=== PATIENT | male | born 1950 | race Caucasian/White ===

== ENCOUNTER 2019-08-20 06:32 | Outpatient (CLI) | payer MEDICARE, BC, SELFPAY ==
--- NOTE | ~2019-08-20 | MR_ITS ---
EXAMINATION: MR brain/brain stem wo/w con EXAM DATE: 08/20/2019 08:10 INDICATION: Abnormal involuntary movement. TECHNIQUE: Magnetic resonance imaging (MRI) of the brain/brain stem obtained without contrast. Sagit angela T1, axial diffusion, gradient echo (T2*), T1, T2, FLAIR sequences obtained. Patient was then inj ected with 20 cc intravenous Multihance contrast. Axial and coronal postcontrast T1 weighted sequence s obtained. Comparison is made to prior examination from 09/17/2018. FINDINGS: There are no areas of restricted diffusion to suggest acute infarction. There is no acute hemorrhage seen on the T2*, a hemosiderin sensitive sequence. No intraparenchymal brain mass lesion. There is mild periventricular and subcortical T2/FLAIR signal hyperintensity, nonspecific but probab ly related to small vessel ischemic disease (microangiopathy). There is mild prominence of the sulc i and ventricles related to cerebral atrophy. There are no extra-axial collections. Flow voids are seen in the cerebral arteries on the T2-weighted sequences consistent with their expected patency. The orbits are unremarkable. Soft tissue is unremarkable. There are no areas of abnormal enhancemen t on the postcontrast images. Small to moderate-sized left maxillary sinus mucous retention cyst. The re is no significant interval change. IMPRESSION: 1. No acute intracranial findings. 2. Chronic age related findings. Reviewed, dictated and finalized at location B. 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
[2019-08-20 07:46] LABS: Blood Urea Nitrogen 18 mg/dL (8-26); Estimated Glomerular Filt Rate > 60
== END 2019-08-20 06:33 | disposition home or self-care (01) ==
PROVIDERS: PCP Internal Medicine; Visit Provider Internal Medicine
DX: R25.9 Unspecified abnormal involuntary movements (principal); Z74.09 Other reduced mobility
CPT/HCPCS: 70553; A9577

== ENCOUNTER 2019-09-12 06:37 | Outpatient (CLI) | payer MEDICARE, BC, SELFPAY ==
--- NOTE | 2019-09-12 | ECHO_ITS ---
Patient Info Name: Josue Meza Age: 69 years : 1950 Gender: Male Ht: 72 in Wt: 240 lbs BSA: 2.38 m2 HR: 58 bpm BP: 133 / 82 mmHg Technical Quality: Fair Exam Date: 09/12/2019 6:50 AM Exam Location: [facility] Patient Status: Outpatient Admit Date: 09/12/2019 Staff Ordering Physician: PHYSICIAN NOT ON STAFF, NONSTAFF Activities Therapist: Jamia Lara RDCS Attending Provider: PHYSICIAN NOT ON STAFF, NONSTAFF Exam Type: CA echo dop color flow w con Study Info Indications I42.2 - Other hypertrophic cardiomyopathy Complete two-dimensional, color flow and Doppler transthoracic echocardiogram is performed with contrast to opacify the left ventrical and to improve the deliniation of the left ventrical endocarial boarders. Contrast/Agitated Saline Contrast/Ag. Saline: Definity Amount: 1.00 ml Administered By: Alo Oliveira RN IV Access Condition: patent with no signs of infiltration New IV Access: Left and Outer Forearm Site Condition: IV removed Summary 1. Left ventricular chamber dimension is mildly enlarged. 2. Definity contrast administered improved wall motion interpretation. 3. There is moderate asymmetric septal increased left ventricular wall thickness suggestive of hypertrophic cardiomyopathy. No LVOT obstruction. 4. Left ventricular systolic function is normal, estimated at 55-60%. 5. The left ventricular diastolic function is grade II diastolic dysfunction. 6. E/e' 15 is elevated. 7. Left atrial chamber dimension is mildly enlarged. 8. There is moderate aortic valve sclerosis. 9. There is trace aortic valve regurgitation. 10. There is trace mitral valve regurgitation. 11. There is mild tricuspid valve regurgitation. 12. No pulmonary hypertension, estimated pulmonary arterial systolic pressure is 16 mmHg. 13. There is trace pulmonic regurgitation. Left Ventricle E/e' 15 is elevated. There is moderate asymmetric septal increased left ventricular wall thickness suggestive of hypertrophic cardiomyopathy. No LVOT obstruction. Definity contrast administered improved wall motion interpretation. Left ventricular chamber dimension is mildly enlarged. Left ventricular systolic function is normal, estimated at 55-60%. The left ventricular diastolic function is grade II diastolic dysfunction. Right Ventricle Right ventricular chamber dimension is normal. Right ventricular systolic function is normal. Left Atria Left atrial chamber dimension is mildly enlarged. Right Atria Right atrial chamber dimension is normal. Aortic Valve The aortic valve is trileaflet. There is moderate aortic valve sclerosis. There is no aortic valve stenosis. There is trace aortic valve regurgitation. Pulmonic Valve There is trace pulmonic regurgitation. Mitral Valve There is no mitral valve stenosis. There is trace mitral valve regurgitation. Tricuspid Valve There is mild tricuspid valve regurgitation. No pulmonary hypertension, estimated pulmonary arterial systolic pressure is 16 mmHg. Pericardium/Pleural There is no pericardial effusion. Inferior Vena Cava Normal inferior vena cava with >50% collapse upon inspiration consistent with normal right atrial pressure, 5 mmHg. Aorta The aortic root size at the sinus of Valsalva is normal. Left Ventricular Outflow Tract Name Value
== END 2019-09-12 06:38 | disposition home or self-care (01) ==
PROVIDERS: PCP Internal Medicine
DX: I42.2 Other hypertrophic cardiomyopathy (principal)
CPT/HCPCS: C8929

== ENCOUNTER 2020-04-27 14:39 | Outpatient (CLI) | payer MEDICARE, BC, SELFPAY ==
--- NOTE | ~2020-04-27 | XR_ITS ---
XR_CERV2-3V_CR DATE: 04/27/2020 15:24 INDICATION: Neck pain TECHNIQUE: AP, open-mouth, lateral, swimmer views COMPARISON: None FINDINGS: There is reversal of cervical curvature. There is compensatory dextroscoliosis of the cervi salvador spine, levoscoliosis of the upper thoracic spine. There is moderate loss of interspace height at C3-4. There is severe degenerative disc disease and lo ss of height at C4-5 and particularly C5-6 and C6-7. There is uncovertebral joint spurring at C3-4 and particularly C4-5 and C5-6, C6-7. There is degenera tive change at the apophyseal joints as well. IMPRESSION: Reversal of curvature, scoliosis Extensive degenerative changes Reviewed, dictated and finalized at Location A. Reviewed, dictated and finalized at location A.
== END 2020-04-27 14:40 | disposition home or self-care (01) ==
PROVIDERS: PCP Internal Medicine; Visit Provider Internal Medicine
DX: M50.323 Other cervical disc degeneration at C6-C7 level (principal)
CPT/HCPCS: 72040

== ENCOUNTER → 2020-12-28 02:32 | Outpatient (CLI) | payer MEDICARE, BC, SELFPAY ==
[2020-12-28 23:32] LABS: SARS-CoV-2 RNA PCR Negative
== END ==
PROVIDERS: PCP Internal Medicine; Visit Provider Internal Medicine Gastroenterology
DX: Z01.812 Encounter for preprocedural laboratory examination (principal); Z20.822 Contact with and (suspected) exposure to COVID-19
CPT/HCPCS: C9803; U0003; U0005

== ENCOUNTER 2020-12-31 01:02 | Day surgery (SDC) | payer MEDICARE, BC, SELFPAY ==
[2020-12-22 13:05] VITALS: BMI 34.0
[2020-12-31 10:48] VITALS: BP 154/76; PULSE 53; RESP 20; TEMP 36; O2SAT 97; BMI 34.0
[2020-12-31 11:09] LABS: Glucose Point of Care 127 mg/dl (65-105)
[2020-12-31] MEDS: LACTATED RINGERS 1,000 ML 150 ML IV CONT (11:16)
--- NOTE | 2020-12-31 11:28 | WPDGICN ---
Assessment and Plan Assessment and plan (1) Hx of colonic polyps: Code(s): Z86.010 - Personal history of colonic polyps Status: Acute Assessment and Plan: Patient has a history of colon polyps. Last exam was approximately 4 years ago. Plan is for surveillance examination at this time. Follow-up at 3-5 year intervals is advised in the future. Further recommendations will be given after endoscopy. (2) Fecal incontinence: Qualifiers: Fecal incontinence type: unspecified Qualified Code(s): R15.9 - Full incontinence of feces Code(s): R15.9 - Full incontinence of feces Status: Acute Assessment and Plan: Patient has poor sphincter control. This will be analyzed at the time of colonoscopy. Agree with fiber supplementation and perhaps trial of Questran in the interim. Further recommendations may be given after endoscopy. (3) Rectal bleeding: Code(s): K62.5 - Hemorrhage of anus and rectum Status: Acute Assessment and Plan: Patient notes rectal bleeding. Appears to happen mostly with wiping. He has been significant amount on occasions. Plan is to continue fiber supplementation. Patient has already had hemorrhoid surgery once in the past. He is reluctant to proceed with this again. This will be evaluated at time colonoscopy. (4) GALVEZ (nonalcoholic steatohepatitis): Code(s): K75.81 - Nonalcoholic steatohepatitis (GALVEZ) Status: Acute Assessment and Plan: Patient known to have fatty liver. Liver biopsy at 2016 suggesting concomitant cirrhosis of liver. Patient should be maintained on low-fat diet. Weight loss is encouraged. Supportive care at this time. No specific medical therapy is been definitive for this condition. (5) Obesity (BMI 30-39.9): Code(s): E66.9 - Obesity, unspecified Status: Acute (6) History of gastric bypass: Code(s): Z98.84 - Bariatric surgery status Status: Acute GI Consult Note Consult date/time: 12/31/20 11:28 HPI: February Derrick is a 70 year old male Seen in evaluation at the request of Dr. Peralta. patient reports bright red blood per rectum typically small with wiping but on occasion is been significant. Occasionally soiling his clothes. Patient sometimes has poor control. He relates this since having had prior hemorrhoid surgery years ago. Sometimes he feels incontinent. He has rather significant urgency in poor control of stools. Recently has been on a trial of fiber supplementation as well as Questran with inconsistent results. Past medical history is significant for colon polyps most recently 4-5 years ago. Patient is instructed to follow up today for follow-up examination. Previous colonoscopies were performed in [place]. Patient has a distant history of gastric bypass surgery. He underwent cholecystectomy in 2016. At that time liver biopsy revealed Galvez and possible cirrhosis of liver. CT scanning and fiber scanning reveal no other evidence for cirrhosis. Patient's family history is noncontributory. Patient presents today for colonoscopy because of polyps, rectal bleeding and poor bowel movement control. Review of Systems Review of Systems: All systems reviewed & are unremarkable except as noted in HPI and below PMFSH Past Medical History Medical History Abnormal finding of blood chemistry, unspecified Benign essential hypertension BMI 33.0-33.9,adult BMI 34.0-34.9,adult CKD (chronic kidney disease) DM type 2 (diabetes mellitus, type 2) Dog bite Encounter for Medicare annual wellness exam Encounter for routine adult health examination without abnormal findings Encounter for special screening examination for neoplasm of prostate Erectile dysfunction Fecal incontinence Follow up Gout Grade II diastolic dysfunction Hearing loss Hx of colonic polyps Hyperlipidemia Hypoparathyroidism Impaired functional mo
--- NOTE | 2020-12-31 11:44 | WPDANESEPPF ---
Anes - Initial Pre Proc Eval Procedure: Operation Date: 12/31/20 12:00 Proposed Procedures p Colonoscopy - Fran Mendez MD Date/Time: 12/31/20 11:44 Surgeon: Fran Mendez MD Pre Op Diagnosis: rectal bleeding, fecal incont, hx polyp Patient Data Age: 70 Gender: M Height: 6 ft Weight: 113.8 kg Last Vital Signs Temp 96.8 F L 12/31/20 10:48 Pulse 53 L 12/31/20 10:48 Resp 20 12/31/20 10:48 BP 154/76 H 12/31/20 10:48 Pulse Ox 97 12/31/20 10:48 Allergies Allergy/AdvReac Type Severity Reaction Status Date / Time adhesive Allergy Unknown Unknown Verified 12/22/20 12:57 NSAIDS (Non-Steroidal Allergy Unknown Unknown Verified 12/22/20 12:57 Anti-Inflamma Penicillins Allergy Unknown Unknown Verified 12/22/20 12:57 NO BLIND NG TUBE INSERTION Allergy Unknown Unknown Uncoded 12/16/20 14:46 Home Medications Medication Instructions Recorded Confirmed Type aspirin 81 mg tablet,delayed 81 mg PO DAILY 06/04/19 12/22/20 History release calcium citrate 500 mg PO BID tablet 06/04/19 12/22/20 History cholecalciferol (vitamin D3) 25 1,000 unit PO DAILY 06/04/19 12/22/20 History mcg (1,000 unit) capsule ferrous sulfate 325 mg (65 mg 325 mg PO DAILY 06/04/19 12/31/20 History iron) tablet,delayed release zinc 50 mg tablet 50 mg PO DAILY 08/08/19 12/31/20 History omega-3 fatty acids 1,000 mg 1,000 mg PO DAILY 01/14/20 12/22/20 History capsule candesartan 16 mg tablet 16 mg PO DAILY #90 tablet 01/27/20 12/22/20 Rx blood sugar diagnostic #100 each 02/24/20 11/15/20 Rx sitagliptin 100 mg tablet 100 mg PO DAILY #90 tablet 03/16/20 12/31/20 Rx Blood Glucose Monitoring #1 ea NS 06/22/20 11/15/20 Rx blood sugar diagnostic #100 ea 06/22/20 11/15/20 Rx bumetanide 2 mg tablet 1 mg PO DAILY #90 tablet 06/22/20 12/31/20 Rx lancets 30 gauge #100 ea 06/22/20 11/15/20 Rx glimepiride 2 mg tablet 2 mg PO QAM #90 tablet 07/20/20 12/31/20 Rx dapagliflozin 10 mg tablet 10 mg PO DAILY #90 tablet 07/21/20 12/22/20 Rx allopurinol 300 mg tablet 300 mg PO DAILY #30 tablet 10/13/20 12/22/20 Rx atorvastatin 20 mg tablet See Rx Instructions .ROUTE 11/09/20 12/22/20 Rx .COMPLEX #90 tablet cholestyramine (with sugar) 4 gram 4 g PO DAILY #60 g 12/16/20 12/22/20 Rx powder for susp in a packet sodium,potassium,mag sulfates 17.5 See Rx Instructions PO .COMPLEX 12/17/20 Rx gram-3.13 gram-1.6 gram oral soln #354 ml montelukast [Singulair] 10 mg PO DAILY 12/22/20 12/31/20 History nebivolol [Bystolic] 20 mg PO DAILY 12/22/20 12/31/20 History testosterone cypionate 200 mg/mL 200 mg IM .Q3W ml 12/22/20 12/31/20 History intramuscular oil Laboratory Tests 12/31/20 11:07 POC Capillary Glucose 127 mg/dl H mg/dl (65-105) Patient hx anesthesia problems: none Family hx anesthesia problems: none PMFSH Past Medical History Medical History Abnormal finding of blood chemistry, unspecified Benign essential hypertension BMI 33.0-33.9,adult BMI 34.0-34.9,adult CKD (chronic kidney disease) DM type 2 (diabetes mellitus, type 2) Dog bite Encounter for Medicare annual wellness exam Encounter for routine adult health examination without abnormal findings Encounter for special screening examination for neoplasm of prostate Erectile dysfunction Fecal incontinence Follow up Gout Grade II diastolic dysfunction Hearing loss Hx of colonic polyps Hyperlipidemia Hypoparathyroidism Impaired functional mobility, balance, gait, and endurance Lesion of lip On [facility] drug therapy Resting tremor Skin lesion Testicular hypofunction Transient global amnesia Vitamin D deficiency Surgical History Surgical History (Updated 12/31/20 @ 11:33 by Fran Mendez MD) Hx of gastric bypass Family History Family History Mother Family history of glaucoma Hypertension Father Hypertension Cerebrovascular accide
[2020-12-31 12:40] VITALS: BP 111/74; PULSE 55; RESP 19; O2SAT 97
[2020-12-31 12:50] VITALS: BP 118/77; PULSE 61; RESP 23; O2SAT 96
[2020-12-31 13:00] VITALS: BP 141/83; PULSE 60; RESP 22; O2SAT 96
== END 2020-12-31 13:10 | disposition home or self-care (01) ==
PROVIDERS: PCP Internal Medicine; Visit Provider Internal Medicine Gastroenterology
PROC: 0DJD8ZZ Inspection of Lower Intestinal Tract, Via Natural or Artificial Opening Endoscopic (ICD-10-PCS; CPT 45378; principal; 2020-12-31 12:00)
DX: K62.5 Hemorrhage of anus and rectum (principal); R15.9 Full incontinence of feces; K64.8 Other hemorrhoids; K57.30 Diverticulosis of large intestine without perforation or abscess without bleeding; D12.5 Benign neoplasm of sigmoid colon; K63.5 Polyp of colon; K62.1 Rectal polyp; Z79.82 Long term (current) use of aspirin; E11.22 Type 2 diabetes mellitus with diabetic chronic kidney disease; N18.9 Chronic kidney disease, unspecified; E55.9 Vitamin D deficiency, unspecified; G45.4 Transient global amnesia; E03.9 Hypothyroidism, unspecified; E78.5 Hyperlipidemia, unspecified; E66.9 Obesity, unspecified; Z68.34 Body mass index [BMI] 34.0-34.9, adult; K75.81 Nonalcoholic steatohepatitis (NASH)
CPT/HCPCS: 45385; 82948; 88305; J2704; J7120

== ENCOUNTER 2021-02-04 08:32 | Outpatient (CLI) | payer MEDICARE, BC, SELFPAY ==
--- NOTE | ~2021-02-04 | MR_ITS ---
EXAMINATION: MR sacroiliac bettie wo con DATE: 02/04/2021 09:48 INDICATION: Lumbago with sciatica, right side. TECHNIQUE: Magnetic resonance imaging (MRI) of the sacroiliac joints was performed without intravenou s contrast. Sequences included sagittal PD-weighted FS FSE, coronal oblique T1-weighted FSE, T2-weigh deangelo FSE, and T2-weighted FS FSE, and axial oblique T1 FSE and T2-weighted FS FSE. COMPARISON: CT abdomen and pelvis 10/11/2015 FINDINGS: Bone alignment is normal. No fracture. There is mild osteoarthritis of the sacroiliac joints. There i s mild osteoarthritis of the hip joints. There is moderate lumbar spondylosis. The prostate is modera tely enlarged. IMPRESSION: 1. Mild osteoarthritis of the sacroiliac joints. No evidence of inflammatory arthropathy. Reviewed, dictated and finalized at location A. IMPRESSION: 1. Mild osteoarthritis of the sacroiliac joints. No evidence of inflammatory ar thropathy.
--- NOTE | ~2021-02-04 | MR_ITS ---
EXAMINATION: MR lumbar spine wo con DATE: 02/04/2021 09:48 INDICATION: Lumbago with sciatica, right-sided. TECHNIQUE: Magnetic resonance imaging (MRI) of the lumbar spine was performed without intravenous con trast. Sequences included sagittal T2-weighted FSE, sagittal T2-weighted FS FSE, sagittal T1-weighted FSE, and axial T2-weighted FSE. COMPARISON: None FINDINGS: There is 3 degrees dextrocurvature of lumbar spine. There is 3 mm retrolisthesis of L1 on L 2 and L3 on L4 and 3 mm anterolisthesis of L4 on L5. There is mild chronic anterior wedging of T11 an d T12 vertebral bodies. There is moderately decreased disc height at L1-L2 and mildly decreased disc height at L2-L3, L3-L4, and L4-L5 with endplate remodeling. Epidural lipomatosis is noted. The distal spinal cord signal intensity is normal. The conus medullaris is at L1. The following disc levels are specifically discussed: L1-L2: The disc is bulging and has an annular fissure. There is moderate right and mild left facet avi int osteoarthritis. There is moderate bilateral neural foraminal stenosis. There is mild central avila l stenosis. L2-L3: The disc is bulging with superimposed right subarticular zone extrusion with 2.0 cm superior e xtension to the pedicular level. There is moderate right and severe left facet joint osteoarthritis. There is moderate right and mild left neural foraminal stenosis. There is moderate central canal sten osis. L3-L4: The disc is bulging and has an annular fissure. There is severe bilateral facet joint osteoart hritis. There is moderate bilateral neural foraminal stenosis. There is mild central canal stenosis. L4-L5: The disc is bulging and has an annular fissure. There is severe bilateral facet joint osteoart hritis. There is moderate bilateral neural foraminal stenosis. There is no central canal stenosis. L5-S1: The disc is bulging and has an annular fissure. There is severe bilateral facet joint osteoart hritis. There is mild bilateral neural foraminal stenosis. There is mild central canal stenosis. IMPRESSION: 1. Moderate lumbar spondylosis. Reviewed, dictated and finalized at location A.
== END 2021-02-04 08:33 | disposition home or self-care (01) ==
PROVIDERS: PCP Internal Medicine; Visit Provider Internal Medicine
DX: M54.41 Lumbago with sciatica, right side (principal); G89.29 Other chronic pain; M25.559 Pain in unspecified hip; M53.3 Sacrococcygeal disorders, not elsewhere classified; M47.896 Other spondylosis, lumbar region
CPT/HCPCS: 72148; 72197

== ENCOUNTER 2021-04-18 10:37 | Outpatient (CLI) | payer MEDICARE, BC, SELFPAY ==
--- NOTE | ~2021-04-18 | XR_ITS ---
EXAMINATION: XR abdomen/kub 1V EXAM DATE: 04/18/2021 10:59 INDICATION: Kidney stone. TECHNIQUE: Frontal projection of the upper abdomen, frontal projection lower abdomen/pelvis for inter pretation. Comparison is made to prior examination from 07/29/2018. FINDINGS: Bowel gas overlying the left renal contour limiting its evaluation. No definite nephrolithi asis. Cholecystectomy clips. Pelvic calcifications probably phleboliths appear unchanged. Nonobstruct jazlyn bowel gas pattern. There is no organomegaly. There are bony degenerative changes. IMPRESSION: No definite stones identified. Reviewed, dictated and finalized at location A.
--- NOTE | ~2021-04-18 | US_ITS ---
EXAMINATION: US renal BI EXAM DATE: 04/18/2021 11:22 INDICATION: Stage III chronic kidney disease. TECHNIQUE: Multiple grayscale and Doppler images of the kidneys were obtained (by a technologist who performed the scan) and subsequently reviewed. There is no prior study for comparison. FINDINGS: Right kidney: There is normal contour and echogenicity. It measures 10.9 x 4.3 x 5.1 centimeters. T here are no focal renal lesions identified. There is no hydronephrosis. Left kidney: There is normal contour and echogenicity. It measures 12.0 x 5.0 x 6.8 centimeters. Th ere are no focal renal lesions identified. There is a lesion consistent with cyst in the superior po le measuring 4.4 cm. Bladder unremarkable. There is mild to moderate prostatomegaly. IMPRESSION: 1. Left renal cyst. 2. Mild to moderate prostatomegaly. Reviewed, dictated and finalized at location A.
== END 2021-04-18 10:38 | disposition home or self-care (01) ==
PROVIDERS: PCP Internal Medicine; Visit Provider Internal Medicine Nephrology
DX: N18.31 Chronic kidney disease, stage 3a (principal); N28.1 Cyst of kidney, acquired; N40.0 Benign prostatic hyperplasia without lower urinary tract symptoms
CPT/HCPCS: 74018; 76775

== ENCOUNTER 2021-06-28 09:37 | Outpatient (CLI) | payer MEDICARE, BC, SELFPAY ==
--- NOTE | 2021-06-28 11:00 | NEURO_ITS ---
Impression: # Complains of numbness of hands. 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 # Neuropathy, motor and sensory, of axonal type. # Superimposed right Carpal Tunnel Syndrome. # Left ulnar neuropathy around the elbow. # Mildly abnormal needle/EMG exam. Nerve Conduction Studies Anti Sensory Summary Table Stim Site NR Peak (ms) P-T Amp (?V) Site1 Site2 Delta-P (ms) Dist (cm) Alcides (m/s) Left Median Anti Sensory (2-3nd Digit) Wrist 3.8 21.0 Wrist 2-3nd Digit 3.8 14.0 37 Wrist 4.2 13.0 Wrist 2-3nd Digit 3.8 14.0 37 Right Median Anti Sensory (2-3nd Digit) Wrist 3.9 5.0 Wrist 2-3nd Digit 3.9 14.0 36 Wrist 4.1 23.1 Wrist 2-3nd Digit 3.9 14.0 36 Left Radial Anti Sensory (Base 1st Digit) Wrist 3.3 12.0 Wrist Base 1st Digit 3.3 0.0 Right Radial Anti Sensory (Base 1st Digit) Wrist 2.9 8.8 Wrist Base 1st Digit 2.9 0.0 Left Ulnar Anti Sensory (5th Digit) Wrist 3.1 13.6 Wrist 5th Digit 3.1 14.0 45 Right Ulnar Anti Sensory (5th Digit) Wrist 2.7 23.1 Wrist 5th Digit 2.7 14.0 52 Motor Summary Table Stim Site NR Onset (ms) O-P Amp (mV) Site1 Site2 Delta-0 (ms) Dist (cm) Alcides (m/s) Left Median Motor (Abd Poll Brev) Wrist 4.0 2.3 Elbow Wrist 5.8 32.0 55 Elbow 9.8 1.7 Right Median Motor (Abd Poll Brev) Wrist 4.5 2.0 Elbow Wrist 6.0 30.0 50 Elbow 10.5 2.1 Left Ulnar Motor (Abd Dig Minimi) Wrist 3.0 3.8 A Elbow Wrist 7.4 32.0 43 A Elbow 10.4 4.0 B Elbow Wrist 6.3 27.0 43 B Elbow 9.3 3.8 Right Ulnar Motor (Abd Dig Minimi) Wrist 2.9 4.4 A Elbow Wrist 6.0 30.0 50 A Elbow 8.9 3.1 F Wave Studies NR F-Lat (ms) L-R F-Lat (ms) Left Median (Mrkrs) (Abd Poll Brev) 32.16 0.58 Right Median (Mrkrs) (Abd Poll Brev) 31.58 0.58 Left Ulnar (Mrkrs) (Abd Dig Min) 28.44 0.31 Right Ulnar (Mrkrs) (Abd Dig Min) 28.13 0.31 EMG Side Muscle Nerve Root Ins Act Fibs Amp Dur Recrt Comment Right 1stDorInt Ulnar C8-T1 Nml Nml Nml Nml Nml Right Ext Indicis Radial (Post Int) C7-8 Nml Nml Nml Nml Nml Right Ext Digitorum Radial (Post Int) C7-8 Nml Nml Nml Nml Reduced Right BrachioRad Radial C5-6 Nml Nml Nml Nml Nml Right PronatorTeres Median C6-7 Nml Nml Nml Nml Nml Right Abd Poll Brev Median C8-T1 Nml Nml Nml Nml Reduced Left 1stDorInt Ulnar C8-T1 Nml Nml Incr Nml Reduced Left Ext Indicis Radial (Post Int) C7-8 Nml Nml Nml Nml Nml Left Ext Digitorum Radial (Post Int) C7-8 Nml Nml Nml Nml Reduced Left BrachioRad Radial C5-6 Nml Nml Nml Nml Nml Left PronatorTeres Median C6-7 Nml Nml Nml Nml Nml Left Abd Poll Brev Median C8-T1 Nml Nml Incr Nml Reduced Right ABD Dig Min Ulnar C8-T1 Nml Nml Nml Nml Nml Left ABD Dig Min Ulnar C8-T1 Nml Nml Nml Nml Nml Right Abd Poll Long Radial (Post Int) C7-8 Nml Nml Nml Nml Nml Left Abd Poll Long Radial (Post Int) C7-8 Nml Nml Nml Nml Nml MTDD
== END 2021-06-28 09:38 | disposition home or self-care (01) ==
LOC: ANHNEURO 09:41
PROVIDERS: PCP Internal Medicine; Visit Provider Internal Medicine
DX: R20.0 Anesthesia of skin (principal); G56.01 Carpal tunnel syndrome, right upper limb; G56.22 Lesion of ulnar nerve, left upper limb
CPT/HCPCS: 95886; 95911

== ENCOUNTER → 2021-07-01 03:50 | Outpatient (CLI) | payer MEDICARE, BC, SELFPAY ==
[2021-07-01 12:44] LABS: Influenza Control Positive
[2021-07-01 19:27] LABS: SARS-CoV-2 RNA PCR Negative
== END ==
PROVIDERS: PCP Internal Medicine; Visit Provider Internal Medicine
DX: R68.89 Other general symptoms and signs (principal); Z20.822 Contact with and (suspected) exposure to COVID-19
CPT/HCPCS: 87804; 93922; C9803; U0003; U0005

== ENCOUNTER 2021-07-01 13:45 | Outpatient (CLI) | payer MEDICARE, BC, SELFPAY ==
--- NOTE | ~2021-07-01 | US_ITS ---
EXAMINATION: US arterial ankle brachial ind DATE: 07/01/2021 14:32 INDICATION: Encounter for follow-up. Atherosclerotic disease in the arteries of the bilateral lower l imbs with laceration risk factors including hypertension, hypercholesterolemia and diabetes. TECHNIQUE: Segmental pressures and plethysmographic and Doppler waveforms of the brachial and lower e xtremity arteries were obtained. COMPARISON: None. FINDINGS: Right and left brachial artery pressures of 155 mm Hg and 144 mm Hg, respectively, are concordant (no rmal difference <= 30 mmHg). The right ankle-brachial index (EVELIO) is 1.03 (normal >= 0.9-1.0). The right great toe-brachial index (TBI) is 0.57 (normal >= 0.65). Arterial Doppler waveforms are biphasic with brisk systolic upstrokes at both the right posterior tibial and dorsalis pedis arteries. The left EVELIO is 1.18. The left TBI is 0.59. Arterial Doppler waveforms are biphasic with brisk systol ic upstrokes at both the left posterior tibial and dorsalis pedis arteries. IMPRESSION: 1. Mild arterial occlusive disease to the bilateral lower limbs with normal bilateral ABIs but mildly decreased bilateral TBIs Reviewed, dictated and finalized at location B. [employer] IMPRESSION: 1. Mild arterial occlusive disease to the bilateral lower limbs with normal cesar ateral ABIs but mildly decreased bilateral TBIs
== END 2021-07-01 13:46 | disposition home or self-care (01) ==
LOC: ANHIMG 13:51
PROVIDERS: PCP Internal Medicine; Visit Provider Internal Medicine
DX: Z09 Encounter for follow-up examination after completed treatment for conditions other than malignant neoplasm (principal); R68.89 Other general symptoms and signs
CPT/HCPCS: 93922

== ENCOUNTER 2021-10-26 09:25 | Outpatient (CLI) | payer MEDICARE, BC, SELFPAY ==
[2021-10-26 10:38] LABS: Prothrombin Time 13.2 Seconds (11.1-14.7)
[2021-10-26 10:39] LABS: Partial Thromboplastin Time 26.9 SECONDS (22.3-36.8)
== END 2021-10-26 09:26 | disposition home or self-care (01) ==
LOC: ANHSURGERY 09:31
PROVIDERS: Anesthesiology; PCP Internal Medicine; Visit Provider Plastic Surgery
DX: N18.9 Chronic kidney disease, unspecified (principal); Z01.818 Encounter for other preprocedural examination
CPT/HCPCS: 36415; 85610; 85730

== ENCOUNTER 2021-11-02 00:02 | Day surgery (SDC) | payer MEDICARE, BC, SELFPAY ==
[2021-10-18 14:59] VITALS: BMI 34.0
--- NOTE | 2021-10-18 15:16 | PC.NURSE ---
Report to the Outpatient Waiting Room, entrance under the green pavilion located off [facility], at time _0600_ on date _11/02/21_. OR Time: _0730_. - You and your visitor will be asked a series of questions to screen for COVID 19 for your protection. - A mask is required within the hospital. One visitor will be allowed to accompany the patient into the hospital. Patients visitor will be instructed to remain with patient at all times or leave the building. We will allow the visitor to come back to the postoperative area when patient is ready. Preoperative COVID Testing Requirements: NONE Patients may have clear liquids (water, carbonated beverages, clear teas, apple juice) until 3 hours prior to surgery (0430 AM) with a maximum of 20 ounces. - No food from midnight until time of surgery Take the following medications with a SIP of water the morning of surgery: _NEBIVOLOL (BYSTOLIC)_ Medications to discontinue per ANESTHESIA - _ALL VITAMINS, HERBAL SUPPLEMENTS AND PROBIOTICS 3 DAYS PRIOR TO SURGERY, Date to take last dose_10/29/21__ Please no deodorant, or body powder the day of surgery. No jewelry (including any body piercings) or valuables the day of surgery, leave them at home. Please take a shower or bath the night before, or the morning of, surgery with an antibacterial soap. Wear comfortable, loose fitting clothing. - Jewelry must be removed prior to entering the operating room. Rings and piercings that are not removed may be cut off. - The hospital will not accept responsibility for valuables. - Please leave all valuables, including medications, at home the day of surgery. If you are going home after surgery, a licensed construction driver must drive you home. - NO public transportation without another adult. - We recommend that an adult stay with you for 24 hours following discharge. - We also recommend that you do not drive, make important decision, drink alcoholic beverages, or take any drugs that were not prescribed by your health care provider for at least 24 hours after your discharge time. Follow any additional instructions given to you from your surgeon. Telephone instructions given to ____PT and asked if any additional questions and then verbalized understanding. Patient advised to call surgeon office or pre surgery nurse liaisonJOSE ANEGL [phone] if any additional questions.
--- NOTE | 2021-11-01 11:03 | WPDANESEPPF ---
Anes - Initial Pre Proc Eval Procedure: Operation Date: 11/02/21 07:30 Proposed Procedures p Left Open Carpal Tunnel Release - Sadi Gaines MD s Left Ulnar Neuroplasty - Sadi Gaines MD Date/Time: 11/01/21 11:03 Surgeon: Sadi Gaines MD Pre Op Diagnosis: Left Carpal and cubital syndrome Patient Data Age: 71 Gender: M Height: 1.83 m Weight: 113.8 kg Allergies Allergy/AdvReac Type Severity Reaction Status Date / Time adhesive Allergy Unknown SKIN Verified 11/02/21 07:39 IRRITATION NSAIDS (Non-Steroidal Allergy Unknown DUE TO Verified 11/02/21 07:39 Anti-Inflamma GASTRIC BYPASS Penicillins Allergy Unknown Rash Verified 11/02/21 07:39 NO BLIND NG TUBE INSERTION Allergy Unknown DUE TO Uncoded 11/02/21 07:39 GASTRIC BYPASS Home Medications Medication Instructions Recorded Confirmed Type aspirin 81 mg tablet,delayed 81 mg PO DAILY 06/04/19 10/24/21 History release calcium citrate 500 mg PO BID tablet 06/04/19 10/24/21 History ferrous sulfate 325 mg (65 mg 325 mg PO DAILY 06/04/19 10/24/21 History iron) tablet,delayed release zinc 50 mg tablet 50 mg PO DAILY 08/08/19 10/24/21 History omega-3 fatty acids 1,000 mg 1,000 mg PO DAILY 01/14/20 10/24/21 History capsule candesartan 16 mg tablet 16 mg PO DAILY #90 tablet 01/27/20 10/24/21 Rx blood sugar diagnostic #100 each 02/24/20 10/24/21 Rx Blood Glucose Monitoring #1 ea NS 06/22/20 10/24/21 Rx blood sugar diagnostic #100 ea 06/22/20 10/24/21 Rx lancets 30 gauge #100 ea 06/22/20 10/24/21 Rx nebivolol [Bystolic] 20 mg PO DAILY 12/22/20 10/24/21 History cholecalciferol (vitamin D3) 25 2,000 unit PO DAILY cap 03/08/21 10/24/21 History mcg (1,000 unit) capsule testosterone enanthate 75 mg/0.5 75 mg SUBCUT WEEKLY 08/17/21 10/24/21 History mL subcutaneous auto-injector tadalafil 20 mg tablet 20 mg PO DAILY PRN #6 tablet 08/31/21 10/24/21 Rx Januvia 100 mg DAILY 10/18/21 10/24/21 History allopurinol 300 mg DAILY 10/18/21 10/24/21 History atorvastatin 20 mg DAILY 10/18/21 10/24/21 History glimepiride 2 mg QAM 10/18/21 10/24/21 History montelukast 10 mg DAILY 10/18/21 10/24/21 History dapagliflozin 10 mg tablet See Rx Instructions .ROUTE 10/19/21 11/02/21 Rx .COMPLEX #90 tablet bumetanide 2 mg tablet 1 mg PO DAILY #90 tablet 10/24/21 11/02/21 Rx hydrocodone-acetaminophen 1 tablet PO Q6H PRN #7 tablet 11/02/21 Rx oxycodone 5 mg PO Q6H PRN #35 ml MDD 20ml 11/02/21 Rx oxycodone-acetaminophen 1 tablet PO Q4-6H PRN #10 tablet 11/02/21 Rx MDD 6 Patient hx anesthesia problems: none Family hx anesthesia problems: none Results Review: All pre-operative results and documents have been reviewed as part of the pre-operative evaluation. 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 DM type 2 (diabetes mellitus, type 2) Dog bite Elevated parathyroid hormone Encounter for Medicare annual wellness exam Encounter for routine adult health examination with abnormal findings Encounter for routine adult health examination without abnormal findings Encounter for special screening examination for neoplasm of prostate Erectile dysfunction Fecal incontinence Follow up Gout Grade II diastolic dysfunction Hearing loss Hematuria History of elevated PSA Hx of colonic polyps Hyperlipidemia Hypoparathyroidism Impacted cerumen, bilateral Impaired functional mobility, balance, gait, and endurance Lesion of lip Numbness and tingling in 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
[2021-11-02 06:45] VITALS: BP 144/84; PULSE 62; RESP 16; TEMP 36.6; O2SAT 97
[2021-11-02] MEDS: LACTATED RINGERS 1,000 ML 30 ML IV CONT (06:45)
--- NOTE | 2021-11-02 07:10 | WPDHPUPDATE1 ---
History and Physical Update Update Date/Time: 11/02/21 07:10 History and Physical has been reviewed, including an updated exam of the patient. There are NO changes in the patient's condition. Risks, benefits, and alternatives have been discussed and questions answered. Patient agrees to proceed with procedure.
[2021-11-02] MEDS: BACITRACIN OINTMENT 15 GM TUBE 1 APPLIC TOPICAL (07:27)
[2021-11-02] MEDS: LIDO 1%/EPINEPHRINE 1:100,000 50 ML VIAL 10 ML INFILTRATE (07:27)
[2021-11-02 07:51] LABS: Glucose Point of Care 117 mg/dl (65-105)
[2021-11-02 08:36] VITALS: BP 136/75; PULSE 58; RESP 18; O2SAT 99
[2021-11-02 08:45] LABS: Glucose Point of Care 117 mg/dl (65-105)
[2021-11-02 09:00] VITALS: BP 155/85; PULSE 52; RESP 16; O2SAT 96
[2021-11-02 09:30] VITALS: BP 155/70; PULSE 51; RESP 16
[2021-11-02 09:45] VITALS: BP 166/73; PULSE 52; RESP 16
--- NOTE | 2021-11-02 18:05 | P.OP_ITS ---
Procedure Note - Detailed Date of Procedure 11/02/21 Pre-op Diagnosis Left Carpal and cubital syndrome Post-op Diagnosis Same Procedure Performed Left open carpal tunnel release and left ulnar neuroplasty at the elbow Surgeon Sadi Gaines MD Personalized Living Assistant Bridger Patterson [facility] [place] Description of Procedure The 2 sites were marked on the patient's left upper extremity in the holding area. He was then taken to the operating room where he was placed supine on the operating table. Time-out was held confirmed. He was given IV sedation and the extremity was prepped and draped in usual fashion. The 2 sites were remarked for actual incisions and locally infiltrated with 1% lidocaine with epinephrine. The tourniquet was inflated to 250 mmHg. Surgery was begun in the hand where the incision was made in the palm the dissection was bluntly continue to expose the palmar retinaculum. This in the transverse retinaculum were incised with a 15 blade. A this opened the canal and we were able to release the retinaculum distally and proximally under 3 point retraction. There is no unusual anatomy noted there. That skin was closed with interrupted 4-0 nylon. The elbow was then elevated on some folded towels and flexed. The incision was made over the cubital tunnel. This was carefully dissected down to the ulnar nerve just proximal to the medial epicondyle. There was no constriction proximally and this was opened. Moving distally there was a fair amount of contracture I believe over the nerve in the area of Armstrong's ligament. The dissection continued distally into the flexor muscle fascia. There was no constriction in that region either. Of the tourniquet was released in tea minutes were spent cauterizing small vessels. The nerve did not sublux. The wound was closed with interrupted 3-0 Monocryl sutures in the dermis opposing the wound edges. The skin was then closed with glue. The usual bandages were applied to each site and is discharged from the operating room stable condition a prescription for oxycodone 5 mg per 5 milliliter was sent to his pharmacy. A volume of 30 milliliter was ordered. Estimated Blood Loss -2.0 Tourniquet Time 23 Drains No Packing No Pathology None sent Complications No immediate complications Condition Stable Disposition Same day
== END 2021-11-02 09:56 | disposition home or self-care (01) ==
PROVIDERS: PCP Internal Medicine; Visit Provider Plastic Surgery
PROC: (CPT 64721; principal; 2021-11-02 07:30)
PROC: (CPT 64721; 2021-11-02 07:30)
DX: G56.02 Carpal tunnel syndrome, left upper limb (principal); G56.22 Lesion of ulnar nerve, left upper limb; I11.9 Hypertensive heart disease without heart failure; I12.9 Hypertensive chronic kidney disease with stage 1 through stage 4 chronic kidney disease, or unspecified chronic kidney disease; N18.9 Chronic kidney disease, unspecified; E11.22 Type 2 diabetes mellitus with diabetic chronic kidney disease; M10.9 Gout, unspecified; E78.5 Hyperlipidemia, unspecified; E20.9 Hypoparathyroidism, unspecified; G25.2 Other specified forms of tremor; E55.9 Vitamin D deficiency, unspecified; Z98.84 Bariatric surgery status; Z72.0 Tobacco use; E66.9 Obesity, unspecified; Z68.33 Body mass index [BMI] 33.0-33.9, adult; Z79.84 Long term (current) use of oral hypoglycemic drugs; Z79.82 Long term (current) use of aspirin
CPT/HCPCS: 64721; 64718; 82948; A9270; J2250; J2704; J3010; J7120

== ENCOUNTER 2022-05-22 11:45 | Outpatient (CLI) | payer MEDICARE, BC, SELFPAY ==
--- NOTE | ~2022-05-22 | XR_ITS ---
XR abdomen/kub 1V DATE: 05/22/2022 12:39 INDICATION: Back pain. History of kidney stones. TECHNIQUE: 3 supine AP views COMPARISON: None FINDINGS: Surgical clips overlie right upper quadrant, consistent with cholecystectomy. Prominent bilateral vas deferens calcifications, which are likely associated with diabetes. Radiopaque sutures overlie the left upper and mid abdomen, likely due to Jessica-en-Y gastric bypass.. There is a faint small calcification overlying the lower pole of the left kidney, likely a small nono bstructing calcified calculus. The psoas shadows are intact. No visceromegaly is evident. There is no evidence of bowel obstruction. Scoliosis and degenerative change of the thoracic and lumbar spine. The lung bases are clear. IMPRESSION: Status post cholecystectomy Status post Jessica-en-Y gastric bypass Small nonobstructing lower pole left renal calcified calculus Prominent bilateral vas deferens calcifications, suggesting diabetes Reviewed, dictated and finalized at Location A. Reviewed, dictated and finalized at location A.
[2022-05-22 12:44] LABS: Appearance Urine Clear (Clear); Bilirubin Urine Negative (Negative); Blood Urine Trace-intact (Negative); Color Urine Yellow (Yellow); Glucose Urine UA 3+ mg/dL (Negative); Ketones Urine Negative (Negative); Leukocyte Esterase Ur Negative LEU/UL (Negative); Nitrate Urine Negative (Negative); Protein Urine 2+ mg/dL (Negative); Urobilinogen Urine 0.2 mg/dL (<2.0)
[2022-05-22 12:57] LABS: Mucus Urine Rare /lpf; RBC Urine 0-2 /hpf (0-2); Squamous Epithelial Cell Urine Rare /hpf (Few); WBC Urine 0-3 /hpf
[2022-05-22 12:58] LABS: Add Urine Microscopic? YES
== END 2022-05-22 11:46 | disposition home or self-care (01) ==
PROVIDERS: PCP Internal Medicine; Visit Provider Internal Medicine
DX: M54.9 Dorsalgia, unspecified (principal); R30.0 Dysuria; Z90.49 Acquired absence of other specified parts of digestive tract; N20.0 Calculus of kidney
CPT/HCPCS: 74018; 81001; 87086

== ENCOUNTER 2022-11-02 10:31 | Outpatient (CLI) | payer MEDICARE, SELFPAY ==
--- NOTE | ~2022-11-02 | US_ITS ---
EXAMINATION: US scrotum doppler DATE: 11/02/2022 11:13 INDICATION: Right testicular pain. TECHNIQUE: Grayscale and Doppler ultrasound images of the testes were obtained. COMPARISON: None. FINDINGS: The right testis measures 3.2 x 2.0 x 2.4 cm. The left testis measures 3.2 x 1.5 x 2.0 cm. There is normal vascular flow to both testes. The right epididymis is enlarged with increased vascula rity.. The left epididymis is normal with normal vascular flow. There are bilateral varicoceles. No h ydrocele. IMPRESSION: 1. Right-sided epididymitis. Reviewed, dictated and finalized at location A.
== END 2022-11-02 10:32 | disposition home or self-care (01) ==
PROVIDERS: PCP Internal Medicine; Visit Provider Internal Medicine
DX: N45.1 Epididymitis (principal); N50.811 Right testicular pain; N50.89 Other specified disorders of the male genital organs
CPT/HCPCS: 76870; 93976

== ENCOUNTER 2022-12-12 09:12 | Outpatient (CLI) | payer MEDICARE, SELFPAY ==
--- NOTE | ~2022-12-12 | XR_ITS ---
EXAMINATION: XR abdomen/kub 1V DATE: 12/12/2022 09:29 INDICATION: Kidney stone. Hematuria. TECHNIQUE: A supine view of the abdomen on 2 radiographs was obtained. COMPARISON: Abdomen radiographs 05/22/2022, CT abdomen and pelvis 10/11/2015 FINDINGS: There are no dilated loops of bowel. Surgical clips in the right upper quadrant are likely from cholecystectomy. There are phleboliths in the pelvis. IMPRESSION: 1. No visible urolithiasis. Reviewed, dictated and finalized at location A. IMPRESSION: 1. No visible urolithiasis.
== END 2022-12-12 09:13 | disposition home or self-care (01) ==
PROVIDERS: PCP Internal Medicine; Referring Provider Urology; Visit Provider Internal Medicine
DX: R31.9 Hematuria, unspecified (principal); Z87.442 Personal history of urinary calculi
CPT/HCPCS: 74018

== ENCOUNTER 2022-12-13 14:26 | Observation (INO) | payer MEDICARE, SELFPAY ==
[2022-12-13] VITALS (13 sets, daily range): BP systolic 133–165; BP diastolic 63–88; PULSE 54–61; RESP 16–23; TEMP 36.2–36.4; O2SAT 95–96; BMI 33.0
--- NOTE | ~2022-12-13 | CT_ITS ---
EXAMINATION: CT abdomen pelvis w con DATE: 12/13/2022 17:38 INDICATION: 2 days of hematuria and back pain. Left testicular pain. TECHNIQUE: Computed tomography (CT) of the abdomen and pelvis was performed without intravenous contr ast. Automated exposure control and iterative reconstruction technique were employed. The dose-length product was 1457.63 mGy-cm. COMPARISON: 10/11/2015 FINDINGS: Lung bases are clear. Heart size is normal. Atherosclerotic coronary artery calcifications. Aortic va lve calcification. No pericardial or pleural effusion. Postoperative change of prior gastric bypass p rocedure. There is a of the proximal 0.7 cm long ovoid rim calcified structure within the remaining s tomach potentially representing ingested bone fragment. Cholecystectomy clips the gallbladder fossa. Spleen, pancreas, bilateral adrenal glands and right kidney are normal. 5.5 cm exophytic cyst at the upper pole of the left kidney. 2 mm nonobstructing stone at the lower pole of the left kidney. No hyd ronephrosis or stones seen along the course of the ureters. There is however visible urothelial enhan cement along the length of the bilateral ureters and wall thickening of the bladder with subtle hazin ess to the surrounding fat consistent with cystitis and associated ascending urinary tract infection. There is mild scattered diverticulosis without adjacent inflammatory stranding to suggest diverticul itis. No bowel obstruction. Normal appendix. Prostatomegaly measuring 5.8 x 4.7 cm. Calcific lesion a long the bilateral vas deferens which can be seen in the setting of diabetes. No free intraperitoneal gas or fluid. No pathologically enlarged abdominal or pelvic lymphadenopathy. Mild thoracolumbar lev ocurvature with moderate spondylosis. IMPRESSION: 1. Bladder wall thickening and urothelial enhancement along the bilateral ureters and associated infi ltrate stranding consistent with cystitis and ascending urinary tract infection. Correlate with urina lysis. 2. Nonobstructing 2 mm stone at the lower pole of the left kidney. No ureteral stones or hydronephros is. Reviewed, dictated and finalized at location A. IMPRESSION: 1. Bladder wall thickening and urothelial enhancement along the bilateral urete rs and associated infiltrate stranding consistent with cystitis and ascending u rinary tract infection. Correlate with urinalysis. 2. Nonobstructing 2 mm stone at the lower pole of the left kidney. No ureteral stones or hydronephrosis.
--- NOTE | ~2022-12-13 | US_ITS ---
EXAMINATION: US scrotum doppler DATE: 12/13/2022 18:45 INDICATION: Right testicular pain . TECHNIQUE: Grayscale and Doppler ultrasound images of the testes were obtained. COMPARISON: CT abdomen and pelvis, same date. FINDINGS: The right testis measures 3.3 x 1.6 x 2.5 cm. The left testis measures 3.1 x 1.7 x 2.1 cm. Tubular hyperechoic and anechoic structures adjacent to the right epididymis and testicle, with some areas of increased flow during Valsalva. There is normal vascular flow to both testes. The right epid idymis enlarged and hypervascular with multiple calcifications. The left epididymis is normal with no rmal vascular flow. No hydroceles. Small left varicocele. IMPRESSION: Right epididymal enlargement and hyperemia as can be seen with epididymitis. Extra and intratesticula r right varicocele, with echogenicity of the tortuous veins could represent thrombophlebitis, given t he findings in the CT abdomen and pelvis. Small left varicocele. Reviewed, dictated and finalized at location K. IMPRESSION: Right epididymal enlargement and hyperemia as can be seen with epididymitis. Ex tra and intratesticular right varicocele, with echogenicity of the tortuous vei ns could represent thrombophlebitis, given the findings in the CT abdomen and p wilman. Small left varicocele.
[2022-12-13 14:44] LABS: Basophils Percent Auto 0.3 % (0.2-1.2); Eosinophils Absolute Auto 0.2 K/mm3 (0-0.3); Eosinophils Percent Auto 1.4 % (0-4.4); Hematocrit 43.8 % (42.0-52.0); Hemoglobin 14.7 g/dL (14.0-18.0); Immature Granulocyte Absolute 0.03 K/mm3 (0.00-0.031); Immature Granulocyte Percent A 0.3 % (0-0.5); Lymphocytes Absolute Auto 1.01 K/mm3 (0.9-3.2); Mean Corpuscular HGB Conc 33.6 g/dl (32-36); Mean Corpuscular Hemoglobin 31.5 pg (26-34); Mean Platelet Volume 10.6 fl (7.4-10.4); Monocytes Percent Auto 8.7 % (2.6-8.5); Neutrophils Absolute Auto 9.1 K/mm3 (1.3-6.7); Neutrophils Percent Auto 80.3 % (45.5-73.1); Platelet Count Result 172 k/mm3 (150-375); Red Blood Count 4.66 M/mm3 (4.6-6.20); Red Cell Distribution Width 12.7 % (11.5-14.5); White Blood Count 11.3 K/mm3 (4.5-10.0)
[2022-12-13 14:57] LABS: Alanine Aminotransferase 40 U/L (6-50); Albumin Level 4.1 g/dL (3.5-5.1); Alkaline Phosphatase 113 U/L (38-126); Anion Gap 2 mmol/L (8-16); Aspartate Amino Transferase 47 U/L (17-59); Bilirubin,Total 1.1 mg/dL (0.2-1.3); Blood Urea Nitrogen 26 mg/dL (9-20); Calcium 8.5 mg/dL (8.4-10.2); Carbon Dioxide 33 mmol/L (22-30); Chloride 98 mmol/L (98-107); Estimated CRCL calculation 54 ml/min; Estimated Glomerular Filt Rate 50; Glucose 158 mg/dL (65-110); Sodium 133 mmol/L (137-145)
[2022-12-13 15:10] LABS: Bacteria Urine Rare /hpf; Need Manual Microscopic Reviewed; Non Pathogenic Casts 0-2; RBC Urine >100 /hpf (0-2); Squamous Epithelial Cell Urine Occasional /hpf (Few); WBC Urine >100 /hpf
[2022-12-13 15:11] LABS: Appearance Urine Turbid (Clear); Color Urine Red (Yellow)
[2022-12-13 15:13] LABS: Add Urine Microscopic? YES
--- NOTE | 2022-12-13 16:07 | PC.NURSE ---
Addendum entered by Samuel Hollowya RN 12/13/22 16:14: Pain is in pt's right testicle. Original Note: Pt is wheeled into ER c/o blood in his urine. States the symptoms started yesterday with a lot of blood. States he had multiple episodes of dark blood that started to lighten until this morning. Pt then began urinating the dark red blood with clots. States that he has flank pain. States also when sitting he has pain in his left testicle. States he has been dealing with testicle pain for 3 months and being seen by a provider. States yesterday he had an X-ray and was told there is no stone in his kidney's. States he is having pain in his lower abd. States he has been having a problem with urgency. Pt has been drinking adequate water. States he has been dealing with chills and weakness. HX of gastric bypass, gallbladder removed, HTN, DM, neuropathy, and central tremors.
--- NOTE | 2022-12-13 17:07 | ED.MALEGU ---
HPI - Male Genitourinary General Chief complaint: Urogenital-Male Stated complaint: blood in urine sent by Dr. Galeana Seen by Provider: 12/13/22 16:53 Source: patient and family Mode of arrival: ambulatory Limitations: no limitations History of Present Illness HPI Narrative: 72 years old white male came to the emergency room from home because of bloody urine over the last 2 days, blood clots. Patient also complaining of right testicular pain for the last 3 months was seen by his family physician, had 2 courses of Cipro without any improvement. Patient on aspirin, denies anticoagulant medications. Patient also complaining of lower abdominal pain, history of kidney stone. Related Data Home Medications Medication Instructions Recorded Confirmed aspirin 81 mg tablet,delayed 81 mg PO DAILY 06/04/19 11/02/22 release (Adult Low Dose Aspirin) ferrous sulfate 325 mg (65 mg 325 mg PO DAILY 06/04/19 11/02/22 iron) tablet,delayed release zinc 50 mg tablet 50 mg PO DAILY 08/08/19 11/02/22 omega-3 fatty acids 1,000 mg 1,000 mg PO DAILY 01/14/20 11/02/22 capsule (Fish Oil Concentrate) cholecalciferol (vitamin D3) 25 2,000 unit PO DAILY 03/08/21 11/02/22 mcg (1,000 unit) capsule (Vitamin D3) montelukast 10 mg tablet 10 mg DAILY 10/18/21 11/02/22 candesartan 32 mg tablet 16 mg PO DAILY 03/22/22 11/02/22 calcium polycarbophil 625 mg 1,875 mg PO DAILY 11/01/22 11/02/22 tablet (FiberCon) Allergies Allergy/AdvReac Type Severity Reaction Status Date / Time adhesive Allergy Unknown SKIN Verified 12/13/22 14:34 IRRITATION NSAIDS (Non-Steroidal Allergy Unknown DUE TO Verified 12/13/22 14:34 Anti-Inflamma GASTRIC BYPASS Penicillins Allergy Unknown Rash Verified 12/13/22 14:34 NO BLIND NG TUBE INSERTION Allergy Unknown DUE TO Uncoded 12/13/22 14:34 GASTRIC BYPASS Review of Systems Review of Systems: All systems reviewed & are unremarkable except as noted in HPI and below PMFSH Past Medical History Medical History Abnormal finding of blood chemistry, unspecified Basal cell carcinoma of skin of face Benign essential hypertension BMI 31.0-31.9,adult BMI 33.0-33.9,adult BMI 34.0-34.9,adult Carpal tunnel syndrome Chronic back pain CKD (chronic kidney disease) Complex tear of lateral meniscus, current injury, right knee, subsequent encounter 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 DM type 2 (diabetes mellitus, type 2) Dog bite Elevated parathyroid hormone Encounter for Medicare annual wellness exam Encounter for routine adult health examination with abnormal findings Encounter for routine adult health examination without abnormal findings Erectile dysfunction Facial lesion Fecal incontinence Follow up Gout Grade II diastolic dysfunction Hearing loss Hematuria History of elevated PSA History of kidney stones Hx of colonic polyps Hyperlipidemia Hypoparathyroidism Impacted cerumen, bilateral Impaired functional mobility, balance, gait, and endurance Left-sided back pain Lesion of lip Numbness and tingling in right hand On half-way drug therapy Orthostatic hypotension DARSHANA treated with BiPAP Pedal edema Peripheral neuropathy Prostate cancer screening Rectal bleeding Resting tremor Retained suture Right testicular pain Skin lesion Sore throat Testicular hypofunction Tick bite Transient global amnesia Transient global amnesia Vitamin D deficiency Surgical History Surgical History History of uvulectomy Hx laparoscopic cholecystectomy Hx of gastric bypass Family History Family History Mother Family history of glaucoma Hypertension Diabetes mellitus Father Hypertension Cerebrovascular accident, Onset Age: 65 Heart disease Grandparent Family history of coronary artery disease Diabetes mellitus Son Tourette's disorder Other
[2022-12-13 17:44] LABS: Prothrombin Time 13.1 Seconds (11.1-14.7)
[2022-12-13 17:46] LABS: Partial Thromboplastin Time 30.2 SECONDS (22.3-36.8)
[2022-12-13] MEDS: SODIUM CHLORIDE 0.9% IV 1,000 ML 999 ML IV CONT (17:58)
--- NOTE | 2022-12-13 20:28 | PM.IMHP ---
H&P: HPI History of Present Illness Date/Time: 12/13/22 20:28 Chief Complaint: 72 years old male with past medical history of hypertension diabetes CHF presented to the hospital with hematuria started 2 days ago associated with blood clots no aggravating or relieving factor associated with testicular pain patient complained of testicular pain for the past 3 months tried multiple courses of Cipro without improvement at the ER testicular ultrasound showed right epididymitis positive varicocele CT scan of the abdomen pelvis showed nonobstructing stone and probable cystitis patient was started on IV Rocephin blood culture pending urine culture pending Review of Systems Review of Systems: 12 system review was done negative except above PMFSH Past Medical History Medical History Abnormal finding of blood chemistry, unspecified Basal cell carcinoma of skin of face Benign essential hypertension BMI 31.0-31.9,adult BMI 33.0-33.9,adult BMI 34.0-34.9,adult Carpal tunnel syndrome Chronic back pain CKD (chronic kidney disease) Complex tear of lateral meniscus, current injury, right knee, subsequent encounter 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 DM type 2 (diabetes mellitus, type 2) Dog bite Elevated parathyroid hormone Encounter for Medicare annual wellness exam Encounter for routine adult health examination with abnormal findings Encounter for routine adult health examination without abnormal findings Erectile dysfunction Facial lesion Fecal incontinence Follow up Gout Grade II diastolic dysfunction Hearing loss Hematuria History of elevated PSA History of kidney stones Hx of colonic polyps Hyperlipidemia Hypoparathyroidism Impacted cerumen, bilateral Impaired functional mobility, balance, gait, and endurance Left-sided back pain Lesion of lip Numbness and tingling in right hand 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 Orthostatic hypotension DARSHANA treated with BiPAP Pedal edema Peripheral neuropathy Prostate cancer screening Rectal bleeding Resting tremor Retained suture Right testicular pain Skin lesion Sore throat Testicular hypofunction Tick bite Transient global amnesia Transient global amnesia Vitamin D deficiency Surgical History Surgical History History of uvulectomy Hx laparoscopic cholecystectomy Hx of gastric bypass Family History Family History Mother Family history of glaucoma Hypertension Diabetes mellitus Father Hypertension Cerebrovascular accident, Onset Age: 65 Heart disease Grandparent Family history of coronary artery disease Diabetes mellitus Son Tourette's disorder Other Depression Family history of arthritis Family history of blood dyscrasia Family history of cardiovascular disease Family history of gout Family history of mental disorder Family history of obesity Social History Social History Smoking status: Never smoker Tobacco type: cigars Additional smoking assessment comments: STATES SMOKES 1-2 CIGARS COUPLE TIMES A YEAR Alcohol intake: current Drinks per week: 5 Substance use: never Substance use type: does not use Lack of Transportation: No Lack of Food: Never True Current Housing: I Have Housing Concerned About Future Housing: No Difficulty Paying Gas/Electric Bills: No Difficulty Paying for Meds: No Currently Unemployed: No Education: Master's Degree or Higher Difficulty w/ Childcare or Family Care: No Living arrangements: with family Gender identity (if verbalized by the patient): Male Sexual Orientation (if Verbalized by the Patient): Straight or Heterosexual Spiritual care concerns: No Meds Home Medications and Allergies Home Medications Medication Instructions Recorded Confirmed Type aspirin 81 mg table
[2022-12-13 21:09] LABS: Alanine Aminotransferase 37 U/L (6-50); Albumin Level 3.9 g/dL (3.5-5.1); Alkaline Phosphatase 107 U/L (38-126); Anion Gap 4 mmol/L (8-16); Aspartate Amino Transferase 41 U/L (17-59); Bilirubin,Total 1.1 mg/dL (0.2-1.3); Blood Urea Nitrogen 23 mg/dL (9-20); Calcium 8.3 mg/dL (8.4-10.2); Carbon Dioxide 31 mmol/L (22-30); Chloride 101 mmol/L (98-107); Estimated CRCL calculation 58 ml/min; Estimated Glomerular Filt Rate 54; Glucose 111 mg/dL (65-110); Potassium 3.9 mmol/L (3.4-5.0); Sodium 136 mmol/L (137-145)
[2022-12-13 21:42] LABS: Procalcitonin 0.1 ng/mL
[2022-12-13] MEDS: SODIUM CHLORIDE 0.9% IV 1,000 ML 125 ML IV CONT (22:00)
--- NOTE | 2022-12-13 22:55 | PC.NURSE ---
Patient arrived on 3 Med-Surg at 22:35
--- NOTE | 2022-12-13 23:34 | PC.NURSE ---
Patient refuses famotidine during the leasing professional. Charge nurse made aware will continue to monitor.
[2022-12-14] VITALS: BP 154/69; PULSE 50; RESP 16; TEMP 35.9; O2SAT 99
[2022-12-14] MEDS: SODIUM CHLORIDE 0.9% IV 1,000 ML 125 ML IV CONT ×3 (06:04→23:25)
[2022-12-14 06:32] LABS: Basophils Percent Auto 0.5 % (0.2-1.2); Eosinophils Absolute Auto 0.2 K/mm3 (0-0.3); Eosinophils Percent Auto 2.7 % (0-4.4); Hematocrit 38.3 % (42.0-52.0); Hemoglobin 12.7 g/dL (14.0-18.0); Immature Granulocyte Absolute 0.04 K/mm3 (0.00-0.031); Immature Granulocyte Percent A 0.5 % (0-0.5); Lymphocytes Absolute Auto 1.57 K/mm3 (0.9-3.2); Mean Corpuscular HGB Conc 33.2 g/dl (32-36); Mean Corpuscular Hemoglobin 31.2 pg (26-34); Mean Corpuscular Volume 94.1 fl (80-100); Monocytes Absolute Auto 0.8 K/mm3 (0.1-0.6); Monocytes Percent Auto 9.6 % (2.6-8.5); Neutrophils Percent Auto 68.7 % (45.5-73.1); Platelet Count Result 146 k/mm3 (150-375); Red Blood Count 4.07 M/mm3 (4.6-6.20); Red Cell Distribution Width 12.7 % (11.5-14.5); White Blood Count 8.7 K/mm3 (4.5-10.0)
[2022-12-14 06:53] LABS: Anion Gap 2 mmol/L (8-16); Blood Urea Nitrogen 21 mg/dL (9-20); Calcium 7.8 mg/dL (8.4-10.2); Carbon Dioxide 29 mmol/L (22-30); Chloride 104 mmol/L (98-107); Estimated CRCL calculation 67 ml/min; Estimated Glomerular Filt Rate > 60; Glucose 101 mg/dL (65-110); Potassium 3.6 mmol/L (3.4-5.0); Sodium 135 mmol/L (137-145)
--- NOTE | 2022-12-14 07:07 | WPDURCON ---
Assessment and Plan Assessment and plan (1) Acute epididymitis: Code(s): N45.1 - Epididymitis Status: Acute (2) Gross hematuria: Code(s): R31.0 - Gross hematuria Status: Acute (3) Urinary tract infection: Qualifiers: Urinary tract infection type: acute cystitis Hematuria presence: with hematuria Qualified Code(s): N30.01 - Acute cystitis with hematuria Code(s): N39.0 - Urinary tract infection, site not specified Status: Acute Assessment and Plan: Acute lower urinary tract infection involving bladder and right epididymis - much improved overnight Broad spectum abx. (Ceftriaxone) pending culture - then home, hopefully, on effective oral therapy for 2 weeks. Follow-up 2-weeks (appointment already made) to re-check urine and consider cystoscopy if hematuria persists. Urology Consult Note HPI Date Seen: 12/14/22 Requesting Physician: Joshua June MD Primary Care Provider: Tesfaye Peralta MD Consult Narrative Narrative: Josue Meza is a 72 year old male known to me in the past with a history of BPH but a has not been seen in our office for several years. He called several days ago with hematuria and clots. additionally, he reports a several week history of progressive right testicular discomfort. He has had increased frequency urgency and mild dysuria. Evaluation in the ED last night revealed urine that appears infected and a CT scan showing a thickened inflamed bladder wall. This is all consistent with a hemorrhagic cystitis. Scrotal ultrasound is consistent with a right epididymitis. He denies significant obstructive voiding symptoms and there is no evidence of significant clot in his bladder. He denies fevers chills. He is feeling much better overnight with initiation of broad-spectrum antibiotics. 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 DM type 2 (diabetes mellitus, type 2) Dog bite Elevated parathyroid hormone Encounter for Medicare annual wellness exam Encounter for routine adult health examination with abnormal findings Encounter for routine adult health examination without abnormal findings Erectile dysfunction Facial lesion Fecal incontinence Follow up Gout Grade II diastolic dysfunction Hearing loss Hematuria History of elevated PSA History of kidney stones Hx of colonic polyps Hyperlipidemia Hypoparathyroidism Impacted cerumen, bilateral Impaired functional mobility, balance, gait, and endurance Left-sided back pain Lesion of lip Numbness and tingling in right hand 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 Orthostatic hypotension DARSHANA treated with BiPAP Pedal edema Peripheral neuropathy Prostate cancer screening Rectal bleeding Resting tremor Retained suture Right testicular pain Skin lesion Sore throat Testicular hypofunction Tick bite Transient global amnesia Transient global amnesia Vitamin D deficiency Surgical History Surgical History History of uvulectomy Hx laparoscopic cholecystectomy Hx of gastric bypass Family History Family History (Updated 12/13/22 @ 23:06 by Mann Estrella RN) Mother Diabetes mellitus Family history of glaucoma Hypertension Depression Family history of cardiovascular disease Family history of obesity Father Heart disease Hypertension Cerebrovascular accident, Onset Age: 65 Family history of cardi
[2022-12-14] MEDS: BUMETANIDE 1 MG TABLET 2 MG PO (10:41)
[2022-12-14] MEDS: CANDESARTAN CILEXETIL 16 MG TABLET 32 MG PO (10:41)
[2022-12-14] MEDS: ASPIRIN 81 MG ENTERIC TABLET PO (10:41)
[2022-12-14] MEDS: allopurinoL 300 MG TABLET PO (10:41)
[2022-12-14 10:42] VITALS: PULSE 76
[2022-12-14] MEDS: ATORVASTATIN 20 MG TABLET PO (10:42)
[2022-12-14] MEDS: MONTELUKAST SODIUM 10 MG TABLET PO (10:42)
[2022-12-14] MEDS: NEBIVOLOL HCL 5 MG TABLET 20 MG PO (10:42)
[2022-12-14] MEDS: FERROUS SULFATE 324 MG TABLET PO (10:42)
[2022-12-14] MEDS: GLIMEPIRIDE 2 MG TABLET PO (10:42)
[2022-12-14 14:00] VITALS: BP 159/76; PULSE 51; RESP 20; TEMP 36.4; O2SAT 97
--- NOTE | 2022-12-14 14:44 | PM.IMPN ---
Progress Note: A&P Assessment and Plan (1) Acute epididymitis: Code(s): N45.1 - Epididymitis Status: Acute Assessment and Plan: Patient started having scrotal pain about a month ago and was treated for epididymitis, he failed outpatient therapy. Scrotal ultrasound revealing right epididymitis, right varicocele. CT abdomen pelvis revealing bladder wall thickening and a 2 mm nonobstructing kidney stone. Urology consulted appreciate recommendations give IV antibiotics follow culture results (2) Urinary tract infection: Qualifiers: Hematuria presence: with hematuria Urinary tract infection type: acute cystitis Qualified Code(s): N30.01 - Acute cystitis with hematuria Code(s): N39.0 - Urinary tract infection, site not specified Status: Acute Assessment and Plan: Patient's UA suspicious for infection. UA revealing greater than 100 rbc's and greater than 100 wbc's. Patient started on Rocephin. Urine culture pending Adjust antibiotic therapy to culture results. (3) History of kidney stones: Code(s): Z87.442 - Personal history of urinary calculi Status: Acute Assessment and Plan: Monitor Urology on board (4) Pedal edema: Code(s): R60.0 - Localized edema Status: Acute Assessment and Plan: Resume diuretics (5) Grade II diastolic dysfunction: Code(s): I51.9 - Heart disease, unspecified Status: Chronic Assessment and Plan: Avoid fluid overload (6) CKD (chronic kidney disease): Qualifiers: Chronic kidney disease stage: stage 2 (mild) Qualified Code(s): N18.2 - Chronic kidney disease, stage 2 (mild) Code(s): N18.9 - Chronic kidney disease, unspecified Status: Chronic Assessment and Plan: Stable monitor CMP (7) DM type 2 (diabetes mellitus, type 2): Qualifiers: Diabetes mellitus skilled nursing insulin use: without intermediate teacher use Diabetes mellitus complication status: without complication Qualified Code(s): E11.9 - Type 2 diabetes mellitus without complications Code(s): E11.9 - Type 2 diabetes mellitus without complications Status: Chronic Assessment and Plan: Insulin sliding scale Hypoglycemic protocol initiated Accu-Cheks a.c. HS Subjective Date/time seen: 12/14/22 14:44 Interval history: Patient doing well and states symptoms have greatly improved. He states that he had testicular pain that has been ongoing for approximately a month. Prior to ED arrival he was having testicular pain and soon after that developed dysuria. Patient had been recently treated for epididymitis and received 2 different rounds of p.o. antibiotics. Review of Systems Review of Systems: All systems reviewed & are unremarkable except as noted in HPI and below Exam Narrative: GENERAL: Comfortable, no acute distress HENMT: moist mucous membranes EYES: EOM intact b/l RESPIRATORY: clear to auscultation CARDIO: RRR GI: soft, nontender, bowel sounds present : right testicle with small amount of erythema and enlarged compared to the left, nontender to palpation SKIN: no rashes EXTREMITIES: no edema, redness or tenderness Objective Data Vital Signs Vital Signs: Vital Signs - 24 hr 12/13/22 16:38 12/13/22 16:47 12/13/22 16:48 Temperature Pulse Rate 57 L 55 L 54 L Respiratory Rate 21 H 21 H 20 Blood Pressure 146/77 H Pulse Oximetry 95 95 96 Oxygen Delivery 12/13/22 17:00 12/13/22 17:02 12/13/22 18:05 Temperature Pulse Rate 57 L 58 L 58 L Respiratory Rate 22 H 23 H 20 Blood Pressure 148/80 H Pulse Oximetry 96 96 96 Oxygen Delivery 12/13/22 18:17 12/13/22 18:34 12/13/22 18:47 Temperature Pulse Rate 58 L 57 L 57 L Respiratory Rate 21 H 22 H 21 H Blood Pressure 149/82 H 143/74 H Pulse Oximetry 96 96 96 Oxygen Delivery 12/13/22 22:03 12/13/22 22:30 12/14/22 00
[2022-12-14 21:13] VITALS: O2SAT 96
[2022-12-14 21:24] LABS: Alanine Aminotransferase 34 U/L (6-50); Albumin Level 3.6 g/dL (3.5-5.1); Alkaline Phosphatase 99 U/L (38-126); Anion Gap 2 mmol/L (8-16); Aspartate Amino Transferase 38 U/L (17-59); Bilirubin,Total 0.8 mg/dL (0.2-1.3); Blood Urea Nitrogen 23 mg/dL (9-20); Carbon Dioxide 31 mmol/L (22-30); Chloride 102 mmol/L (98-107); Estimated CRCL calculation 62 ml/min; Estimated Glomerular Filt Rate 59; Glucose 114 mg/dL (65-110); Potassium 3.6 mmol/L (3.4-5.0); Sodium 135 mmol/L (137-145)
[2022-12-14 21:38] VITALS: BP 169/68; PULSE 53; RESP 14; TEMP 36.4; O2SAT 96
[2022-12-14 23:06] VITALS: BP 162/96
--- NOTE | 2022-12-14 23:06 | PC.NURSE ---
On tonight's shift, patient's blood pressure was high with a manual blood pressure of 162/96, with doctor's orders inputted to give hydralazine for systolic above 160 ,advised patient to take hydralazine. Patient refuses hydralazine, charge nurse made aware and will continue to monitor.
[2022-12-15] MEDS: ACETAMINOPHEN 325 MG TABLET 650 MG PO (01:27)
[2022-12-15 05:39] VITALS: BP 137/62; PULSE 78; RESP 14; TEMP 36.1; O2SAT 97
[2022-12-15] MEDS: SODIUM CHLORIDE 0.9% IV 1,000 ML 125 ML IV CONT (06:05)
[2022-12-15 06:25] LABS: Basophils Percent Auto 0.5 % (0.2-1.2); Eosinophils Absolute Auto 0.3 K/mm3 (0-0.3); Eosinophils Percent Auto 4.5 % (0-4.4); Hematocrit 36.8 % (42.0-52.0); Hemoglobin 12.4 g/dL (14.0-18.0); Immature Granulocyte Absolute 0.02 K/mm3 (0.00-0.031); Immature Granulocyte Percent A 0.3 % (0-0.5); Lymphocytes Absolute Auto 1.47 K/mm3 (0.9-3.2); Lymphocytes Percent Auto 24.4 % (18.3-44.2); Mean Corpuscular HGB Conc 33.7 g/dl (32-36); Mean Corpuscular Hemoglobin 31.2 pg (26-34); Mean Corpuscular Volume 92.7 fl (80-100); Mean Platelet Volume 11.1 fl (7.4-10.4); Monocytes Absolute Auto 0.6 K/mm3 (0.1-0.6); Monocytes Percent Auto 9.5 % (2.6-8.5); Neutrophils Absolute Auto 3.7 K/mm3 (1.3-6.7); Neutrophils Percent Auto 60.8 % (45.5-73.1); Platelet Count Result 155 k/mm3 (150-375); Red Blood Count 3.97 M/mm3 (4.6-6.20); Red Cell Distribution Width 12.4 % (11.5-14.5)
--- NOTE | 2022-12-15 06:46 | WPDUROPN2 ---
Progress Note: A&P Assessment and Plan (1) Gross hematuria: Code(s): R31.0 - Gross hematuria Status: Acute (2) Acute epididymitis: Code(s): N45.1 - Epididymitis Status: Acute (3) Urinary tract infection: Qualifiers: Hematuria presence: with hematuria Urinary tract infection type: acute cystitis Qualified Code(s): N30.01 - Acute cystitis with hematuria Code(s): N39.0 - Urinary tract infection, site not specified Status: Acute Assessment and Plan: Responding extremely well to abx. for lower UTI Urine: GNR / Blood: No growty I'm comfortable with discharge today, even if urine culture incomplete. He's responding to Ceftriaxone, would suggest Omnicef (or other culture/sensitivity-directed abx. if available). He already had f/u appt. with us. Subjective Subjective Date/Time Seen: 12/15/22 06:46 Interval history: Voiding well, urine clear Overall, feeling well - no complaints. Review of Systems Cardiovascular: Cardiovascular: Denies chest pain, Denies lightheadedness, Denies palpitations and Denies dyspnea Respiratory: Respiratory: Denies dyspnea Gastrointestinal: Gastrointestinal: Denies diarrhea, Denies nausea and Denies vomiting Genitourinary: Genitourinary: Denies hematuria and Denies dysuria Endocrine: Endocrine: Denies palpitations Exam Const: General: no acute distress Resp: Effort & Inspection: normal respiratory effort GI: Inspection: non-distended GI Palp: No abdominal tenderness and No Guarding due to palpation present (GI) Auscultation: normal bowel sounds Objective Data Vital Signs Vital Signs: Vital Signs - 24 hr 12/14/22 08:00 12/14/22 10:42 12/14/22 14:00 Temperature 97.6 F Pulse Rate 76 51 L Respiratory Rate 20 Blood Pressure 159/76 H Pulse Oximetry 97 Oxygen Delivery Room Air 12/14/22 20:00 12/14/22 21:38 12/14/22 23:06 Temperature 97.6 F Pulse Rate 53 L Respiratory Rate 14 Blood Pressure 169/68 H 162/96 H Pulse Oximetry 96 Oxygen Delivery Room Air 12/14/22 21:13 12/15/22 05:39 Temperature 96.9 F L Pulse Rate 78 Respiratory Rate 14 Blood Pressure 137/62 Pulse Oximetry 96 97 Oxygen Delivery Room Air Intake/Output Intake/Output: Intake & Output 12/12/22 12/13/22 12/14/22 12/15/22 23:59 23:59 23:59 23:59 Intake Total 50 6190 1550 Output Total 3700 Balance 50 0010 1550 Meds/Results Medications: Active Medications Generic Name Dose Route Start Last Admin Trade Name Freq PRN Reason Stop Dose Admin Acetaminophen 650 mg 12/13/22 20:26 12/15/22 01:27 Acetaminophen 325 Mg Tablet PO 650 mg Q6H PRN Administration Mild Pain (1-3) Hydrocodone Bitart/Acetaminophen 1 tab 12/13/22 20:26 Hydrocodone/Acetaminophen (*Crx) 5-325 Mg Tablet PO Q6H PRN Pain Rated 4-6 Allopurinol 300 mg 12/14/22 10:00 12/14/22 10:41 Allopurinol 300 Mg Tablet PO 300 mg DAILY KANA Administration Aspirin 81 mg 12/14/22 10:00 12/14/22 10:41 Aspirin 81 Mg Enteric Tablet PO 81 mg DAILY KANA Administration Atorvastatin Calcium 20 mg 12/14/22 10:00 12/14/22 10:42 Atorvastatin 20 Mg Tablet PO 20 mg DAILY KANA Administration Bumetanide 2 mg 12/14/22 10:00 12/14/22 10:41 Bumetanide 1 Mg Tablet PO 2 mg DAILY KANA Administration Candesartan Cilexetil 32 mg 12/14/22 10:00 12/14/22 10:41 Candesartan Cilexetil 16 Mg Tablet PO 01/14/23 09:59 32 mg DAILY KANA Administration Empagliflozin 25 mg 12/15/22 09:00 Empagliflozin 25 Mg Tablet PO DAILY KANA Famotidine 20 mg 12/13/22 21:00 12/14/22 21:47 Famotidine 20 Mg Tablet PO Not Given Q12HR KANA Ferrous Sulfate 324 mg 12/14/22 10:00 12/14/22 10:42 Ferrous Sulfate 324 Mg Tablet PO 324 mg DAILY KANA Administration Glimepiride 2 mg 12/14/22 10:00 12/14/22 10:42 Glimepiride 2 Mg Tablet PO 2 mg DAILY KANA Administration Hydralaz
[2022-12-15 08:10] VITALS: PULSE 78
[2022-12-15] MEDS: MONTELUKAST SODIUM 10 MG TABLET PO (08:10)
[2022-12-15] MEDS: FERROUS SULFATE 324 MG TABLET PO (08:10)
[2022-12-15] MEDS: CANDESARTAN CILEXETIL 16 MG TABLET 32 MG PO (08:10)
[2022-12-15] MEDS: ASPIRIN 81 MG ENTERIC TABLET PO (08:10)
[2022-12-15] MEDS: ATORVASTATIN 20 MG TABLET PO (08:10)
[2022-12-15] MEDS: NEBIVOLOL HCL 5 MG TABLET 20 MG PO (08:10)
[2022-12-15] MEDS: allopurinoL 300 MG TABLET PO (08:10)
[2022-12-15] MEDS: GLIMEPIRIDE 2 MG TABLET PO (08:10)
--- NOTE | 2022-12-15 12:20 | PM.DS ---
DS: Admitting Diagnosis Discharge Date 12/15/22 Admitting Diagnosis Epididymitis, UTI DS: Discharge Diagnosis Discharge Diagnosis (1) Acute epididymitis: Code(s): N45.1 - Epididymitis Status: Acute Assessment and Plan: Patient started having scrotal pain about a month ago and was treated for epididymitis, he failed outpatient therapy. Scrotal ultrasound revealing right epididymitis, right varicocele. CT abdomen pelvis revealing bladder wall thickening and a 2 mm nonobstructing kidney stone. Urology consulted appreciate recommendations Recommend patient follow-up in the office with Urology. (2) Urinary tract infection: Qualifiers: Hematuria presence: with hematuria Urinary tract infection type: acute cystitis Qualified Code(s): N30.01 - Acute cystitis with hematuria Code(s): N39.0 - Urinary tract infection, site not specified Status: Acute Assessment and Plan: Patient's UA suspicious for infection. UA revealing greater than 100 rbc's and greater than 100 wbc's. Patient started on Rocephin. Urine culture positive for E coli and sensitive to ceftriaxone. Will transition patient to p.o. cefdinir. Adjust antibiotic therapy to culture results. (3) History of kidney stones: Code(s): Z87.442 - Personal history of urinary calculi Status: Acute Assessment and Plan: Monitor Urology on board (4) Pedal edema: Code(s): R60.0 - Localized edema Status: Acute Assessment and Plan: Resume diuretics (5) Grade II diastolic dysfunction: Code(s): I51.9 - Heart disease, unspecified Status: Chronic Assessment and Plan: Avoid fluid overload (6) CKD (chronic kidney disease): Qualifiers: Chronic kidney disease stage: stage 2 (mild) Qualified Code(s): N18.2 - Chronic kidney disease, stage 2 (mild) Code(s): N18.9 - Chronic kidney disease, unspecified Status: Chronic Assessment and Plan: Stable monitor CMP (7) DM type 2 (diabetes mellitus, type 2): Qualifiers: Diabetes mellitus complication status: without complication Diabetes mellitus usp insulin use: without usp use Qualified Code(s): E11.9 - Type 2 diabetes mellitus without complications Code(s): E11.9 - Type 2 diabetes mellitus without complications Status: Chronic Assessment and Plan: Insulin sliding scale Hypoglycemic protocol initiated Accu-Cheks a.c. DS: Summary Hospital Course Hospital Course: This is a 72-year-old male with past medical history of hypertension, diabetes, CHF the presented to the ED on 12/13/2022 with chief complaint of hematuria for approximately 2 days. Patient had been having testicular pain for approximately 1 month and had been treated with Ciprofloxacin on 2 different occasions. patient's UA suspicious for UTI and he was started on IV antibiotics. CT of abdomen and pelvis revealing nonobstructing 2 mm stone and probable cystitis. Ultrasound of the testicle showing a positive right epididymitis. Patient's symptoms improved drastically with IV antibiotic therapy. Patient's urine cultures positive for E coli sensitive to ceftriaxone. Patient transition to p.o. cefdinir. recommended patient follow-up in Urology office. patient's labs and most sensible he is medically clear for discharge. Time Spent with Patient Time attestation: Total time spent providing and/or coordinating discharge services: Exam Narrative: GENERAL: Comfortable, no acute distress HENMT: moist mucous membranes EYES: EOM intact b/l RESPIRATORY: clear to auscultation CARDIO: RRR GI: soft, nontender, bowel sounds present SKIN: no rashes EXTREMITIES: no edema, redness or tenderness DS: Data Data Completed and Pending Labs on day of discharge: Labs from last 24 hours 12/15/22 12/14/22 05:41 21:07 WBC 6.0 RBC 3.97 L
--- NOTE | 2022-12-20 09:06 | PC.NURSE ---
Blood cx are negative. KELLY Vincent.
== END 2022-12-15 13:55 | disposition home or self-care (01) ==
LOC: ANHED 20:22 → ANH3MEDSUR 12-14 10:47
PROVIDERS: Emergency Medicine; Admitting Provider Internal Medicine; Emergency Provider Emergency Medicine; PCP Internal Medicine; Visit Provider Internal Medicine
DX: N45.1 Epididymitis (principal); N30.01 Acute cystitis with hematuria; B96.20 Unspecified Escherichia coli [E. coli] as the cause of diseases classified elsewhere; N20.0 Calculus of kidney; R60.0 Localized edema; R79.89 Other specified abnormal findings of blood chemistry; G89.29 Other chronic pain; E20.9 Hypoparathyroidism, unspecified; E11.40 Type 2 diabetes mellitus with diabetic neuropathy, unspecified; I12.9 Hypertensive chronic kidney disease with stage 1 through stage 4 chronic kidney disease, or unspecified chronic kidney disease; E11.22 Type 2 diabetes mellitus with diabetic chronic kidney disease; I50.9 Heart failure, unspecified; N18.2 Chronic kidney disease, stage 2 (mild); E55.9 Vitamin D deficiency, unspecified; E29.1 Testicular hypofunction; I51.89 Other ill-defined heart diseases; G47.33 Obstructive sleep apnea (adult) (pediatric); Z99.89 Dependence on other enabling machines and devices; M10.9 Gout, unspecified; M54.9 Dorsalgia, unspecified; F17.290 Nicotine dependence, other tobacco product, uncomplicated; F10.90 Alcohol use, unspecified, uncomplicated; Z79.82 Long term (current) use of aspirin; Z79.899 Other long term (current) drug therapy; Z83.3 Family history of diabetes mellitus; Z84.89 Family history of other specified conditions
CPT/HCPCS: 36415; 74177; 76870; 80048; 80053; 81001; 84145; 85025; 85610; 85730; 87040; 87077; 87086; 87186; 93976; 96361; 96365; 96366; 99285; A9270; G0378; J0696; J7030; L0140; Q9967

== ENCOUNTER 2023-01-02 09:44 | Outpatient (CLI) | payer MEDICARE, SELFPAY ==
--- NOTE | ~2023-01-02 | XR_ITS ---
EXAMINATION: XR abdomen/kub 1V INDICATION: Calculus of the kidney TECHNIQUE: Supine views of the abdomen were obtained on 2 radiographs. COMPARISON: 12/12/2022 FINDINGS: No urolithiasis is identified. The bowel gas pattern is normal. There are phleboliths of th e right pelvis. Calcified atherosclerosis is noted. There is mild osteoarthritis of the hips. There a re cholecystectomy clips in the right upper quadrant. IMPRESSION: 1. No urolithiasis identified. Reviewed, dictated and finalized at location A.
== END 2023-01-02 09:45 | disposition home or self-care (01) ==
LOC: ANHIMG 09:47
PROVIDERS: PCP Internal Medicine; Visit Provider Internal Medicine
DX: N20.0 Calculus of kidney (principal); R31.0 Gross hematuria
CPT/HCPCS: 74018

== ENCOUNTER 2023-02-14 12:23 | Outpatient (CLI) | payer MEDICARE, SELFPAY ==
[2023-02-14 13:08] LABS: Appearance Urine Cloudy (Clear); Bacteria Urine 3+ /hpf; Bilirubin Urine Negative (Negative); Blood Urine 3+ (Negative); Color Urine Yellow (Yellow); Glucose Urine UA 2+ mg/dL (Negative); Ketones Urine Negative (Negative); Leukocyte Esterase Ur 2+ LEU/UL (NEGATIVE); Nitrate Urine Positive (Negative); Protein Urine 3+ mg/dL (Negative); RBC Urine 51-100 /hpf (0-2); Specific Grav Ur 1.015 (1.001-1.035); Squamous Epithelial Cell Urine None seen /hpf (Few); Urobilinogen Urine 0.2 mg/dL (<2.0); WBC Urine >100 /hpf (0-3); pH Urine 5.5 (5.0-9.0)
[2023-02-14 13:30] LABS: Add Urine Microscopic? YES
== END 2023-02-14 12:24 | disposition home or self-care (01) ==
LOC: ANHLAB 12:25
PROVIDERS: PCP Internal Medicine; Visit Provider Internal Medicine
DX: R31.9 Hematuria, unspecified (principal)
CPT/HCPCS: 81001; 87077; 87086; 87186

== ENCOUNTER 2023-05-15 07:48 | Outpatient (CLI) | payer MEDICARE, SELFPAY ==
[2023-05-15 08:52] LABS: Anion Gap 5 mmol/L (8-16); Blood Urea Nitrogen 26 mg/dL (9-20); Calcium 8.9 mg/dL (8.4-10.2); Carbon Dioxide 30 mmol/L (22-30); Chloride 103 mmol/L (98-107); Estimated Glomerular Filt Rate > 60; Glucose 166 mg/dL (65-110); Potassium 3.5 mmol/L (3.4-5.0); Sodium 138 mmol/L (137-145)
== END 2023-05-15 07:49 | disposition home or self-care (01) ==
LOC: ANHLAB 07:49
PROVIDERS: PCP Internal Medicine; Visit Provider Internal Medicine
DX: N39.0 Urinary tract infection, site not specified (principal); E11.9 Type 2 diabetes mellitus without complications; Z79.899 Other long term (current) drug therapy
CPT/HCPCS: 36415; 80048

== ENCOUNTER 2023-11-06 09:13 | Outpatient (CLI) | payer MEDICARE, OTHER, SELFPAY ==
--- NOTE | 2023-11-06 11:00 | NEURO_ITS ---
Impression: # Complains of increasing weakness of left hand and numbness. [facility] diabetic. # Left ulnar neuropathy across the elbow. # Needle/EMG exam neurogenic changes in left 1st DI and ADM. Nerve Conduction Studies Anti Sensory Summary Table Stim Site NR Peak (ms) P-T Amp (?V) Site1 Site2 Delta-P (ms) Dist (cm) Alcides (m/s) Left Median Anti Sensory (2-3nd Digit) Wrist 3.6 16.4 Wrist 2-3nd Digit 3.6 14.0 39 Wrist 3.7 18.7 Wrist 2-3nd Digit 3.6 14.0 39 Left Radial Anti Sensory (Base 1st Digit) Wrist 2.3 16.2 Wrist Base 1st Digit 2.3 0.0 Left Ulnar Anti Sensory (5th Digit) Wrist 3.0 18.1 Wrist 5th Digit 3.0 14.0 47 Motor Summary Table Stim Site NR Onset (ms) O-P Amp (mV) Site1 Site2 Delta-0 (ms) Dist (cm) Alcides (m/s) Left Median Motor (Abd Poll Brev) Wrist 3.4 1.8 Elbow Wrist 6.5 33.0 51 Elbow 9.9 0.5 Left Ulnar Motor (Abd Dig Minimi) Wrist 3.1 4.0 A Elbow Wrist 6.8 30.0 44 A Elbow 9.9 0.4 B Elbow Wrist 4.3 25.0 58 B Elbow 7.4 2.8 F Wave Studies NR F-Lat (ms) L-R F-Lat (ms) Left Median (Mrkrs) (Abd Poll Brev) 29.71 Left Ulnar (Mrkrs) (Abd Dig Min) 31.53 EMG Side Muscle Nerve Root Ins Act Fibs Amp Dur Recrt Comment Left 1stDorInt Ulnar C8-T1 Nml Nml Incr >12ms +2 Left Ext Indicis Radial (Post Int) C7-8 Nml Nml Nml Nml Nml Left Ext Digitorum Radial (Post Int) C7-8 Nml Nml Nml Nml Nml Left BrachioRad Radial C5-6 Nml Nml Nml Nml Nml Left PronatorTeres Median C6-7 Nml Nml Nml Nml Nml Left Abd Poll Brev Median C8-T1 Nml Nml Nml Nml Nml Left ABD Dig Min Ulnar C8-T1 Nml Nml Incr >12ms +2 MTDD
== END 2023-11-06 09:14 | disposition home or self-care (01) ==
LOC: ANHNEURO 09:14
PROVIDERS: PCP Internal Medicine; Visit Provider Plastic Surgery
DX: G56.02 Carpal tunnel syndrome, left upper limb (principal)
CPT/HCPCS: 95886; 95909

== ENCOUNTER 2024-01-31 05:51 | Day surgery (SDC) | payer OTHER, MEDICARE, SELFPAY ==
[2024-01-21 10:23] VITALS: BMI 32.0
[2024-01-31 06:32] LABS: Glucose Point of Care 180 mg/dl (65-105)
[2024-01-31 06:33] VITALS: BP 139/76; PULSE 56; RESP 14; TEMP 36.5; O2SAT 97; BMI 32.3
[2024-01-31] MEDS: LACTATED RINGERS 1,000 ML 30 ML IV CONT (06:39)
--- NOTE | 2024-01-31 06:57 | WPDANESEPPF ---
Anes - Initial Pre Proc Eval Procedure: Operation Date: 01/31/24 07:30 Proposed Procedures p Left Open Carpal Tunnel Release - Ede Wheeler MD s Revision Left Cubital Tunnel Release - Ede Wheeler MD Date/Time: 01/31/24 06:57 Surgeon: Ede Wheeler MD Pre Op Diagnosis: Carpal Tunnel Left Wrist, Lesion Left Ulnar Nerve Patient Data Age: 73 Gender: M Height: 1.83 m Weight: 107.95 kg Last Vital Signs Temp 36.5 C 01/31/24 06:33 Pulse 56 L 01/31/24 06:33 Resp 14 01/31/24 06:33 BP 139/76 01/31/24 06:33 Pulse Ox 97 01/31/24 06:33 O2 Del Method Room Air 01/31/24 06:33 Allergies Allergy/AdvReac Type Severity Reaction Status Date / Time adhesive Allergy Unknown SKIN Verified 01/31/24 06:19 IRRITATION Penicillins Allergy Unknown Rash Verified 01/31/24 06:19 NSAIDS (Non-Steroidal AdvReac Unknown DUE TO Verified 01/31/24 06:19 Anti-Inflamma GASTRIC BYPASS NO BLIND NG TUBE INSERTION Allergy Unknown DUE TO Uncoded 01/21/24 10:17 GASTRIC BYPASS Home Medications Medication Instructions Recorded Confirmed Type aspirin 81 mg tablet,delayed 81 mg PO DAILY 06/04/19 01/31/24 History release (Adult Low Dose Aspirin) ferrous sulfate 325 mg (65 mg 65 mg PO DAILY 06/04/19 01/31/24 History iron) tablet,delayed release zinc 50 mg tablet 50 mg PO DAILY 08/08/19 01/31/24 History blood sugar diagnostic (OneTouch #100 ea 02/24/20 01/16/24 Rx Ultra Blue Test Strip) Blood Glucose Monitoring #1 ea 06/22/20 01/16/24 Rx (blood-glucose meter) blood sugar diagnostic (Blood #100 ea 06/22/20 01/16/24 Rx Glucose Test strips) lancets 30 gauge #100 ea 06/22/20 01/16/24 Rx candesartan 32 mg tablet 32 mg PO DAILY 03/22/22 01/31/24 History [place] [facility] 637 Back Brace #1 ea 03/21/23 01/16/24 Rx calcium polycarbophil 625 mg 1,250 mg PO BID 07/10/23 01/31/24 History tablet (FiberCon) cephalexin 250 mg capsule 250 mg PO DAILY 07/10/23 01/31/24 History cholecalciferol (vitamin D3) 50 50 mcg PO DAILY 07/10/23 01/31/24 History mcg (2,000 unit) capsule coenzyme Q10 50 mg chewable tablet 100 mg PO DAILY 07/10/23 01/31/24 History mciigydn-zmuuiehe-ngmt 45 mg-folic 1 cap PO DAILY 07/10/23 01/31/24 History acid 800 mcg-vit K 120 mcg capsule (Bariatric Multivitamins) testosterone enanthate 75 mg/0.5 75 mg (0.5 mL) subcut WEEKLY #2 mL 08/09/23 01/31/24 Rx mL subcutaneous auto-injector (Xyosted) CPAP Supplies Renewal #99 ea 11/13/23 01/16/24 Rx bumetanide 2 mg tablet 1 mg PO DIRECTED 11/13/23 01/31/24 History cholestyramine-aspartame 4 gram 4 ea PO DIRECTED PRN other 11/13/23 01/31/24 History oral powder (Prevalite) Lactobacillus rhamnosus-Bifidobac. 1 cap PO DAILY 01/21/24 01/31/24 History animalis 3 billion cell capsule (RightAnswers) allopurinol 300 mg tablet 300 mg PO DAILY 01/21/24 01/31/24 History ascorbic acid (vitamin C) 500 mg 500 mg PO DAILY 01/21/24 01/31/24 History capsule atorvastatin 20 mg tablet 20 mg PO DAILY 01/21/24 01/31/24 History dapagliflozin propanediol 10 mg 10 mg PO DAILY 01/21/24 01/31/24 History tablet (Farxiga) glimepiride 2 mg tablet 1 mg PO DAILY 01/21/24 01/31/24 History montelukast 10 mg tablet 10 mg PO DAILY 01/21/24 01/31/24 History nebivolol 20 mg tablet 10 mg PO DAILY 01/21/24 01/31/24 History sitagliptin phosphate 100 mg 100 mg PO DAILY 01/21/24 01/31/24 History tablet (Januvia) Laboratory Tests 01/31/24 06:29 POC Capillary Glucose 180 H mg/dl (65-105) Patient hx anesthesia problems: none Family hx anesthesia problems: none Results Review: All pre-operative results and documents have been reviewed as part of the pre-operative evaluation. [facility] Past Medical History Medical History Abnormal finding of blood chemistry, unspecified Basal cell carcinoma of skin of face Benign essential hypertension
--- NOTE | 2024-01-31 07:07 | PM.HPGS ---
History of Present Illness History of Present Illness Chief complaint: Carpal Tunnel Left Wrist, Lesion Left Ulnar Nerve Narrative: Patient seen and examined in pre-operative holding area. No interval change in medical history or symptoms. Patient recalls previous discussion of benefits and alternatives to procedure. Continues to desire to proceed with left carpal tunnel and cubital tunnel release revision. Reviewed procedure, post-op expectations and risks including but not limited to bleeding, infection, injury to tendon/nerve/vessel, decreased hand function, stiffness, RSD, no change or worsening of symptoms. I discussed the possible use of assistants and their participation in the case. Patient stated understanding and signed the consent form wishing to proceed. 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 DM type 2 (diabetes mellitus, type 2) Dog bite Elevated parathyroid hormone Encounter for Medicare annual wellness exam Encounter for routine adult health examination with abnormal findings Encounter for routine adult health examination without abnormal findings Erectile dysfunction Facial lesion Fatigue Fecal incontinence Follow up Frequent stools Frequent UTI Gout Grade II diastolic dysfunction Grief Hearing loss Hematuria History of elevated PSA History of kidney stones Hx of colonic polyps Hyperlipidemia Hypoparathyroidism Impacted cerumen, bilateral Impaired functional mobility, balance, gait, and endurance Increased mucus in stool Left-sided back pain Lesion of lip Numbness and tingling in right hand Obesity (BMI 30-39.9) On emt intermediate drug therapy Orthostatic hypotension DARSHANA treated with BiPAP Pedal edema Peripheral neuropathy Personal history of COVID-19 Prostate cancer screening Rectal bleeding Resting tremor Retained suture Right testicular pain Skin lesion Sore throat Testicular hypofunction Tick bite Transient global amnesia Transient global amnesia Vitamin D deficiency Weakness of left upper extremity Surgical History Surgical History History of uvulectomy Hx laparoscopic cholecystectomy Hx of gastric bypass Family History Family History Mother Diabetes mellitus Family history of glaucoma Hypertension Depression Family history of cardiovascular disease Family history of obesity Father Heart disease Hypertension Cerebrovascular accident, Onset Age: 65 Family history of cardiovascular disease Family history of obesity Grandparent Diabetes mellitus Family history of coronary artery disease Family history of arthritis Son Tourette's disorder Social History Social History Smoking status: Current some day smoker Tobacco type: cigars Second hand tobacco smoke exposure: Yes Additional smoking assessment comments: STATES SMOKES 1-2 CIGARS COUPLE TIMES A YEAR Alcohol intake: current Drinks per week: 1 Alcohol use details: 2-3 drinks monthly Substance use: never Substance use type: does not use Do You Feel Safe in your Home?: Yes Lack of Transportation: No Lack of Food: Never True Current Housing: I Have Housing Concerned About Future Housing: No Difficulty Paying Gas/Electric Bills: No Difficulty Paying for Meds: No Currently Unemployed: No
--- NOTE | 2024-01-31 07:07 | W.PM.PROC2 ---
Procedure Note - Detailed Date of Procedure 01/31/24 Pre-op Diagnosis recurrent left carpal and cubital tunnel Post-op Diagnosis Same Procedure Performed revsiion left carpal and cubital tunnel release Surgeon Ede Wheeler MD Teacher Learning Disabled myrna smith pa-c Anesthesia MAC Description of Procedure INFORMED CONSENT: The patient was seen and examined and marked in the pre-op area.? The patient signed the consent form. PROCEDURE IN DETAIL:The patient taken back to OR on the stretcher in supine position. Time out performed with anesthesia, surgeon and staff agreeing on patient's name site and surgery to be performed SCDs were placed on the lower extremities and inflated. A tourniquet was placed on {left} upper extremity and antibiotics given IV After anesthesia administered sedation I injected {10}cc 1%lido with epi and 0.5% marcaine plain at the operative sites The?{left upper extremity}?was prepped and draped in sterile fashion the??{left upper extremity} was? exsanguinated with Esmarch bandage and tourniquet inflated to 250mmHg Proceed with making a longitudinal incision utilizing the patient's previous open carpal tunnel release in the palm in line with the ring finger going proximally and then going obliquely across the volar wrist flexion crease creating a radially based flap and then on to the forearm using a 15 blade scalpel. This was done through skin and dermis. Littler scissors were used to spread through the subcutaneous tissue proximally going down to the antebrachial fascia. I made an incision and the brachial fascia with a 15 blade scalpel. The median nerve was identified here outside of the zone of previous surgery. I proceeded with anterograde dissection on the nerve elevating the skin flaps and releasing any scar tissue fibrous bands or residual carpal ligament with a combination of Littler scissors and 15 blade scalpel. the median nerve appeared healthy with visible days on of warm. There was a small amount of synovitis constricting the nerve which was also released with Littler scissors. No significant tenosynovitis was identified needing to be removed. I irrigated with normal saline and closed with 4-0 chromic. I now took my attention to the left elbow where I proceeded with making a curvilinear incision utilizing a portion of his previous cubital tunnel release incision through skin and dermis with a 15 blade scalpel. Littler scissors were used to spread through the subcutaneous tissue. I dissected layer by layer and identified the ulnar nerve distally as it was going between the heads of the FCU. I proceeded with retrograde dissection of the nerve which was located behind the medial epicondyle. There was a significant band of constrictive scar tissue around the nerve at the location of the medial epicondyle. After release there was visible base of the forearm but the nerve did appear atrophic in appearance. I proceeded with dissection proximally noting there was no constriction of the intermuscular septum. On range of motion of the elbow there was no subluxation of the nerve. I irrigated with normal saline closure with 3-0 Vicryl and 4-0 Monocryl. A dressing of Dermabond at the elbow and xeroform for the palm was placed followed by nithin neri, and then a volar wrist and posterior elbow splint was applied for patient safety, security, and comfort and secured with an calin bandage after the tourniquet was let down noting the hand was warm and well perfused. The patient was then awaken from anesthesia and transferred to the recovery room in stable condition.? Complications - none EBL- 0cc Disposition - home in stable conditions myrna smith pa-c was essential for positioning, retraction closure and dressing placement. It should be noted that as these were revision procedures, they were signficiantly more complicated requiring increased anatomy identification, dissection and neurolysis. LINNETTE Billing Surgery - Charge Fo
[2024-01-31] MEDS: LIDO 1%/EPINEPHRINE 1:100,000 50 ML VIAL 20 ML INFILTRATE (07:44)
[2024-01-31 08:25] VITALS: BP 141/73; PULSE 51; RESP 16; O2SAT 95
--- NOTE | 2024-01-31 08:32 | WPDANESPN ---
Anes - Prog Note Post-Op Date/Time: 01/31/24 08:32 Cardiovascular status: normal Respiratory status: normal Airway patency: baseline Mental status: baseline Post-Op hydration status: normal Vital Signs: Last Vital Signs Temp 36.5 C 01/31/24 06:33 Pulse 56 L 01/31/24 06:33 Resp 14 01/31/24 06:33 BP 139/76 01/31/24 06:33 Pulse Ox 97 01/31/24 06:33 O2 Del Method Room Air 01/31/24 06:33 Pain Score (VAS): 1 01/31/24 06:29 POC Capillary Glucose 180 H Post-procedural complaints: none Patient Feedback: Patient satisfied with anesthetic care.
[2024-01-31 08:48] VITALS: BP 146/72; PULSE 52; RESP 18; O2SAT 95
== END 2024-01-31 09:15 | disposition home or self-care (01) ==
PROVIDERS: PCP Internal Medicine; Visit Provider Plastic Surgery
PROC: (CPT 64721; principal; 2024-01-31 07:30)
PROC: (CPT 64718; 2024-01-31 07:30)
DX: G56.02 Carpal tunnel syndrome, left upper limb (principal); G56.22 Lesion of ulnar nerve, left upper limb
CPT/HCPCS: 64721; 64718

== ENCOUNTER 2024-02-12 14:56 | Outpatient (CLI) | payer MEDICARE, SELFPAY ==
--- NOTE | ~2024-02-12 | CT_ITS ---
CTA chest PE protocol Ordering provider: Tesfaye Peralta MD History: 73 years Male with . R06.09 - Other forms of dyspnea . Comparison: None. Technique: CT angiogram chest was performed following timed intravenous injection of contrast. Thin s lice axial images and reformatted coronal images were obtained. Three dimensional reformatted images of the chest were also obtained using a [employer] workstation. . Automated exposure control and iterati ve reconstruction technique were employed. The dose-length product was 719.37 mGy-cm. 100 ML Omnipaqu e 350 was given IV. Findings: PULMONARY ARTERIES: No pulmonary embolus. VISUALIZED THORACIC INLET: Normal. MEDIASTINUM: Aorta/coronary arteries: Mild atheromatous disease. Heart/other: The heart is not enlarged. Lymph nodes: No mediastinal or hilar adenopathy. LUNGS: No pulmonary nodules or masses. No infiltrates or effusions. No pneumothorax. VISUALIZED UPPER ABDOMEN: Postoperative changes in the stomach. Status post cholecystectomy. Left shannon al cyst measuring 5.5 cm. Otherwise, the visualized upper abdomen is normal. MUSCULOSKELETAL: Soft tissues: The superficial soft tissues are normal. Bones: Age appropriate degenerative changes of the spine. IMPRESSION: 1. No pulmonary embolism. 2. No acute cardiopulmonary pathology. 3. Left renal cyst. Reviewed, dictated and finalized at location A.
[2024-02-12 15:31] LABS: Basophils Percent Auto 0.4 % (0.2-1.2); Eosinophils Absolute Auto 0.2 K/mm3 (0-0.3); Eosinophils Percent Auto 2.7 % (0-4.4); Hematocrit 44.6 % (42.0-52.0); Hemoglobin 14.8 g/dL (14.0-18.0); Immature Granulocyte Absolute 0.03 K/mm3 (0.00-0.031); Immature Granulocyte Percent A 0.4 % (0-0.5); Lymphocytes Absolute Auto 1.94 K/mm3 (0.9-3.2); Lymphocytes Percent Auto 23.5 % (18.3-44.2); Mean Corpuscular HGB Conc 33.2 g/dl (32-36); Mean Corpuscular Hemoglobin 31.2 pg (26-34); Mean Corpuscular Volume 94.1 fl (80-100); Mean Platelet Volume 10.2 fl (7.4-10.4); Monocytes Absolute Auto 0.8 K/mm3 (0.1-0.6); Monocytes Percent Auto 9.6 % (2.6-8.5); Neutrophils Absolute Auto 5.2 K/mm3 (1.3-6.7); Neutrophils Percent Auto 63.4 % (45.5-73.1); Platelet Count Result 248 k/mm3 (150-375); Red Blood Count 4.74 M/mm3 (4.6-6.20); Red Cell Distribution Width 13.7 % (11.5-14.5); White Blood Count 8.2 K/mm3 (4.5-10.0)
[2024-02-12 15:55] LABS: Estimated Glomerular Filt Rate 49
[2024-02-12 16:02] LABS: Erythrocyte Sedimentation Rate 28 mm/hr (0-20)
[2024-02-12 16:06] LABS: Appearance Urine Clear (Clear); Bacteria Urine None Seen /hpf; Bilirubin Urine Negative (Negative); Blood Urine Negative (Negative); Color Urine Yellow (Yellow); Glucose Urine UA 3+ mg/dL (Negative); Ketones Urine Negative (Negative); Leukocyte Esterase Ur Negative LEU/UL (Negative); Need Manual Microscopic Reviewed; Nitrate Urine Negative (Negative); Protein Urine 3+ mg/dL (Negative); RBC Urine 0-2 /hpf (0-2); Specific Grav Ur 1.019 (1.001-1.035); Squamous Epithelial Cell Urine None Seen /hpf (Few); Urobilinogen Urine 0.2 mg/dL (<2.0); WBC Urine 0-5 /hpf (0-3)
[2024-02-12 16:08] LABS: Add Urine Microscopic? YES
[2024-02-12 16:13] LABS: Alanine Aminotransferase 41 U/L (6-50); Albumin Level 3.8 g/dL (3.5-5.1); Alkaline Phosphatase 119 U/L (38-126); Anion Gap 9 mmol/L (4-12); Aspartate Amino Transferase 53 U/L (17-59); Blood Urea Nitrogen 32 mg/dL (9-20); Carbon Dioxide 30 mmol/L (22-30); Chloride 98 mmol/L (98-107); Estimated Glomerular Filt Rate 54; Glucose 175 mg/dL (65-110); Potassium 3.9 mmol/L (3.4-5.0); Sodium 137 mmol/L (137-145)
[2024-02-12 16:16] LABS: CRP < 0.5 mg/dL (<1.0); Creatine Kinase 84 U/L (55-170)
[2024-02-12 16:24] LABS: Troponin I 0.016 ng/mL (0.000-0.034)
[2024-02-12 16:56] LABS: Cholesterol 141 mg/dL (0-200); HDL Direct 53 mg/dL; Triglycerides 108 mg/dL (<150)
[2024-02-12 17:07] LABS: LDL Cholesterol Direct 59 mg/dL
[2024-02-12 17:53] LABS: Iron 123 ug/dL (49-181); Percent Iron Saturation 37 % (20-50)
[2024-02-12 18:38] LABS: Folic Acid > 20.0 ng/mL (2.76->20)
[2024-02-12 19:20] LABS: Hemoglobin A1C 7.8 % (<5.7)
== END 2024-02-12 14:57 | disposition home or self-care (01) ==
LOC: ANHIMG 14:57
PROVIDERS: PCP Internal Medicine; Visit Provider Internal Medicine
DX: R53.1 Weakness (principal); R53.83 Other fatigue; Z79.899 Other long term (current) drug therapy; E11.9 Type 2 diabetes mellitus without complications; E78.5 Hyperlipidemia, unspecified; R06.02 Shortness of breath; R06.09 Other forms of dyspnea; D64.9 Anemia, unspecified; E53.8 Deficiency of other specified B group vitamins; I12.9 Hypertensive chronic kidney disease with stage 1 through stage 4 chronic kidney disease, or unspecified chronic kidney disease; N18.30 Chronic kidney disease, stage 3 unspecified
CPT/HCPCS: 36415; 71275; 80053; 80061; 81001; 82550; 82607; 82728; 82746; 83036; 83540; 83550; 84484; 85025; 85652; 86140; 87086; Q9967

== ENCOUNTER 2024-02-18 14:32 | Outpatient (CLI) | payer MEDICARE, SELFPAY ==
[2024-02-18 15:07] LABS: Anion Gap 5 mmol/L (4-12); Blood Urea Nitrogen 29 mg/dL (9-20); CRP < 0.5 mg/dL (<1.0); Calcium 8.9 mg/dL (8.4-10.2); Carbon Dioxide 32 mmol/L (22-30); Chloride 99 mmol/L (98-107); Estimated Glomerular Filt Rate 59; Glucose 159 mg/dL (65-110); Potassium 3.9 mmol/L (3.4-5.0); Sodium 136 mmol/L (137-145)
[2024-02-18 15:21] LABS: Erythrocyte Sedimentation Rate 47 mm/hr (0-20)
== END 2024-02-18 14:33 | disposition home or self-care (01) ==
LOC: ANHLAB 14:36
PROVIDERS: PCP Internal Medicine; Visit Provider Internal Medicine
DX: N18.9 Chronic kidney disease, unspecified (principal); Z79.899 Other long term (current) drug therapy; R06.09 Other forms of dyspnea; R53.1 Weakness; R53.83 Other fatigue
CPT/HCPCS: 36415; 80048; 85652; 86140

== ENCOUNTER 2024-05-14 08:16 | Outpatient (CLI) | payer MEDICARE, SELFPAY ==
[2024-05-14 09:35] LABS: Hematocrit 40.8 % (42.0-52.0); Hemoglobin 13.6 g/dL (14.0-18.0); Mean Corpuscular HGB Conc 33.3 g/dl (32-36); Mean Corpuscular Hemoglobin 31.7 pg (26-34); Mean Corpuscular Volume 95.1 fl (80-100); Mean Platelet Volume 10.6 fl (7.4-10.4); Platelet Count Result 225 k/mm3 (150-375); Red Blood Count 4.29 M/mm3 (4.6-6.20); Red Cell Distribution Width 13.9 % (11.5-14.5); White Blood Count 10.5 K/mm3 (4.5-10.0)
[2024-05-14 09:47] LABS: Anion Gap 7 mmol/L (4-12); Blood Urea Nitrogen 58 mg/dL (9-20); Calcium 9.4 mg/dL (8.4-10.2); Carbon Dioxide 33 mmol/L (22-30); Chloride 95 mmol/L (98-107); Estimated Glomerular Filt Rate 42; Glucose 99 mg/dL (65-110); Magnesium 2.6 mg/dL (1.6-2.3); Potassium 3.7 mmol/L (3.4-5.0); Sodium 135 mmol/L (137-145)
== END 2024-05-14 08:17 | disposition home or self-care (01) ==
LOC: ANHLAB 08:19
PROVIDERS: PCP Internal Medicine; Visit Provider Internal Medicine Cardiovascular Disease
DX: D64.9 Anemia, unspecified (principal); N18.9 Chronic kidney disease, unspecified; E83.42 Hypomagnesemia
CPT/HCPCS: 36415; 80048; 83735; 85027

== ENCOUNTER 2024-05-16 06:47 | Outpatient (CLI) | payer MEDICARE, SELFPAY ==
[2024-05-16 08:14] LABS: Erythrocyte Sedimentation Rate 30 mm/hr (0-20)
[2024-05-16 08:20] LABS: Anion Gap 9 mmol/L (4-12); Blood Urea Nitrogen 61 mg/dL (9-20); CRP < 0.5 mg/dL (<1.0); Calcium 9.1 mg/dL (8.4-10.2); Carbon Dioxide 31 mmol/L (22-30); Chloride 98 mmol/L (98-107); Estimated Glomerular Filt Rate 42; Glucose 104 mg/dL (65-110); Potassium 3.4 mmol/L (3.4-5.0); Sodium 138 mmol/L (137-145)
== END 2024-05-16 06:48 | disposition home or self-care (01) ==
PROVIDERS: PCP Internal Medicine; Referring Provider Internal Medicine Cardiovascular Disease; Visit Provider Internal Medicine
DX: M35.3 Polymyalgia rheumatica (principal); E11.9 Type 2 diabetes mellitus without complications
CPT/HCPCS: 36415; 80048; 85652; 86140

== ENCOUNTER 2024-05-28 12:30 | Outpatient (RCR) | payer MEDICARE, SELFPAY ==
--- NOTE | 2024-03-04 09:45 | OTOPEVAL1 ---
Assessment and note entered by ALISHA Grant/Roberth, CHT Evaluation Information Diagnosis Lesion of ulnar nerve left UE, carpal tunnel syndrome left UE Subjective Information Patient is left handed. He underwent left carpal and cubital tunnel release 01/31/24. He reports functional limitations with lifting, noting he feels weak in this arm. He also notes decreased dexterity in the hand as well as residual paresthesia in the fingers. Reported Pain Level Pain Score 0: Self Report Assessment OT Clinical Summary Patient referred to OT following revision of left carpal and cubital tunnel release ~6 weeks ago. He presents with residual weakness in the triceps, wrist, and hand which restrict return to left UE use with heavier lifting tasks as well as fine motor tasks. Skilled OT indicated to maximize functional strength and dexterity of his left, dominant hand. Plan of Care Interventions Therapeutic Exercise,Manual Therapy,Therapeutic Activities,Hot Pack/Cold Pack,Ultrasound,Paraffin OT Services Indicated Yes Treatment Frequency and 1-2x/week for 7 visits Duration These treatments will address the objective and functional deficits as defined above. The patient will be advanced safely and appropriately in order for the patient to progress towards his/her prior level of function. Additional exercises will be introduced and as well as a comprehensive home exercise program upon discharge, if needed, ?to ensure carryover of functional gains achieved in the clinic. This treatment plan has been reviewed and agreement upon by the patient.
--- NOTE | 2024-03-04 09:45 | OPREHPOC ---
Outpatient Therapy Plan of Care This is a Multidisciplinary Plan of Care that may contain components documented by all disciplines (PT, OT, and ST.) OT Problem 1 OT Problem #1 Knowledge Deficit OT Goal 1 Goal 1. Patient to be independent with HEP. Target Visit 7 OT Problem 2 OT Problem #2 Impaired Strength OT Goal 1 Goal 1. Increase left triceps strength to 4/5. 2. Increase left gross wrist strength to 4/5. 3. Increase left otc clerk strength to 30 lbs. 4. Increase left intrinsic muscles strength to 4/5 . Target Visit 7
--- NOTE | 2024-03-10 14:21 | OPREHPOC ---
Outpatient Therapy Plan of Care This is a Multidisciplinary Plan of Care that may contain components documented by all disciplines (PT, OT, and ST.) PT Problem 1 PT Problem #1 Knowledge Deficit PT Goal 1 Goal / Goal Update Pt to be IND with issued HEP. Target Visit 4 PT Problem 2 PT Problem #2 Impaired Strength PT Goal 1 Goal / Goal Update Pt to improve ankle dorsiflexion to 4/5 to improve foot clearnace. Target Visit 10 PT Goal 2 Goal / Goal Update Pt to be able to perform 1 sit <> stand without UE support. Target Visit 10 PT Problem 3 PT Problem #3 Impaired Gait PT Goal 1 Goal / Goal Update Pt to ambulate without path deviations. Target Visit 10 PT Goal 2 Goal / Goal Update Pt to improve 2 min walk distance from 275ft to 350ft. PT Problem 4 PT Problem #4 Impaired Functional Mobil PT Goal 1 Goal / Goal Update Pt to improve Tinetti score from 17/28 to 24/28 to minimize fall risk. Target Visit 10 OT Problem 1 OT Problem #1 Knowledge Deficit OT Goal 1 Goal / Goal Update 1. Patient to be independent with HEP. Target Visit 7 OT Problem 2 OT Problem #2 Impaired Strength OT Goal 1 Goal / Goal Update 1. Increase left triceps strength to 4/5. 2. Increase left gross wrist strength to 4/5. 3. 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 4. Increase left intrinsic muscles strength to 4/5 . Target Visit 7
--- NOTE | 2024-03-10 14:22 | PTOPEVAL1 ---
Assessment and note entered by Grover Power, PT, DPT Evaluation Information Assessment Status Evaluation Diagnosis weakness and decreased mobility ICD-10 Condition Codes (PT) Difficulty Walking R26.2,R26.9,Weakness R53.1 Subjective Information Pt states he was recently diagnosis with polymyalgia rheumatica, peripheral neuropathy, and worsening heart failure. He states in the last 2- 3 months he finally sought treatment for the weakness in his legs but he now recalls signs about a year ago. He walks with a cane and has for a couple of years. He also has peripheral neuropathy. He reports 2-3 falls in the last 6 months. He states he does all the shopping and would like to be able to do this without needing a break. Reported Pain Level Pain Score 0: Self Report Assessment PT Clinical Summary Gabe presents to therapy today with diagnosis of polymyalgia rheumatica as well as peripheral neuropathy. Today he demonstrates significant limitations in his LE strength and balance. His scores on the 5xSTS, 2 min walk test, and Tinetti all place him at and increased risk for falls. He demonstrates gait deviations including decreased foot clearance, path deviations, and lateral trunk leans for balance. Skilled therapy services are indicated to address the deficits noted above, to improve gait, balance, and strength, and to minimize fall risk. Plan of Care Interventions Electrical Stimulation,Gait Training,Manual Therapy,Neuro Re-education,Patient/Caregiver Educati,Therapeutic Activities,Therapeutic Exercise PT Services Indicated Yes Treatment Frequency and 2x/wk for 10 visits Duration These treatments will address the objective and functional deficits as defined above. The patient will be advanced safely and appropriately in order for the patient to progress towards his/her prior level of function. Additional exercises will be introduced and as well as a comprehensive home exercise program upon discharge, if needed, ?to ensure carryover of functional gains achieved in the clinic. This treatment plan has been reviewed and agreement upon by the patient.
--- NOTE | 2024-04-02 11:34 | PCPTNOTE ---
Patient canceled due to feeling to weak to come to therapy this date.
--- NOTE | 2024-04-08 15:48 | OTOPDC ---
Assessment and note entered by ALISHA Grant/Roberth, CHT Evaluation Information Assessment Status Discharge Diagnosis Lesion of ulnar nerve left UE, carpal tunnel syndrome left UE ICD-10 Condition Codes (OT) M62.81 Subjective Information Patient has participated in 7 OT sessions. He reports improvements in his strength and flexibility. He reports experiencing residual numbness in the hand. He reports the numbness continues to make his dexterity impaired. Reported Pain Level Pain Score 0: Self Report Assessment OT Clinical Summary Patient referred to OT following revision of left carpal and cubital tunnel release. 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 He continues to demonstrate weakness with finger abduction/adduction. Reviewed HEP today. Discussed importance of continuing to work on his HEP as his nerves heal for optimal strength results. D/C OT with patient independent with all materials. Plan of Care OT Services Indicated No
--- NOTE | 2024-04-15 12:33 | PTOPPROG ---
Assessment and note entered by Grovre Power, PT, DPT Evaluation Information Assessment Status Progress Diagnosis weakness and decreased mobility ICD-10 Condition Codes (PT) Difficulty Walking R26.2,R26.9,Weakness R53.1 Subjective Information Pt states he went to see the weight reducing technician yesterday and they tripled his medication and added a new one. Since starting therapy Gabe has started walking with two canes, he states he can walk better and has better balance with them. He feels like his neuropathy is getting worse, making it harder to walk. He states he is eager to see what benefits he gets from a change in medication. Assessment PT Clinical Summary Gabe has completed 10 visits of skilled therapy to treat his diagnosis of polymyalgia rheumatica as well as peripheral neuropathy. Today he continues to demonstrates significant limitations in his LE strength and balance. His scores on the 5xSTS, 2 min walk test, and Tinetti have all progressed but still place him at and increased risk for falls. His gait deviations including decreased foot clearance, path deviations, and lateral trunk leans for balance. He is making slow but forward progress towards his therapy goals. Continuation of skilled therapy services are indicated to progress towards goals, to improve gait, balance, and strength, and to minimize fall risk. Plan of Care Interventions Electrical Stimulation,Gait Training,Manual Therapy,Neuro Re-education,Patient/Caregiver Educati,Therapeutic Activities,Therapeutic Exercise PT Services Indicated Yes Treatment Frequency and 2x/wk for 10 visits Duration These treatments will address the objective and functional deficits as defined above. The patient will be advanced safely and appropriately in order for the patient to progress towards his/her prior level of function. Additional exercises will be introduced and as well as a comprehensive home exercise program upon discharge, if needed, ?to ensure carryover of functional gains achieved in the clinic. This treatment plan has been reviewed and agreement upon by the patient.
--- NOTE | 2024-06-02 07:55 | PCPTNOTE ---
This treatment is being continued on visit number [id number]. Please see documentation on both accounts to view progress. Completed interventions, outcomes, and problems have been marked as Inactive to facilitate the copying of the Care plan routine for recurring accounts.
== END 2024-05-30 16:07 | disposition still patient (30) ==
LOC: ANHGOSHPT 12:30
PROVIDERS: PCP Internal Medicine; Visit Provider Physician Assistant Surgical
DX: G56.22 Lesion of ulnar nerve, left upper limb (principal); G56.02 Carpal tunnel syndrome, left upper limb; R53.1 Weakness; Z74.09 Other reduced mobility
CPT/HCPCS: 97110; 97112; 97161; 97165; 97530; 97750

== ENCOUNTER 2024-06-25 08:01 | Outpatient (CLI) | payer MEDICARE, SELFPAY ==
[2024-06-25 13:38] LABS: Erythrocyte Sedimentation Rate 24 mm/hr (0-20)
[2024-06-25 14:24] LABS: Anion Gap 1 mmol/L (4-12); Blood Urea Nitrogen 50 mg/dL (9-20); CRP < 0.5 mg/dL (<1.0); Calcium 9.4 mg/dL (8.4-10.2); Carbon Dioxide 36 mmol/L (22-30); Chloride 97 mmol/L (98-107); Estimated Glomerular Filt Rate 46; Glucose 93 mg/dL (65-110); Potassium 4.2 mmol/L (3.4-5.0); Sodium 134 mmol/L (137-145)
== END 2024-06-25 08:02 | disposition home or self-care (01) ==
PROVIDERS: PCP Internal Medicine; Visit Provider Internal Medicine
DX: M35.3 Polymyalgia rheumatica (principal); I10 Essential (primary) hypertension
CPT/HCPCS: 36415; 80048; 85652; 86140

== ENCOUNTER 2024-08-20 14:00 | Outpatient (RCR) | payer MEDICARE, SELFPAY ==
--- NOTE | 2024-06-02 07:55 | PCPTNOTE ---
The treatment documented on this account is a continuation of the treatment documented on visit number [id number]. Please see documentation on both accounts to view progress. The Plan of Care has been transitioned and updated within the new V#. I have addressed and agree with the discipline specific Problems, Interventions, and Goals for the current certification period. Completed interventions, outcomes, and problems have been marked as Inactive to facilitate the copying of the Care plan routine for recurring accounts.
--- NOTE | 2024-06-13 07:56 | PCPTNOTE ---
Addendum entered by Jessica Coyle, MEDICAL CONCIERGE 06/13/24 07:57: Patient was canceled 06/12/24 due to therapist being out with illness. Original Note: Patient was canceled this date due to therapist being out with illness.
--- NOTE | 2024-06-23 14:20 | PTOPPROG ---
Assessment and note entered by Grover Power, PT, DPT Evaluation Information Assessment Status Progress Diagnosis weakness and decreased mobility ICD-10 Condition Codes (PT) Difficulty Walking R26.2,R26.9,Weakness R53.1 Subjective Information Pt states his doctor has more than doubled his prednisone and he states he is not getting the benefits he initially thought he would. He reports good and bad days, and low energy levels that are limiting his therapy progress. Assessment PT Clinical Summary Gabe has completed 17 visits of skilled therapy to treat his diagnosis of polymyalgia rheumatica as well as peripheral neuropathy. He is making very slow but consistent progress towards his therapy goals. He continues to demonstrates significant limitations in his LE strength particularly in his hips and ankles, as well as decreased static and dynamic standing balance, placing him at an increased risk for falls. His scores on the 2 min walk test, and Tinetti have progressed but still place him at and increased risk for falls. He continues to have decreased endurance that limits his participation in therapy. Continuation of skilled therapy services are indicated to progress towards goals, to improve gait, balance, and strength, and to minimize fall risk. Plan of Care Interventions Therapeutic Exercise,Patient/Caregiver Educati, Manual Therapy,Neuro Re-education,Therapeutic Activities,Electrical Stimulation,Gait Training PT Services Indicated Yes Treatment Frequency and 2x/wk for 8 visits Duration These treatments will address the objective and functional deficits as defined above. The patient will be advanced safely and appropriately in order for the patient to progress towards his/her prior level of function. Additional exercises will be introduced and as well as a comprehensive home exercise program upon discharge, if needed, ?to ensure carryover of functional gains achieved in the clinic. This treatment plan has been reviewed and agreement upon by the patient.
--- NOTE | 2024-07-09 08:03 | PCPTNOTE ---
Patient called to cancel appointment for 07/09/24 due to not feeling well and having a hard time getting around.
--- NOTE | 2024-07-22 13:22 | OPREHPOC ---
Outpatient Therapy Plan of Care This is a Multidisciplinary Plan of Care that may contain components documented by all disciplines (PT, OT, and ST.) PT Problem 1 PT Problem #1 Knowledge Deficit PT Goal 1 Goal / Goal Update Pt to be IND with issued HEP. 04/15/24: met Target Visit 4 Progress Met PT Problem 2 PT Problem #2 Impaired Strength PT Goal 1 Goal / Goal Update Pt to improve ankle dorsiflexion to 4/5 to improve foot clearance. 04/15/24: slow progress 06/23/24: slow progress, 3/5 07/22/24: slow progress Target Visit 10 PT Goal 2 Goal / Goal Update Pt to be able to perform 1 sit <> stand without UE support. 04/15/24: not met 06/23/24: not met 07/22/24: not met Target Visit 10 PT Problem 3 PT Problem #3 Impaired Gait PT Goal 1 Goal / Goal Update Pt to ambulate without path deviations. 04/15/24: not met 06/23/24: progressing 07/22/24 progressing Target Visit 10 PT Goal 2 Goal / Goal Update Pt to improve 2 min walk distance from 275ft to 350ft. 04/15/24: progressing, 315ft 06/23/24: progressing, 335ft 07/22/24: 330ft Progress Partially Met PT Problem 4 PT Problem #4 Impaired Functional Mobility PT Goal 1 Goal / Goal Update Pt to improve Tinetti score from to to minimize fall risk. 04/15/24: progressing, 06/23/24: 07/22/24: Target Visit 10 OT Problem 1 OT Problem #1 Knowledge Deficit OT Goal 1 Goal / Goal Update 1. Patient to be independent with HEP. ---OT D/C 04/08/24--- 1. Met Target Visit 7 OT Problem 2 OT Problem #2 Impaired Strength OT Goal 1 Goal / Goal Update 1. Increase left triceps strength to 4/5. 2. Increase left gross wrist strength to 4/5. 3. Increase left audio video mechanic strength to 30 lbs. 4. Increase left intrinsic muscles strength to 4/5 . ---OT D/C 04/08/24--- 1. Met 2. Not met, pt indep with HEP 3. Not met, pt indep with HEP 4. Not met, pt indep with HEP Target Visit 7
--- NOTE | 2024-07-22 13:23 | PTOPPROG ---
Assessment and note entered by Grover Power, PT, DPT Evaluation Information Assessment Status Progress Diagnosis weakness and decreased mobility ICD-10 Condition Codes (PT) Difficulty Walking R26.2,Abnormalities of gait and mobility R26.9,Weakness R53.1 Subjective Information Pt states they decreased his dosage of prednisone last week. He states he still feels very weak and deconditioned. Assessment PT Clinical Summary Gabe has completed 24 visits of skilled therapy to treat his diagnosis of polymyalgia rheumatica as well as peripheral neuropathy and CHF. He is making very slow progress towards his therapy goals. He continues to demonstrates significant limitations in his LE strength particularly in his hips and ankles, as well as decreased static and dynamic standing balance, placing him at an increased risk for falls. His scores on the 2 min walk test, and Tinetti have progressed but still place him at and increased risk for falls. He continues to have decreased endurance and SOB that limits his participation in therapy and his compliance with his HEP at home. Pt would like to follow up with his MD prior to returning to therapy to see if modifications need to be made to treatment plan. Plan of Care Interventions Therapeutic Exercise,Patient/Caregiver Education, Manual Therapy,Neuro Re-education,Therapeutic Activities,Electrical Stimulation,Gait Training PT Services Indicated Yes Treatment Frequency and on hold until MD follow up Duration 2x/wk for 10 visits after follow up These treatments will address the objective and functional deficits as defined above. The patient will be advanced safely and appropriately in order for the patient to progress towards his/her prior level of function. Additional exercises will be introduced and as well as a comprehensive home exercise program upon discharge, if needed, ?to ensure carryover of functional gains achieved in the clinic. This treatment plan has been reviewed and agreement upon by the patient.
== END 2024-09-02 23:59 | disposition home or self-care (01) ==
LOC: ANHGOSHPT 14:00
PROVIDERS: PCP Internal Medicine; Visit Provider Physician Assistant Surgical
DX: G56.22 Lesion of ulnar nerve, left upper limb (principal); G56.02 Carpal tunnel syndrome, left upper limb; R53.1 Weakness; Z74.09 Other reduced mobility
CPT/HCPCS: 97110; 97530; 97750

== ENCOUNTER 2024-09-02 08:25 | Outpatient (CLI) | payer MEDICARE, SELFPAY ==
--- OUTSIDE RECORDS SUMMARY | 2024-09-02 08:59 | XMS_ITS | Clinical Summary ---
Author Organization [facility] Address [address] [place] [phone] Phone Care Team Providers Care Bicycle Repairer Name Role Phone Tesfaye Peralta MD Primary Care Provider [phone] Allergies Active Allergy Reactions Criticality Noted Date Comments Other Unknown 08/29/2019 Penicillins Unknown 08/29/2019 Wound Dressing Adhesive 01/30/2013 PULLS SKIN OFF Medications Medication Sig Dispensed Refills Start Date End Date Status allopurinol (ZYLOPRIM) 300 MG tablet Take 300 mg by mouth 1 (one) time each day 03/08/2021 Active aspirin (ST RUDDY) 81 MG EC tablet Take 81 mg by mouth daily Active atorvastatin (LIPITOR) 20 MG tablet Take 20 mg by mouth 1 (one) time each day 03/08/2021 Active bumetanide (BUMEX) 2 MG tablet Take 1 mg by mouth 1 (one) time each day prn Active Calcium Carbonate-Vit D-Min (Caltrate 600+D Plus Minerals) 600-800 MG-UNIT tablet Take by mouth Active Farxiga 10 MG tablet Take 1 tablet by mouth 1 (one) time each day 02/22/2021 Active glimepiride (AMARYL) 2 MG tablet TAKE 1 TABLET BY MOUTH ONCE DAILY IN THE MORNING WITH BREAKFAST 03/08/2021 Active montelukast (SINGULAIR) 10 MG tablet Take 10 mg by mouth 1 (one) time each day 02/22/2021 Active Bystolic 20 MG tablet Take 1 tablet by mouth 1 (one) time each day 03/08/2021 Active [place]-3 Fatty Acids ([place]-3 2100) 1050 MG capsule 1 capsule Active Januvia 100 MG tablet Take 100 mg by mouth 1 (one) time each day 01/28/2021 Active zinc gluconate 50 MG tablet Take by mouth Active Xyosted 75 MG/0.5ML solution auto-injector INJECT 75 MG (0.5 ML) SUBCUTANEOUSLY WEEKLY 01/19/2022 Active candesartan (ATACAND) 32 MG tablet TAKE 1 TABLET BY MOUTH ONCE DAILY FOR 90 DAYS 02/10/2022 Active Ascorbic Acid 100 MG chewable tablet Chew Active Calcium Polycarbophil (Fiber) 625 MG tablet Take 625 mg by mouth in the morning. Active cholecalciferol (VITAMIN D-3) 25 MCG (1000 UT) capsule Take by mouth Acti ve ferrous sulfate 325 (65 Fe) MG tablet Take 325 mg by mouth in the morning. Active Active Problems Problem Noted Date Diagnosed Date Diabetes mellitus without me ntion of complication, type II or unspecified type, not stated as uncontrolled 03/31/2021 Essential hypertension 03/31/2021 Calculus of kidney 03/31/2021 Stage 3a chronic kidney disease 03/31/2021 Cardiomyopathy 08/29/2019 Overview (03/27/2021): Last Assessment & Plan: 08/27/17 ECHO - Estimated ejection fraction 40-50% (mildly depressed) - LV: Moderate concentric hypertrophy is present. - Diastolic dysfunction stage I (impaired relaxation). - The left atrium is mildly enlarged. - The tricuspid valve is mildly thickened. Estimated PA Pressure (mm/Hg): 32 Resolved Problems Problem Noted Date Diagnosed Date Resolved Date Nonspecific abnormal results of function study of kidney 03/27/2021 07/08/2021 Immunizations Name Administration Dates Next Due Influenza TIV (IM) 05/06/2022,05/05/2021 Pneumococcal Conjugate 03/23/2016 TD Preservative Free 01/14/2020 Family History Medical History Relation Comments Kidney disease Neg Hx Social History Tobacco Use Types Packs/Day Years Used Date Smoking Tobacco: Never Smokeless Tobacco: Never Alcohol Use Standard Drinks/Week Comments Yes 10 (1 standard drink = 0.6 oz pu re alcohol) Sex and Gender Information Value Date Recorded Sex Assigned at Not on file Gender Identity Not on file Sexual Orientation Not on file Last Filed Vital Signs Vital Sign Reading Time Taken Comments Blood Pressure 128/70 07/10/2022 9:00 AM COFOUNDER Pulse 72 07/10/2022 9:00 AM COFOUNDER Temperature 35.5 C (95.9 F) 07/10/2022 9:00 AM COFOUNDER Respiratory Rate - - Oxygen Saturation - - Inhaled Oxygen Concentration - - Weight 107 kg (236 lb) 07/10/2022 9:00 AM COFOUNDER Height 182.9 cm (6') 07/10/2022 9:00 AM COFOUNDER Body Mass Index 32.01 07/10/2022 9:00 AM COFOUNDER Plan of Treatment Health Maintenance Due Date Last Done Comments Pneumococcal PPSV23/PCV13 65 + Years / High and Highest Risk (1 of 4 - PCV) 1954 Diabetic Foot Exam 1958 Ophthalmology Exam 1958 Influenza Vaccine (#1) 2024 05/06/2022, 2020 Care Teams Bicycle Repairer Relationship Specialty Start Date End Date Tesfaye Peralta MD [address] [facility] [address] [place] [address] PCP - General Internal Medicine 03/17/21
--- OUTSIDE RECORDS SUMMARY | 2024-09-02 08:59 | XMS_ITS | Continuity of Care Document ---
Author Organization [facility] Address [address] [facility] [address] [place] [address] Phone Care Team Providers Care Alpaca Farmer Name Role Phone Herrera Meneses MD Unavailable Unavailable Allergies, Adverse Reactions, Alerts Substance Reaction Status Criticality NSAIDS (Non-Steroidal Anti-Inflammatory Drug) Active No Information penicillin G Active No Information Medications Medication Instructions Dosage Effective Dates (start - stop) Status Comments Bystolic 5 mg tablet take 1 tablet by oral route every day 5 MG - Active montelukast 10 mg tablet take 1 tablet by oral route every day in the evening 10 MG - Active allopurinol 100 mg tablet - Active FiberCon 625 mg tablet - Active Centrum Silver tablet take 1 tablet by oral route every day - Active L-Lysine 500 mg capsule - Active eplerenone 25 mg tablet take 1 tablet by oral route every day 25 MG - Active simvastatin 20 mg tablet take 1 tablet by oral route every day in the evening 20 MG - Active Lantus 100 unit/mL subcutaneous solution inject by subcutaneous route as per insulin protocol 0.00 - Active Aspirin Low Dose 81 mg tablet,delayed release take 1 tablet by oral route every day 81 MG - No Longer Active bumetanide 2 mg tablet take 1 tablet by oral route every day 2 MG - No Longer Active testosterone cypionate 100 mg/mL intramuscular oil inject 0.5 milliliter by intramuscular route every 4 weeks 50 MG - No Longer Active Coreg CR 40 mg capsule, extended release take 1 capsule by oral route every day 40 MG No Longer Active Benicar 20 mg tablet take 1 tablet by oral route every day 20 MG - No Longer Active Klor-Con 10 mEq tablet,extended release take 2 tablet by oral route 2 times every day with food 20 MEQ - No Longer Active Singulair 10 mg tablet take 1 tablet by oral route every day in the evening 10 MG - No Longer Active Apidra 100 unit/mL subcutaneous solution inject by subcutaneous route as per insulin sliding scale protocol - No Longer Active Procedures Procedure Date [...] Diagnoses Date Provider Providers Copied on Encounter [facility], [address] [facility] [address], [place], [place], [address], [place] tel:[phone] SEC Nees[place] Professional a comprehensive exam (chief complaint) SENILE NUCLEAR CATARACTDRUS EN OF OPTIC DISCOPN ANGL W BORDERLN FIND Low RiskDIABETIC RETINOPATHY NOS 4 Zaira Silverman. [address] [facility], [facility] [address], [place], [place], [address], [place]. tel:[phone] Referring Provider: Herrera Larsen, [address] [facility], [place], [address] . tel:[phone] [facility], [address], [place], [place], [address], [place] tel:[phone] SEC Darrell Velez No Information Apr-0 7-201 4 Aleta Phillips. [address], [place], [place], [address], [place]. tel:[phone] [facility], [address], [place], [place], [address], [place] tel:[phone] SEC Jose Luis [place] Professional No Information Julian-0 6-201 2 Wankum Herrera. [address] [facility], [facility] [place], [address], . tel:[phone] Referring Provider: Herrera Larsen, [address] [facility] [place], [address] . tel:[phone] [facility], [address], [place], [place], [address], [place] tel:[phone] SEC Jose Luis [place] Professional No Information Apr-0 8-201 1 Wankum Herrera. [address] [facility], [facility] [place], [address], [place]. tel:[phone] [facility], [address], [place], [place], [address], [place] tel:[phone] SEC [place]es[place] Professional No Information Apr-0 5-201 0 Wankum Herrera. [address] [facility], [address] [place], [address], [place]. tel:[phone] [facility], [address], [place], [place], [address], [place] tel:[phone] SEC [place] Professional No Information Apr-0 3-200 9 Wankum Herrera. [address] [facility], [address], [place], [place], [address], [place]. tel:[phone] Referring Provider: Herrera Meneses Chava, [address] [facility] [address], [place], [address] . tel:[phone] [facility], [address], [place], [place], [address], tel:[phone] SEC Jose Luis [place] Professional No Information 8 Zaira Silverman. [address] [facility], [address], [place], [place], [address], [place]. tel:[phone] Family History Family Member Type Diagnosis Age At Onset Grandmother (m) Problem (finding) Diabetes mellitus Payers Payer name Insurance type Covered green party ID Authoriza tion(s) [place] [id number] Social History Type Description Quantity Date Captured Comments Alcohol Use Details No Caffeine Use Details Tobacco Use Status No Information Smoking Status Never smoker Non-Smoking Tobacco Use Details : No Details Available : No Details Available Sex Male Chief Complaint And Reason For Visit From encounter dated '11/07/2013 09:00'. 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
--- OUTSIDE RECORDS SUMMARY | 2024-09-02 08:59 | XMS_ITS | Clinical Summary ---
Author Organization [facility] [employer] Address [address] [place] [address] Care Team Providers Care Gas Engine Operator Name Role Phone Tesfaye Peralta MD Primary Care Provider [phone] Tesfaye Peralta MD Unavailable [phone] Charlene Toribio RN Unavailable [phone] Source Comments [facility],non-owned Affiliates and Associated Physician Practices is amultiple site organization consisting of ambulatory clinics and hospital sitesin [place], [place], [place] and [place]. This disclosure is being madepursuant to the Care Everywhere program and may not contain all information available regarding this patient. Last updated 18.[facility] Allergies Active Allergy Reactions Criticality Noted Date Comments Adhesive Sensitivity 01/30/2013 PULLS SKIN OFF Penicillins High 11/21/2012 Rash all over body Welts Medications * Be aware that medications may not be up to date on this document. Alwaysverify current medications with the patient. Medication Sig Dispensed Refills Start Date End Date Status TESTOSTERONE ENANTHATE IM Inject 200 mg into muscle ONCE EVERY 2 WEEKS Active montelukast (SINGULAIR) 10 MG tablet Take 10 mg by mouth once daily Active allopurinol (ZYLOPRIM) 300 MG tablet Take 300 mg by mouth once daily Active aspirin (ASPIRIN) 81 MG chew tablet Take 81 mg by mouth once daily. Active calcium citrate-vitamin D (CITRACAL PLUS D) 315-200 MG-UNIT tablet Take 1 Tab by mouth once daily Active bumetanide (BUMEX) 1 MG tablet Take 1-2 mg by mouth once daily Active nebivolol (BYSTOLIC) 10 MG tablet Take 20 mg by mouth once daily Active SITagliptin (JANUVIA) 100 MG tablet Take 100 mg by mouth once daily Active Cholecalciferol (VITAMIN D3) 1000 UNITS Active Ascorbic Acid (VITAMIN C) 100 MG Active Ferrous Sulfate (IRON) 325 (65 FE) MG Active Zinc 30 MG Active atorvastatin (LIPITOR) 20 MG tablet Take 20 mg by mouth once daily 12/29/2019 Active candesartan (ATACAND) 8 MG tablet Take 8 mg by mouth once daily Active Active Problems Problem Noted Date Diagnosed Date 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 Chronic diarrhea 03/01/2018 Acute calculous cholecystitis 11/07/2015 Choledocholithiasis with acute cholecystitis Immunizations Name Administration Dates Next Due TD (ADULT), 5 LF TETANUS TOXOID, ADSORBED, PF Social History Tobacco Use Types Packs/Day Years Used Date Smoking Tobacco: Never Smokeless Tobacco: Never Alcohol Use Standard Drinks/Week Comments Yes 0 (1 standard drink = 0.6 oz pur e alcohol) SOCIAL MONTHLY Sex and Gender Information Value Date Recorded Sex Assigned at Not on file Gender Identity Not on file Sexual Orientation Not on file Last Filed Vital Signs Vital Sign Reading Time Taken Comments Blood Pressure 132/74 02/17/2019 12:22 PM CDT Pulse 56 02/17/2019 12:22 PM CDT Temperature 36.9 C (98.4 F) 02/26/2017 2:09 PM CDT Respiratory Rate 17 02/26/2017 7:05 PM CDT Oxygen Saturation 96% 02/26/2017 7:05 PM CDT Inhaled Oxygen Concentration - - Weight 115.7 kg (255 lb) 02/23/2020 1:02 PM CDT Height 182.9 cm (6') 02/17/2019 12:22 PM CDT Body Mass Index 34.58 02/17/2019 12:22 PM CDT Plan of Treatment Health Maintenance Due Date Last Done Comments MEDICARE AWV 12 MONTHS 1950 PNEUMOCOCCAL VACCINE 50+ (1 of 2 - PCV) 1967 ZOSTER VACCINE (1 of 2) 1998 HEPATITIS B VACCINE (1 of 3 - Risk 3-dose series) 2008 Respiratory Syncytial Virus (RSV) Vaccine Pt: or over 60 yrs (1 - 1-dose 75+ series) 2023 COVID-19 VACCINE (1 - 2023-2 5 season) 2024 INFLUENZA VACCINE (#1) 2024 DEPRESSION SCREENING 07/23/2024 DTAP/TDAP/TD VACCINES (2 - T d or Tdap) 01/13/2030 01/14/2020 HEPATITIS C SCREENING Completed 06/23/2017 HIB VACCINE Aged Out No longer eligi ble based on patient's age to complete this topic HPV VACCINE Aged Out No longer eligi ble based on patient's age to complete this topic MENINGOCOCCAL (Group B) VACCINE Aged Out No longer eligible based on patient's age to complete this topic MENINGOCOCCAL VACCINE Aged Out No manuel sang eligible based on patient's age to complete this topic Procedures Procedure Name Priority Date/Time Associated Diagnosis Comments HEPATITIS SCREEN ACUTE W/ REFLX CONFIRM 06/23/2017 10:[address] WORKER from Last 3 Months or Most Recently Relevant to Health Maintenance Results * HEPATITIS SCREEN ACUTE W/ REFLX CONFIRM (06/23/2017 10:[address] WORKER) Hepatitis A Virus Antibody IgM NON-REACTI VE NON-REACT [facility] Hepatitis B Virus Surface Antigen NON-REACTI VE NON-REACT [facility] Hepatitis B Core Virus Antibody IgM NON-REACTI VE NON-REACT [facility] Hepatitis C Antibody NON-REACTI VE NON-REACT [facility] Signal to Cut-Off 0.05 <1.00 [facility] Comment: Test Performed at: [facility] [address] [place] [address] BOGDAN HORN DO,MPH 06/23/2017 10:[address] WORKER 06/23/2017 10:[address] WORKER Peter Sorensen MD LAB - CHEMISTRY ORD ERABLES [facility] [address] [place] [address] from Last 3 Months or Most Recently Relevant to Health Maintenance Advance Directives Documents on File Type Date Recorded Patient Wireless Sales Expert Expl anation Adv Directive/Living Will/POA 02/16/2013 6:04 AM * FULL RESUSCITATION (Latest Code Status on File) Date Activated Date Inactivated Comments 02/12/2013 9:12 PM 02/14/2013 7:34 PM Care Teams Gas Engine Operator Relationship Specialty Start Date End Date Tesfaye Peralta MD [address] [place] [address] PCP - General Internal Medicine 01/14/20 Tesfaye Peralta MD [address] [place] [address] Internal Medicine 01/14/20 Charlene Toribio, TITA Business Development Engineer 10/13/15
--- OUTSIDE RECORDS SUMMARY | 2024-09-02 08:59 | XMS_ITS | Clinical Summary ---
Author Organization [facility] Address [address] [place] [address] Care Team Providers Care Hand Weaver Name Role Phone Tesfaye Peralta MD Primary Care Provider [phone] Allergies Active Allergy Reactions Criticality Noted Date Comments Penicillins Hives High 2022 Tape Other (see comment),Unknown 08/29/2019 Peels skin off. Ok to use paper tape Medications aspirin EC (ECOTRIN) 81 MG tablet Take 1 tablet (81 mg total) by mouth daily. Active allopurinol (ZYLOPRIM) 300 MG tablet Take 1 tablet (300 mg total) by mouth daily. Active montelukast (SINGULAIR) 10 MG tablet Take 1 tablet (10 mg total) by mouth nightly at bedtime. Active atorvastatin (LIPITOR) 20 MG tablet Take 1 tablet (20 mg total) by mouth nightly at bedtime. Active candesartan (ATACAND) 32 MG tablet Take 1 tablet (32 mg total) by mouth daily. Active nebivolol (BYSTOLIC) 20 MG tablet Take 0.5 tablets (10 mg total) by mouth daily. Active SITagliptin (JANUVIA) 100 MG tablet Take 1 tablet (100 mg total) by mouth daily. Active ferrous sulfate, 65 mg elemental, 325 (65 FE) MG tablet Take 1 tablet (325 mg total) by mouth daily with breakfast. Active zinc gluconate 50 MG Tab Take 1 tablet (50 mg total) by mouth daily. Active bumetanide (BUMEX) 2 MG tablet Take 0.5 tablets (1 mg total) by mouth daily. Active Dapagliflozin Propanediol (FARXIGA) 10 MG Tab Active glimepiride (AMARYL) 2 MG tablet Take 1 tablet (2 mg total) by mouth every morning before breakfast. Active Colby-3 Fatty Acids (OMEGA-3 PLUS) 1000 MG Cap Take 200 mg by mouth daily. Active polycarbophil (FIBERCON) 625 MG tablet Take 1 tablet (625 mg total) by mouth daily. Active NON FORMULARY Take 1 tablet by mouth daily. Advanced multi EA vitamin for gastric bypass patients Active NON FORMULARY Villa probiotic Active cephALEXin (KEFLEX) 250 MG capsule Take 1 capsule (250 mg total) by mouth daily. 06/05/20 23 Active PREVALITE 4 GM/DOSE powder 06/22/20 23 Active Ascorbic Acid 100 MG Chew Tab Chew Acti ve cholestyramine (QUESTRAN) 4 G packet Take 1 packet (4 g total) by mouth as needed. Active XYOSTED 75 MG/0.5ML Solution Auto-injector INJECT 75MG SUBCUTANEOUSLY WEEKLY 08/10/19 24 Active Zinc 30 MG Tab Activ e HYDROcodone-calin taminophen (NORCO) 5-325 MG tabletIndicatio ns:Acute Pain < 7 Day Supply Take 1 tablet by mouth every 6 (six) hours as needed. Indications: Acute Pain < 7 Day Supply 20 tablet 12/14/19 24 Active HYDROcodone-calin taminophen (NORCO) 5-325 MG tabletIndicatio ns:Acute Pain < 7 Day Supply Take 1 tablet by mouth every 4 (four) hours as needed for Pain. Indications: Acute Pain < 7 Day Supply For Moderate Pain 20 tablet 01/22/20 24 Active Active Problems Problem Noted Date Diagnosed Date Lumbar radiculopathy 05/24/2023 Lumbar facet arthropathy 06/05/2022 Overview (06/05/2022): Added automatically from request for surgery [id number] Family History Medical History Relation Comments Other Brother Other Father back pain Mother Other Sister Relation Status Comments Brother Father Mother Sister Alive Social History Tobacco Use Types Packs/Day Years Used Date Smoking Tobacco: Never Smokeless Tobacco: Never Tobacco Cessation:Counseling Given: Not Answered Alcohol Use Standard Drinks/Week Comments Not Currently 0 (1 standard drink = 0.6 oz pur e alcohol) socially Education Answer Date Recorded What is the highest level of school you have completed or the highest degree you have received? 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[employer]) 05/31/2022 Sex and Gender Information Value Date Recorded Sex Assigned at Not on file Legal Sex Male 8:49 AM CDT Gender Identity Not on file Sexual Orientation Not on file Last Filed Vital Signs Vital Sign Reading Time Taken Comments Blood Pressure 140/69 01/22/2024 11:17 AM CDT Pulse 52 01/22/2024 11:17 AM CDT Temperature 36.2 C (97.1 F) 01/22/2024 10:11 AM CDT Respiratory Rate 18 01/22/2024 11:17 AM CDT Oxygen Saturation 96% 01/22/2024 11:17 AM CDT Inhaled Oxygen Concentration - - Weight 107 kg (236 lb) 01/22/2024 10:11 AM CDT Height 182.9 cm (6') 01/22/2024 10:11 AM CDT Body Mass Index 32.01 01/22/2024 10:11 AM CDT Plan of Treatment Health Maintenance Due Date Last Done Comments Hepatitis C 1968 Annual Medicare Wellness Visit 2013 Pneumococcal Vaccine: 65+ Years (1 of 1 - PCV) 2013 03/23/2016 DTaP, Tdap and Td Vaccines (1 - Tdap) 01/15/2020 01/14/2020, 09/17/2018, 12/01/2013 RSV Immunization or 60+ Years (1 - 1-dose 75+ series) 2023 COVID-19 Vaccine (4 - season) 2024 04/10/2022, 11/08/2021, 05/17/2021 Influenza Adult (#1) 2024 05/06/2022, 05/05/2021, 03/31/2020, Additional history exists Zoster Vaccines Completed 11/11/2020, 06/22, 04/24/2014 Meningococcal B Vaccine Aged Out No l onger eligible based on patient's age to complete this topic Meningococcal Vaccine Aged Out No manuel sang eligible based on patient's age to complete this topic RSV Immunizations Under 20 Months Aged Out No longer eligible based on patient's age to complete this topic Insurance [facility] [place] [address] MED REPLACE [facility] MEDICARE Care Teams Hand Weaver Relationship Specialty Start Date End Date Tesfaye Peralta MD [address] [place] [id number] PCP - General INTERNAL MEDICINE 05/21/22
--- OUTSIDE RECORDS SUMMARY | 2024-09-02 08:59 | XMS_ITS | Referral Summary ---
Author Organization [facility] Address [address] [place] [address] Care Team Providers Care Piston Maker Name Role Phone Tesfaye Peralta MD Primary Care Provider [phone] Tesfaye Peralta MD Unavailable [phone] Charlene Toribio RN Unavailable [phone] Source Comments [facility],non-owned Affiliates and Associated Physician Practices is amultiple site organization consisting of ambulatory clinics and hospital sitesin [place], [place], [place] and [place]. This disclosure is being madepursuant to the Care Everywhere program and may not contain all information available regarding this patient. Last updated 18.[facility] Allergies Active Allergy Reactions Criticality Noted Date [...] Mass Index 34.58 02/17/2019 12:22 PM CDT Functional Status Functional Status Response Date of Assess ment Is person deaf or have serious hearing difficult y? Yes 10/13/2015 Is person blind or have serious difficulty seein g? No 10/13/2015 Does person have serious dif ficulty walking/climbing stairs? No 10/13/2015 Does person have difficulty dressing/bathing? No 10/13/2015 Does person have difficulty doing errands alone? No 10/13/2015 Cognitive Status Response Date of Assessm ent Does person have difficulty concentrating/remembering/making decisions? No 10/13/2015 Plan of Treatment Not on file Procedures Procedure Name Priority Date/Time Associated Diagnosis Comments HEPATITIS SCREEN ACUTE W/ REFLX CONFIRM 06/23/2017 10:33 AM DRAFTER CARTOGRAPHIC from Last 3 Months or Most Recently Relevant to Health Maintenance Results * HEPATITIS SCREEN ACUTE W/ REFLX CONFIRM (06/23/2017 10:33 AM DRAFTER CARTOGRAPHIC) Hepatitis A Virus Antibody IgM NON-REACTI VE NON-REACT [facility] Hepatitis B Virus Surface Antigen NON-REACTI VE NON-REACT [facility] Hepatitis B Core Virus Antibody IgM NON-REACTI VE NON-REACT [facility] Hepatitis C Antibody NON-REACTI VE NON-REACT [facility] Signal to Cut-Off 0.05 <1.00 [facility] Comment: Test Performed at: [facility] [address] [place] [address] BOGDAN HORN DO,MPH 06/23/2017 10:3 3 AM DRAFTER CARTOGRAPHIC 06/23/2017 10:33 AM DRAFTER CARTOGRAPHIC Peter Sorensen MD LAB - CHEMISTRY ORD ERABLES [facility] [address] [place] [address] from Last 3 Months or Most Recently Relevant to Health Maintenance Advance Directives Documents on File Type Date Recorded Patient Horser Up Expl anation Adv Directive/Living Will/POA 02/16/2013 6:04 AM * FULL RESUSCITATION (Latest Code Status on File) Date Activated Date Inactivated Comments 02/12/2013 9:12 PM 02/14/2013 7:34 PM Care Teams Piston Maker Relationship Specialty Start Date End Date Tesfaye Peralta MD [address] [facility] [address] [place] [address] PCP - General Internal Medicine 01/14/20 Tesfaye Peralta MD [address] [place] [address] Internal Medicine 01/14/20 Charlene Toribio, TITA Ferry Terminal Supervisor 10/13/15
--- OUTSIDE RECORDS SUMMARY | 2024-09-02 09:00 | XMS_ITS | Referral Summary ---
Author Organization [facility] Address [address] [place] [address] Care Team Providers Care Hose Wrapper Name Role Phone Tesfaye Peralta MD Primary Care Provider [phone] Allergies Active Allergy Reactions Criticality Noted Date Comments Adhesive Unknown 08/29/2019 Penicillins Unknown 08/29/2019 Medications JANUVIA 100 mg tabletIndicatio ns:type 2 diabetes mellitus 07/25/2017 Active montelukast (SINGULAIR) 10 mg tablet 09/19/2017 Active allopurinol (ZYLOPRIM) 300 mg tablet 09/05/2017 Active qcsfe-8-lxg-epa -dpa-fish oil 1,050-1,200 mg capsule 1 capsule Active hew-I8-fgp35-zi gm-kie-dczv-bor 600 mg calcium- 800 unit-50 mg tablet Take by mouth Active aspirin 81 mg enteric coated tablet Take 81 mg by mouth daily Active wheat dextrin 3 gram/3.8 gram powder Take by mouth Active atorvastatin (LIPITOR) 20 mg tablet Take 20 mg by mouth daily Active candesartan (ATACAND) 8 mg tablet Take 8 mg by mouth daily Active nebivolol (BYSTOLIC) 20 mg tablet Take 20 mg by mouth daily Active iron amino acid zsyomou-E46-WU 27-100-400 mg-mcg-mcg capsule Take by mouth Active zinc 50 mg tablet Take by mouth Active bumetanide (BUMEX) 2 mg tablet Take 2 mg by mouth daily Active Active Problems Problem Noted Date Diagnosed Date Cardiomyopathy 08/29/2019 Assessment & Plan (08/29/2019 11:08 AM HEAD CHAR FILTER TANK TENDER): 08/27/17 ECHO - Estimated ejection fraction 40-50% (mildly depressed) - LV: Moderate concentric hypertrophy is present. - Diastolic dysfunction stage I (impaired relaxation). - The left atrium is mildly enlarged. - The tricuspid valve is mildly thickened. Estimated PA Pressure (mm/Hg): 32 Social History Tobacco Use Types Packs/Day Years Used Date Smoking Tobacco: Never Smokeless Tobacco: Never Alcohol Use Standard Drinks/Week Comments Yes 0 (1 standard drink = 0.6 oz pur e alcohol) Sex and Gender Information Value Date Recorded Sex Assigned at Not on file Legal Sex Male 11:58 PM HEAD CHAR FILTER TANK TENDER Gender Identity Not on file Sexual Orientation Not on file Last Filed Vital Signs Vital Sign Reading Time Taken Comments Blood Pressure 128/80 08/29/2019 10:33 AM HEAD CHAR FILTER TANK TENDER Pulse 49 08/29/2019 10:33 AM HEAD CHAR FILTER TANK TENDER Temperature - - Respiratory Rate 18 08/29/2019 10:33 AM HEAD CHAR FILTER TANK TENDER Oxygen Saturation 94% 08/29/2019 10:33 AM HEAD CHAR FILTER TANK TENDER Inhaled Oxygen Concentration - - Weight 112.5 kg (248 lb) 08/29/2019 10:33 AM HEAD CHAR FILTER TANK TENDER Height 185.4 cm (6' 1 ) 08/29/2019 10:33 AM HEAD CHAR FILTER TANK TENDER Body Mass Index 32.72 08/29/2019 10:33 AM HEAD CHAR FILTER TANK TENDER Plan of Treatment Not on file Insurance [facility] H[facility]PPO Address: [facility] [address] [place] [address] Care Teams Hose Wrapper Relationship Specialty Start Date End Date Tesfaye Peralta MD [address] [facility] [address] [place] [address] PCP - General Internal Medicine 10/04/17
--- OUTSIDE RECORDS SUMMARY | 2024-09-02 09:00 | XMS_ITS | Encounter Summary ---
Author Organization [facility] Address [address] [place] [address] Care Team Providers Care Health And Safety Technician Name Role Phone Tesfaye Peralta MD Primary Care Provider Tesfaye Peralta MD Primary Care Provider [phone] Tesfaye Peralta MD Unavailable [phone] Charlene Toribio RN Unavailable [phone] Encounter Details Date Type Department Care Team (Late st Contact Info) Description 11/20/2016 [facility] Outpatient Visit [facility] Medical [facility] [address] [facility] [address] [place] [address] [place] [address] [facility] [address] [address] Social History Tobacco Use Types Packs/Day Years Used Date Smoking Tobacco: Never Smokeless Tobacco: Never Alcohol Use Standard Drinks/Week Comments Yes 0 (1 standard drink = 0.6 oz pur e alcohol) SOCIAL MONTHLY Sex and Gender Information Value Date Recorded Sex Assigned at Not on file Gender Identity Not on file Sexual Orientation Not on file documented as of this encounter Functional Status Functional Status Response Date of [...] person have difficulty concentrating/remembering/making decisions? No 10/13/2015 documented as of this encounter Plan of Treatment Not on file documented as of this encounter Visit Diagnoses Not on filedocumented in this encounter Care Teams Health And Safety Technician Relationship Specialty Start Date End Date Tesfaye Peralta MD [address] [place] [address] PCP - General Internal Medicine 11/22/12 01/13/20 Tesfaye Peralta MD [address] [facility] [address] [place] [address] PCP - General Internal Medicine 01/14/20 Tesfaye Peralta MD [address] [place] [address] Internal Medicine 01/14/20 Charlene Toribio, TITA Gut Sorter 10/13/15 documented as of this encounter
--- OUTSIDE RECORDS SUMMARY | 2024-09-02 09:00 | XMS_ITS | Clinical Summary ---
Author Organization [facility] Address [address] [place] [address] Care Team Providers Care Missile And Missile Checkout Technician Name Role Phone Tesfaye Peralta MD Primary Care Provider [phone] Allergies Active Allergy Reactions Criticality Noted Date Comments Adhesive Unknown 08/29/2019 Penicillins Unknown 08/29/2019 Medications JANUVIA 100 mg tabletIndicatio ns:type 2 diabetes mellitus 07/25/2017 Active montelukast (SINGULAIR) 10 mg tablet 09/19/2017 Active allopurinol (ZYLOPRIM) 300 mg tablet 09/05/2017 Active uojyt-2-wwn-epa -dpa-fish oil 1,050-1,200 mg capsule 1 capsule Active haz-G4-vva07-zi jm-upi-argm-bor 600 mg calcium- 800 unit-50 mg tablet [...] by mouth daily Active iron amino acid ziereso-S20-GZ 27-100-400 mg-mcg-mcg capsule Take by mouth Active zinc 50 mg tablet Take by mouth Active bumetanide (BUMEX) 2 mg tablet Take 2 mg by mouth daily Active Active Problems Problem Noted Date Diagnosed Date Cardiomyopathy 08/29/2019 Assessment & Plan (08/29/2019 11:08 AM REFURBISH TECHNICIAN): 08/27/17 ECHO - Estimated ejection fraction 40-50% (mildly depressed) - LV: Moderate concentric hypertrophy is present. - Diastolic dysfunction stage I (impaired relaxation). - The left atrium is mildly enlarged. - The tricuspid valve is mildly thickened. Estimated PA Pressure (mm/Hg): 32 Medical History Medical History Date Comments Cardiomyopathy (HCC) Hypertension Hyperlipidemia Social History Tobacco Use Types Packs/Day Years Used Date Smoking Tobacco: Never Smokeless Tobacco: Never Alcohol Use Standard Drinks/Week Comments Yes 0 (1 standard drink = 0.6 oz pur e alcohol) Sex and Gender Information Value Date Recorded Sex Assigned at Not on file Legal Sex Male 11:58 PM REFURBISH TECHNICIAN Gender Identity Not on file Sexual Orientation Not on file Obstetrics History Last Filed Vital Signs Vital Sign Reading Time Taken Comments Blood Pressure 128/80 08/29/2019 10:33 AM REFURBISH TECHNICIAN Pulse 49 08/29/2019 10:33 AM REFURBISH TECHNICIAN Temperature - - Respiratory Rate 18 08/29/2019 10:33 AM REFURBISH TECHNICIAN Oxygen Saturation 94% 08/29/2019 10:33 AM REFURBISH TECHNICIAN Inhaled Oxygen Concentration - - Weight 112.5 kg (248 lb) 08/29/2019 10:33 AM REFURBISH TECHNICIAN Height 185.4 cm (6' 1 ) 08/29/2019 10:33 AM REFURBISH TECHNICIAN Body Mass Index 32.72 08/29/2019 10:33 AM REFURBISH TECHNICIAN Plan of Treatment Not on file Insurance [facility] [place] [address] Care Teams Missile And Missile Checkout Technician Relationship Specialty Start Date End Date Tesfaye Peralta MD [address] [facility] [address] [place] [address] PCP - General Internal Medicine 10/04/17
--- OUTSIDE RECORDS SUMMARY | 2024-09-02 09:00 | XMS_ITS | Patient Health Summary ---
Author Organization [facility] Address [address] [place] [address] Care Team Providers Care Overnight Cashier Name Role Phone Tesfaye Peralta MD Primary Care Provider [phone] Tesfaye Peralta MD Unavailable [phone] Charlene Toribio RN Unavailable [phone] [facility] [place],non-owned Affiliates and Associated Physician Practices is amultiple site organization consisting of ambulatory clinics and hospital sitesin [place], [place], [place] and [place]. This disclosure is being madepursuant to the Care Everywhere program and may not contain all information available regarding this patient. Last updated 18.[facility] Allergies * Adhesive Sensitivity(PULLS SKIN OFF) * Penicillins(Rash all over body Welts) -High Criticality Medications * Be aware that medications may not be up to date on this document. Alwaysverify current medications with the patient. * TESTOSTERONE ENANTHATE IM Inject 200 mg into muscle ONCE EVERY 2 WEEKS * montelukast (SINGULAIR) 10 MG tablet Take 10 mg by mouth once daily * allopurinol (ZYLOPRIM) 300 MG tablet Take 300 mg by mouth once daily * aspirin (ASPIRIN) 81 MG chew tablet Take 81 mg by mouth once daily. * calcium citrate-vitamin D (CITRACAL PLUS D) 315-200 MG-UNIT tablet Take 1 Tab by mouth once daily * bumetanide (BUMEX) 1 MG tablet Take 1-2 mg by mouth once daily * nebivolol (BYSTOLIC) 10 MG tablet Take 20 mg by mouth once daily * SITagliptin (JANUVIA) 100 MG tablet Take 100 mg by mouth once daily * Cholecalciferol (VITAMIN D3) 1000 UNITS * Ascorbic Acid (VITAMIN C) 100 MG * Ferrous Sulfate (IRON) 325 (65 FE) MG * Zinc 30 MG * atorvastatin (LIPITOR) 20 MG tablet(Started 12/29/2019) Take 20 mg by mouth once daily * candesartan (ATACAND) 8 MG tablet Take 8 mg by mouth once daily Active Problems Problem Noted Date Diagnosed Date 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 Chronic diarrhea 03/01/2018 Acute calculous cholecystitis 11/07/2015 Choledocholithiasis with acute cholecystitis Immunizations * TD (ADULT), 5 LF TETANUS TOXOID, ADSORBED, PF(Given 01/14/2020) Social History Tobacco Use Types Packs/Day Years [...] Mass Index 34.58 02/17/2019 12:22 PM CDT Procedures * DERMATOPATHOLOGY(Performed 12/28/2020) Performed for Neoplasm of uncertain behavior of skin * VITAMIN B1(Performed 02/26/2020) Performed for Bariatric surgery status, Vitamin deficiency, Mineral deficiency, Vitamin D deficiency, Intestinal malabsorption, unspecified type (HCC) * VITAMIN B12(Performed 02/26/2020) Performed for Bariatric surgery status, Vitamin deficiency, Mineral deficiency, Vitamin D deficiency, Intestinal malabsorption, unspecified type (HCC) * VITAMIN D 25-HYDROXY(Performed 02/26/2020) Performed for Bariatric surgery status, Vitamin deficiency, Mineral deficiency, Vitamin D deficiency, Intestinal malabsorption, unspecified type (HCC) * ZINC BLOOD(Performed 02/26/2020) Performed for Bariatric surgery status, Vitamin deficiency, Mineral deficiency, Vitamin D deficiency, Intestinal malabsorption, unspecified type (HCC) * PTH INTACT(Performed 02/26/2020) Performed for Bariatric surgery status, Vitamin deficiency, Mineral deficiency, Vitamin D deficiency, Intestinal malabsorption, unspecified type (HCC) * MAGNESIUM BLOOD(Performed 02/26/2020) Performed for Bariatric surgery status, Vitamin deficiency, Mineral deficiency, Vitamin D deficiency, Intestinal malabsorption, unspecified type (HCC) * IRON BLOOD(Performed 02/26/2020) Performed for Bariatric surgery status, Vitamin deficiency, Mineral deficiency, Vitamin D deficiency, Intestinal malabsorption, unspecified type (HCC) * FOLATE RBC(Performed 02/26/2020) Performed for Bariatric surgery status, Vitamin deficiency, Mineral deficiency, Vitamin D deficiency, Intestinal malabsorption, unspecified type (HCC) * FERRITIN(Performed 02/26/2020) Performed for Bariatric surgery status, Vitamin deficiency, Mineral deficiency, Vitamin D deficiency, Intestinal malabsorption, unspecified type (HCC) * COPPER BLOOD(Performed 02/26/2020) Performed for Bariatric surgery status, Vitamin deficiency, Mineral deficiency, Vitamin D deficiency, Intestinal malabsorption, unspecified type (HCC) * COMPREHENSIVE METABOLIC PANEL(Performed 02/26/2020) Performed for Bariatric surgery status, Vitamin deficiency, Mineral deficiency, Vitamin D deficiency, Intestinal malabsorption, unspecified type (HCC) * CBC W/O DIFFERENTIAL(Performed 02/26/2020) Performed for Bariatric surgery status, Vitamin deficiency, Mineral deficiency, Vitamin D deficiency, Intestinal malabsorption, unspecified type (HCC) * SELENIUM(Performed 02/26/2020) Performed for Bariatric surgery status, Vitamin deficiency, Mineral deficiency, Vitamin D deficiency, Intestinal malabsorption, unspecified type (HCC) * VITAMIN A(Performed 02/26/2020) Performed for Bariatric surgery status, Vitamin deficiency, Mineral deficiency, Vitamin D deficiency, Intestinal malabsorption, unspecified type (HCC) * VITAMIN E(Performed 02/26/2020) Performed for Bariatric surgery status, Vitamin deficiency, Mineral deficiency, Vitamin D deficiency, Intestinal malabsorption, unspecified type (HCC) * VITAMIN K1(Performed 02/26/2020) Performed for Bariatric surgery status, Vitamin deficiency, Mineral deficiency, Vitamin D deficiency, Intestinal malabsorption, unspecified type (HCC) * PREALBUMIN(Performed 02/26/2020) Performed for Bariatric surgery status, Vitamin deficiency, Mineral deficiency, Vitamin D deficiency, Intestinal malabsorption, unspecified type (HCC) * VITAMIN K1(Performed 02/19/2019) Performed for Bariatric surgery status, Class 1 obesity with body mass index (BMI) of 33.0 to 33.9 in adult, unspecified obesity type, unspecified whether serious comorbidity present, Vitamin deficiency, Mineral deficiency, Vitamin D deficiency, Intestinal malabsorption, unspecified type (HCC) * VITAMIN E(Performed 02/19/2019) Performed for Bariatric surgery status, Class 1 obesity with body mass index (BMI) of 33.0 to 33.9 in adult, unspecified obesity type, unspecified whether serious comorbidity present, Vitamin deficiency, Mineral deficiency, Vitamin D deficiency, Intestinal malabsorption, unspecified type (HCC) * VITAMIN A(Performed 02/19/2019) Performed for Bariatric surgery status, Class 1 obesity with body mass index (BMI) of 33.0 to 33.9 in adult, unspecified obesity type, unspecified whether serious comorbidity present, Vitamin deficiency, Mineral deficiency, Vitamin D deficiency, Intestinal malabsorption, unspecified type (HCC) * ZINC BLOOD(Performed 02/19/2019) Performed for Bariatric surgery status, Class 1 obesity with body mass index (BMI) of 33.0 to 33.9 in adult, unspecified obesity type, unspecified whether serious comorbidity present, Vitamin deficiency, Mineral deficiency, Vitamin D deficiency, Intestinal malabsorption, unspecified type (HCC) * VITAMIN B12(Performed 02/19/2019) Performed for Bariatric surgery status, Class 1 obesity with body mass index (BMI) of 33.0 to 33.9 in adult, unspecified obesity type, unspecified whether serious comorbidity present, Vitamin deficiency, Mineral deficiency, Vitamin D deficiency, Intestinal malabsorption, unspecified type (HCC) * VITAMIN B1(Performed 02/19/2019) Performed for Bariatric surgery status, Class 1 obesity with body mass index (BMI) of 33.0 to 33.9 in adult, unspecified obesity type, unspecified whether serious comorbidity present, Vitamin deficiency, Mineral deficiency, Vitamin D deficiency, Intestinal malabsorption, unspecified type (HCC) * PTH INTACT(Performed 02/19/2019) Performed for Bariatric surgery status, Class 1 obesity with body mass index (BMI) of 33.0 to 33.9 in adult, unspecified obesity type, unspecified whether serious comorbidity present, Vitamin deficiency, Mineral deficiency, Vitamin D deficiency, Intestinal malabsorption, unspecified type (HCC) * MAGNESIUM BLOOD(Performed 02/19/2019) Performed for Bariatric surgery status, Class 1 obesity with body mass index (BMI) of 33.0 to 33.9 in adult, unspecified obesity type, unspecified whether serious comorbidity present, Vitamin deficiency, Mineral deficiency, Vitamin D deficiency, Intestinal malabsorption, unspecified type (HCC) * IRON BLOOD(Performed 02/19/2019) Performed for Bariatric surgery status, Class 1 obesity with body mass index (BMI) of 33.0 to 33.9 in adult, unspecified obesity type, unspecified whether serious comorbidity present, Vitamin deficiency, Mineral deficiency, Vitamin D deficiency, Intestinal malabsorption, unspecified type (HCC) * FOLATE RBC(Performed 02/19/2019) Performed for Bariatric surgery status, Class 1 obesity with body mass index (BMI) of 33.0 to 33.9 in adult, unspecified obesity type, unspecified whether serious comorbidity present, Vitamin deficiency, Mineral deficiency, Vitamin D deficiency, Intestinal malabsorption, unspecified type (HCC) * FERRITIN(Performed 02/19/2019) Performed for Bariatric surgery status, Class 1 obesity with body mass index (BMI) of 33.0 to 33.9 in adult, unspecified obesity type, unspecified whether serious comorbidity present, Vitamin deficiency, Mineral deficiency, Vitamin D deficiency, Intestinal malabsorption, unspecified type (HCC) * COPPER BLOOD(Performed 02/19/2019) Performed for Bariatric surgery status, Class 1 obesity with body mass index (BMI) of 33.0 to 33.9 in adult, unspecified obesity type, unspecified whether serious comorbidity present, Vitamin deficiency, Mineral deficiency, Vitamin D deficiency, Intestinal malabsorption, unspecified type (HCC) * LAB RESULTS ORDER(Performed 02/18/2018) * HEMOGLOBIN A1C(Performed 02/14/2018) Performed for Bariatric surgery status, Class 1 obesity with body mass index (BMI) of 31.0 to 31.9 in adult, unspecified obesity type, unspecified whether serious comorbidity present, Vitamin deficiency, Mineral deficiency, Vitamin D deficiency, Intestinal malabsorption, unspecified type (HCC) * ZINC BLOOD(Performed 02/14/2018) Performed for Bariatric surgery status, Class 1 obesity with body mass index (BMI) of 31.0 to 31.9 in adult, unspecified obesity type, unspecified whether serious comorbidity present, Vitamin deficiency, Mineral deficiency, Vitamin D deficiency, Intestinal malabsorption, unspecified type (HCC) * VITAMIN D 25-HYDROXY(Performed 02/14/2018) Performed for Bariatric surgery status, Class 1 obesity with body mass index (BMI) of 31.0 to 31.9 in adult, unspecified obesity type, unspecified whether serious comorbidity present, Vitamin deficiency, Mineral deficiency, Vitamin D deficiency, Intestinal malabsorption, unspecified type (HCC) * VITAMIN B12(Performed 02/14/2018) Performed for Bariatric surgery status, Class 1 obesity with body mass index (BMI) of 31.0 to 31.9 in adult, unspecified obesity type, unspecified whether serious comorbidity present, Vitamin deficiency, Mineral deficiency, Vitamin D deficiency, Intestinal malabsorption, unspecified type (HCC) * VITAMIN B1(Performed 02/14/2018) Performed for Bariatric surgery status, Class 1 obesity with body mass index (BMI) of 31.0 to 31.9 in adult, unspecified obesity type, unspecified whether serious comorbidity present, Vitamin deficiency, Mineral deficiency, Vitamin D deficiency, Intestinal malabsorption, unspecified type (HCC) * PTH INTACT(Performed 02/14/2018) Performed for Bariatric surgery status, Class 1 obesity with body mass index (BMI) of 31.0 to 31.9 in adult, unspecified obesity type, unspecified whether serious comorbidity present, Vitamin deficiency, Mineral deficiency, Vitamin D deficiency, Intestinal malabsorption, unspecified type (HCC) * MAGNESIUM BLOOD(Performed 02/14/2018) Performed for Bariatric surgery status, Class 1 obesity with body mass index (BMI) of 31.0 to 31.9 in adult, unspecified obesity type, unspecified whether serious comorbidity present, Vitamin deficiency, Mineral deficiency, Vitamin D deficiency, Intestinal malabsorption, unspecified type (HCC) * IRON BLOOD(Performed 02/14/2018) Performed for Bariatric surgery status, Class 1 obesity with body mass index (BMI) of 31.0 to 31.9 in adult, unspecified obesity type, unspecified whether serious comorbidity present, Vitamin deficiency, Mineral deficiency, Vitamin D deficiency, Intestinal malabsorption, unspecified type (HCC) * FOLATE RBC(Performed 02/14/2018) Performed for Bariatric surgery status, Class 1 obesity with body mass index (BMI) of 31.0 to 31.9 in adult, unspecified obesity type, unspecified whether serious comorbidity present, Vitamin deficiency, Mineral deficiency, Vitamin D deficiency, Intestinal malabsorption, unspecified type (HCC) * FERRITIN(Performed 02/14/2018) Performed for Bariatric surgery status, Class 1 obesity with body mass index (BMI) of 31.0 to 31.9 in adult, unspecified obesity type, unspecified whether serious comorbidity present, Vitamin deficiency, Mineral deficiency, Vitamin D deficiency, Intestinal malabsorption, unspecified type (HCC) * COPPER BLOOD(Performed 02/14/2018) Performed for Bariatric surgery status, Class 1 obesity with body mass index (BMI) of 31.0 to 31.9 in adult, unspecified obesity type, unspecified whether serious comorbidity present, Vitamin deficiency, Mineral deficiency, Vitamin D deficiency, Intestinal malabsorption, unspecified type (HCC) * COMPREHENSIVE METABOLIC PANEL(Performed 02/14/2018) Performed for Bariatric surgery status, Class 1 obesity with body mass index (BMI) of 31.0 to 31.9 in adult, unspecified obesity type, unspecified whether serious comorbidity present, Vitamin deficiency, Mineral deficiency, Vitamin D deficiency, Intestinal malabsorption, unspecified type (HCC) * CBC W/O DIFFERENTIAL(Performed 02/14/2018) Performed for Bariatric surgery status, Class 1 obesity with body mass index (BMI) of 31.0 to 31.9 in adult, unspecified obesity type, unspecified whether serious comorbidity present, Vitamin deficiency, Mineral deficiency, Vitamin D deficiency, Intestinal malabsorption, unspecified type (HCC) * ALPHA FETOPROTEIN BLOOD TUMOR MARKER(Performed 01/03/2018) Performed for Abnormal LFTs * PT-INR(Performed 01/03/2018) Performed for Abnormal LFTs * COMPREHENSIVE METABOLIC PANEL(Performed 01/03/2018) Performed for Abnormal LFTs * CBC W AUTO DIFFERENTIAL(Performed 01/03/2018) Performed for Abnormal LFTs * US ABDOMEN LIMITED(Performed 06/27/2017) Performed for Crohn's disease without complication, unspecified gastrointestinal tract location (HCC) * ALPHA FETOPROTEIN BLOOD TUMOR MARKER(Performed 06/23/2017) * PT-INR(Performed 06/23/2017) * CBC W/O DIFFERENTIAL(Performed 06/23/2017) * COMPREHENSIVE METABOLIC PANEL(Performed 06/23/2017) * HEPATITIS SCREEN ACUTE W/ REFLX CONFIRM(Performed 06/23/2017) * LAB RESULTS ORDER(Performed 06/23/2017) * LAB RESULTS ORDER(Performed 06/23/2017) * TESTOSTERONE TOTAL(Performed 03/28/2017) * VITAMIN B1(Performed 03/28/2017) * ZINC BLOOD(Performed 03/28/2017) * VITAMIN D 25-HYDROXY(Performed 03/28/2017) * PTH INTACT(Performed 03/28/2017) * VITAMIN B12(Performed 03/28/2017) * FOLATE(Performed 03/28/2017) * FERRITIN(Performed 03/28/2017) * CBC W AUTO DIFFERENTIAL(Performed 03/28/2017) * COMPREHENSIVE METABOLIC PANEL(Performed 03/28/2017) * MAGNESIUM BLOOD(Performed 03/28/2017) * IRON BLOOD(Performed 03/28/2017) * CT RENAL STONE(Performed 02/26/2017) Performed for Right flank pain * COMPREHENSIVE METABOLIC PANEL(Performed 02/26/2017) * CBC W AUTO DIFFERENTIAL(Performed 02/26/2017) * URINE MICROSCOPIC ONLY REFLEX TO CULTURE(Performed 02/26/2017) * URINALYSIS REFLEX MICROSCOPIC REFLEX CULTURE(Performed 02/26/2017) * CULTURE URINE(Performed 02/26/2017) * LAB RESULTS ORDER(Performed 11/21/2016) * LAB RESULTS ORDER(Performed 10/26/2016) * US ABDOMEN LIMITED(Performed 04/28/2016) Performed for 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) * LAB MISC TEST(Performed 03/18/2016) * CBC W/O DIFFERENTIAL(Performed 02/11/2016) Performed for Bariatric surgery status, BMI 29.0-29.9,adult, Intestinal malabsorption following gastrectomy (HCC), Vitamin deficiency, Mineral deficiency, Vitamin D deficiency * ZINC BLOOD(Performed 02/11/2016) Performed for Bariatric surgery status, BMI 29.0-29.9,adult, Intestinal malabsorption following gastrectomy (HCC), Vitamin deficiency, Mineral deficiency, Vitamin D deficiency * VITAMIN D 25-HYDROXY(Performed 02/11/2016) Performed for Bariatric surgery status, BMI 29.0-29.9,adult, Intestinal malabsorption following gastrectomy (HCC), Vitamin deficiency, Mineral deficiency, Vitamin D deficiency * VITAMIN B12(Performed 02/11/2016) Performed for Bariatric surgery status, BMI 29.0-29.9,adult, Intestinal malabsorption following gastrectomy (HCC), Vitamin deficiency, Mineral deficiency, Vitamin D deficiency * VITAMIN B1(Performed 02/11/2016) Performed for Bariatric surgery status, BMI 29.0-29.9,adult, Intestinal malabsorption following gastrectomy (HCC), Vitamin deficiency, Mineral deficiency, Vitamin D deficiency * PTH INTACT(Performed 02/11/2016) Performed for Bariatric surgery status, BMI 29.0-29.9,adult, Intestinal malabsorption following gastrectomy (HCC), Vitamin deficiency, Mineral deficiency, Vitamin D deficiency * MAGNESIUM BLOOD(Performed 02/11/2016) Performed for Bariatric surgery status, BMI 29.0-29.9,adult, Intestinal malabsorption following gastrectomy (HCC), Vitamin deficiency, Mineral deficiency, Vitamin D deficiency * FOLATE RBC(Performed 02/11/2016) Performed for Bariatric surgery status, BMI 29.0-29.9,adult, Intestinal malabsorption following gastrectomy (HCC), Vitamin deficiency, Mineral deficiency, Vitamin D deficiency * IRON BLOOD(Performed 02/11/2016) Performed for Bariatric surgery status, BMI 29.0-29.9,adult, Intestinal malabsorption following gastrectomy (HCC), Vitamin deficiency, Mineral deficiency, Vitamin D deficiency * FERRITIN(Performed 02/11/2016) Performed for Bariatric surgery status, BMI 29.0-29.9,adult, Intestinal malabsorption following gastrectomy (HCC), Vitamin deficiency, Mineral deficiency, Vitamin D deficiency * COMPREHENSIVE METABOLIC PANEL(Performed 02/11/2016) Performed for Bariatric surgery status, BMI 29.0-29.9,adult, Intestinal malabsorption following gastrectomy (HCC), Vitamin deficiency, Mineral deficiency, Vitamin D deficiency * LAB RESULTS ORDER(Performed 02/11/2016) * LAB RESULTS ORDER(Performed 02/11/2016) * LAB RESULTS ORDER(Performed 01/21/2016) * LAB RESULTS ORDER(Performed 10/19/2015) * GLUCOSE - POINT OF CARE(Performed 10/16/2015) * GLUCOSE - POINT OF CARE(Performed 10/16/2015) * COMPREHENSIVE METABOLIC PANEL(Performed 10/16/2015) * CBC W AUTO DIFFERENTIAL(Performed 10/16/2015) * GLUCOSE - POINT OF CARE(Performed 10/15/2015) * GLUCOSE - POINT OF CARE(Performed 10/15/2015) * GLUCOSE - POINT OF CARE(Performed 10/15/2015) * GLUCOSE - POINT OF CARE(Performed 10/15/2015) * HEMOGLOBIN A1C(Performed 10/15/2015) * COMPREHENSIVE METABOLIC PANEL(Performed 10/15/2015) * CBC W AUTO DIFFERENTIAL(Performed 10/15/2015) * GLUCOSE - POINT OF CARE(Performed 10/14/2015) * GLUCOSE - POINT OF CARE(Performed 10/14/2015) * GLUCOSE - POINT OF CARE(Performed 10/14/2015) * CBC W AUTO DIFFERENTIAL(Performed 10/14/2015) * COMPREHENSIVE METABOLIC PANEL(Performed 10/14/2015) * GLUCOSE - POINT OF CARE(Performed 10/13/2015) * XR CHOLANGIOGRAM OPERATIVE(Performed 10/13/2015) Performed for Generalized abdominal pain * PATHOLOGY TISSUE EXAM (STL)(Performed 10/13/2015) Performed for Unknown and unspecified causes of morbidity * BILIRUBIN TOTAL FLUID(Performed 10/13/2015) Performed for Unknown and unspecified causes of morbidity * CULTURE FLUID+GRAM STAIN(Performed 10/13/2015) Performed for Unknown and unspecified causes of morbidity * CULTURE ANAEROBE(Performed 10/13/2015) Performed for Unknown and unspecified causes of morbidity * CYTOLOGY NON-PRESIDENT ERGONOMIC CONSULTING PANEL (STL)(Performed 10/13/2015) Performed for Unknown and unspecified causes of morbidity * LAPAROSCOPIC CHOLECYSTECTOMY WITH CHOLANGIOGRAM (IOC)(Performed 10/13/2015) * MRI ABDOMEN WO CONTRAST(Performed 10/13/2015) Performed for Elevated bilirubin * PTT(Performed 10/13/2015) * PT-INR(Performed 10/13/2015) * LIPASE BLOOD(Performed 10/13/2015) * COMPREHENSIVE METABOLIC PANEL(Performed 10/13/2015) * CBC W AUTO DIFFERENTIAL(Performed 10/13/2015) * LAB RESULTS ORDER(Performed 05/06/2015) * TESTOSTERONE TOTAL(Performed 02/12/2015) Performed for Bariatric surgery status, Obesity, Loss of weight, Unspecified intestinal malabsorption (HCC), Unspecified nutritional deficiency, Unspecified vitamin deficiency, Ectopic hormone secretion, not elsewhere classified, Type 2 diabetes mellitus without complication (HCC) * HEMOGLOBIN A1C(Performed 02/12/2015) Performed for Bariatric surgery status, Obesity, Loss of weight, Unspecified intestinal malabsorption (HCC), Unspecified nutritional deficiency, Unspecified vitamin deficiency, Ectopic hormone secretion, not elsewhere classified, Type 2 diabetes mellitus without complication (HCC) * ZINC BLOOD(Performed 02/12/2015) Performed for Bariatric surgery status, Obesity, Loss of weight, Unspecified intestinal malabsorption (HCC), Unspecified nutritional deficiency, Unspecified vitamin deficiency, Ectopic hormone secretion, not elsewhere classified, Type 2 diabetes mellitus without complication (HCC) * VITAMIN D 25-HYDROXY(Performed 02/12/2015) Performed for Bariatric surgery status, Obesity, Loss of weight, Unspecified intestinal malabsorption (HCC), Unspecified nutritional deficiency, Unspecified vitamin deficiency, Ectopic hormone secretion, not elsewhere classified, Type 2 diabetes mellitus without complication (HCC) * VITAMIN B12(Performed 02/12/2015) Performed for Bariatric surgery status, Obesity, Loss of weight, Unspecified intestinal malabsorption (HCC), Unspecified nutritional deficiency, Unspecified vitamin deficiency, Ectopic hormone secretion, not elsewhere classified, Type 2 diabetes mellitus without complication (HCC) * VITAMIN B1(Performed 02/12/2015) Performed for Bariatric surgery status, Obesity, Loss of weight, Unspecified intestinal malabsorption (HCC), Unspecified nutritional deficiency, Unspecified vitamin deficiency, Ectopic hormone secretion, not elsewhere classified, Type 2 diabetes mellitus without complication (HCC) * PTH INTACT(Performed 02/12/2015) Performed for Bariatric surgery status, Obesity, Loss of weight, Unspecified intestinal malabsorption (HCC), Unspecified nutritional deficiency, Unspecified vitamin deficiency, Ectopic hormone secretion, not elsewhere classified, Type 2 diabetes mellitus without complication (HCC) * MAGNESIUM BLOOD(Performed 02/12/2015) Performed for Bariatric surgery status, Obesity, Loss of weight, Unspecified intestinal malabsorption (HCC), Unspecified nutritional deficiency, Unspecified vitamin deficiency, Ectopic hormone secretion, not elsewhere classified, Type 2 diabetes mellitus without complication (HCC) * IRON BLOOD(Performed 02/12/2015) Performed for Bariatric surgery status, Obesity, Loss of weight, Unspecified intestinal malabsorption (HCC), Unspecified nutritional deficiency, Unspecified vitamin deficiency, Ectopic hormone secretion, not elsewhere classified, Type 2 diabetes mellitus without complication (HCC) * FOLATE RBC(Performed 02/12/2015) Performed for Bariatric surgery status, Obesity, Loss of weight, Unspecified intestinal malabsorption (HCC), Unspecified nutritional deficiency, Unspecified vitamin deficiency, Ectopic hormone secretion, not elsewhere classified, Type 2 diabetes mellitus without complication (HCC) * FERRITIN(Performed 02/12/2015) Performed for Bariatric surgery status, Obesity, Loss of weight, Unspecified intestinal malabsorption (HCC), Unspecified nutritional deficiency, Unspecified vitamin deficiency, Ectopic hormone secretion, not elsewhere classified, Type 2 diabetes mellitus without complication (HCC) * COMPREHENSIVE METABOLIC PANEL(Performed 02/12/2015) Performed for Bariatric surgery status, Obesity, Loss of weight, Unspecified intestinal malabsorption (HCC), Unspecified nutritional deficiency, Unspecified vitamin deficiency, Ectopic hormone secretion, not elsewhere classified, Type 2 diabetes mellitus without complication (HCC) * CBC W/O DIFFERENTIAL(Performed 02/12/2015) Performed for Bariatric surgery status, Obesity, Loss of weight, Unspecified intestinal malabsorption (HCC), Unspecified nutritional deficiency, Unspecified vitamin deficiency, Ectopic hormone secretion, not elsewhere classified, Type 2 diabetes mellitus without complication (HCC) * LAB RESULTS ORDER(Performed 02/12/2015) * LAB RESULTS ORDER(Performed 02/12/2015) * LAB RESULTS ORDER(Performed 11/04/2014) * LAB RESULTS ORDER(Performed 02/10/2014) * LAB RESULTS ORDER(Performed 11/25/2013) * CARDIAC RHYTHM STRIP ORDER(Performed 02/16/2013) * GLUCOSE - POINT OF CARE(Performed 02/14/2013) * GLUCOSE - POINT OF CARE(Performed 02/14/2013) * BASIC METABOLIC PANEL (CALCIUM TOTAL)(Performed 02/14/2013) * CBC W AUTO DIFFERENTIAL(Performed 02/14/2013) * GLUCOSE - POINT OF CARE(Performed 02/13/2013) * GLUCOSE - POINT OF CARE(Performed 02/13/2013) * GLUCOSE - POINT OF CARE(Performed 02/13/2013) * FL FLUORO UPPER GI TRACT + KUB(Performed 02/13/2013) Performed for S/P partial gastrectomy * GLUCOSE - POINT OF CARE(Performed 02/13/2013) * GLUCOSE - POINT OF CARE(Performed 02/13/2013) * BASIC METABOLIC PANEL (CALCIUM TOTAL)(Performed 02/13/2013) * CBC W AUTO DIFFERENTIAL(Performed 02/13/2013) * GLUCOSE - POINT OF CARE(Performed 02/12/2013) * CULTURE VRE(Performed 02/12/2013) * CULTURE MRSA(Performed 02/12/2013) * LAPAROSCOPIC GASTRIC BYPASS(Performed 02/12/2013) Performed for Morbid obesity (HCC), Other Dyspnea And Respiratory Abnormality, Unspecified Sleep Apnea, Type II or unspecified type diabetes mellitus without mention of complication, not stated as uncontrolled (HCC), Essential hypertension, benign * GLUCOSE - POINT OF CARE(Performed 02/12/2013) * GLUCOSE - POINT OF CARE(Performed 02/12/2013) * POTASSIUM BLOOD(Performed 02/12/2013) * VITAMIN B12(Performed 01/30/2013) Performed for Preoperative examination * VITAMIN B1(Performed 01/30/2013) Performed for Preoperative examination * VITAMIN D 25-HYDROXY(Performed 01/30/2013) Performed for Preoperative examination * COMPREHENSIVE METABOLIC PANEL(Performed 01/30/2013) Performed for Preoperative examination Results * DERMATOPATHOLOGY (12/28/2020 12:00 AM CDT) Case Report Dermatopathology Report Case: [id number] Authorizing Provider: Nasrin La PA Collected: 12/28/2020 12:00 AM Ordering Location: [facility] Received: 12/29/2020 01:04 PM Pathologist: Kay Magaña MD Specimen: Skin, right central forehead 11:39 AM CDT DERMATOPATHOLOGY LABORATORY Final Diagnosis Specimen A. 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 The specimen consists of a shave biopsy measuring 8x6x1 mm. Jar 0. 11:39 AM CDT DERMATOPATHOLOGY LABORATORY Microscopic Description Specimen A. SKIN, right central forehead: The epidermis shows parakeratosis, full thickness disorderly maturation of keratinocytes, mitoses at different levels, and dyskeratotic cells. 11:39 AM CDT DERMATOPATHOLOGY LABORATORY Disclaimer An external and internal positive and negative controls are appropriate for the histochemical, immunohistochemical and immunofluorescence stain(s) in this case (if any), except where stated explicitly. The performance characteristics of the stain(s) cited in this report were developed and its performance characteristic determined by the Dermatopathology Laboratory at [facility], directed by Dr. Dewey Allison. These tests need not be, and therefore are not, approved by the [place] Food and Drug Administration. The tests are used for clinical purposes. Billing Codes Specimen Charges Stain Charges 36637 1 1 11:39 AM CDT DERMATOPATHOLOGY LABORATORY Embedded Images 1 11:39 AM CDT DERMATOPATHOLOGY LABORATORY Pathology/Cytolog y TISSUE SPECIMEN FROM SKIN / Unknown 12/28/2020 12/29/2020 1:04 PM CDT Nasrin MENDOZA LAB - PATHOLOGY/CYTO LOGY ORDERABLES DERMATOPATHOLOGY LABORATORY [facility] Department of Dermatology [address] [phone] * ZINC BLOOD (02/26/2020 10:47 AM CDT) Only the most recent of6 resultswithin the time period is included. Zinc 75 60 - 130 mcg/dL [facility] Comment: This test was developed and its analytical performance characteristics have been determined by [employer]. It has not been cleared or approved by the FDA. This assay has been validated pursuant to the CLIA regulations and is used for clinical purposes. REPORT COMMENT: FASTING:YES Test Performed at: [email or web address] [address] [address] DANA FERNANDO MD,PHD Blood BLOOD SPECIMEN / Unknown 02/26/2020 10:47 AM CDT 02/26/2020 10:48 AM CDT Luz Manda Vance DELINQUENT TAX COLLECTION ASSISTANT-WEEKEND CAREGIVER LAB - CARROL BRISA ORDERABLES [facility] [address] [place] [address] * VITAMIN B1 (02/26/2020 10:47 AM CDT) Only the most recent of7 resultswithin the time period is included. Vitamin B1 Whole Blood 165 78 - 185 nmol/L [facility] Comment: Vitamin supplementation within 24 hours prior to blood draw may affect the accuracy of results. This test was developed and its analytical performance characteristics have been determined by [employer]. It has not been cleared or approved by the FDA. This assay has been validated pursuant to the CLIA regulations and is used for clinical purposes. Test Performed at: [email or web address] [address] [place] [address] DANA FERNANDO MD,PHD Blood BLOOD SPECIMEN / Unknown 02/26/2020 10:47 AM CDT 02/26/2020 10:48 AM CDT Luz Holman Pinky DELINQUENT TAX COLLECTION ASSISTANTSilecsWEEKEND CAREGIVER LAB - CARROL BRISA ORDERABLES Performing Organization Address [facility] Co de Phone Number [address] [address] * (ABNORMAL) PTH INTACT (02/26/2020 10:47 AM CDT) Only the most recent of6 resultswithin the time period is included. Pathologist [facility] PTH Intact 65(H) 14 - 64 pg/mL [facility] Comment: Interpretive Guide Intact PTH Calcium ------- Normal Parathyroid Normal Normal Hypoparathyroidism Low or Low Normal Low Hyperparathyroidism Primary Normal or High High Secondary High Normal or Low Tertiary High High Non-Parathyroid Hypercalcemia Low or Low Normal High Test Performed at: [email or web address] [place] [address] [place] [address] BOGDAN HORN DO,MPH Blood BLOOD SPECIMEN / Unknown 02/26/2020 10:47 AM CDT 02/26/2020 10:48 AM CDT Luz Holman Pinky DELINQUENT TAX COLLECTION ASSISTANTSilecsWEEKEND CAREGIVER LAB - [employer] ORDERABLES Performing Organization Address [facility] Co de Phone Number [address] [address] * COPPER BLOOD (02/26/2020 10:47 AM CDT) Only the most recent of3 resultswithin the time period is included. [facility] Copper 95 70 - 175 mcg/dL [facility] Comment: This test was developed and its analytical performance characteristics have been determined by [employer]. It has not been cleared or approved by the FDA. This assay has been validated pursuant to the CLIA regulations and is used for clinical purposes. Test Performed at: [email or web address] [address] [place] [address] [place] [address] DANA FERNANDO MD,PHD Blood BLOOD SPECIMEN / Unknown 02/26/2020 10:47 AM CDT 02/26/2020 10:48 AM CDT Luz Holman Pinky DELINQUENT TAX COLLECTION ASSISTANT-WEEKEND CAREGIVER LAB - CARROL BRISA ORDERABLES Performing Organization Address [facility] Co de Phone Number [facility] [phone] [place] [address] * FOLATE RBC (02/26/2020 10:47 AM CDT) Only the most recent of5 resultswithin the time period is included. Folate RBC 568 >280 ng/mL RBC [facility] Comment: Test Performed at: [email or web address] [place] [id number] [place] [address] BOGDAN HORN DO,MPH Blood BLOOD SPECIMEN / Unknown 02/26/2020 10:47 AM CDT 02/26/2020 10:48 AM CDT Luz Chaudharifazal Vance DELINQUENT TAX COLLECTION [facility] - CARROL BRSIA ORDERABLES Performing Organization Address [facility] de Phone Number [facility] [phone] [place] [address] * (ABNORMAL) VITAMIN D 25-HYDROXY (02/26/2020 10:47 AM CDT) Only the most recent of6 resultswithin the time period is included. Vitamin D, 25 Hydroxy 26(L) 30 - 100 ng/mL [facility] Comment: Vitamin D Status 25-OH Vitamin D: Deficiency: <20 ng/mL Insufficiency: 20 - 29 ng/mL Optimal: > or = 30 ng/mL For 25-OH Vitamin D testing on patients on D2-supplementation and patients for whom quantitation of D2 and D3 fractions is required, the QuestAssureD(TM) 25-OH VIT D, (D2,D3), LC/MS/MS is recommended: order code 28832 (patients >2yrs). See Note 1 Note 1 For additional information, please refer to http://education.SeeMedia/faq/FUZ642 (This link is being provided for informational/ educational purposes only.) Test Performed at: [facility] [facility] [address] [facility] [place] [address] BOGDAN HORN DO,MPH Blood BLOOD SPECIMEN / Unknown 02/26/2020 10:47 AM CDT 02/26/2020 10:48 AM CDT Luz Vance APRN-WEEKEND CAREGIVER LAB - CARROL BRISA ORDERABLES Performing Organization Address [facility] Co de Phone Number [facility] [address] [place] [address] * CBC W/O DIFFERENTIAL (02/26/2020 10:47 AM CDT) Only the most recent of5 resultswithin the time period is included. White Blood Cell Count 5.9 3.8 - 10.8 Thousand/u L [facility] RBC 4.31 4.20 - 5.80 Million/uL [facility] Hemoglobin 13.7 13.2 - 17.1 g/dL [facility] Hematocrit 40.7 38.5 - 50.0 % [facility] MCV 94.4 80.0 - 100.0 fL [facility] MCH 31.8 27.0 - 33.0 pg [facility] MCHC 33.7 32.0 - 36.0 g/dL [facility] RDW 12.1 11.0 - 15.0 % [facility] Platelet Count 185 140 - 400 Thousand/u L [facility] MPV 11.4 7.5 - 12.5 fL [facility] Comment: Test Performed at: [facility] [employer] [facility] [employer] [address] [place] [address] BOGDAN HORN DO,MPH Blood BLOOD SPECIMEN / Unknown 02/26/2020 10:47 AM CDT 02/26/2020 10:48 AM CDT Luz Vance APRN-WEEKEND CAREGIVER LAB - HEM ATOLOGY ORDERABLES Performing Organization Address [facility] Co de Phone Number [facility] [address] [place] [address] * (ABNORMAL) COMPREHENSIVE METABOLIC PANEL (02/26/2020 10:47 AM CDT) Only the most recent of13 resultswithin the time period is included. Glucose 236(H) 65 - 99 mg/dL [facility] Comment: Fasting reference interval For someone without known diabetes, a glucose value >125 mg/dL indicates that they may have diabetes and this should be confirmed with a follow-up test. BUN 31(H) 7 - 25 mg/dL [facility] Creatinine 1.38(H) 0.70 - 1.18 mg/dL [facility] Comment: For patients >49 years of age, the reference limit for Creatinine is approximately 13% higher for people identified as -Macanese. eGFR by MDRD 51(L) > OR = 60 mL/min/1. 73m2 [facility] eGFR by MDRD 59(L) > OR = 60 mL/min/1. 73m2 [facility] BUN/Creatinine Ratio 22 6 - 22 (calc) [facility] Sodium 138 135 - 146 mmol/L [facility] Potassium 3.6 3.5 - 5.3 mmol/L [facility] Chloride 100 98 - 110 mmol/L [facility] CO2 29 20 - 32 mmol/L [facility] Calcium 9.1 8.6 - 10.3 mg/dL [facility] Protein Total 6.3 6.1 - 8.1 g/dL [facility] Albumin 3.6 3.6 - 5.1 g/dL [facility] Globulin Total 2.7 1.9 - 3.7 g/dL (calc) [facility] Albumin/Globulin Ratio 1.3 1.0 - 2.5 (calc) [facility] Bilirubin Total 0.9 0.2 - 1.2 mg/dL [facility] Alkaline Phosphatase 88 35 - 144 U/L [facility] AST 35 10 - 35 U/L [facility] ALT 28 9 - 46 U/L [facility] Comment: Test Performed at: [facility] [employer] [facility] [employer] [address] [place] [address] BOGDAN HORN DO,MPH Blood BLOOD SPECIMEN / Unknown 02/26/2020 10:47 AM CDT 02/26/2020 10:48 AM CDT Luz Mandafazal Vance DELINQUENT TAX COLLECTION ASSISTANT-WEEKEND CAREGIVER LAB - CARROL BRISA ORDERABLES [facility] [id number] [place] [address] * MAGNESIUM BLOOD (02/26/2020 10:47 AM CDT) Only the most recent of6 resultswithin the time period is included. Magnesium 2.1 1.5 - 2.5 mg/dL [facility] Comment: Test Performed at: [facility] [place] [place] [address] BOGDAN HORN DO,MPH Blood BLOOD SPECIMEN / Unknown 02/26/2020 10:47 AM CDT 02/26/2020 10:48 AM CDT Luz Vance DELINQUENT TAX COLLECTION ASSISTANT-WEEKEND CAREGIVER LAB - CARROL BRISA ORDERABLES Performing Organization Address City/[facility]/[place] [address] * IRON BLOOD (02/26/2020 10:47 AM CDT) Only the most recent of6 resultswithin the time period is included. Iron 104 50 - 180 mcg/dL [facility] Comment: Test Performed at: [facility] [employer] [facility] [place] [address] BOGDAN HORN DO,MPH Blood BLOOD SPECIMEN / Unknown 02/26/2020 10:47 AM CDT 02/26/2020 10:48 AM CDT Luz Vance APRN-WEEKEND CAREGIVER LAB - CARROL BRISA ORDERABLES Performing Organization Address City/[facility] Co de Phone Number [place] [phone] * VITAMIN B12 (02/26/2020 10:47 AM CDT) Only the most recent of7 resultswithin the time period is included. Vitamin B12 815 200 - 1100 pg/mL [facility] Comment: Test Performed at: [facility] [place] [facility] [place] [address] BOGDAN HORN DO,MPH Blood BLOOD SPECIMEN / Unknown 02/26/2020 10:47 AM CDT 02/26/2020 10:48 AM CDT Luz Vance DELINQUENT TAX COLLECTION ASSISTANT-WEEKEND CAREGIVER LAB - CARROL BRISA ORDERABLES Performing Organization Address [facility] Co de Phone Number [facility] [phone] [place] [address] * FERRITIN (02/26/2020 10:47 AM CDT) Only the most recent of6 resultswithin the time period is included. Pathologist [facility] Ferritin 137 24 - 380 ng/mL [facility] Comment: Test Performed at: [email or web address] [address] [address] BOGDAN HORN DO,MPH Blood BLOOD SPECIMEN / Unknown 02/26/2020 10:47 AM CDT 02/26/2020 10:48 AM CDT Luz Vance APRN-WEEKEND CAREGIVER LAB - CARROL BRISA ORDERABLES Performing Organization Address [facility] de Phone Number [address] [address] * VITAMIN K1 (02/26/2020 10:44 AM CDT) Only the most recent of2 resultswithin the time period is included. Pathologist [facility] Vitamin K 257 130 - 1500 pg/mL [facility] Comment: Due to potential interferences, Vitamin K1 levels cannot be determined in individuals taking Vitamin K2 supplements. This test was developed and its analytical performance characteristics have been determined by [employer]. It has not been cleared or approved by the FDA. This assay has been validated pursuant to the CLIA regulations and is used for clinical purposes. Test Performed at: [email or web address] [id number] [place] [address] DANA FERNANDO MD,PHD Blood BLOOD SPECIMEN / Unknown 02/26/2020 10:44 AM CDT 02/26/2020 10:45 AM CDT Luz Vance DELINQUENT TAX COLLECTION ASSISTANT-WEEKEND CAREGIVER LAB - CARR[place] BRISA ORDERABLES Performing Organization Address [facility] Co de Phone Number [facility] [phone] [place] [address] * VITAMIN A (02/26/2020 10:44 AM CDT) Only the most recent of2 resultswithin the time period is included. Pathologist [facility] Vitamin A 81 38 - 98 mcg/dL [facility] Comment: Clin Chem Vol. 34.No.8. [id number]. 1998 Vitamin supplementation within 24 hours prior to blood draw may affect the accuracy of results. This test was developed and its analytical performance characteristics have been determined by [employer]. It has not been cleared or approved by the FDA. This assay has been validated pursuant to the CLIA regulations and is used for clinical purposes. Test Performed at: [email or web address] [address] [address] DANA FERNANDO MD,PHD Blood BLOOD SPECIMEN / Unknown 02/26/2020 10:44 AM CDT 02/26/2020 10:45 AM CDT Luz Holman Pinky DELINQUENT TAX COLLECTION ASSISTANT-WEEKEND CAREGIVER LAB - CARROL BRISA ORDERABLES [facility] [address] [place] [address] * VITAMIN E (02/26/2020 10:44 AM CDT) Only the most recent of2 resultswithin the time period is included. [facility] Alpha-Tocopherol 8.9 mg/L [facility] Comment: Reference Range 5.7-19.9 mg/L Levels of alpha-tocopherol <5 mg/L are consistent with Vitamin E deficiency in adults. Vitamin supplementation within 24 hours prior to blood draw may affect the accuracy of results. This test was developed and its analytical performance characteristics have been determined by [employer]. It has not been cleared or approved by the FDA. This assay has been validated pursuant to the CLIA regulations and is used for clinical purposes. Beta-Gamma Tocopherol <1.0 <4.4 mg/L [facility] Comment: This test was developed and its analytical performance characteristics have been determined by [employer]. It has not been cleared or approved by the FDA. This assay has been validated pursuant to the CLIA regulations and is used for clinical purposes. Test Performed at: [email or web address] [address] [address] DANA FERNANDO MD,PHD Blood BLOOD SPECIMEN / Unknown 02/26/2020 10:44 AM CDT 02/26/2020 10:45 AM CDT Luz Vance SHINE-WEEKEND CAREGIVER LAB - CARROL BRSIA ORDERABLES Performing Organization Address [facility] de Phone Number [place] [phone] * SELENIUM (02/26/2020 10:44 AM CDT) Selenium 144 63 - 160 mcg/L [facility] Comment: This test was developed and its analytical performance characteristics have been determined by [employer]. It has not been cleared or approved by the FDA. This assay has been validated pursuant to the CLIA regulations and is used for clinical purposes. REPORT COMMENT: FASTING:YES AN UPDATE OR CORRECTION HAS BEEN MADE TO NAME Test Performed at: [email or web address] [address] [address] DANA FERNANDO MD,PHD Blood BLOOD SPECIMEN / Unknown 02/26/2020 10:44 AM CDT 02/26/2020 10:45 AM CDT Luz Vance SHINE-WEEKEND CAREGIVER LAB - CARROL BRISA ORDERABLES Performing Organization Address [facility] de Phone Number [facility] [address] [place] [address] * PREALBUMIN (02/26/2020 10:44 AM CDT) Prealbumin 26 21 - 43 mg/dL [facility] Comment: Test Performed at: [email or web address] [place] [address] [place] [address] BOGDAN HORN DO,MPH Blood BLOOD SPECIMEN / Unknown 02/26/2020 10:44 AM CDT 02/26/2020 10:45 AM CDT Luz Bowieerica RIOJAS-WEEKEND CAREGIVER LAB - CARROL BRISA ORDERABLES Performing Organization Address [facility] [place] [address] * LAB RESULTS ORDER (02/18/2018) Only the most recent of15 resultswithin the time period is included. Scanned Document LAB - THERAPEUTIC DR NEIL MONITORING ORDERABLES * (ABNORMAL) HEMOGLOBIN A1C (HgbA1C) (02/14/2018 9:51 AM CDT) Only the most recent of3 resultswithin the time period is included. Pathologist [facility] Hemoglobin A1c 5.9(H) <5.7 % of total Hgb [facility] Comment: For someone without known diabetes, a hemoglobin A1c value between 5.7% and 6.4% is consistent with prediabetes and should be confirmed with a follow-up test. For someone with known diabetes, a value <7% indicates that their diabetes is well controlled. A1c targets should be individualized based on duration of diabetes, age, comorbid conditions, and other considerations. This assay result is consistent with an increased risk of diabetes. Currently, no consensus exists regarding use of hemoglobin A1c for diagnosis of diabetes for children. Test Performed at: [facility] [place] [address] BOGDAN HORN DO,MPH Whole Blood BLOOD SPECIMEN WITH EDTA / Unknown 02/14/2018 9:51 AM CDT 02/14/2018 9:53 AM CDT Luz Vance DELINQUENT TAX COLLECTION ASSISTANT-WEEKEND CAREGIVER LAB - CARROL BRISA ORDERABLES [facility] [address] [place] [address] * ALPHA FETOPROTEIN BLOOD TUMOR (01/03/2018 9:27 AM CDT) Only the most recent of2 resultswithin the time period is included. [facility] Alpha-Fetoprotei n Tumor Marker 3.2 <6.1 ng/mL [facility] Comment: This test was performed using the Devon Kapaa chemiluminescent method. Values obtained from different assay methods cannot be used interchangeably. AFP levels, regardless of value, should not be interpreted as absolute evidence of the presence or absence of disease. Test Performed at: [employer] [facility] [place] [address] BOGDAN HORN DO,MPH Blood BLOOD SPECIMEN / Unknown 01/03/2018 9:27 AM CDT 01/03/2018 9:28 AM CDT Peter Sorensen MD LAB - CHEMISTRY ORD ERABLES Performing Organization Address [facility]/ZIP Co de Phone Number [facility] [address] [place] [address] * PT-INR (01/03/2018 9:27 AM CDT) Only the most recent of3 resultswithin the time period is included. [facility] INR 1.0 [facility] Comment: Reference Range 0.9-1.1 Moderate-intensity Warfarin Therapy 2.0-3.0 Higher-intensity Warfarin Therapy 3.0-4.0 PT 10.7 9.0 - 11.5 sec [facility] Comment: For more information on this test, go to: http://education.DocASAP/faq/XAJ126 Test Performed at: [email or web address] [address] MARLON THURMAN MD Blood BLOOD SPECIMEN / Unknown 01/03/2018 9:27 AM CDT 01/03/2018 9:28 AM CDT Peter Sorensen MD LAB - COAGULATION O RDERABLES Performing Organization Address [facility] Co de Phone Number [address] [address] * CBC W AUTO DIFFERENTIAL (01/03/2018 9:27 AM CDT) Only the most recent of9 resultswithin the time period is included. [facility] White Blood Cell Count 6.6 3.8 - 10.8 Thousand/u L [facility] RBC 5.11 4.20 - 5.80 Million/uL [facility] Hemoglobin 15.9 13.2 - 17.1 g/dL [facility] Hematocrit 46.4 38.5 - 50.0 % [facility] MCV 90.8 80.0 - 100.0 fL [facility] MCH 31.1 27.0 - 33.0 pg [facility] MCHC 34.3 32.0 - 36.0 g/dL [facility] RDW 12.8 11.0 - 15.0 % [facility] Platelet Count 173 140 - 400 Thousand/u L [facility] MPV 11.1 7.5 - 12.5 fL [facility] Neutrophil Absolute 3953 1500 - 7800 cells/uL [facility] Lymphocytes Absolute 1861 850 - 3900 cells/uL [facility] Absolute Monocytes 561 200 - 950 cells/uL [facility] Eosinophils Absolute 191 15 - 500 cells/uL [facility] Basophils Absolute 33 0 - 200 cells/uL [facility] Granulocytes % 59.9 % [facility] Lymphocytes % 28.2 % [facility] Monocytes % 8.5 % [facility] Eosinophils % 2.9 % [facility] Basophils % 0.5 % [facility] Comment: Test Performed at: [email or web address] [place] [address] [place] [address] BOGDAN HORN DO,MPH Blood BLOOD SPECIMEN / Unknown 01/03/2018 9:27 AM CDT 01/03/2018 9:28 AM CDT Peter Sorensen MD LAB - HEMATOLOGY OR DERABLES [facility] [address] [place] [address] * US ABDOMEN LIMITED (RUQ) (06/27/2017 8:29 AM FIRE EXTINGUISHER REPAIRER) Only the most recent of2 resultswithin the time period is included. Anatomical Region Laterality Modality Abdomen Ultrasound 06/27/2017 9:05 AM FIRE EXTINGUISHER REPAIRER Impressions 06/27/2017 9:18 AM FIRE EXTINGUISHER REPAIRER The gallbladder is surgically absent. Right upper quadrant ultrasound is otherwise unremarkable. Narrative 06/27/2017 9:18 AM FIRE EXTINGUISHER REPAIRER RIGHT UPPER QUADRANT ULTRASOUND INDICATION: Right upper quadrant abdominal pain, Crohn's disease TECHNIQUE: Grayscale images of the right upper quadrant were performed. FINDINGS: The gallbladder surgically absent. The liver is normal in size and echogenicity. The common bile duct measures 0.47cm. The visualized portions of the pancreas are unremarkable. The right kidney is of normal size, echogenicity and renal cortical thickness and measures 12.02 x 5.53 x 5.82 cm. Procedure Note Malena Lopez MD - 06/27/2017 RIGHT UPPER QUADRANT ULTRASOUND INDICATION: Right upper quadrant abdominal pain, Crohn's disease TECHNIQUE: Grayscale images of the right upper quadrant were performed. FINDINGS: The gallbladder surgically absent. The liver is normal in size and echogenicity. The common bile duct measures 0.47cm. The visualized portions of the pancreas are unremarkable. The right kidney is of normal size, echogenicity and renal cortical thickness and measures 12.02 x 5.53 x 5.82 cm. IMPRESSION The gallbladder is surgically absent. Right upper quadrant ultrasound is otherwise unremarkable. Peter Sorensen MD US ORDERABLES * HEPATITIS SCREEN ACUTE W/ REFLX CONFIRM (06/23/2017 10:33 AM FIRE EXTINGUISHER REPAIRER) [facility] Hepatitis A Virus Antibody IgM NON-REACTI VE NON-REACT [facility] Hepatitis B Virus Surface Antigen NON-REACTI VE NON-REACT [facility] Hepatitis B Core Virus Antibody IgM NON-REACTI VE NON-REACT [facility] Hepatitis C Antibody NON-REACTI VE NON-REACT [facility] Signal to Cut-Off 0.05 <1.00 [facility] Comment: Test Performed at: [facility] [id number] [place] [address] BOGDAN HORN DO,MPH 06/23/2017 10:3 3 AM FIRE EXTINGUISHER REPAIRER 06/23/2017 10:33 AM FIRE EXTINGUISHER REPAIRER Peter Sorensen MD LAB - CHEMISTRY ORD ERABLES Performing Organization Address [facility] Phone Number [phone] [place] [address] * TESTOSTERONE TOTAL (03/28/2017 9:54 AM CDT) Only the most recent of2 resultswithin the time period is included. [facility] Testosterone Total MS 542 250 - 1100 ng/dL [facility] Comment: Males: Men with clinically significant hypogonadal symptoms and testosterone values repeatedly in the range of the 200-300 ng/dL or less, may benefit from testosterone treatment after adequate risk and benefits counseling. This test was developed and its analytical performance characteristics have been determined by [facility]. It has not been cleared or approved by the US Food and Drug Administration. This assay has been validated pursuant to the CLIA regulations and is used for clinical purposes. Test Performed at: [facility] [id number] [place] [id number] REY RUSHING MD,FCAP 03/28/2017 9:54 AM CDT 03/28/2017 9:56 AM CDT Mena Núñez DELINQUENT TAX COLLECTION ASSISTANT-WEEKEND CAREGIVER LAB - CHEMIS TRY ORDERABLES Performing Organization Address City/[facility] Co de Phone Number [facility] [address] [phone] * FOLATE (03/28/2017 9:54 AM CDT) Folate >24.0 ng/mL [facility] Comment: Reference Range Low: <3.4 Borderline: 3.4-5.4 Normal: >5.4 Test Performed at: [email or web address] [address] [place] [address] BOGDAN HORN DO,MPH 03/28/2017 9:54 AM CDT 03/28/2017 9:56 AM CDT Mena Núñez DELINQUENT TAX COLLECTION ASSISTANT-WEEKEND CAREGIVER LAB - CHEMIS TRY ORDERABLES Performing Organization Address [facility] Co de Phone Number [facility] [address] [place] [address] * CT ABD/PELVIS STONE PROTOCOL (02/26/2017 8:00 PM CDT) Anatomical Region Laterality Modality Abdomen Computed Tomogra phy 02/26/2017 8:31 PM CDT Impressions 02/26/2017 8:35 PM CDT Nephrolithiasis but no ureterolithiasis evident. Thick walled bladder with prostatic hypertrophy. Differential includes muscular hyperplasia although cystitis can give a similar appearance. Colonic diverticulosis. Prior bariatric surgery. Narrative 02/26/2017 8:[address] ABDOMEN AND PELVIS WITHOUT CONTRAST Clinical Indication: Prior gastric bypass. Right-sided flank pain with gross hematuria Technique: Axial CT images from the lung bases through the pubic symphysis were obtained without intravenous contrast. Findings: The lung bases are clear. No pneumoperitoneum. No pericardial or pleural effusion. No intrahepatic biliary ductal dilatation. Prior bypass procedure. No splenomegaly. No peripancreatic inflammatory changes. Post cholecystectomy. The common bile duct is not normal in caliber. No adrenal enlargement. There are bilateral kidney stones. No stone down the pathway of either ureter however. There is a right kidney stone in the midpole laterally measuring about 2.5 mm. Sub-2 mm left renal calculi. No retroperitoneal adenopathy. No small bowel distention. No small bowel transition zone. The appendix extends medially and is of normal caliber. No pericolonic inflammatory changes. There are colonic diverticula. In the pelvis prominence to the bladder wall thickness. Prostatic hypertrophy. No obturator adenopathy. No inguinal adenopathy. Degenerative disc changes the lumbar spine. Lumbar facet arthropathy. No bone destructive process. Procedure Note Kalyan Monsivais MD - 02/26/2017 CT ABDOMEN AND PELVIS WITHOUT CONTRAST Clinical Indication: Prior gastric bypass. Right-sided flank pain with gross hematuria Technique: Axial CT images from the lung bases through the pubic symphysis were obtained without intravenous contrast. Findings: The lung bases are clear. No pneumoperitoneum. No pericardial or pleural effusion. No intrahepatic biliary ductal dilatation. Prior bypass procedure. No splenomegaly. No peripancreatic inflammatory changes. Post cholecystectomy. The common bile duct is not normal in caliber. No adrenal enlargement. There are bilateral kidney stones. No stone down the pathway of either ureter however. There is a right kidney stone in the midpole laterally measuring about 2.5 mm. Sub-2 mm left renal calculi. No retroperitoneal adenopathy. No small bowel distention. No small bowel transition zone. The appendix extends medially and is of normal caliber. No pericolonic inflammatory changes. There are colonic diverticula. In the pelvis prominence to the bladder wall thickness. Prostatic hypertrophy. No obturator adenopathy. No inguinal adenopathy. Degenerative disc changes the lumbar spine. Lumbar facet arthropathy. No bone destructive process. IMPRESSION Nephrolithiasis but no ureterolithiasis evident. Thick walled bladder with prostatic hypertrophy. Differential includes muscular hyperplasia although cystitis can give a similar appearance. Colonic diverticulosis. Prior bariatric surgery. Boaz Lacy DO CT ORDERABLES * (ABNORMAL) URINALYSIS MICROSCOPIC ONLY W/REFLEX CULTURE (02/26/2017 1:54 PM CDT) RBC UA >100(A) 0-2, 2-5 # /hpf 02/26/2017 2:20 PM CDT [facility] Epithelial Cell UA 2-5 0-2, 2-5 # /hpf 02/26/2017 2:20 PM CDT [facility] Urine URINE SPECIMEN OBTAINED BY CLEAN CATCH PROCEDURE / Unknown Collection / Unknown 02/26/2017 1:54 PM CDT 02/26/2017 1:57 PM CDT Boaz Bernal Regino DO LAB - URINALYSIS OR DERABLES [facility] [address] [place] [address] * (ABNORMAL) URINALYSIS ROUTINE W/REFLEX TO CULTURE (02/26/2017 1:54 PM CDT) Color UA Porter(A) Straw, Yellow, Dark Yellow 02/26/2017 2:11 PM CDT [facility] Clarity UA Turbid 02/26/2017 2:11 PM CDT [facility] Specific [place] UA 1.021 1.005 - 1.030 02/26/2017 2:11 PM CDT [facility] pH UA 5.5 5.0 - 8.0 pH 02/26/2017 2:11 PM CDT [facility] Protein UA 2+(A) Negative 02/26/2017 2:11 PM CDT [facility] Blood UA 3+(A) Negative 02/26/2017 2:11 PM CDT [facility] Leukocyte UA 2+(A) Negative 02/26/2017 2:11 PM CDT [facility] Nitrite UA Negative Negative 02/26/2017 2:11 PM CDT [facility] Glucose UA Negative Negative 02/26/2017 2:11 PM CDT [facility] Ketone UA Trace(A) Negative 02/26/2017 2:11 PM CDT [facility] Bilirubin UA 1+(A) Negative 02/26/2017 2:11 PM CDT [facility] Urobilinogen UA 1.0 0.1 - 1.0 EU/dL 02/26/2017 2:11 PM CDT [facility] WBC UA Auto 50-100(A) 0-2, 2-5 # /hpf 02/26/2017 2:11 PM CDT [facility] RBC UA Auto Reflex to manual(A) 0-2, 2-5 # /hpf 02/26/2017 2:11 PM CDT [facility] Epithelial Cell UA Auto Reflex to manual(A) 0-2, 2-5 # /hpf 02/26/2017 2:11 PM CDT [facility] Bacteria UA Auto None seen None seen 02/27/20 17 2:11 PM CDT [facility] Hyaline Casts UA Auto 2-5(A) 0 - 2 #/lpf 02/26/2017 2:11 PM CDT [facility] Reflex Status Culture to follow 02/26/2017 2:11 PM CDT [facility] Urine URINE SPECIMEN OBTAINED BY CLEAN CATCH PROCEDURE / Unknown Collection / Unknown 02/26/2017 1:54 PM CDT 02/26/2017 1:57 PM CDT Boaz Lacy DO LAB - URINALYSIS OR DERABLES Performing Organization Address City/[facility]/ZIP Co de Phone Number [facility] [address] [place] [address] * CULTURE URINE (02/26/2017 1:54 PM CDT) Pathologist [facility] Culture Urine No growth (<1,000 CFU/mL) ZEESHAN 02/28/2017 6:17 AM CDT [facility] Urine URINE SPECIMEN OBTAINED BY CLEAN CATCH PROCEDURE / Unknown Collection / Unknown 02/26/2017 1:54 PM CDT 02/26/2017 1:57 PM CDT Boaz Lacy DO LAB - MICROBIOLOGY ORDERABLES Performing Organization Address [facility] Co de Phone Number [facility] [address] [place] [address], [facility] [phone] * LAB MISC TEST (03/18/2016) Other (qualifier value) BLOOD SPECIMEN / Unknown Vivek Nair MD LAB SEND OUT * (ABNORMAL) GLUCOSE - POINT OF CARE (10/16/2015 11:51 AM CDT) Only the most recent of21 resultswithin the time period is included. Glucose WB/POC 190(H) 70 - 106 mg/dL 10/16/2015 2:50 PM CDT [facility] Blood BLOOD SPECIMEN / Unknown 10/16/2015 11:51 AM CDT 10/16/2015 2:50 PM CDT Orlando Lopez MD LAB - POINT OF CARE ORDERABLES [facility] [address] [place] [address] * XR CHOLANGIOGRAM OPERATIVE (10/13/2015 6:13 PM CDT) Anatomical Region Laterality Modality Abdomen Radiographic Renae ging 10/13/2015 6:31 PM CDT Narrative 10/14/2015 5:51 PM CDT EXAMINATION: INTRAOPERATIVE CHOLANGIOGRAM INDICATION: Laparoscopic cholecystectomy surgery. Generalized abdominal pain. Initial plain film encounter today. COMPARISON: Abdominal MRI report of October 13, 2015. FINDINGS: 366 fluoroscopic spot images are available from the operating room. Contrast was injected into the common bile duct and some of the intrahepatic radicles. The contrast empties into the duodenal loop. On some of the images, there is question of a filling defect in the distal common bile duct just proximal to the ampulla. However, this does not have a round shape, rather has more of a linear or rectangular shape and is difficult to profile on all images. The common bile duct is relatively normal in size but cannot be measured precisely on the fluoroscopic spot images. I had the opportunity to speak with Dr. Lopez in the operating room at the time of surgery. The patient has had prior bypass surgery. Fluoroscopy time 5 minutes 50 seconds. Edited by Marcela Cooper on 10/14/2015 7:03 AM Procedure Note Tomasz Cordoba MD - 10/14/2015 EXAMINATION: INTRAOPERATIVE CHOLANGIOGRAM INDICATION: Laparoscopic cholecystectomy surgery. Generalized abdominal pain. Initial plain film encounter today. COMPARISON: Abdominal MRI report of October 13, 2015. FINDINGS: 366 fluoroscopic spot images are available from the operating room. Contrast was injected into the common bile duct and some of the intrahepatic radicles. The contrast empties into the duodenal loop. On some of the images, there is question of a filling defect in the distal common bile duct just proximal to the ampulla. However, this does not have a round shape, rather has more of a linear or rectangular shape and is difficult to profile on all images. The common bile duct is relatively normal in size but cannot be measured precisely on the fluoroscopic spot images. I had the opportunity to speak with Dr. Lopez in the operating room at the time of surgery. The patient has had prior bypass surgery. Fluoroscopy time 5 minutes 50 seconds. Edited by Marcela Cooper on 10/14/2015 7:03 AM Orlando Lopez MD DIAGNOSTIC IMAGING O RDERABLES * GROSS + MICRO EXAM (STL) (10/13/2015 5:44 PM CDT) Case Report Surgical Pathology Report Case: [id number] Authorizing Provider: Orlando Lopez MD Collected: 10/13/2015 05:44 PM Ordering Location: [facility] Received: 10/14/2015 08:32 AM Pathologist: Denis Vital MD Specimens: A) - Liver, Liver Biopsy B) - Gallbladder 10/18/2015 10:24 AM CDT [facility] Final Diagnosis 1. Liver, core needle biopsy: -- Mild active lobular and portal inflammation with mild patchy steatosis and septal fibrosis suspicious for cirrhosis (see microscopic and comment) -- No significant increase in stainable iron 2. Gallbladder, cholecystectomy -- Gangrenous cholecystitis with features of perforation -- Cholelithiasis AB/na 10/18/2015 10:24 AM CDT [facility] Gross Description Received are 2 containers, each labeled [facility] [place] . Container 1 is labeled liver biopsy. The container holds a yellow cylindrical tissue core measuring 1.8 cm in length by 0.1 cm in diameter. The specimen is entirely submitted in a cassette labeled A1. Container 2 is labeled gallbladder. The container holds a 10 x 6 x 2.8 cm teardrop shaped gallbladder. The cystic duct is disrupted. The contents of the gallbladder and the container are strained yielding multiple pink tissue fragments and a 1 x 1 x 0.7 cm gallstone. The mucosa is [id number] and slightly roughened in appearance. The wall of the gallbladder measures 0.3 cm in average thickness. [employer] Supervisor sections are submitted in a cassette labeled B1. DYT/lk 10/18/2015 10:24 AM CDT [facility] Microscopic Description The liver biopsy shows patchy steatosis and nodular septal fibrosis that is very suspicious for cirrhosis; however, if this biopsy is near the capsule, there may be extensive fibrosis which may not reflect the state of the liver as a whole. Clinical correlation is therefore recommended. The steatosis is both micro and macrovesicular. The iron stain shows no significant increase in stainable iron. A closer inspection does reveal some mild portal and lobular inflammation, mostly neutrophilic, interestingly. There does not appear to be significant bile duct damage but scattered neutrophils are seen around bile ductules, suggesting that there may be a mild cholangitis. Cholestasis is not found. The sections of the gallbladder show a severe gangrenous cholecystitis with near complete mucosal necrosis. A few glands and strips of epithelium that are present are appear reactive and not dysplastic. The inflammation and necrosis extend transmurally consistent with perforation. Comment: If the liver biopsy was in the vicinity of the gallbladder, the inflammatory changes could reflect a reactive or a possibly a surgical hepatitis, so clinical correlation is recommended as well. AB/na 10/18/2015 10:24 AM CDT [facility] Pathology/Cytology ENTIRE LIVER / Unknown 10/13/2015 5:44 PM CDT 10/14/2015 8:32 AM CDT Miscellaneous samples (specimen) ENTIRE GALLBLADDER / Unknown 10/13/2015 6:07 PM CDT 10/14/2015 8:32 AM CDT Orlando Lopez MD LAB - PATHOLOGY/CYTO LOGY ORDERABLES Performing Organization Address [facility] Co de Phone Number [facility] [address] [place] [address] * CULTURE FLUID+GRAM STAIN (10/13/2015 3:58 PM CDT) Culture No Growth ZEESHAN 10/20/2015 5:16 AM CDT [facility] Gram Stain Light White blood cells 10/20/2015 5:16 AM CDT [facility] Gram Stain No organisms seen 10/20/2015 5:16 AM CDT [facility] Microbiology PERITONEAL FLUID / Unknown 10/13/2015 3:58 PM CDT 10/13/2015 4:33 PM CDT Orlando Lopez MD LAB - MICROBIOLOGY O RDERABLES Performing Organization Address City/[facility]/ZIP Co de Phone Number [facility] [address] [place] [address], [facility] [phone] * CULTURE ANAEROBE (10/13/2015 3:58 PM CDT) Pathologist [facility] Culture No anaerobic organisms isolated ZEESHAN 10/21/2015 11:08 AM CDT [facility] Microbiology PERITONEAL FLUID / Unknown Collection / Unknown 10/13/2015 3:58 PM CDT 10/13/2015 4:33 PM CDT Orlando Lopez MD LAB - MICROBIOLOGY O RDERABLES [facility] [address] [place] [address], [facility] [phone] * BILIRUBIN TOTAL FLUID (10/13/2015 3:58 PM CDT) Pathologist [facility] Bilirubin Total 3.0 mg/dL 10/16/2015 2:12 PM CDT [facility] Comment: INTERPRETIVE INFORMATION: Bilirubin, Total, Body Fluid For information on body fluid reference ranges and/or interpretive guidance visit [email or web address]/bodyfluids/ Test developed and characteristics determined by [employer]. See Compliance Statement B: [email or web address] Miscellaneous samples (specimen) PERITONEAL FLUID / Unknown 10/13/2015 3:58 PM CDT 10/13/2015 4:33 PM CDT Narrative [facility] ([facility]) - 10/16/2015 2:12 PM CDT Performed at: [facility] [address] [place] [id number] Oxyacetylene Welder: Catarino Cooper , Phone: [phone] Orlando Lopez MD LAB - BODY FLUID ORD ERABLES [facility] ([facility]) * CYTOLOGY NON-PRESIDENT ERGONOMIC CONSULTING PANEL (STL) (10/13/2015 3:58 PM CDT) Case Report Cytology Non Hides Soaker Report Case: [id number] Authorizing Provider: Orlando Lopez MD Collected: 10/13/2015 03:58 PM Ordering Location: [facility] Received: 10/14/2015 10:47 AM Pathologist: Denis Vital MD Specimen: Peritoneal Fluid 10/18/2015 4:21 PM CDT [facility] Final Diagnosis 1. Peritoneal fluid, cell block and thin-layer preparations: -- Acute inflammation suggestive of peritonitis -- Negative for malignancy AB/bs 10/18/2015 4:21 PM CDT [facility] Gross Description PHYSICIAN/SURGEON: Dr. Jimbo Lopez COPY TO: INDICATIONS FOR PROCEDURE: OPERATION: Laparoscopic cholecystectomy with cholangiogram SPECIMEN: Peritoneal fluid ADEQUACY: GROSS: Received 5 ml 10/18/2015 4:21 PM CDT [facility] Microscopic Description The peritoneal fluid cell block and thin layer preparation show very few cells most of them lymphocytes and some mesothelial cells and occasional neutrophils. The cell block however is full of neutrophils and suggests a peritonitis. AB/bs 10/18/2015 4:21 PM CDT [facility] Disclaimer All histochemical and/or immunohistochemical results are interpreted with controls that demonstrate appropriate staining reactions before reporting results. Note on use of immunocytochemistry reagents: This test was developed and its performance characteristic determined by [facility], Department of Laboratory Medicine. It has not been cleared or approved by the U.S. Food and Drug Administration (FDA). The FDA has determined that such clearance or approval is not necessary. The test is used for clinical purpose. It should not be regarded as investigational or for research. This laboratory is certified to perform high complexity testing. 10/18/2015 4:21 PM CDT [facility] Microbiology PERITONEAL FLUID / Unknown 10/13/2015 3:58 PM CDT 10/14/2015 10:47 AM CDT Orlando Lopez MD LAB - PATHOLOGY/CYTO LOGY ORDERABLES [facility] [address] [place] [address] * MRI MRCP (10/13/2015 9:56 AM CDT) Anatomical Region Laterality Modality Abdomen Magnetic Resonan ce 10/13/2015 10:4 9 AM CDT Narrative 10/13/2015 10:54 AM CDT Examination: MRI abdomen with magnetic resonance cholangiography. Indication for examination: Epigastric and right upper quadrant abdominal pain. Choledocholithiasis. Abnormal liver function. Noncontrast T1 and T2-weighted images of the upper abdomen were obtained. Magnetic resonance cholangiography is performed with two-dimensional and three dimensional technique. No prior abdominal imaging studies are currently available. Liver and spleen are grossly normal in size. Surface of the liver is minimally nodular suggesting the possibility of a mild degree of hepatic fibrosis or cirrhosis. No gross focal parenchymal mass identified. Portal and hepatic vein are patent. There is a minimal amount of ascites in the peritoneal cavity. There is no specific indication of significant portal hypertension or varices. No discrete abnormality is identified in the pancreas. No definite peripancreatic fluid or high-grade inflammatory change is identified. There is no urinary tract obstruction. There is left renal cyst formation. Magnetic resonance cholangiography reveals gallbladder wall thickening with fluid around the gallbladder. This is associated with fluid and edema within the soft tissues of the right upper quadrant below the gallbladder. There are multiple filling defects in the gallbladder representing cholelithiasis. Intrahepatic and extra hepatic bile ducts are normal in caliber. There are multiple small filling defects in the common bile duct representing multiple small common duct stones. These are 3 mm or less in diameter. Pancreatic duct is grossly normal in caliber. Conclusion: Cholelithiasis with changes of cholecystitis. There is fluid and edema within the soft tissues adjacent to and below the gallbladder. Choledocholithiasis with multiple small stones in the distal common bile duct. No bile duct dilatation. Grossly normal-appearing pancreas and pancreatic duct. Minimally nodular contour to the liver. No evidence of high-grade or significant portal hypertension. Minimal ascites. Procedure Note Sadi Man MD - 10/13/2015 Examination: MRI abdomen with magnetic resonance cholangiography. Indication for examination: Epigastric and right upper quadrant abdominal pain. Choledocholithiasis. Abnormal liver function. Noncontrast T1 and T2-weighted images of the upper abdomen were obtained. Magnetic resonance cholangiography is performed with two-dimensional and three dimensional technique. No prior abdominal imaging studies are currently available. Liver and spleen are grossly normal in size. Surface of the liver is minimally nodular suggesting the possibility of a mild degree of hepatic fibrosis or cirrhosis. No gross focal parenchymal mass identified. Portal and hepatic vein are patent. There is a minimal amount of ascites in the peritoneal cavity. There is no specific indication of significant portal hypertension or varices. No discrete abnormality is identified in the pancreas. No definite peripancreatic fluid or high-grade inflammatory change is identified. There is no urinary tract obstruction. There is left renal cyst formation. Magnetic resonance cholangiography reveals gallbladder wall thickening with fluid around the gallbladder. This is associated with fluid and edema within the soft tissues of the right upper quadrant below the gallbladder. There are multiple filling defects in the gallbladder representing cholelithiasis. Intrahepatic and extra hepatic bile ducts are normal in caliber. There are multiple small filling defects in the common bile duct representing multiple small common duct stones. These are 3 mm or less in diameter. Pancreatic duct is grossly normal in caliber. Conclusion: Cholelithiasis with changes of cholecystitis. There is fluid and edema within the soft tissues adjacent to and below the gallbladder. Choledocholithiasis with multiple small stones in the distal common bile duct. No bile duct dilatation. Grossly normal-appearing pancreas and pancreatic duct. Minimally nodular contour to the liver. No evidence of high-grade or significant portal hypertension. Minimal ascites. Orlando Lopez MD MR ORDERABLES * PTT (10/13/2015 8:25 AM CDT) Pathologist [facility] PTT 25.2 21.0 - 32.0 sec 10/13/2015 9:07 AM CDT [facility] Blood BLOOD SPECIMEN / Unknown 10/13/2015 8:25 AM CDT 10/13/2015 8:35 AM CDT Narrative [facility] - 10/13/2015 9:07 AM CDT Heparin Therapeutic Range for PTT: 47.7 - 68.6 seconds. Orlando Lopez MD LAB - COAGULATION OR DERABLES [facility] [address] [place] [address] * LIPASE BLOOD (10/13/2015 3:53 AM CDT) Lipase 88 10 - 220 U/L 10/13/2015 4:43 AM CDT [facility] Blood BLOOD SPECIMEN / Unknown 10/13/2015 3:53 AM CDT 10/13/2015 4:25 AM CDT Orlando Lopez MD LAB - CHEMISTRY KAMARI HUMMEL [facility] [address] [place] [address] * CARDIAC RHYTHM STRIP ORDER (02/16/2013 6:04 AM CDT) Narrative 02/16/2013 6:04 AM CDT Ordered by an unspecified provider. Transcriptions Document, Scanned - 02/16/2013 6:04 AM CDT Scanned Document CARDIAC SERVICES ORD ERABLES * (ABNORMAL) BASIC METABOLIC PANEL (CALCIUM TOTAL) (02/14/2013 2:32 AM CDT) Only the most recent of2 resultswithin the time period is included. Glucose 150(H) 74 - 106 mg/dL 02/14/2013 3:22 AM CDT [facility] Sodium 140 136 - 145 mmol/L 02/14/2013 3:22 AM CDT [facility] Potassium 4.2 3.5 - 5.1 mmol/L 02/14/2013 3:22 AM CDT [facility] Chloride 105 98 - 107 mmol/L 02/14/2013 3:22 AM CDT [facility] CO2 25 22 - 31 mmol/L 02/14/2013 3:22 AM CDT [facility] Calcium 8.3(L) 8.5 - 10.1 mg/dL 02/14/2013 3:22 AM CDT [facility] Anion Gap 10 5 - 15 mmol/L 02/14/2013 3:22 AM CDT [facility] BUN 22(H) 7 - 21 mg/dL 02/14/2013 3:22 AM CDT [facility] Creatinine 1.08 0.50 - 1.30 mg/dL 02/14/2013 3:22 AM CDT [facility] eGFR by MDRD >60 >60 ml/min/1.7 3m2 02/14/2013 3:22 AM CDT [facility] eGFR by MDRD >60 >60 ml/min/1.7 3m2 02/14/2013 3:22 AM CDT [facility] Blood BLOOD SPECIMEN / Unknown 02/14/2013 2:32 AM CDT 02/14/2013 2:53 AM CDT Vivek Nair MD LAB - CHEMISTRY MORAIMAE ESTEPHANIE [facility] [address] [place] [address] * FL FLUORO UPPER GI TRACT + KUB (02/13/2013 9:41 AM CDT) Anatomical Region Laterality Modality Abdomen Radiographic Renae ging 02/13/2013 10:1 3 AM CDT Narrative 02/13/2013 10:13 AM CDT FLUORO UPPER GI WITH OMNIPAQUE 350 INDICATION: 24-hour postoperative evaluation for gastric bypass surgery. The patient is given 3 swallows of Omnipaque. The Omnipaque rapidly passes from the esophagus, through the gastric remnant and into the small bowel. There is no evidence of obstruction or extravasation of contrast media. Procedure Note Paul Angulo MD - 02/13/2013 FLUORO UPPER GI WITH OMNIPAQUE 350 INDICATION: 24-hour postoperative evaluation for gastric bypass surgery. The patient is given 3 swallows of Omnipaque. The Omnipaque rapidly passes from the esophagus, through the gastric remnant and into the small bowel. There is no evidence of obstruction or extravasation of contrast media. Vivek Nair MD FLUOROSCOPY ORDERABL ES * CULTURE VRE (02/12/2013 9:46 PM CDT) Pathologist [facility] Culture Negative for VRE 02/15/2013 2:52 PM CDT [facility] MICROBIOLOGY Stool RECTAL SWAB / Unknown 02/12/2013 9:46 PM CDT 02/12/2013 10:02 PM CDT Vivek Nair MD LAB - MICROBIOLOGY O RDERABLES [facility] MICROBIOLOGY [address] [place] [address], [facility] * CULTURE MRSA (02/12/2013 9:46 PM CDT) Culture Negative for MRSA 02/14/2013 7:20 AM CDT [facility] MICROBIOLOGY Microbiology SPECIMEN FROM NASAL FOSSAE / Unknown 02/12/2013 9:46 PM CDT 02/12/2013 10:02 PM CDT Vivek Nair MD LAB - MICROBIOLOGY O RDERABLES [facility] MICROBIOLOGY [address] [place] [address], [facility] * POTASSIUM BLOOD (02/12/2013 10:47 AM CDT) Potassium 4.3 3.5 - 5.1 mmol/L 02/12/2013 11:09 AM CDT [facility] Blood BLOOD SPECIMEN / Unknown 02/12/2013 10:47 AM CDT 02/12/2013 10:51 AM CDT Vivek Nair MD LAB - CHEMISTRY ORDE RABLES Performing Organization Address City/[facility]/ZIP Co de Phone Number [facility] [address] [place] [address] Care Teams Overnight Cashier Relationship Specialty Start Date End Date Tesfaye Peralta MD [address] [facility] [address] [facility] [address] [place] [address] PCP - General Internal Medicine 01/14/20 Tesfaye Peralta MD [address] [place] [address] Internal Medicine 01/14/20 Charlene Toribio, RN Battery Inspector 10/13/15
--- OUTSIDE RECORDS SUMMARY | 2024-09-02 09:00 | XMS_ITS | Encounter Summary ---
Author Organization [facility] Address [address] [place] [address] Care Team Providers Care Equal Opportunity Specialist Name Role Phone Tesfaye Peralta MD Primary Care Provider [phone] Tesfaye Peralta MD Primary Care Provider Tesfaye Peralta MD Unavailable [phone] Charlene Toribio RN Unavailable [phone] Encounter Details Date Type Department Care Team (Late st Contact Info) Description 11/12/2015 [facility] Outpatient Visit [facility] Medical [facility] [id number] [place] [address], [facility] [address] [place] [address] [place] [address] [facility] [address] [address] Social History Tobacco Use Types [...] on filedocumented in this encounter Care Teams Equal Opportunity Specialist Relationship Specialty Start Date End Date Tesfaye Peralta MD [address] [place] [address] PCP - General Internal Medicine 11/22/12 01/13/20 Tesfaye Peralta MD [address] [facility] [address] [place] [address] PCP - General Internal Medicine 01/14/20 Tesfaye Peralta MD [address] [place] [address] Internal Medicine 01/14/20 Charlene Toribio, TITA Adaptive Physical Educator 10/13/15 documented as of this encounter
[2024-09-02 19:31] LABS: Basophils Percent Auto 0.4 % (0.2-1.2); Eosinophils Absolute Auto 0.1 K/mm3 (0-0.3); Hematocrit 43.9 % (42.0-52.0); Hemoglobin 14.6 g/dL (14.0-18.0); Immature Granulocyte Absolute 0.07 K/mm3 (0.00-0.031); Immature Granulocyte Percent A 0.8 % (0-0.5); Lymphocytes Absolute Auto 2.33 K/mm3 (0.9-3.2); Lymphocytes Percent Auto 27.8 % (18.3-44.2); Mean Corpuscular HGB Conc 33.3 g/dl (32-36); Mean Corpuscular Hemoglobin 31.1 pg (26-34); Mean Corpuscular Volume 93.6 fl (80-100); Mean Platelet Volume 10.4 fl (7.4-10.4); Monocytes Absolute Auto 0.7 K/mm3 (0.1-0.6); Monocytes Percent Auto 7.8 % (2.6-8.5); Neutrophils Absolute Auto 5.2 K/mm3 (1.3-6.7); Neutrophils Percent Auto 62.2 % (45.5-73.1); Platelet Count Result 225 k/mm3 (150-375); Red Blood Count 4.69 M/mm3 (4.6-6.20); Red Cell Distribution Width 13.8 % (11.5-14.5); White Blood Count 8.4 K/mm3 (4.5-10.0)
[2024-09-02 20:09] LABS: Alanine Aminotransferase 61 U/L (6-50); Albumin Level 3.5 g/dL (3.5-5.1); Alkaline Phosphatase 87 U/L (38-126); Anion Gap 8 mmol/L (4-12); Aspartate Amino Transferase 47 U/L (17-59); Bilirubin,Total 0.8 mg/dL (0.2-1.3); Blood Urea Nitrogen 32 mg/dL (9-20); Calcium 8.8 mg/dL (8.4-10.2); Carbon Dioxide 29 mmol/L (22-30); Chloride 99 mmol/L (98-107); Cholesterol 230 mg/dL (0-200); Estimated Glomerular Filt Rate 54; Glucose 120 mg/dL (65-110); HDL Direct 86 mg/dL; Potassium 3.4 mmol/L (3.4-5.0); Sodium 136 mmol/L (137-145); Triglycerides 149 mg/dL (<150)
[2024-09-02 20:19] LABS: LDL Cholesterol Direct 98 mg/dL
[2024-09-02 20:51] LABS: Erythrocyte Sedimentation Rate 19 mm/hr (0-20)
[2024-09-02 21:30] LABS: Free T4 Free Thyroxine 0.99 ng/dL (0.78-2.19)
[2024-09-03 09:17] LABS: CRP < 0.5 mg/dL (<1.0)
== END 2024-09-02 08:26 | disposition home or self-care (01) ==
LOC: ANHGOSHLAB 08:25
PROVIDERS: PCP Internal Medicine; Visit Provider Internal Medicine
DX: M35.3 Polymyalgia rheumatica (principal); Z79.899 Other long term (current) drug therapy; Z13.29 Encounter for screening for other suspected endocrine disorder; I10 Essential (primary) hypertension; E78.2 Mixed hyperlipidemia
CPT/HCPCS: 36415; 80053; 80061; 84439; 84443; 85025; 85652; 86140

== ENCOUNTER 2024-09-12 08:12 | Outpatient (CLI) | payer MEDICARE, SELFPAY ==
--- OUTSIDE RECORDS SUMMARY | 2024-09-12 08:28 | XMS_ITS | Patient Health Summary ---
Author Organization [facility] Address [address] [place] [address] Care Team Providers Care Gastroenterologist Name Role Phone Tesfaye Peralta MD Primary Care Provider [phone] Tesfaye Peralta MD Unavailable [phone] Charlene Toribio RN Unavailable [phone] Note from [facility],non-owned Affiliates and Associated Physician Practices is amultiple site organization consisting of ambulatory clinics and hospital sitesin [place], [place], [place] and [place]. This disclosure is being madepursuant to the Care Everywhere program and may not contain all information available regarding this patient. Last updated 18.[facility] Allergies * Adhesive Sensitivity(PULLS [...] and unspecified causes of morbidity * CYTOLOGY NON-KENNEL SUPERVISOR PANEL (STL)(Performed 10/13/2015) Performed for Unknown and [...] AM CDT) Case Report Dermatopathology Report Case: [id number] Authorizing Provider: Nasrin La PA Collected: 12/28/2020 12:00 AM Ordering Location: [facility] DermPath Lab Received: 12/29/2020 01:04 PM Pathologist: [...] characteristic determined by the Dermatopathology Laboratory at [facility], directed by Dr. Dewey Allison. These tests need not be, and therefore are not, approved by the [place] Food and Drug Administration. The tests are used for clinical purposes. Billing Codes Specimen Charges Stain Charges 34357 1 1 11:39 AM CDT DERMATOPATHOLOGY LABORATORY Embedded Images 1 11:39 AM CDT DERMATOPATHOLOGY LABORATORY Pathology/Cytolog y TISSUE SPECIMEN FROM SKIN / Unknown 12/28/2020 12/29/2020 1:04 PM CDT Nasrin MENDOZA LAB - PATHOLOGY/CYTO LOGY ORDERABLES DERMATOPATHOLOGY LABORATORY [facility] Department of Dermatology [address] [phone] * ZINC BLOOD (02/26/2020 10:47 AM CDT) Only the most recent of6 resultswithin the time period is included. Zinc 75 60 - 130 mcg/dL [facility] Comment: This test was developed and its analytical performance characteristics have been determined by [employer]. It has not been cleared or approved by the FDA. This assay has been validated pursuant to the CLIA regulations and is used for clinical purposes. REPORT COMMENT: FASTING:YES Test Performed at: [facility] [address] [address] DANA FERNANDO MD,PHD Blood BLOOD SPECIMEN / Unknown 02/26/2020 10:47 AM CDT 02/26/2020 10:48 AM CDT Luz Manda Vance CIRCUIT BREAKER MECHANIC-ELECTRICAL & INSTRUMENTATION SUPERVISOR LAB - CARROL BRISA ORDERABLES [facility] [address] [place] [address] * VITAMIN B1 (02/26/2020 10:47 AM CDT) Only the most recent of7 resultswithin the time period is included. Vitamin B1 Whole Blood 165 78 - 185 nmol/L [facility] Comment: Vitamin supplementation within 24 hours prior to blood draw may affect the accuracy of results. This test was developed and its analytical performance characteristics have been determined by [employer]. It has not been cleared or approved by the FDA. This assay has been validated pursuant to the CLIA regulations and is used for clinical purposes. Test Performed at: [facility] [address] [place] [address] DANA FERNANDO MD,PHD Blood BLOOD SPECIMEN / Unknown 02/26/2020 10:47 AM CDT 02/26/2020 10:48 AM CDT Luz Holman Pinky CIRCUIT BREAKER MECHANICPersonetaELECTRICAL & INSTRUMENTATION SUPERVISOR LAB - CARROL BRISA ORDERABLES Performing Organization Address [facility] Co de Phone Number [address] [address] * (ABNORMAL) PTH INTACT (02/26/2020 10:47 AM CDT) Only the most recent of6 resultswithin the time period is included. Pathologist [facility] PTH Intact 65(H) 14 - 64 pg/mL [facility] Comment: Interpretive Guide Intact PTH Calcium ------- Normal Parathyroid Normal Normal Hypoparathyroidism Low or Low Normal Low Hyperparathyroidism Primary Normal or High High Secondary High Normal or Low Tertiary High High Non-Parathyroid Hypercalcemia Low or Low Normal High Test Performed at: [facility] [place] [address] [place] [address] BOGDAN HORN DO,MPH Blood BLOOD SPECIMEN / Unknown 02/26/2020 10:47 AM CDT 02/26/2020 10:48 AM CDT Luz Holman Pinky CIRCUIT BREAKER MECHANICPersonetaELECTRICAL & INSTRUMENTATION SUPERVISOR LAB - [facility] ORDERABLES Performing Organization Address [facility] Co de Phone Number [address] [address] * COPPER BLOOD (02/26/2020 10:47 AM CDT) Only the most recent of3 resultswithin the time period is included. [facility] Copper 95 70 - 175 mcg/dL [facility] Comment: This test was developed and its analytical performance characteristics have been determined by [employer]. It has not been cleared or approved by the FDA. This assay has been validated pursuant to the CLIA regulations and is used for clinical purposes. Test Performed at: [facility] [address] [address] [place] [address] DANA FERNANDO MD,PHD Blood BLOOD SPECIMEN / Unknown 02/26/2020 10:47 AM CDT 02/26/2020 10:48 AM CDT Luz Holman Pinky CIRCUIT BREAKER MECHANIC-ELECTRICAL & INSTRUMENTATION SUPERVISOR LAB - CARROL BRISA ORDERABLES Performing Organization Address [facility] Co de Phone Number [facility] [phone] [place] [address] * FOLATE RBC (02/26/2020 10:47 AM CDT) Only the most recent of5 resultswithin the time period is included. Folate RBC 568 >280 ng/mL RBC [facility] Comment: Test Performed at: [facility] [place] [id number] [place] [address] BOGDAN HORN DO,MPH Blood BLOOD SPECIMEN / Unknown 02/26/2020 10:47 AM CDT 02/26/2020 10:48 AM CDT Luz Chaudharifazal Vance CIRCUIT BREAKER MECHANICLYMAN SCHOOL FOR BOYS LAB - CARROL BRISA ORDERABLES Performing Organization Address [facility] de Phone Number [facility] [phone] [place] [address] * (ABNORMAL) VITAMIN D 25-HYDROXY (02/26/2020 10:47 [...] D, (D2,D3), LC/MS/MS is recommended: order code 82404 (patients >2yrs). See Note 1 Note 1 For additional information, please refer to http://education.[employer]/faq/NBS064 (This link is being provided for informational/ educational purposes only.) Test Performed at: [facility] [address] [facility] [place] [place] [address] BOGDAN HORN DO,MPH Blood BLOOD SPECIMEN / Unknown 02/26/2020 10:47 AM CDT 02/26/2020 10:48 AM CDT Luz Vance APRN-ELECTRICAL & INSTRUMENTATION SUPERVISOR LAB - CARROL BRISA ORDERABLES Performing Organization Address [facility] Co de Phone Number [employer] [address] [place] [address] * CBC W/O DIFFERENTIAL (02/26/2020 10:47 AM [...] 12.5 fL [facility] Comment: Test Performed at: [employer] [address] [place] [address] BOGDAN HORN DO,MPH Blood BLOOD SPECIMEN / Unknown 02/26/2020 10:47 AM CDT 02/26/2020 10:48 AM CDT Luz Vance APRN-ELECTRICAL & INSTRUMENTATION SUPERVISOR LAB - HEM ATOLOGY ORDERABLES Performing Organization Address [facility] Co de Phone Number [employer] [address] [place] [address] * (ABNORMAL) COMPREHENSIVE METABOLIC PANEL (02/26/2020 10:47 [...] approximately 13% higher for people identified as -Belgian. eGFR by MDRD 51(L) > OR = [...] 46 U/L [facility] Comment: Test Performed at: [employer] [address] [place] [address] BOGDAN HORN DO,MPH Blood BLOOD SPECIMEN / Unknown 02/26/2020 10:47 AM CDT 02/26/2020 10:48 AM CDT Luz Mandafazal Vance CIRCUIT BREAKER MECHANIC-ELECTRICAL & INSTRUMENTATION SUPERVISOR LAB - CARROL BRISA ORDERABLES [facility] [id number] [place] [address] * MAGNESIUM BLOOD (02/26/2020 10:47 AM CDT) Only the most recent of6 resultswithin the time period is included. Magnesium 2.1 1.5 - 2.5 mg/dL [facility] Comment: Test Performed at: [employer] [facility] [place] [address] BOGDAN HORN DO,MPH Blood BLOOD SPECIMEN / Unknown 02/26/2020 10:47 AM CDT 02/26/2020 10:48 AM CDT Luz Vance CIRCUIT BREAKER MECHANIC-ELECTRICAL & INSTRUMENTATION SUPERVISOR LAB - CARROL BRISA ORDERABLES Performing Organization Address City/[facility]/[place] [address] * IRON BLOOD (02/26/2020 10:47 AM CDT) Only the most recent of6 resultswithin the time period is included. Iron 104 50 - 180 mcg/dL [facility] Comment: Test Performed at: [employer] [facility] [place] [address] BOGDAN HORN DO,MPH Blood BLOOD SPECIMEN / Unknown 02/26/2020 10:47 AM CDT 02/26/2020 10:48 AM CDT Luz Vance APRN-ELECTRICAL & INSTRUMENTATION SUPERVISOR LAB - CARROL BRISA ORDERABLES Performing Organization Address City/[facility] Co de Phone Number [place] [phone] * VITAMIN B12 (02/26/2020 10:47 AM CDT) Only the most recent of7 resultswithin the time period is included. Vitamin B12 815 200 - 1100 pg/mL [facility] Comment: Test Performed at: [employer] [facility] [place] [place] [address] BOGDAN HORN DO,MPH Blood BLOOD SPECIMEN / Unknown 02/26/2020 10:47 AM CDT 02/26/2020 10:48 AM CDT Luz Vance CIRCUIT BREAKER MECHANIC-ELECTRICAL & INSTRUMENTATION SUPERVISOR LAB - CARROL BRISA ORDERABLES Performing Organization Address [facility] Co de Phone Number [facility] [phone] [place] [address] * FERRITIN (02/26/2020 10:47 AM CDT) Only the most recent of6 resultswithin the time period is included. Pathologist [facility] Ferritin 137 24 - 380 ng/mL [facility] Comment: Test Performed at: [facility] [address] [address] BOGDAN HORN DO,MPH Blood BLOOD SPECIMEN / Unknown 02/26/2020 10:47 AM CDT 02/26/2020 10:48 AM CDT Luz Vance APRN-ELECTRICAL & INSTRUMENTATION SUPERVISOR LAB - CARRLO BRISA ORDERABLES Performing Organization Address [facility] de Phone Number [address] [address] * VITAMIN K1 (02/26/2020 10:44 AM CDT) Only the most recent of2 resultswithin the time period is included. Pathologist [facility] Vitamin K 257 130 - 1500 pg/mL [facility] Comment: Due to potential interferences, Vitamin K1 levels cannot be determined in individuals taking Vitamin K2 supplements. This test was developed and its analytical performance characteristics have been determined by [employer]. It has not been cleared or approved by the FDA. This assay has been validated pursuant to the CLIA regulations and is used for clinical purposes. Test Performed at: [facility] [id number] [place] [address] DANA FERNANDO MD,PHD Blood BLOOD SPECIMEN / Unknown 02/26/2020 10:44 AM CDT 02/26/2020 10:45 AM CDT Luz Vance CIRCUIT BREAKER MECHANIC-ELECTRICAL & INSTRUMENTATION SUPERVISOR LAB - CARROL BRISA ORDERABLES Performing Organization Address [facility] Co de Phone Number [facility] [phone] [place] [address] * VITAMIN A (02/26/2020 10:44 AM CDT) Only the most recent of2 resultswithin the time period is included. Pathologist [facility] Vitamin A 81 38 - 98 mcg/dL [facility] Comment: Clin Chem Vol. 34.No.8. [id number]. 1998 Vitamin supplementation within 24 hours prior to blood draw may affect the accuracy of results. This test was developed and its analytical performance characteristics have been determined by [employer]. It has not been cleared or approved by the FDA. This assay has been validated pursuant to the CLIA regulations and is used for clinical purposes. Test Performed at: [facility] [address] [address] DANA FERNANDO MD,PHD Blood BLOOD SPECIMEN / Unknown 02/26/2020 10:44 AM CDT 02/26/2020 10:45 AM CDT Luz Holman Pinky CIRCUIT BREAKER MECHANIC-ELECTRICAL & INSTRUMENTATION SUPERVISOR LAB - CARROL BRISA ORDERABLES [facility] [address] [place] [address] * VITAMIN E (02/26/2020 10:44 AM CDT) Only the most recent of2 resultswithin the time period is included. [facility] Alpha-Tocopherol 8.9 mg/L [facility] Comment: Reference Range 5.7-19.9 mg/L Levels of alpha-tocopherol <5 mg/L are consistent with Vitamin E deficiency in adults. Vitamin supplementation within 24 hours prior to blood draw may affect the accuracy of results. This test was developed and its analytical performance characteristics have been determined by [employer]. It has not been cleared or approved by the FDA. This assay has been validated pursuant to the CLIA regulations and is used for clinical purposes. Beta-Gamma Tocopherol <1.0 <4.4 mg/L [facility] Comment: This test was developed and its analytical performance characteristics have been determined by [employer]. It has not been cleared or approved by the FDA. This assay has been validated pursuant to the CLIA regulations and is used for clinical purposes. Test Performed at: [facility] [address] [address] DANA FERNANDO MD,PHD Blood BLOOD SPECIMEN / Unknown 02/26/2020 10:44 AM CDT 02/26/2020 10:45 AM CDT Luz Vance SHINE-ELECTRICAL & INSTRUMENTATION SUPERVISOR LAB - CARROL BRISA ORDERABLES Performing Organization Address [facility] de Phone Number [place] [phone] * SELENIUM (02/26/2020 10:44 AM CDT) Selenium 144 63 - 160 mcg/L [facility] Comment: This test was developed and its analytical performance characteristics have been determined by [employer]. It has not been cleared or approved by the FDA. This assay has been validated pursuant to the CLIA regulations and is used for clinical purposes. REPORT COMMENT: FASTING:YES AN UPDATE OR CORRECTION HAS BEEN MADE TO NAME Test Performed at: [facility] [address] [address] DANA FRENANDO MD,PHD Blood BLOOD SPECIMEN / Unknown 02/26/2020 10:44 AM CDT 02/26/2020 10:45 AM CDT Luz Vance SHINE-ELECTRICAL & INSTRUMENTATION SUPERVISOR LAB - CARROL BRISA ORDERABLES Performing Organization Address [facility] de Phone Number [facility] [address] [place] [address] * PREALBUMIN (02/26/2020 10:44 AM CDT) Prealbumin 26 21 - 43 mg/dL [facility] Comment: Test Performed at: [facility] [address] [address] [place] [address] BOGDAN HORN DO,MPH Blood BLOOD SPECIMEN / Unknown 02/26/2020 10:44 AM CDT 02/26/2020 10:45 AM CDT Luz Bowieerica RIOJAS-ELECTRICAL & INSTRUMENTATION SUPERVISOR LAB - CARROL BRISA ORDERABLES Performing Organization Address [facility] [place] [address] * LAB RESULTS ORDER (02/18/2018) Only the most recent of15 resultswithin the time period is included. Scanned Document LAB - THERAPEUTIC DR NEIL MONITORING ORDERABLES * (ABNORMAL) HEMOGLOBIN A1C (HgbA1C) (02/14/2018 9:51 AM CDT) Only the most recent of3 resultswithin the time period is included. Pathologist [facility] Hemoglobin A1c 5.9(H) <5.7 % of total [...] of diabetes for children. Test Performed at: [facility] [address] BOGDAN HORN DO,MPH Whole Blood BLOOD SPECIMEN WITH EDTA / Unknown 02/14/2018 9:51 AM CDT 02/14/2018 9:53 AM CDT Luz Vance CIRCUIT BREAKER MECHANIC-ELECTRICAL & INSTRUMENTATION SUPERVISOR LAB - CARROL BRISA ORDERABLES [facility] [address] [place] [address] * ALPHA FETOPROTEIN BLOOD TUMOR (01/03/2018 9:27 AM CDT) Only the most recent of2 resultswithin the time period is included. [facility] Alpha-Fetoprotei n Tumor Marker 3.2 <6.1 ng/mL [facility] Comment: This test was performed using the Devon Couch chemiluminescent method. Values obtained from different assay methods cannot be used interchangeably. AFP levels, regardless of value, should not be interpreted as absolute evidence of the presence or absence of disease. Test Performed at: [facility] [place] [address] BOGDAN HORN DO,MPH Blood BLOOD SPECIMEN / Unknown 01/03/2018 9:27 AM CDT 01/03/2018 9:28 AM CDT Peter Sorensen MD LAB - CHEMISTRY ORD ERABLES Performing Organization Address [facility]/ZIP Co de Phone Number [facility] [address] [place] [address] * PT-INR (01/03/2018 9:27 AM CDT) Only the most recent of3 resultswithin the time period is included. [facility] INR 1.0 [facility] Comment: Reference Range 0.9-1.1 Moderate-intensity Warfarin Therapy 2.0-3.0 Higher-intensity Warfarin Therapy 3.0-4.0 PT 10.7 9.0 - 11.5 sec [facility] Comment: For more information on this test, go to: http://education.[employer]/faq/PNT880 Test Performed at: [facility] [address] MARLON THURMAN MD Blood BLOOD SPECIMEN / Unknown 01/03/2018 9:27 AM CDT 01/03/2018 9:28 AM CDT Peter Sorensen MD LAB - COAGULATION O RDERABLES Performing Organization Address [facility] Co de Phone Number [address] [address] * CBC W AUTO DIFFERENTIAL (01/03/2018 9:27 AM CDT) Only the most recent of9 resultswithin the time period is included. [facility] White Blood Cell Count 6.6 3.8 - [...] 0.5 % [facility] Comment: Test Performed at: [facility] [place] [address] [place] [address] BOGDAN HORN DO,MPH Blood BLOOD SPECIMEN / Unknown 01/03/2018 9:27 AM CDT 01/03/2018 9:28 AM CDT Peter Sorensen MD LAB - HEMATOLOGY OR DERABLES [employer] [address] [place] [address] * US ABDOMEN LIMITED (RUQ) (06/27/2017 8:29 AM CLAIMS SORTER) Only the most recent of2 resultswithin the time period is included. Anatomical Region Laterality Modality Abdomen Ultrasound 06/27/2017 9:05 AM CLAIMS SORTER Impressions 06/27/2017 9:18 AM CLAIMS SORTER The gallbladder is surgically absent. Right upper quadrant ultrasound is otherwise unremarkable. Narrative 06/27/2017 9:18 AM CLAIMS SORTER RIGHT UPPER QUADRANT ULTRASOUND INDICATION: Right upper [...] ACUTE W/ REFLX CONFIRM (06/23/2017 10:33 AM CLAIMS SORTER) [facility] Hepatitis A Virus Antibody IgM NON-REACTI VE NON-REACT JENN[facility]ER [facility] Hepatitis B Virus Surface Antigen NON-REACTI VE NON-REACT JENNIFER [facility] Hepatitis B Core Virus Antibody IgM NON-REACTI VE NON-REACT JENNIFER [facility] Hepatitis C Antibody NON-REACTI VE NON-REACT JENNIFER [facility] Signal to Cut-Off 0.05 <1.00 [facility] Comment: Test Performed at: [employer] [address] [place] [address] BOGDAN HORN DO,MPH 06/23/2017 10:3 3 AM CLAIMS SORTER 06/23/2017 10:33 AM CLAIMS SORTER Peter Sorensen MD LAB - CHEMISTRY ORD ERABLES Performing Organization Address [facility] Phone Number [place] [phone] [place] [address] * TESTOSTERONE TOTAL (03/28/2017 9:54 AM CDT) Only the most recent of2 resultswithin the time period is included. [facility] Testosterone Total MS 542 250 - 1100 ng/dL [facility] Comment: Males: Men with clinically significant hypogonadal symptoms and testosterone values repeatedly in the range of the 200-300 ng/dL or less, may benefit from testosterone treatment after adequate risk and benefits counseling. This test was developed and its analytical performance characteristics have been determined by [employer] [facility]. It has not been cleared or approved by the US Food and Drug Administration. This assay has been validated pursuant to the CLIA regulations and is used for clinical purposes. Test Performed at: [employer] [facility] [address] [place] [address] REY RUSHING MD,FCAP 03/28/2017 9:54 AM CDT 03/28/2017 9:56 AM CDT Mena Núñez CIRCUIT BREAKER MECHANIC-ELECTRICAL & INSTRUMENTATION SUPERVISOR LAB - CHEMIS TRY ORDERABLES Performing Organization Address [facility] Co de Phone Number [facility] [address] [place] [phone] * FOLATE (03/28/2017 9:54 AM CDT) Folate >24.0 ng/mL [employer] Comment: Reference Range Low: <3.4 Borderline: 3.4-5.4 Normal: >5.4 Test Performed at: [facility] [address] [place] [address] BOGDAN HORN DO,MPH 03/28/2017 9:54 AM CDT 03/28/2017 9:56 AM CDT Mena Núñez CIRCUIT BREAKER MECHANIC-ELECTRICAL & INSTRUMENTATION SUPERVISOR LAB - CHEMIS TRY ORDERABLES Performing Organization Address [facility] Co de Phone Number [facility] [address] [place] [address] * CT ABD/PELVIS STONE PROTOCOL (02/26/2017 8:00 [...] Regino DO LAB - URINALYSIS OR DERABLES [facility] [address] [place] [address] * (ABNORMAL) URINALYSIS ROUTINE W/REFLEX TO CULTURE (02/26/2017 1:54 PM CDT) Color UA Conway(A) Straw, Yellow, Dark Yellow 02/26/2017 2:11 PM CDT [facility] Clarity UA Turbid 02/26/2017 2:11 PM CDT [facility] Specific [place] UA 1.021 1.005 - 1.030 02/26/2017 2:11 PM CDT [facility] pH UA 5.5 5.0 - 8.0 pH 02/26/2017 2:11 PM CDT [facility] Protein UA 2+(A) Negative 02/26/2017 2:11 PM CDT [facility] Blood UA 3+(A) Negative 02/26/2017 2:11 PM CDT [facility] Leukocyte UA 2+(A) Negative 02/26/2017 2:11 PM CDT [facility] Nitrite UA Negative Negative 02/26/2017 2:11 PM CDT [facility] Glucose UA Negative Negative 02/26/2017 2:11 PM CDT [facility] Ketone UA Trace(A) Negative 02/26/2017 2:11 PM CDT [facility] Bilirubin UA 1+(A) Negative 02/26/2017 2:11 PM CDT [facility] Urobilinogen UA 1.0 0.1 - 1.0 EU/dL 02/26/2017 2:11 PM CDT [facility] WBC UA Auto 50-100(A) 0-2, 2-5 # /hpf 02/26/2017 2:11 PM CDT [facility] RBC UA Auto Reflex to manual(A) 0-2, 2-5 # /hpf 02/26/2017 2:11 PM CDT [facility] Epithelial Cell UA Auto Reflex to manual(A) 0-2, 2-5 # /hpf 02/26/2017 2:11 PM CDT [facility] Bacteria UA Auto None seen None seen 02/27/20 17 2:11 PM CDT [facility] Hyaline Casts UA Auto 2-5(A) 0 - 2 #/lpf 02/26/2017 2:11 PM CDT [facility] Reflex Status Culture to follow 02/26/2017 2:11 PM CDT [facility] Urine URINE SPECIMEN OBTAINED BY CLEAN CATCH PROCEDURE / Unknown Collection / Unknown 02/26/2017 1:54 PM CDT 02/26/2017 1:57 PM CDT Boaz Lacy DO LAB - URINALYSIS OR DERABLES Performing Organization Address City/[facility]/ZIP Co de Phone Number [facility] [address] [place] [address] * CULTURE URINE (02/26/2017 1:54 PM CDT) Pathologist [facility] Culture Urine No growth (<1,000 CFU/mL) ZEESHAN 02/28/2017 6:17 AM CDT [facility] Urine URINE SPECIMEN OBTAINED BY CLEAN CATCH PROCEDURE / Unknown Collection / Unknown 02/26/2017 1:54 PM CDT 02/26/2017 1:57 PM CDT Boaz Lacy DO LAB - MICROBIOLOGY ORDERABLES Performing Organization Address [facility] Co de Phone Number [facility] MICROBIOLOGY [address] [place] [address], [facility] [phone] * LAB MISC TEST (03/18/2016) Other (qualifier value) BLOOD SPECIMEN / Unknown Vivek Nair MD LAB SEND OUT * (ABNORMAL) GLUCOSE - POINT OF CARE (10/16/2015 11:51 AM CDT) Only the most recent of21 resultswithin the time period is included. Glucose WB/POC 190(H) 70 - 106 mg/dL 10/16/2015 2:50 PM CDT [facility] Blood BLOOD SPECIMEN / Unknown 10/16/2015 11:51 AM CDT 10/16/2015 2:50 PM CDT Orlando Lopez MD LAB - POINT OF CARE ORDERABLES [facility] [address] [place] [address] * XR CHOLANGIOGRAM OPERATIVE (10/13/2015 6:13 PM [...] CDT) Case Report Surgical Pathology Report Case: [id number] Authorizing Provider: Orlando Lopez MD Collected: 10/13/2015 05:44 PM Ordering Location: [facility] Operative Received: 10/14/2015 08:32 AM Pathologist: [...] Description Received are 2 containers, each labeled [facility] [place] . Container 1 is labeled liver biopsy. [...] x 0.7 cm gallstone. The mucosa is grjfh-kjif-lea and slightly roughened in appearance. The wall of the gallbladder measures 0.3 cm in average thickness. Typesetting Machine Tender sections are submitted in a cassette labeled [...] as well. AB/na 10/18/2015 10:24 AM CDT [facility] Pathology/Cytology ENTIRE LIVER / Unknown 10/13/2015 5:44 PM CDT 10/14/2015 8:32 AM CDT Miscellaneous samples (specimen) ENTIRE GALLBLADDER / Unknown 10/13/2015 6:07 PM CDT 10/14/2015 8:32 AM CDT Orlando Lopez MD LAB - PATHOLOGY/CYTO LOGY ORDERABLES Performing Organization Address [facility] Co de Phone Number [facility] [address] [place] [address] * CULTURE FLUID+GRAM STAIN (10/13/2015 3:58 PM CDT) Culture No Growth ZEESHAN 10/20/2015 5:16 AM CDT [facility] Gram Stain Light White blood cells 10/20/2015 5:16 AM CDT [facility] Gram Stain No organisms seen 10/20/2015 5:16 AM CDT [facility] Microbiology PERITONEAL FLUID / Unknown 10/13/2015 3:58 PM CDT 10/13/2015 4:33 PM CDT Orlando Lopez MD LAB - MICROBIOLOGY O RDERABLES Performing Organization Address City/[facility]/ZIP Co de Phone Number [facility] MICROBIOLOGY [address] [place] [address], [facility] [phone] * CULTURE ANAEROBE (10/13/2015 3:58 PM CDT) Pathologist [facility] Culture No anaerobic organisms isolated ZEESHAN 10/21/2015 11:08 AM CDT [facility] Microbiology PERITONEAL FLUID / Unknown Collection / Unknown 10/13/2015 3:58 PM CDT 10/13/2015 4:33 PM CDT Orlando Lopez MD LAB - MICROBIOLOGY O RDERABLES [facility]CRO[facility] [address] [place] [address], [facility] [phone] * BILIRUBIN TOTAL FLUID (10/13/2015 3:58 PM CDT) Pathologist [facility] Bilirubin Total 3.0 mg/dL 10/16/2015 2:12 PM CDT [facility] ([facility]) Comment: INTERPRETIVE INFORMATION: Bilirubin, Total, Body Fluid For information on body fluid reference ranges and/or interpretive guidance visit [email or web address]/ Test developed and characteristics determined by [employer]. See Compliance Statement B: [employer]/ Miscellaneous samples (specimen) PERITONEAL FLUID / Unknown 10/13/2015 3:58 PM CDT 10/13/2015 4:33 PM CDT Narrative [facility] ([facility]) - 10/16/2015 2:12 PM CDT Performed at: [facility] [address] [place] [address] [id number] Authors Motivational: Catarino Cooper , Phone: [phone] Orlando Lopez MD LAB - BODY FLUID ORD ERABLES [facility] ([facility]) * CYTOLOGY NON-KENNEL SUPERVISOR PANEL (STL) (10/13/2015 3:58 PM CDT) Case Report Cytology Non Rack Washer Report Case: [id number] Authorizing Provider: Orlando Lopez MD Collected: 10/13/2015 03:58 PM Ordering Location: [facility] [place] Operative Received: 10/14/2015 10:47 AM Pathologist: Denis Vital MD Specimen: Peritoneal Fluid 10/18/2015 4:21 PM CDT [facility] Final Diagnosis 1. Peritoneal fluid, cell block and thin-layer preparations: -- Acute inflammation suggestive of peritonitis -- Negative for malignancy AB/bs 10/18/2015 4:21 PM CDT [facility] Gross Description PHYSICIAN/SURGEON: Dr. Jimbo Lopez COPY TO: INDICATIONS FOR PROCEDURE: OPERATION: Laparoscopic cholecystectomy with cholangiogram SPECIMEN: Peritoneal fluid ADEQUACY: GROSS: Received 5 ml 10/18/2015 4:21 PM CDT [facility] Microscopic Description The peritoneal fluid cell block and thin layer preparation show very few cells most of them lymphocytes and some mesothelial cells and occasional neutrophils. The cell block however is full of neutrophils and suggests a peritonitis. AB/bs 10/18/2015 4:21 PM CDT [facility] Disclaimer All histochemical and/or immunohistochemical results are interpreted with controls that demonstrate appropriate staining reactions before reporting results. Note on use of immunocytochemistry reagents: This test was developed and its performance characteristic determined by [facility], Department of Laboratory Medicine. It has not been cleared or approved by the U.S. Food and Drug Administration (FDA). The FDA has determined that such clearance or approval is not necessary. The test is used for clinical purpose. It should not be regarded as investigational or for research. This laboratory is certified to perform high complexity testing. 10/18/2015 4:21 PM CDT [facility] Microbiology PERITONEAL FLUID / Unknown 10/13/2015 3:58 PM CDT 10/14/2015 10:47 AM CDT Orlando Lopez MD LAB - PATHOLOGY/CYTO LOGY ORDERABLES [facility] [address] [place] [address] * MRI MRCP (10/13/2015 9:56 [...] * PTT (10/13/2015 8:25 AM CDT) Pathologist [facility] PTT 25.2 21.0 - 32.0 sec 10/13/2015 9:07 AM CDT [facility] Blood BLOOD SPECIMEN / Unknown 10/13/2015 8:25 AM CDT 10/13/2015 8:35 AM CDT Narrative [facility] - 10/13/2015 9:07 AM CDT Heparin Therapeutic Range for PTT: 47.7 - 68.6 seconds. Orlando Lopez MD LAB - COAGULATION OR DERABLES [facility] [address] [place] [address] * LIPASE BLOOD (10/13/2015 3:53 AM CDT) Lipase 88 10 - 220 U/L 10/13/2015 4:43 AM CDT [facility] Blood BLOOD SPECIMEN / Unknown 10/13/2015 3:53 AM CDT 10/13/2015 4:25 AM CDT Orlando Lopez MD LAB - CHEMISTRY KAMARI HUMMEL [facility] [address] [place] [address] * CARDIAC RHYTHM STRIP ORDER (02/16/2013 6:04 [...] - 106 mg/dL 02/14/2013 3:22 AM CDT [facility] Sodium 140 136 - 145 mmol/L 02/14/2013 3:22 AM CDT [facility] Potassium 4.2 3.5 - 5.1 mmol/L 02/14/2013 3:22 AM CDT [facility] Chloride 105 98 - 107 mmol/L 02/14/2013 3:22 AM CDT [facility] CO2 25 22 - 31 mmol/L 02/14/2013 3:22 AM CDT [facility] Calcium 8.3(L) 8.5 - 10.1 mg/dL 02/14/2013 3:22 AM CDT [facility] Anion Gap 10 5 - 15 mmol/L 02/14/2013 3:22 AM CDT [facility] BUN 22(H) 7 - 21 mg/dL 02/14/2013 3:22 AM CDT [facility] Creatinine 1.08 0.50 - 1.30 mg/dL 02/14/2013 3:22 AM CDT [facility] eGFR by MDRD >60 >60 ml/min/1.7 3m2 02/14/2013 3:22 AM CDT [facility] eGFR by MDRD >60 >60 ml/min/1.7 3m2 02/14/2013 3:22 AM CDT [facility] Blood BLOOD SPECIMEN / Unknown 02/14/2013 2:32 AM CDT 02/14/2013 2:53 AM CDT Vivek Nair MD LAB - CHEMISTRY MORAIMAE ESTEPHANIE [facility] [address] [place] [address] * FL FLUORO UPPER GI TRACT + [...] CULTURE VRE (02/12/2013 9:46 PM CDT) Pathologist [facility] Culture Negative for VRE 02/15/2013 2:52 PM CDT [facility] MICROBIOLOGY Stool RECTAL SWAB / Unknown 02/12/2013 9:46 PM CDT 02/12/2013 10:02 PM CDT Vivek Nair MD LAB - MICROBIOLOGY O RDERABLES [facility] MICROBIOLOGY [address] [place] [address], [facility] * CULTURE MRSA (02/12/2013 9:46 PM CDT) Culture Negative for MRSA 02/14/2013 7:20 AM CDT [facility]CRO[facility]OLOGY Microbiology SPECIMEN FROM NASAL FOSSAE / Unknown 02/12/2013 9:46 PM CDT 02/12/2013 10:02 PM CDT Vivek Nair MD LAB - MICROBIOLOGY O RDERABLES [facility] MICROBIOLOGY [address] [place] [address], [facility] * POTASSIUM BLOOD (02/12/2013 10:47 AM CDT) Potassium 4.3 3.5 - 5.1 mmol/L 02/12/2013 11:09 AM CDT [facility] Blood BLOOD SPECIMEN / Unknown 02/12/2013 10:47 AM CDT 02/12/2013 10:51 AM CDT Vivek Nair MD LAB - CHEMISTRY ORDE RABLES Performing Organization Address City/[facility]/ZIP Co de Phone Number [facility] [address] [place] [address] Care Teams Gastroenterologist Relationship Specialty Start Date End Date Tesfaye Peralta MD [address] [facility] [address] [facility] [address] [place] [address] PCP - General Internal Medicine 01/14/20 Tesfaye Peralta MD [address] [place] [address] Internal Medicine 01/14/20 Charlene Toribio, RN Social Services Analyst 10/13/15
--- OUTSIDE RECORDS SUMMARY | 2024-09-12 08:28 | XMS_ITS | Clinical Summary ---
[facility] Organization [facility] Address [address] [facility] [place] [address] Care Team Providers Care Linux Admin Engineer Name Role Phone Tesfaye Peralta MD Primary Care Provider [phone] Allergies Active Allergy Reactions Criticality Noted Date Comments Adhesive Unknown 08/29/2019 Penicillins Unknown 08/29/2019 Medications JANUVIA 100 mg tabletIndicatio ns:type 2 diabetes mellitus 07/25/2017 Active montelukast (SINGULAIR) 10 mg tablet 09/19/2017 Active allopurinol (ZYLOPRIM) 300 mg tablet 09/05/2017 Active jcoly-8-mlm-epa -dpa-fish oil 1,050-1,200 mg capsule 1 capsule Active gfy-B3-gjy02-zi yd-bji-kosk-bor 600 mg calcium- 800 unit-50 mg tablet [...] by mouth daily Active iron amino acid odenvsu-J01-HU 27-100-400 mg-mcg-mcg capsule Take by mouth Active zinc 50 mg tablet Take by mouth Active bumetanide (BUMEX) 2 mg tablet Take 2 mg by mouth daily Active Active Problems Problem Noted Date Diagnosed Date Cardiomyopathy 08/29/2019 Assessment & Plan (08/29/2019 11:08 AM DIP FILLER): 08/27/17 ECHO - Estimated ejection fraction 40-50% [...] on file Legal Sex Male 11:58 PM DIP FILLER Gender Identity Not on file Sexual Orientation Not on file Obstetrics History Last Filed Vital Signs Vital Sign Reading Time Taken Comments Blood Pressure 128/80 08/29/2019 10:33 AM DIP FILLER Pulse 49 08/29/2019 10:33 AM DIP FILLER Temperature - - Respiratory Rate 18 08/29/2019 10:33 AM DIP FILLER Oxygen Saturation 94% 08/29/2019 10:33 AM DIP FILLER Inhaled Oxygen Concentration - - Weight 112.5 kg (248 lb) 08/29/2019 10:33 AM DIP FILLER Height 185.4 cm (6' 1 ) 08/29/2019 10:33 AM DIP FILLER Body Mass Index 32.72 08/29/2019 10:33 AM DIP FILLER Plan of Treatment Not on file Insurance [facility] [place] [address] Care Teams Linux Admin Engineer Relationship Specialty Start Date End Date Tesfaye Peralta MD [address] [facility] [address] [place] [address] PCP - General Internal Medicine 10/04/17
--- OUTSIDE RECORDS SUMMARY | 2024-09-12 08:28 | XMS_ITS | Clinical Summary ---
Author Organization [facility] Address [address] [place] [address] Care Team Providers Care Planer Feeder Name Role Phone Tesfaye Peralta MD Primary Care Provider [phone] Allergies Active Allergy Reactions Criticality Noted Date [...] by mouth every morning before breakfast. Active Citronelle-3 Fatty Acids (OMEGA-3 PLUS) 1000 MG Cap [...] (06/05/2022): Added automatically from request for surgery [id number] Family History Medical History Relation Comments Other [...] 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, CONTROLS OPERATOR [employer], [employer]) 05/31/2022 Sex and Gender Information Value [...] patient's age to complete this topic Insurance [facility] MEDICARE Care Teams Planer Feeder Relationship Specialty Start Date End Date Tesfaye Peralta MD [address] [place] [phone] PCP - General INTERNAL MEDICINE 05/21/22
--- OUTSIDE RECORDS SUMMARY | 2024-09-12 08:28 | XMS_ITS | Referral Summary ---
Author Organization [facility] [employer] Address [address] [place] [address] Care Team Providers Care Lapel Stitcher Name Role Phone Tesfaye Peralta MD Primary Care Provider [phone] Tesfaye Peralta MD Unavailable Charlene Toribio RN Unavailable [phone] Source Comments [facility],non-owned Affiliates and Associated Physician Practices is amultiple site organization consisting of ambulatory clinics and hospital sitesin [place], [place], [place] and [place]. This disclosure is being madepursuant to the Care Everywhere program and may not contain all information available regarding this patient. Last updated 18.[facility] Allergies Active Allergy Reactions Criticality Noted Date [...] ACUTE W/ REFLX CONFIRM 06/23/2017 10:33 AM TECHNICAL CUSTOMER SUPPORT SPECIALIST from Last 3 Months or Most Recently Relevant to Health Maintenance Results * HEPATITIS SCREEN ACUTE W/ REFLX CONFIRM (06/23/2017 10:33 AM TECHNICAL CUSTOMER SUPPORT SPECIALIST) Hepatitis A Virus Antibody IgM NON-REACTI VE NON-REACT [facility] Hepatitis B Virus Surface Antigen NON-REACTI VE NON-REACT [facility] Hepatitis B Core Virus Antibody IgM NON-REACTI VE NON-REACT [facility] Hepatitis C Antibody NON-REACTI VE NON-REACT [facility] Signal to Cut-Off 0.05 <1.00 [facility] Comment: Test Performed at: [facility] [address] [place] [address] BOGDAN HORN DO,MPH 06/23/2017 10:3 3 AM TECHNICAL CUSTOMER SUPPORT SPECIALIST 06/23/2017 10:33 AM TECHNICAL CUSTOMER SUPPORT SPECIALIST Peter Soresnen MD LAB - CHEMISTRY ORD ERABLES [facility] [address] [place] [address] from Last 3 Months or Most Recently Relevant to Health Maintenance Advance Directives Documents on File Type Date Recorded Patient Pathologist Expl anation Adv Directive/Living Will/POA 02/16/2013 6:04 AM * FULL RESUSCITATION (Latest Code Status on File) Date Activated Date Inactivated Comments 02/12/2013 9:12 PM 02/14/2013 7:34 PM Care Teams Lapel Stitcher Relationship Specialty Start Date End Date Tesfaye Peralta MD [address] [facility] [address] [place] [address] PCP - General Internal Medicine 01/14/20 Tesfaye Peralta MD [address] [place] [address] Internal Medicine 01/14/20 Charlene Toribio, TITA Supervisor Cutting Department 10/13/15
--- OUTSIDE RECORDS SUMMARY | 2024-09-12 08:28 | XMS_ITS | Clinical Summary ---
Author Organization [facility] [email or web address] Address [address] [place] [address] Care Team Providers Care Vice President Process Name Role Phone Tesfaye Peralta MD Primary Care Provider [phone] Tesfaye Peralta MD Unavailable [phone] Charlene Toribio RN Unavailable [phone] Source Comments [facility],non-owned Affiliates and Associated Physician Practices is amultiple site organization consisting of ambulatory clinics and hospital sitesin [place], [place], [place] and [place]. This disclosure is being madepursuant to the Care Everywhere program and may not contain all information available regarding this patient. Last updated 18.[facility] Allergies Active Allergy Reactions [...] ACUTE W/ REFLX CONFIRM 06/23/2017 10:33 AM GARDEN TRACTOR MECHANIC from Last 3 Months or Most Recently Relevant to Health Maintenance Results * HEPATITIS SCREEN ACUTE W/ REFLX CONFIRM (06/23/2017 10:33 AM GARDEN TRACTOR MECHANIC) Hepatitis A Virus Antibody IgM NON-REACTI VE NON-REACT [facility] Hepatitis B Virus Surface Antigen NON-REACTI VE NON-REACT [facility] Hepatitis B Core Virus Antibody IgM NON-REACTI VE NON-REACT [facility] Hepatitis C Antibody NON-REACTI VE NON-REACT [facility] Signal to Cut-Off 0.05 <1.00 [facility] Comment: Test Performed at: [facility] [address] [place] [address] BOGDAN HORN DO,MPH 06/23/2017 10:3 3 AM GARDEN TRACTOR MECHANIC 06/23/2017 10:33 AM GARDEN TRACTOR MECHANIC Peter Sorensen MD LAB - CHEMISTRY ORD ERABLES [facility] [address] [place] [address] from Last 3 Months or Most Recently Relevant to Health Maintenance Advance Directives Documents on File Type Date Recorded Patient Catalogue Clerk Expl anation Adv Directive/Living Will/POA 02/16/2013 6:04 AM * FULL RESUSCITATION (Latest Code Status on File) Date Activated Date Inactivated Comments 02/12/2013 9:12 PM 02/14/2013 7:34 PM Care Teams Vice President Process Relationship Specialty Start Date End Date Tesfaye Peralta MD [address] [facility] [address] [place] [address] PCP - General Internal Medicine 01/14/20 Tesfaye Peralta MD [address] [place] [address] Internal Medicine 01/14/20 Charlene Toribio, TITA Ergonomics Consultant 10/13/15
--- OUTSIDE RECORDS SUMMARY | 2024-09-12 08:28 | XMS_ITS | Clinical Summary ---
Author Organization [facility] Address [address] [place] [address] Phone Care Team Providers Care Gas Fitter Helper Name Role Phone Tesfaye Peralta MD Primary Care Provider [phone] Allergies Active Allergy Reactions Criticality Noted Date [...] 1 (one) time each day 03/08/2021 Active [place]-3 Fatty Acids (Red Valley-3 2100) 1050 MG capsule 1 capsule Active [...] Comments Blood Pressure 128/70 07/10/2022 9:00 AM PIT CREW SUPPORT WORKER Pulse 72 07/10/2022 9:00 AM PIT CREW SUPPORT WORKER Temperature 35.5 C (95.9 F) 07/10/2022 9:00 AM PIT CREW SUPPORT WORKER Respiratory Rate - - Oxygen Saturation - - Inhaled Oxygen Concentration - - Weight 107 kg (236 lb) 07/10/2022 9:00 AM PIT CREW SUPPORT WORKER Height 182.9 cm (6') 07/10/2022 9:00 AM PIT CREW SUPPORT WORKER Body Mass Index 32.01 07/10/2022 9:00 AM PIT CREW SUPPORT WORKER Plan of Treatment Health Maintenance Due Date Last Done Comments Pneumococcal PPSV23/PCV13 65 + Years / High and Highest Risk (1 of 4 - PCV) 1954 Diabetic Foot Exam 1958 Ophthalmology Exam 1958 Influenza Vaccine (#1) 2024 05/06/2022, 2020 Care Teams Gas Fitter Helper Relationship Specialty Start Date End Date Tesfaye Peralta MD [address] [facility] [address] [place] [address] PCP - General Internal Medicine 03/17/21
--- OUTSIDE RECORDS SUMMARY | 2024-09-12 08:28 | XMS_ITS | Encounter Summary ---
Author Organization [facility] Address [address] [facility] [place] [address] Care Team Providers Care Radiology Special Procedure Tech Name Role Phone Tesfaye Peralta MD Primary Care Provider [phone] Tesfaye Peralta MD Primary Care Provider [phone] Tesfaye Peralta MD Unavailable [phone] Charlene Toribio RN Unavailable [phone] Encounter Details Date Type Department Care Team (Late st Contact Info) Description 11/12/2015 [facility] Outpatient Visit [facility] Medical [facility] [address] [place] [address], [facility] [address] [place] [address] [place] [address] [facility] [address] [address] Social History Tobacco Use Types [...] on filedocumented in this encounter Care Teams Radiology Special Procedure Tech Relationship Specialty Start Date End Date Tesfaye Peralta MD [address] [place] [address] PCP - General Internal Medicine 11/22/12 01/13/20 Tesfaye Peralta MD [address] [facility] [address] [place] [address] PCP - General Internal Medicine 01/14/20 Tesfaye Peralta MD [address] [place] [address] Internal Medicine 01/14/20 Charlene Toribio, TITA Attending Anesthesiologist 10/13/15 documented as of this encounter
--- OUTSIDE RECORDS SUMMARY | 2024-09-12 08:28 | XMS_ITS | Encounter Summary ---
Author Organization [facility] Address [address] [facility] [address] [place] [address] Care Team Providers Care Vertical Boring Mill Operator Name Role Phone Tesfaye Peralta MD Primary Care Provider Tesfaye Peralta MD Primary Care Provider Tesfaye Peralta MD Unavailable [phone] Charlene Toribio RN Unavailable Encounter Details Date Type Department Care Team (Late st Contact Info) Description 11/20/2016 [facility] Outpatient Visit [facility] Medical [facility] [address] [facility], [facility] [address] [place] [address] [place] [address] [facility] [address] [address] Social History Tobacco Use Types [...] on filedocumented in this encounter Care Teams Vertical Boring Mill Operator Relationship Specialty Start Date End Date Tesfaye Peralta MD [address] [place] [address] PCP - General Internal Medicine 11/22/12 01/13/20 Tesfaye Peralta MD [address] [facility] [address] [place] [address] PCP - General Internal Medicine 01/14/20 Tesfaye Peralta MD [address] [place] [address] Internal Medicine 01/14/20 Charlene Toribio, TITA Cotton Picker 10/13/15 documented as of this encounter
--- OUTSIDE RECORDS SUMMARY | 2024-09-12 08:28 | XMS_ITS | Continuity of Care Document ---
Author Organization [facility] Address [address] [facility] [address] [place] [address] Phone Care Team Providers Care Orbitread Operator Name Role Phone Herrera Meneses MD Unavailable [...] Diagnoses Date Provider Providers Copied on Encounter [facility], [address] [facility] [address], [place], [place], [address], [place] tel:[phone] SEC [place] Professional a comprehensive exam (chief complaint) SENILE NUCLEAR CATARACTDRUS EN OF OPTIC DISCOPN ANGL W BORDERLN FIND Low RiskDIABETIC RETINOPATHY NOS 4 Zaira Silverman. [address] [facility], [facility] A, [place], [place], [address], [place]. tel:[phone] Referring Provider: Herrera Larsen, [address] [facility], [place], [address] . tel:[phone] [facility], [address], [place], [place], [address], [place] tel:[phone] SEC Darrell Velez No Information Apr-0 7-201 4 Aleta Phillips. [address], [address], [place], [place], [address], [place]. tel:[phone] [facility], [address], [place], [place], [address], [place] tel:[phone] SEC [place] Professional No Information Julian-0 6-201 2 Wankum Herrera. [address] [facility], [facility] [place], [address], . tel:[phone] Referring Provider: Herrera Larsen, [address] [facility] [place], [address] . tel:[phone] [facility], [address], [place], [place], [address], [place] tel:[phone] SEC [place] Professional No Information Apr-0 8-201 1 Wankum Herrera. [address] [facility], [facility] [place], [address], [place]. tel:[phone] [facility], [address], [place], [place], [address], [place] tel:[phone] [place] Professional No Information Apr-0 5-201 0 Wankum Herrera. [address] [facility], [address] [place], [address], [place]. tel:[phone] [facility], [address], [place], [place], [address], [place] tel:[phone] SEC [place] Professional No Information Apr-0 3-200 9 Wankum Herrera. [address] [facility], [address], [place], [place], [address], [place]. tel:[phone] Referring Provider: Herrera Meneses Chava, [address] [facility] [address], [place], [address] . tel:[phone] [facility], [address], [place], [place], [address], tel:[phone] SEC [place] Luis [place] Professional No Information 8 Zaira Silverman. [address] [facility], [address], [place], [place], [address], [place]. tel:[phone] Family History Family Member Type Diagnosis Age At Onset Grandmother (m) Problem (finding) Diabetes mellitus Payers Payer name Insurance type Covered democrat ID Authoriza tion(s) [place] [id number] Social History Type Description Quantity Date Captured [...] to Backg round diabetes mellitus retinopathy mild iron melter - Education al materials provided to patient.dm letter Related to Background diabetes mellitus retinopathy Assessments Type Assessment Date No Information Patient Care Teams Name Effective Dates (start - stop) Status Members No Information
--- OUTSIDE RECORDS SUMMARY | 2024-09-12 08:28 | XMS_ITS | Referral Summary ---
Author Organization [facility] Address [address] [facility] [place] [address] Care Team Providers Care Mergers And Acquisitions Manager Name Role Phone Tesfaye Peralta MD Primary Care Provider [phone] Allergies Active Allergy Reactions Criticality Noted Date Comments Adhesive Unknown 08/29/2019 Penicillins Unknown 08/29/2019 Medications JANUVIA 100 mg tabletIndicatio ns:type 2 diabetes mellitus 07/25/2017 Active montelukast (SINGULAIR) 10 mg tablet 09/19/2017 Active allopurinol (ZYLOPRIM) 300 mg tablet 09/05/2017 Active nnoxr-2-ruk-epa -dpa-fish oil 1,050-1,200 mg capsule 1 capsule Active dgq-N1-bhh55-zi sx-rbc-cqpg-bor 600 mg calcium- 800 unit-50 mg tablet [...] by mouth daily Active iron amino acid ihnlgfq-S73-RR 27-100-400 mg-mcg-mcg capsule Take by mouth Active zinc 50 mg tablet Take by mouth Active bumetanide (BUMEX) 2 mg tablet Take 2 mg by mouth daily Active Active Problems Problem Noted Date Diagnosed Date Cardiomyopathy 08/29/2019 Assessment & Plan (08/29/2019 11:08 AM LOCAL TANKER TRUCK DRIVER): 08/27/17 ECHO - Estimated ejection fraction 40-50% [...] on file Legal Sex Male 11:58 PM LOCAL TANKER TRUCK DRIVER Gender Identity Not on file Sexual Orientation Not on file Last Filed Vital Signs Vital Sign Reading Time Taken Comments Blood Pressure 128/80 08/29/2019 10:33 AM LOCAL TANKER TRUCK DRIVER Pulse 49 08/29/2019 10:33 AM LOCAL TANKER TRUCK DRIVER Temperature - - Respiratory Rate 18 08/29/2019 10:33 AM LOCAL TANKER TRUCK DRIVER Oxygen Saturation 94% 08/29/2019 10:33 AM LOCAL TANKER TRUCK DRIVER Inhaled Oxygen Concentration - - Weight 112.5 kg (248 lb) 08/29/2019 10:33 AM LOCAL TANKER TRUCK DRIVER Height 185.4 cm (6' 1 ) 08/29/2019 10:33 AM LOCAL TANKER TRUCK DRIVER Body Mass Index 32.72 08/29/2019 10:33 AM LOCAL TANKER TRUCK DRIVER Plan of Treatment Not on file Insurance [facility] [place] [address] Care Teams Mergers And Acquisitions Manager Relationship Specialty Start Date End Date Tesfaye Peralta MD [address] [facility] [address] [place] [address] PCP - General Internal Medicine 10/04/17
[2024-09-12 15:09] LABS: Anion Gap 6 mmol/L (4-12); Blood Urea Nitrogen 37 mg/dL (9-20); Carbon Dioxide 34 mmol/L (22-30); Chloride 99 mmol/L (98-107); Estimated Glomerular Filt Rate 53; Glucose 98 mg/dL (65-110); Sodium 139 mmol/L (137-145)
== END 2024-09-12 08:13 | disposition home or self-care (01) ==
LOC: ANHGOSHLAB 08:14
PROVIDERS: PCP Internal Medicine; Visit Provider Internal Medicine
DX: I12.9 Hypertensive chronic kidney disease with stage 1 through stage 4 chronic kidney disease, or unspecified chronic kidney disease (principal); N18.31 Chronic kidney disease, stage 3a; M35.3 Polymyalgia rheumatica; E11.9 Type 2 diabetes mellitus without complications
CPT/HCPCS: 36415; 80048; 83036

== ENCOUNTER 2024-09-15 12:30 | Outpatient (RCR) | payer MEDICARE, SELFPAY ==
--- NOTE | 2024-09-15 13:19 | OPREHPOC ---
Outpatient Therapy Plan of Care This is a Multidisciplinary Plan of Care that may contain components documented by all disciplines (PT, OT, and ST.) PT Problem 1 PT Problem #1 Knowledge Deficit PT Goal 1 Goal / Goal Update Pt to be IND with issued HEP. 04/15/24: met Target Visit 4 Progress Met PT Problem 2 PT Problem #2 Impaired Strength PT Goal 1 Goal / Goal Update Pt to improve ankle dorsiflexion to 4/5 to improve foot clearance. 04/15/24: slow progress 06/23/24: slow progress, 3/5 07/22/24: slow progress 09/15/24: no progress Target Visit 10 PT Goal 2 Goal / Goal Update Pt to be able to perform 1 sit <> stand without UE support. 04/15/24: not met 06/23/24: not met 07/22/24: not met 09/15/24: not met Target Visit 10 PT Problem 3 PT Problem #3 Impaired Gait PT Goal 1 Goal / Goal Update Pt to ambulate without path deviations. 04/15/24: not met 06/23/24: progressing 07/22/24 progressing 09/15/24: progressing = Target Visit 10 PT Goal 2 Goal / Goal Update Pt to improve 2 min walk distance from 275ft to 350ft. 04/15/24: progressing, 315ft 06/23/24: progressing, 335ft 07/22/24: 330ft 09/15/24: regressing, 285ft Progress Partially Met PT Problem 4 PT Problem #4 Impaired Functional Mobility PT Goal 1 Goal / Goal Update Pt to improve Tinetti score from to to minimize fall risk. 04/15/24: progressing, 06/23/24: 07/22/24: 09/15/24: regressing, Target Visit 10 OT Problem 1 OT Problem #1 Knowledge Deficit OT Goal 1 Goal / Goal Update 1. Patient to be independent with HEP. ---OT D/C 04/08/24--- 1. Met Target Visit 7 OT Problem 2 OT Problem #2 Impaired Strength OT Goal 1 Goal / Goal Update 1. Increase left triceps strength to 4/5. 2. Increase left gross wrist strength to 4/5. 3. Increase left felt strip finisher strength to 30 lbs. 4. Increase left intrinsic muscles strength to 4/5 . ---OT D/C 04/08/24--- 1. Met 2. Not met, pt indep with HEP 3. Not met, pt indep with HEP 4. Not met, pt indep with HEP Target Visit 7
--- NOTE | 2024-09-15 13:19 | PTOPDC ---
Assessment and note entered by Grover Power, PT, DPT Evaluation Information Assessment Status Discharge Diagnosis weakness and decreased mobility ICD-10 Condition Codes (PT) Difficulty Walking R26.2,Abnormalities of gait and mobility R26.9,Weakness R53.1 Subjective Information Pt states he feels like he is at a stand still. States his dosage of prednisone really changes how he feels from day to day. Reported Pain Level Pain Score 0: Self Report Assessment PT Clinical Summary Gabe has completed 28 visits of skilled therapy to treat his diagnosis of polymyalgia rheumatica as well as peripheral neuropathy and CHF. He continues to make slow progress towards his therapy goals, and in the last 2 months his gait speed has actually decreased.He continues to demonstrates significant limitations in his LE strength particularly in his hips and ankles, as well as decreased static and dynamic standing balance, placing him at an increased risk for falls. His scores on the 2 min walk test, and Tinetti still place him at and increased risk for falls. He continues to have decreased endurance and SOB that limits his participation in therapy and his compliance with his HEP at home. Pt would like to be discharged at this time and plans to continue his HEP independently. Plan of Care PT Services Indicated No
== END 2024-09-15 14:33 | disposition home or self-care (01) ==
LOC: ANHGOSHPT 12:30
PROVIDERS: PCP Internal Medicine; Visit Provider Physician Assistant Surgical
DX: G56.22 Lesion of ulnar nerve, left upper limb (principal); G56.02 Carpal tunnel syndrome, left upper limb; R53.1 Weakness; Z74.09 Other reduced mobility
CPT/HCPCS: 97110; 97112; 97530

== ENCOUNTER 2024-10-29 08:15 | Outpatient (CLI) | payer MEDICARE, SELFPAY ==
--- OUTSIDE RECORDS SUMMARY | 2024-10-29 08:27 | XMS_ITS | Continuity of Care Document ---
Author Organization [facility] Address [address] [facility] [address] [place] [address] Phone Care Team Providers Care Buyer Liaison Name Role Phone Herrera Meneses MD Unavailable [...] Copied on Encounter [facility], [address] [facility] [address], [place], [place], [address], [place] tel:[phone] SEC [place] Professional a comprehensive exam (chief complaint) SENILE NUCLEAR CATARACTDRUS EN OF OPTIC DISCOPN ANGL W BORDERLN FIND Low RiskDIABETIC RETINOPATHY NOS 4 Zaira Silverman. [address] [facility], [facility] A, [place], [place], [address], [place]. tel:[phone] Referring Provider: Herrera Larsen, [address] [facility], [place], [address] . tel:[phone] [facility], [address], [place], [place], [address], [place] tel:[phone] SEC Darrell Velez No Information Apr-0 7-201 4 Aleta Phillips. [address], [place], [place], [address], [place]. tel:[phone] [facility], [address], [place], [place], [address], [place] tel:[phone] SEC [place] Professional No Information Julian-0 6-201 2 Wankum Herrera. [address] [facility], [facility] [place], [address], . tel:[phone] Referring Provider: Herrera Larsen, [address] [facility] [place], [address] . tel:[phone] [facility], [address], [place], [place], [address], [place] tel:[phone] SEC [place] Professional No Information Apr-0 8-201 1 Wankum Herrera. [address] [facility], [facility] [place], [address], [place]. tel:[phone] [facility], [address], [place], [place], [address], [place] tel:[phone] SEC [place] Professional No Information Apr-0 5-201 0 Wankum Herrera. [address] [facility], [place], [address], [place]. tel:[phone] [facility], [address], [place], [place], [address], [place] tel:[phone] SEC [place] Professional No Information Apr-0 3-200 9 Wankum Herrera. [address] [facility], [address], [place], [place], [address], [place]. tel:[phone] Referring Provider: Herrera Meneses Chava, [address] [facility] [address], [place], [address] . tel:[phone] [facility], [address], [place], [place], [address], tel:[phone] SEC Jose Luis [place] Professional No Information 8 Zaira Silverman. [address] [facility], [address], [place], [place], [address], [place]. 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
--- OUTSIDE RECORDS SUMMARY | 2024-10-29 08:27 | XMS_ITS | Clinical Summary ---
Author Organization [facility] Address [address] [place] [address] Phone Care Team Providers Care Restaurant Bartender Name Role Phone Tesfaye Peralta MD Primary Care Provider [phone] Allergies Active Allergy Reactions Criticality Noted Date Comments Other Unknown 08/29/2019 Penicillins Unknown 08/29/2019 Wound Dressing Adhesive 01/30/2013 PULLS SKIN OFF Medications allopurinol (ZYLOPRIM) 300 MG tablet Take 300 mg by mouth 1 (one) time each day 03/08/20 21 Active aspirin (ST RUDDY) 81 MG EC tablet Take 81 mg by mouth daily Active atorvastatin (LIPITOR) 20 MG tablet Take 20 mg by mouth 1 (one) time each day 03/08/20 21 Active bumetanide (BUMEX) 2 MG tablet Take 1 mg by mouth 1 (one) time each day prn Active Calcium Carbonate-Vit D-Min (Caltrate 600+D Plus Minerals) 600-800 MG-UNIT tablet Take by mouth A ctive Farxiga 10 MG tablet Take 1 tablet by mouth 1 (one) time each day 02/23/20 21 Active glimepiride (AMARYL) 2 MG tablet TAKE 1 TABLET BY MOUTH ONCE DAILY IN THE MORNING WITH BREAKFAST 03/08/20 21 Active montelukast (SINGULAIR) 10 MG tablet Take 10 mg by mouth 1 (one) time each day 02/23/20 21 Active Bystolic 20 MG tablet Take 1 tablet by mouth 1 (one) time each day 03/08/20 21 Active Ririe-3 Fatty Acids (Ririe-3 2100) 1050 MG capsule 1 capsule Active Januvia 100 MG tablet Take 100 mg by mouth 1 (one) time each day 01/29/20 21 Active zinc gluconate 50 MG tablet Take by mouth Active Xyosted 75 MG/0.5ML solution auto-injector INJECT 75 MG (0.5 ML) SUBCUTANEOUSLY WEEKLY 01/20/20 22 Active candesartan (ATACAND) 32 MG tablet TAKE 1 TABLET BY MOUTH ONCE DAILY FOR 90 DAYS 02/11/20 22 Active Ascorbic Acid 100 MG chewable tablet Chew Active Calcium Polycarbophil (Fiber) 625 MG tablet Take 625 mg by mouth in the morning. Active cholecalciferol (VITAMIN D-3) 25 MCG (1000 UT) capsule Take by mouth Active ferrous sulfate 325 (65 Fe) MG tablet [...] function study of kidney 03/27/2021 07/08/2021 Immunizations Immunization Administration Dates Next Due Influenza TIV (IM) [...] at Not on file Legal Sex Male 10:26 AM MDT Gender Identity Not on file Sexual Orientation Not on file Last Filed Vital Signs Vital Sign Reading Time Taken Comments Blood Pressure 128/70 07/10/2022 9:00 AM HISTORY INSTRUCTOR Pulse 72 07/10/2022 9:00 AM HISTORY INSTRUCTOR Temperature 35.5 C (95.9 F) 07/10/2022 9:00 AM HISTORY INSTRUCTOR Respiratory Rate - - Oxygen Saturation - - Inhaled Oxygen Concentration - - Weight 107 kg (236 lb) 07/10/2022 9:00 AM HISTORY INSTRUCTOR Height 182.9 cm (6') 07/10/2022 9:00 AM HISTORY INSTRUCTOR Body Mass Index 32.01 07/10/2022 9:00 AM HISTORY INSTRUCTOR Plan of Treatment Health Maintenance Due Date Last Done Comments Diabetic Foot Exam 1960 Ophthalmology Exam 1960 Pneumococcal PPSV23/PCV13 65 + Years / High and Highest Risk (1 of 5 - PCV) 1967 Influenza Vaccine (Season Ended) 2025 05/06/20, 05/05/2021 Insurance MEDICARE [facility] Care Teams Restaurant Bartender Relationship Specialty Start Date End Date Tesfaye Peralta MD [address] [facility] [address] [place] [address] PCP - General Internal Medicine 03/17/21
--- OUTSIDE RECORDS SUMMARY | 2024-10-29 08:27 | XMS_ITS | Clinical Summary ---
Author Organization [facility] Address [address] [facility] [place] [address] Care Team Providers Care Hr Representative Name Role Phone Tesfaye Peralta MD Primary Care Provider [phone] Tesfaye Peralta MD Unavailable [phone] Charlene Toribio RN Unavailable [phone] Source Comments [facility],non-owned Affiliates and Associated Physician Practices is amultiple site organization consisting of ambulatory clinics and hospital sitesin [place], [place], [place] and [place]. This disclosure is being madepursuant to the Care Everywhere program and may not contain all information available regarding this patient. Last updated 18.[facility] Allergies Active Allergy Reactions Criticality Noted [...] VACCINE (1 - 2023-2 5 season) 2024 DEPRESSION SCREENING 07/23/2024 INFLUENZA VACCINE (Season Ended) 2025 DTAP/TDAP/TD VACCINES (2 - T d or Tdap) 01/13/2030 01/14/2020 HEPATITIS C SCREENING Completed 06/23/2017 HIB VACCINE Aged Out No longer eligi ble based on patient's age to complete this topic HPV VACCINE Aged Out No longer eligi ble based on patient's age to complete this topic MENINGOCOCCAL (Group B) VACC INE SHARED DECISION-MAKING Aged Out No longer eligibl e based on patient's age to complete this topic MENINGOCOCCAL GROUPS A/C/Y/W VACCINE Aged Out No longer eligible b ased on patient's age to complete this topic Procedures Procedure Name Priority Date/Time Associated Diagnosis Comments HEPATITIS SCREEN ACUTE W/ REFLX CONFIRM 06/23/2017 10:33 AM PUBLIC SAFETY DISPATCHER from Last 3 Months or Most Recently Relevant to Health Maintenance Results * HEPATITIS SCREEN ACUTE W/ REFLX CONFIRM (06/23/2017 10:33 AM PUBLIC SAFETY DISPATCHER) Hepatitis A Virus Antibody IgM NON-REACTI VE NON-REACT [facility] Hepatitis B Virus Surface Antigen NON-REACTI VE NON-REACT [facility] Hepatitis B Core Virus Antibody IgM NON-REACTI VE NON-REACT [facility] Hepatitis C Antibody NON-REACTI VE NON-REACT [facility] Signal to Cut-Off 0.05 <1.00 [facility] Comment: Test Performed at: [facility] [address] [place] [address] BOGDAN HORN DO,MPH 06/23/2017 10:3 3 AM PUBLIC SAFETY DISPATCHER 06/23/2017 10:33 AM PUBLIC SAFETY DISPATCHER Peter Sorensen MD LAB - CHEMISTRY ORD ERABLES Performing Organization Address City/State/[facility] Co de Phone Number [facility] [address] [place] [address] from Last 3 Months or Most Recently Relevant to Health Maintenance Advance Directives Documents on File Type Date Recorded Patient Auto 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
--- OUTSIDE RECORDS SUMMARY | 2024-10-29 08:27 | XMS_ITS | Clinical Summary ---
Author Organization [facility] C Address [address] [place] [address] Care Team Providers Care Coffee Host Name Role Phone Tesfaye Peralta MD Primary Care Provider [phone] Allergies Active Allergy Reactions Criticality Noted Date Comments Adhesive Unknown 08/29/2019 Penicillins Unknown 08/29/2019 Medications JANUVIA 100 mg tabletIndicati ons:type 2 diabetes mellitus 8 Active montelukast (SINGULAIR) 10 mg tablet 8 Active allopurinol (ZYLOPRIM) 300 mg tablet 8 Active vizsk-2-ydr-ep a-dpa-fish oil 1,050-1,200 mg capsule 1 capsule Active dnx-E8-bat90-z dfz-sff-qofb-b or 600 mg calcium- 800 unit-50 mg tablet Take by mouth Active aspirin 81 mg enteric coated tablet Take 1 tablet (81 mg total) by mouth daily Active wheat dextrin 3 gram/3.8 gram powder Take by mouth Acti ve atorvastatin (LIPITOR) 20 mg tablet Take 20 mg by mouth daily Active candesartan (ATACAND) 8 mg tablet Take 8 mg by mouth daily Active nebivolol (BYSTOLIC) 20 mg tablet Take 20 mg by mouth daily Active iron amino acid llfhqon-I97-SF 27-100-400 mg-mcg-mcg capsule Take by mouth Active zinc 50 mg tablet Take by mouth Active bumetanide (BUMEX) 2 mg tablet Take 1 tablet (2 mg total) by mouth daily Active ferrous sulfate 325 mg (65 mg of elemental iron) tablet Take 1 tablet (325 mg total) by mouth daily Active folic acid (FOLVITE) 1 mg tablet Take 1 tablet (1,000 mcg total) by mouth daily 5 Active methotrexate 2.5 mg tablet Take 4 tablets (10 mg total) by mouth every 7 days 5 Active cholecalcifero l (VITAMIN D-3) 1,000 unit capsule Take by mouth Act jazlyn Farxiga 10 mg tablet Take 1 tablet (10 mg total) by mouth daily Active glimepiride (AMARYL) 2 mg tablet Take 1 tablet (2 mg total) by mouth 2 (two) times a day Active cephalexin (KEFLEX) 250 mg capsule Take 1 capsule (250 mg total) by mouth daily Active LANTUS 100 unit/mL (3 mL) pen for injection INJECT 15 UNITS SUBCUTANEOUSLY EVERY DAY AT BEDTIME 5 Active insulin lispro (HumaLOG OLGA) 100 unit/mL half-unit pen for injection USE DIRECTED PER SLIDING SCALE DOSE SUBCUTANEOUSLY. SSI 5-15 UNITS THREE TIMES DAILY. 5 Active Active Problems Problem Noted Date Diagnosed Date Cardiomyopathy 08/29/2019 Assessment & Plan (08/29/2019 11:08 AM LIQUOR BRIDGE OPERATOR): 08/27/17 ECHO - Estimated ejection fraction 40-50% (mildly depressed) - LV: Moderate concentric hypertrophy is present. - Diastolic dysfunction stage I (impaired relaxation). - The left atrium is mildly enlarged. - The tricuspid valve is mildly thickened. Estimated PA Pressure (mm/Hg): 32 Encounters Date Type Department Care Team Description 10/27/2024 10:45 AM CDT Office Visit [facility] Ophthalmology [address] [facility] Outpatient Health 6th [place] [address] Annabel Sheikh MD 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) (Primary Dx); Unspecified background retinopathy; Type 2 diabetes mellitus without complication, unspecified whether technician terminal and repeater insulin use (HCC) 09/19/2024 Telephone [facility] Ophthalmology [facility] [place] [address] Annabel Sheikh MD from Last 3 Months Medical History Medical History Date Comments Cardiomyopathy (HCC) Hypertension Hyperlipidemia Family History Medical History Relation Name Comments Stroke Father Diabetes Maternal Grandmother Cataracts Mother Glaucoma Mother Diabetes Sister Relation Name Status Comments Father Maternal Grandmother Mother Sister Social History Tobacco Use Types Packs/Day Years Used Date Smoking Tobacco: Some Days Cigarettes Smokeless Tobacco: Never Tobacco Cessation:Ready to Q uit: Not Asked; Counseling Given: Not Answered Alcohol Use Standard Drinks/Week Comments Yes 0 (1 standard drink = 0.6 oz pur e alcohol) AUDIT-C Answer Date Recorded Q1: How often do you have a drink containing alc ohol? Monthly or less 10/27/2024 Average Number of Drinks Not on file 025 Frequency of Binge Drinking Not on file 01/2025 Sex and Gender Information Value Date Recorded Sex Assigned at Not on file Legal Sex Male 11:58 PM LIQUOR BRIDGE OPERATOR Gender Identity Not on file Sexual Orientation Not on file Obstetrics History Last Filed Vital Signs Vital Sign Reading Time Taken Comments Blood Pressure 128/80 08/29/2019 10:33 AM LIQUOR BRIDGE OPERATOR Pulse 49 08/29/2019 10:33 AM LIQUOR BRIDGE OPERATOR Temperature - - Respiratory Rate 18 08/29/2019 10:33 AM LIQUOR BRIDGE OPERATOR Oxygen Saturation 94% 08/29/2019 10:33 AM LIQUOR BRIDGE OPERATOR Inhaled Oxygen Concentration - - Weight 112.5 kg (248 lb) 08/29/2019 10:33 AM LIQUOR BRIDGE OPERATOR Height 185.4 cm (6' 1 ) 08/29/2019 10:33 AM LIQUOR BRIDGE OPERATOR Body Mass Index 32.72 08/29/2019 10:33 AM LIQUOR BRIDGE OPERATOR Plan of Treatment Health Maintenance Due Date Last Done Comments Albumin Creatinine Ratio, Urine 1948 Depression Screening 1948 Fall Risk Assessment 1948 Hepatitis C Screening 1950 eGFR 1950 Foot Exam 1948 Lipid Panel 1948 Hepatitis B Screening 1966 Well Visit 65+ 2013 Zoster Vaccine (1 of 2) 06/19/2014 04/24/2014 Pneumococcal vaccine 65+ (2 of 2 - PPSV23) 05/18/2016 03/23/2016 Hemoglobin A1C 08/17/2018 02/14/2018 DTaP/Tdap/Td Vaccine (1 - Tdap) 01/15/2020 01/14/2020, 09/17/2018, 12/01/2013 Influenza Vaccine (Season Ended) 2025 05/06/2022, 05/05/2021, 05/26/2019, Additional history exists Dilated Eye Exam 10/27/2025 10/27/2024 Procedures Procedure Name Priority Date/Time Associated Diagnosis Comments FUNDUS PHOTOS/FAF - OU - BOTH EYES Routine 10/27/2024 12:41 PM CDT 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) OCT, RETINA - OU - BOTH EYES Routine 10/27/2024 12:40 PM CDT 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) from Last 3 Months Results * Fundus Photos/FAF - OU - Both Eyes (10/27/2024 12:41 PM CDT) Anatomical Region Laterality Modality Head Fundus Photograp hy Narrative 10/27/2024 12:41 PM CDT Right Eye Quality was good. Progression has no prior data. Left Eye Quality was good. Progression has no prior data. Notes OD: rare extramacular DBH; no NV, no VH OS: rare extramacular DBH; no NV, no VH Annabel Sheikh MD OPHTH PHOTOGRAPHY Final Re sult * OCT, Retina - OU - Both Eyes (10/27/2024 12:40 PM CDT) Anatomical Region Laterality Modality Head Optical Coherenc e Tomography Narrative 10/27/2024 12:40 PM CDT Right Eye Quality was good. Scan locations included subfoveal. Left Eye Quality was good. Scan locations included subfoveal. Notes OD: no DME OS: no DME Annabel Sheikh MD OPHTH TOMOGRAPHY Final Res ult from Last 3 Months Insurance CHOICE PLUS [place] [id number] CHOICE PLUS [address] MEDICARE ADVANTAGE Care Teams Coffee Host Relationship Specialty Start Date End Date Tesfaye Peralta MD [address] [facility] [address] [facility] [address] [facility] [place] [phone] PCP - General Internal Medicine 10/04/17
--- OUTSIDE RECORDS SUMMARY | 2024-10-29 08:27 | XMS_ITS | Referral Summary ---
Author Organization [facility] C Address [address] [place] [address] Care Team Providers Care Assisted Living Manager Name Role Phone Tesfaye Peralta MD Primary Care Provider [phone] Encounters Date Type Department Care Team Description 10/27/2024 10:45 AM CDT Office Visit [facility] Ophthalmology [address] [facility] Outpatient Health 6th [place] [address] Annabel Sheikh MD 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) (Primary Dx); Unspecified background retinopathy; Type 2 diabetes mellitus without complication, 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 (HCC) 09/19/2024 Telephone [facility] Ophthalmology [address] [place] [address] Annabel Sheikh MD from Last 3 Months Allergies Active Allergy Reactions Criticality Noted Date Comments Adhesive Unknown 08/29/2019 Penicillins Unknown 08/29/2019 Medications JANUVIA 100 mg tabletIndicati ons:type 2 diabetes mellitus 8 Active montelukast (SINGULAIR) 10 mg tablet 8 Active allopurinol (ZYLOPRIM) 300 mg tablet 8 Active qmnht-3-imw-ep a-dpa-fish oil 1,050-1,200 mg capsule 1 capsule Active jlg-Z0-dqa99-z dpx-kwl-apyu-b or 600 mg calcium- 800 unit-50 mg [...] by mouth daily Active iron amino acid tfqxphs-G38-JM 27-100-400 mg-mcg-mcg capsule Take by mouth Active [...] 08/29/2019 Assessment & Plan (08/29/2019 11:08 AM NEGATIVE CUTTER): 08/27/17 ECHO - Estimated ejection fraction 40-50% [...] on file Legal Sex Male 11:58 PM NEGATIVE CUTTER Gender Identity Not on file Sexual Orientation Not on file Last Filed Vital Signs Vital Sign Reading Time Taken Comments Blood Pressure 128/80 08/29/2019 10:33 AM NEGATIVE CUTTER Pulse 49 08/29/2019 10:33 AM NEGATIVE CUTTER Temperature - - Respiratory Rate 18 08/29/2019 10:33 AM NEGATIVE CUTTER Oxygen Saturation 94% 08/29/2019 10:33 AM NEGATIVE CUTTER Inhaled Oxygen Concentration - - Weight 112.5 kg (248 lb) 08/29/2019 10:33 AM NEGATIVE CUTTER Height 185.4 cm (6' 1 ) 08/29/2019 10:33 AM NEGATIVE CUTTER Body Mass Index 32.72 08/29/2019 10:33 AM NEGATIVE CUTTER Plan of Treatment Not on file Procedures [...] from Last 3 Months Insurance CHOICE PLUS CHOICE PLUS [facility] Address: [address] [address] [place] [address] Care Teams Assisted Living Manager Relationship Specialty Start Date End Date Tesfaye Peralta MD [address] [facility] [address] INTERNAL MEDICINE [place], [place] [id number] PCP - General Internal Medicine 10/04/17
--- OUTSIDE RECORDS SUMMARY | 2024-10-29 08:27 | XMS_ITS | Encounter Summary ---
Author Organization [facility] Address [address] [place] [address] Care Team Providers Care Kennel Manager Name Role Phone Tesfaye Peralta MD Primary Care Provider Tesfaye Peralta MD Primary Care Provider [phone] Tesfaye Peralta MD Unavailable [phone] Charlene Toribio RN Unavailable [phone] Encounter Details Date Type Department Care Team (Late st Contact Info) Description 11/[facility] Medical [facility] [address] [facility], [facility] [address] [place] [address] [place] [address] [facility] [address] [address] Social History Tobacco Use Types [...] on filedocumented in this encounter Care Teams Kennel Manager Relationship Specialty Start Date End Date Tesfaye Peralta MD [address] [place] [address] PCP - General Internal Medicine 11/22/12 01/13/20 Tesfaye Peralta MD [address] [facility] [address] [place] [address] PCP - General Internal Medicine 01/14/20 Tesfaye Peralta MD [address] [place] [address] Internal Medicine 01/14/20 Charlene Toribio, TITA Manager Multimedia 10/13/15 documented as of this encounter
--- OUTSIDE RECORDS SUMMARY | 2024-10-29 08:27 | XMS_ITS | Encounter Summary ---
Author Organization [facility] Address [address] [facility] [place] [address] Care Team Providers Care Billet Header Name Role Phone Tesfaye Peralta MD Primary Care Provider [phone] Tesfaye Peralta MD Primary Care Provider Tesfaye Peralta MD Unavailable [phone] Charlene Toribio RN Unavailable [phone] Encounter Details Date Type Department Care Team (Late st Contact Info) Description 11/12/[address] [facility] Outpatient Visit [facility] Medical [facility] [address] [place] [address], [facility] [address] [place] [address] [place] [address] [facility] [address] [address] Social History Tobacco Use Types [...] on filedocumented in this encounter Care Teams Billet Header Relationship Specialty Start Date End Date Tesfaye Peralta MD [address] [place] [address] PCP - General Internal Medicine 11/22/12 01/13/20 Tesfaye Peralta MD [address] [email or web address] [address] [place] [address] PCP - General Internal Medicine 01/14/20 Tesfaye Peralta MD [address] [place] [address] Internal Medicine 01/14/20 Charlene Toribio, TITA Associate Chief Nurse 10/13/15 documented as of this encounter
[2024-10-29 11:26] LABS: Hematocrit 43.7 % (42.0-52.0); Hemoglobin 14.2 g/dL (14.0-18.0); Mean Corpuscular HGB Conc 32.5 g/dl (32-36); Mean Corpuscular Hemoglobin 30.9 pg (26-34); Mean Platelet Volume 10.4 fl (7.4-10.4); Platelet Count Result 227 k/mm3 (150-375); Red Cell Distribution Width 14.8 % (11.5-14.5); White Blood Count 9.8 K/mm3 (4.5-10.0)
[2024-10-29 11:52] LABS: Anion Gap 9 mmol/L (4-12); Blood Urea Nitrogen 38 mg/dL (9-20); Calcium 9.1 mg/dL (8.4-10.2); Carbon Dioxide 30 mmol/L (22-30); Chloride 97 mmol/L (98-107); Estimated Glomerular Filt Rate 47; Glucose 100 mg/dL (65-110); Phosphorus 4.4 mg/dL (2.5-4.5); Potassium 3.5 mmol/L (3.4-5.0); Sodium 136 mmol/L (137-145)
[2024-10-29 13:22] LABS: Vitamin D 25 Hydroxy 38.4 ng/mL
[2024-10-29 13:54] LABS: Parathyroid Intact 90.4 pg/mL (14.5-75.2)
[2024-10-29 21:11] LABS: Creatinine Urine 101.6 mg/dL; Total Protein Urine Random 87 mg/dL; Ur Ttl Prot Creatinine Ratio 0.86 mg/mg (0-0.20)
== END 2024-10-29 08:16 | disposition home or self-care (01) ==
LOC: ANHGOSHLAB 08:16
PROVIDERS: PCP Internal Medicine; Visit Provider Internal Medicine Nephrology
DX: E21.1 Secondary hyperparathyroidism, not elsewhere classified (principal); N18.31 Chronic kidney disease, stage 3a
CPT/HCPCS: 36415; 80069; 82306; 82570; 83970; 84156; 85027

== ENCOUNTER 2024-11-03 08:30 | Outpatient (CLI) | payer MEDICARE, SELFPAY ==
--- OUTSIDE RECORDS SUMMARY | 2024-11-03 08:48 | XMS_ITS | Continuity of Care Document ---
Author Organization [facility] Address [address] [facility] [address] [place] [address] Phone Care Team Providers Care Territory Business Manager Name Role Phone Herrera Meneses MD Unavailable [...] Diagnoses Date Provider Providers Copied on Encounter [facility], [address] [facility] [address], [place], [place], [id number], [place] tel:[phone] SEC Wink [place] Professional SENILE NUCLEAR CATARACTDRUSEN OF OPTIC DISCOPN ANGL W BORDERLN FIND Low RiskDIABETIC RETINOPATHY NOS 201 4 Zaira Silverman. [address] [place], [address], [place]. tel:[phone] Referring Provider: Herrera Larsen, [address] [facility] [address], [place], [address] . tel:[phone] [facility], [address], [place], [place], [address], [place] tel:[phone] SEC Darrell Velez No Information Apr-0 7-201 4 Aleta Phillips. [address] [place] [address] [address], [address], [place], [place], [address], [place]. tel:[phone] [facility] Eye [facility], [address] [place] [address] [address], [place], [place], [address], [place] tel:[phone] SEC Wink [place] Professional No Information Julian-0 6-201 2 Wankovi Silverman. [address] [facility], [facility] [place], [address], [place]. tel:[phone] Referring Provider: Herrera Larsen, [address] [facility] [place], [address] . tel:[phone] [facility] Eye [facility], [address] [place] [address] [address], [place], [place], [address], [place] tel:[phone] SEC Jose Luis [place] Professional No Information Apr-0 8-201 1 Wankum Herrera. [address] [facility], [facility] [place], [address], [place]. tel:[phone] [facility] Eye [facility], [address] [place] [address] [address], [place], [place], [address], [place] tel:[phone] SEC Wink [place] Professional No Information Apr-0 5-201 0 Wankum Herrera. [address] [facility], [facility] [place], [address], [place]. tel:[phone] [facility], [address], [place], [place], [address], [place] tel:[phone] SEC Wink [place] Professional No Information Apr-0 3-200 9 Wankum Herrera. [address] [facility], [address] [place], [address], [place]. tel:[phone] Referring Provider: Herrera Zaira Larsen, [address], [place], [address] . tel:[phone] [facility] Eye [facility], [address] [facility] [address], [place], [place], [address], tel:[phone] SEC Jose Luis HARVEY Professional No Information 200 8 Zaira Silverman. [address], [place], [place], [address], [place]. 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
--- OUTSIDE RECORDS SUMMARY | 2024-11-03 08:49 | XMS_ITS | Clinical Summary ---
Author Organization [facility] Address [address] [place] [address] Care Team Providers Care Tank Riveter Name Role Phone Tesfaye Peralta MD Primary Care Provider [phone] Allergies Active Allergy Reactions Criticality Noted Date [...] by mouth every morning before breakfast. Active Aurora-3 Fatty Acids (OMEGA-3 PLUS) 1000 MG Cap [...] (06/05/2022): Added automatically from request for surgery [id number] Family History Medical History Relation Comments Other [...] 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, CUTLERY GRINDER, JORDANA) 05/31/2022 Sex and Gender Information Value [...] Annual Medicare Wellness Visit 2013 Pneumococcal Vaccine: 50+ Years (1 of 1 - PCV) 2013 03/23/2016 DTaP, Tdap and Td Vaccines ( 1 - Tdap) 01/15/2020 01/14/2020, 09/17/2018, 12/01/2013 RSV Immunization or 60+ Years (1 - 1-dose 75+ series) 2023 COVID-19 Vaccine (4 - 2023-2 5 season) 2024 04/10/2022, 11/08/2021, 05/17/2021 Zoster Vaccines Completed 11/11/2020, 07/08/2020, 04/24/2014 Meningococcal B Vaccine Aged Out No l onger eligible based on patient's age to complete this topic Meningococcal Vaccine Aged Out No manuel sang eligible based on patient's age to complete this topic RSV Immunizations Under 20 Months Aged Out No longer eligible b ased on patient's age to complete this topic Insurance MED REPLACE [facility] MEDICARE Care Teams Tank Riveter Relationship Specialty Start Date End Date Tesfaye Peralta MD [address] [place] [address] PCP - General INTERNAL MEDICINE 05/21/22
--- OUTSIDE RECORDS SUMMARY | 2024-11-03 08:49 | XMS_ITS | Clinical Summary ---
Author Organization [facility] [employer] Address [address] [place] [address] Care Team Providers Care Instrument Repairer Steam Plant Name Role Phone Tesfaey Peralta MD Primary Care Provider [phone] Tesfaye Peralta MD Unavailable [phone] Charlene Toribio RN Unavailable [phone] Source Comments [facility] [employer],non-owned Affiliates and Associated Physician Practices is amultiple site organization consisting of ambulatory clinics and hospital sitesin [place], [place], [place] and [place]. This disclosure is being madepursuant to the Care Everywhere program and may not contain all information available regarding this patient. Last updated 18.[facility] [employer] Allergies Active Allergy Reactions Criticality Noted Date Comments Adhesive Sensitivity 01/30/2013 PULLS SKIN OFF Penicillins High 11/21/2012 Rash all over body Welts Medications * Be aware that medications may not be up to date on this document. Alwaysverify current medications with the patient. TESTOSTERONE ENANTHATE IM Inject 200 mg into [...] cholecystitis 11/07/2015 Choledocholithiasis with acute cholecystitis Immunizations Immunization Administration Dates Next Due TD (ADULT), 5 LF TETANUS TOXOID, ADSORBED, PF Social History Tobacco Use Types Packs/Day Years Used Date Smoking Tobacco: Never Smokeless Tobacco: Never Alcohol Use Standard Drinks/Week Comments Yes 0 (1 standard drink = 0.6 oz pur e alcohol) SOCIAL MONTHLY Sex and Gender Information Value Date Recorded Sex Assigned at Not on file Legal Sex Male 8:53 AM CDT Gender Identity Not on file [...] - 1-dose 75+ series) 2023 COVID-19 VACCINE ( - 2023-2 5 season) 2024 DEPRESSION SCREENING [...] ACUTE W/ REFLX CONFIRM 06/23/2017 10:33 AM RETORT FEEDER GROUND BONE from Last 3 Months or Most Recently Relevant to Health Maintenance Results * HEPATITIS SCREEN ACUTE W/ REFLX CONFIRM (06/23/2017 10:33 AM RETORT FEEDER GROUND BONE) Hepatitis A Virus Antibody IgM NON-REACTI VE NON-REACT [facility] Hepatitis B Virus Surface Antigen NON-REACTI VE NON-REACT [facility] Hepatitis B Core Virus Antibody IgM NON-REACTI VE NON-REACT [facility] Hepatitis C Antibody NON-REACTI VE NON-REACT [facility] Signal to Cut-Off 0.05 <1.00 [facility] Comment: Test Performed at: [facility] [employer] [address] [place] [address] BOGDAN HORN DO,MPH 06/23/2017 10:3 3 AM RETORT FEEDER GROUND BONE 06/23/2017 10:33 AM RETORT FEEDER GROUND BONE us Peter Sorensen MD LAB - CHEMISTRY ORDERABLES Final Result [facility] [id number] [place] [address] from Last 3 Months or Most Recently Relevant to Health Maintenance [facility] SELF PAY NO INSURANCE Member Subscriber Plan / Payer (Ef fective for All Dates) Name:Franci Meza Member ID:Not on file Relation to Subscriber:Self Name:Franci Meza Subscriber ID:Not on file Payer ID:Not on file Group ID:Not on file Type:Self Pay Address: [place], [place] Advance Directives Documents on File Type Date Recorded Patient Dining Room Maid Expl anation Adv Directive/Living Will/POA 02/16/2013 6:04 AM * FULL RESUSCITATION (Latest Code Status on File) Date Activated Date Inactivated Comments 02/12/2013 9:12 PM 02/14/2013 7:34 PM Care Teams Instrument Repairer Steam Plant Relationship Specialty Start Date End Date Tesfaye Peralta MD [address] [facility] [address] [facility] [address] [place] [address] PCP - General Internal Medicine 01/14/20 Tesfaye Peralta MD [address] [place] [address] Internal Medicine 01/14/20 Charlene Toribio, TITA Steel Fabricator 10/13/15
--- OUTSIDE RECORDS SUMMARY | 2024-11-03 08:49 | XMS_ITS | Clinical Summary ---
Author Organization [facility] Address [address] [place] [address] Phone Care Team Providers Care Crayon Sorting Machine Feeder Name Role Phone Tesfaye Peralta MD Primary Care Provider [phone] Allergies Active Allergy Reactions Criticality Noted Date [...] (one) time each day 03/08/20 21 Active [place]-3 Fatty Acids ([place]-3 2100) 1050 MG capsule 1 capsule Active [...] Comments Blood Pressure 128/70 07/10/2022 9:00 AM CONSULTING GROUP ANALYST Pulse 72 07/10/2022 9:00 AM CONSULTING GROUP ANALYST Temperature 35.5 C (95.9 F) 07/10/2022 9:00 AM CONSULTING GROUP ANALYST Respiratory Rate - - Oxygen Saturation - - Inhaled Oxygen Concentration - - Weight 107 kg (236 lb) 07/10/2022 9:00 AM CONSULTING GROUP ANALYST Height 182.9 cm (6') 07/10/2022 9:00 AM CONSULTING GROUP ANALYST Body Mass Index 32.01 07/10/2022 9:00 AM CONSULTING GROUP ANALYST Plan of Treatment Health Maintenance Due Date Last Done Comments Diabetic Foot Exam 1958 Ophthalmology Exam 1960 Pneumococcal PPSV23/PCV13 65 + Years / High and Highest Risk (1 of 5 - PCV) 1967 Influenza Vaccine (Season Ended) 2025 05/06/20, 05/05/2021 Insurance MEDICARE [facility] Care Teams Crayon Sorting Machine Feeder Relationship Specialty Start Date End Date Tesfaye Peralta MD [address] [facility] [address] [place] [address] PCP - General Internal Medicine 03/17/21
--- OUTSIDE RECORDS SUMMARY | 2024-11-03 08:49 | XMS_ITS | Encounter Summary ---
Author Organization [facility] Address [address] [facility] [place] [address] Care Team Providers Care Edge Banding Off Bearer Name Role Phone Tesfaye Peralta MD Primary Care Provider [phone] Tesfaye Peralta MD Primary Care Provider [phone] Tesfaye Peralta MD Unavailable [phone] Charlene Toribio RN Unavailable [phone] Encounter Details Date Type Department Care Team (Late st Contact Info) Description 11/12/2015 [facility] Outpatient Visit [facility] [address] [facility], [address] [address] [place] [address] [facility] [address] [address] Social History Tobacco Use Types [...] documented as of this encounter Functional Status * Is person deaf or have serious hearing difficulty? Answer Date of Assessment Author Yes 10/13/2015 1:00 AM IRWINT Eladio Preston RN * Is person blind or have serious difficulty seeing? Answer Date of Assessment Author No 10/13/2015 1:00 AM IRWINT Preston, D eborah S, RN * Does person have serious difficulty walking/climbing stairs? Answer Date of Assessment Author No 10/13/2015 1:00 AM Eladio Puga RN * Does person have difficulty dressing/bathing? Answer Date of Assessment Author No 10/13/2015 1:00 AM Eladio Puga RN * Does person have difficulty doing errands alone? Answer Date of Assessment Author No 10/13/2015 1:00 AM Eladio Puga RN documented as of this encounter Mental Status * Does person have difficulty concentrating/remembering/making decisions? Answer Entry Date Author No 10/13/2015 1:00 AM Eladio Puga RN documented in this encounter Plan of Treatment Not on file documented as of this encounter Visit Diagnoses Not on filedocumented in this encounter Care Teams Edge Banding Off Bearer Relationship Specialty Start Date End Date Tesfaye Peralta MD [address] [place] [address] PCP - General Internal Medicine 11/22/12 01/13/20 Tesfaye Peralta MD [address] [facility] [address] [place] [address] PCP - General Internal Medicine 01/14/20 Tesfaye Peralta MD [address] [place] [address] Internal Medicine 01/14/20 Charlene Toribio, TITA Manager Recruitment 10/13/15 documented as of this encounter
--- OUTSIDE RECORDS SUMMARY | 2024-11-03 08:49 | XMS_ITS | Encounter Summary ---
Author Organization [facility] Address [address] [facility] [place] [address] Care Team Providers Care Signals Collection Technician Name Role Phone Tesfaye Peralta MD Primary Care Provider Tesfaye Peralta MD Primary Care Provider [phone] Tesfaye Peralta MD Unavailable [phone] Charlene Toribio RN Unavailable [phone] Encounter Details Date Type Department Care Team (Late st Contact Info) Description 11/20/2016 [facility] Outpatient Visit [facility] Medical [facility] [address] [facility], [address] [address] [place] [address] [facility] [address] [address] Social History Tobacco Use Types [...] on filedocumented in this encounter Care Teams Signals Collection Technician Relationship Specialty Start Date End Date Tesfaye Peralta MD [address] [place] [address] PCP - General Internal Medicine 11/22/12 01/13/20 Tesfaye Peralta MD [address] [facility] 209 [place] [address] PCP - General Internal Medicine 01/14/20 Tesfaye Peralta MD [address] [place] [address] Internal Medicine 01/14/20 Charlene Toribio, TITA Seafood Fisherman 10/13/15 documented as of this encounter
--- OUTSIDE RECORDS SUMMARY | 2024-11-03 08:49 | XMS_ITS | Referral Summary ---
Author Organization [facility] Address [address] [facility] [place] [address] Care Team Providers Care Power Plant Engineer Name Role Phone Tesfaye Peralta MD Primary Care Provider Encounters Date Type Department Care Team Description 10/31/2024 Orders Only [address] [place] [address] Glenys Loyola RN 10/27/2024 10:45 AM CDT Office Visit [facility] Ophthalmology [address] [facility] Outpatient Health [address] [place] [address] Annabel Sheikh MD 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) (Primary Dx); Unspecified background retinopathy; Type 2 diabetes mellitus without complication, unspecified whether buttermaker helper insulin use (HCC) 09/19/2024 Telephone [facility] Ophthalmology [address] [place] [address] Annabel Sheikh MD from Last 3 Months Allergies Active Allergy Reactions Criticality Noted Date Comments Adhesive Unknown 08/29/2019 Penicillins Unknown 08/29/2019 Medications JANUVIA 100 mg tabletIndicati ons:type 2 diabetes mellitus 8 Active montelukast (SINGULAIR) 10 mg tablet 8 Active allopurinol (ZYLOPRIM) 300 mg tablet 8 Active qctof-5-pxd-ep a-dpa-fish oil 1,050-1,200 mg capsule 1 capsule Active efj-F0-hsz80-z ael-hxo-mheb-b or 600 mg calcium- 800 unit-50 mg [...] by mouth daily Active iron amino acid htcgkiq-M24-RW 27-100-400 mg-mcg-mcg capsule Take by mouth Active [...] Active Problems Problem Noted Date Diagnosed Date Temporal arteritis 10/31/2024 Cardiomyopathy 08/29/2019 Assessment & Plan (08/29/2019 11:08 AM SMOOTH PLATER): 08/27/17 ECHO - Estimated ejection fraction 40-50% [...] on file Legal Sex Male 11:58 PM SMOOTH PLATER Gender Identity Not on file Sexual Orientation Not on file Last Filed Vital Signs Vital Sign Reading Time Taken Comments Blood Pressure 128/80 08/29/2019 10:33 AM SMOOTH PLATER Pulse 49 08/29/2019 10:33 AM SMOOTH PLATER Temperature - - Respiratory Rate 18 08/29/2019 10:33 AM SMOOTH PLATER Oxygen Saturation 94% 08/29/2019 10:33 AM SMOOTH PLATER Inhaled Oxygen Concentration - - Weight 112.5 kg (248 lb) 08/29/2019 10:33 AM SMOOTH PLATER Height 185.4 cm (6' 1 ) 08/29/2019 10:33 AM SMOOTH PLATER Body Mass Index 32.72 08/29/2019 10:33 AM SMOOTH PLATER Plan of Treatment Not on file Procedures [...] Res ult from Last 3 Months Insurance [id number] PLUS [facility] H[facility]/PPO Address: [facility] [address] [place] [address] [facility] CHOICE PLUS [facility] H[facility]/PPO Address: [facility] [address] [place] [address] [facility] MEDICARE ADVANTAGE [facility] MEDICARE Address: [facility] [address] [place] [address] Care Teams Power Plant Engineer Relationship Specialty Start Date End Date Tesfaye Peralta MD [address] [place] [address] PCP - General Internal Medicine 10/04/17
--- OUTSIDE RECORDS SUMMARY | 2024-11-03 08:49 | XMS_ITS | Clinical Summary ---
Author Organization [facility] Address [address] [facility] [place] [address] Care Team Providers Care Parent Aide Name Role Phone Tesfaye Peralta MD Primary Care Provider [phone] Allergies Active Allergy Reactions Criticality Noted Date Comments Adhesive Unknown 08/29/2019 Penicillins Unknown 08/29/2019 Medications JANUVIA 100 mg tabletIndicati ons:type 2 diabetes mellitus 8 Active montelukast (SINGULAIR) 10 mg tablet 8 Active allopurinol (ZYLOPRIM) 300 mg tablet 8 Active orfph-9-sfv-ep a-dpa-fish oil 1,050-1,200 mg capsule 1 capsule Active usn-E5-djp00-z nes-asj-hmvf-b or 600 mg calcium- 800 unit-50 mg [...] by mouth daily Active iron amino acid nzjecep-I05-ES 27-100-400 mg-mcg-mcg capsule Take by mouth Active [...] 08/29/2019 Assessment & Plan (08/29/2019 11:08 AM VETERANS ADVISER): 08/27/17 ECHO - Estimated ejection fraction 40-50% (mildly depressed) - LV: Moderate concentric hypertrophy is present. - Diastolic dysfunction stage I (impaired relaxation). - The left atrium is mildly enlarged. - The tricuspid valve is mildly thickened. Estimated PA Pressure (mm/Hg): 32 Encounters Date Type Department Care Team Description 10/31/2024 Orders Only [address] [place] [address] Glenys Loyola RN 10/27/2024 10:45 AM CDT Office Visit [facility] Ophthalmology 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) (Primary Dx); Unspecified background retinopathy; Type 2 diabetes mellitus without complication, unspecified whether exterminator termite insulin use (HCC) 09/19/2024 Telephone [facility] Ophthalmology [address] [place] [address] Annabel Sheikh MD from Last 3 Months [...] on file Legal Sex Male 11:58 PM VETERANS ADVISER Gender Identity Not on file Sexual Orientation Not on file Obstetrics History Last Filed Vital Signs Vital Sign Reading Time Taken Comments Blood Pressure 128/80 08/29/2019 10:33 AM VETERANS ADVISER Pulse 49 08/29/2019 10:33 AM VETERANS ADVISER Temperature - - Respiratory Rate 18 08/29/2019 10:33 AM VETERANS ADVISER Oxygen Saturation 94% 08/29/2019 10:33 AM VETERANS ADVISER Inhaled Oxygen Concentration - - Weight 112.5 kg (248 lb) 08/29/2019 10:33 AM VETERANS ADVISER Height 185.4 cm (6' 1 ) 08/29/2019 10:33 AM VETERANS ADVISER Body Mass Index 32.72 08/29/2019 10:33 AM VETERANS ADVISER Plan of Treatment Health Maintenance Due Date [...] DME OS: no DME Annabel Sheikh MD [facility] Final Res ult from Last 3 Months Insurance CHOICE PLUS CHOICE PLUS MEDICARE ADVANTAGE Care Teams Parent Aide Relationship Specialty Start Date End Date Tesfaye Peralta MD [address] [place] [address] PCP - General Internal Medicine 10/04/17
--- OUTSIDE RECORDS SUMMARY | 2024-11-03 08:49 | XMS_ITS | Encounter Summary ---
Author Organization [facility] Address [address] [place] [address] Care Team Providers Care Buncher Operator Name Role Phone Tesfaye Peralta MD Primary Care Provider Encounter Details Date Type Department Care Team (Late st Contact Info) Description 10/31/2024 Orders Only [address] [place] [address] Glenys Loyola, RN Social History Tobacco Use Types Packs/Day Years Used Date Smoking Tobacco: Some Days Cigarettes Smokeless Tobacco: Never Alcohol Use Standard Drinks/Week [...] on file Legal Sex Male 11:58 PM ROOF FIXER Gender Identity Not on file Sexual Orientation Not on file documented as of this encounter Plan of Treatment Not on file documented as of this encounter Visit Diagnoses Not on filedocumented in this encounter Care Teams Buncher Operator Relationship Specialty Start Date End Date Tesfaye Peralta MD [address] [facility] [address] INTERNAL MEDICINE [place], [place] [address] PCP - General Internal Medicine 10/04/17 documented as of this encounter
[2024-11-03 19:04] LABS: Basophils Percent Auto 0.4 % (0.2-1.2); Eosinophils Absolute Auto 0.1 K/mm3 (0-0.3); Eosinophils Percent Auto 1.1 % (0-4.4); Hematocrit 41.5 % (42.0-52.0); Hemoglobin 13.6 g/dL (14.0-18.0); Immature Granulocyte Absolute 0.06 K/mm3 (0.00-0.031); Immature Granulocyte Percent A 0.8 % (0-0.5); Lymphocytes Absolute Auto 2.24 K/mm3 (0.9-3.2); Lymphocytes Percent Auto 29.8 % (18.3-44.2); Mean Corpuscular HGB Conc 32.8 g/dl (32-36); Mean Corpuscular Hemoglobin 31.3 pg (26-34); Mean Corpuscular Volume 95.6 fl (80-100); Mean Platelet Volume 10.6 fl (7.4-10.4); Monocytes Absolute Auto 0.5 K/mm3 (0.1-0.6); Monocytes Percent Auto 7.2 % (2.6-8.5); Neutrophils Absolute Auto 4.6 K/mm3 (1.3-6.7); Neutrophils Percent Auto 60.7 % (45.5-73.1); Platelet Count Result 195 k/mm3 (150-375); Red Blood Count 4.34 M/mm3 (4.6-6.20); Red Cell Distribution Width 15.1 % (11.5-14.5); White Blood Count 7.5 K/mm3 (4.5-10.0)
[2024-11-03 19:36] LABS: Alanine Aminotransferase 53 U/L (6-50); Albumin Level 3.8 g/dL (3.5-5.1); Alkaline Phosphatase 83 U/L (38-126); Anion Gap 8 mmol/L (4-12); Aspartate Amino Transferase 58 U/L (17-59); Bilirubin,Total 0.7 mg/dL (0.2-1.3); Blood Urea Nitrogen 38 mg/dL (9-20); CRP < 0.5 mg/dL (<1.0); Calcium 9.1 mg/dL (8.4-10.2); Carbon Dioxide 27 mmol/L (22-30); Chloride 102 mmol/L (98-107); Estimated Glomerular Filt Rate 53; Glucose 106 mg/dL (65-110); Potassium 3.6 mmol/L (3.4-5.0); Sodium 137 mmol/L (137-145); Uric Acid 5.3 mg/dL (3.5-8.5)
[2024-11-03 19:40] LABS: Erythrocyte Sedimentation Rate 20 mm/hr (0-20)
[2024-11-03 19:47] LABS: Immunoglobulin A 201 mg/dL (70-400); Rheumatoid Factor < 12.0 IU/ML (<12)
[2024-11-03 19:49] LABS: Add Urine Microscopic? YES; Appearance Urine Clear (Clear); Bacteria Urine None Seen /hpf; Bilirubin Urine Negative (Negative); Blood Urine Negative (Negative); Color Urine Yellow (Yellow); Glucose Urine UA 3+ mg/dL (Negative); Ketones Urine Negative (Negative); Leukocyte Esterase Ur Negative LEU/UL (Negative); Nitrate Urine Negative (Negative); Non Pathogenic Casts 0-2; Protein Urine 1+ mg/dL (Negative); RBC Urine 0-2 /hpf (0-2); Specific Grav Ur 1.014 (1.001-1.035); Squamous Epithelial Cell Urine None Seen /hpf (Few); Urobilinogen Urine 0.2 mg/dL (<2.0); WBC Urine 0-5 /hpf (0-3)
[2024-11-03 19:57] LABS: Hepatitis B Surface Antigen Negative (Negative)
[2024-11-03 20:03] LABS: HAV RESULT Negative (Negative); Hepatitis B Core IgM Result Negative (Negative)
[2024-11-03 20:14] LABS: Hepatitis B Surface Anti Res Negative; Hepatitis C Virus Antibody Negative (Negative)
[2024-11-04 15:39] LABS: Cyclic Citrullinated Peptide <16 UNITS
[2024-11-05 13:13] LABS: NIL 0.02 IU/mL; Quantiferon TB Plus, 1T NEGATIVE (NEGATIVE)
== END 2024-11-03 08:31 | disposition home or self-care (01) ==
PROVIDERS: PCP Internal Medicine; Referring Provider Internal Medicine; Visit Provider Internal Medicine
DX: M31.6 Other giant cell arteritis (principal); E11.9 Type 2 diabetes mellitus without complications; E78.2 Mixed hyperlipidemia; Z12.5 Encounter for screening for malignant neoplasm of prostate; Z79.899 Other long term (current) drug therapy; Z13.29 Encounter for screening for other suspected endocrine disorder; E55.9 Vitamin D deficiency, unspecified
CPT/HCPCS: 36415; 80053; 80074; 81001; 82784; 84443; 84550; 85025; 85652; 86038; 86039; 86140; 86200; 86430; 86480; 86706

== ENCOUNTER 2024-12-16 08:18 | Outpatient (CLI) | payer MEDICARE, SELFPAY ==
--- OUTSIDE RECORDS SUMMARY | 2024-12-16 08:21 | XMS_ITS | Encounter Summary ---
Author Organization [facility] Address [address] [facility] [place] [address] Care Team Providers Care Semiconductor Lab Technician Name Role Phone Tesfaye Peralta MD Primary Care Provider [phone] Tesfaye Peralta MD Primary Care Provider [phone] Tesfaye Peralta MD Unavailable [phone] Charlene Toribio RN Unavailable [phone] Encounter Details Date Type Department Care Team (Late st Contact Info) Description 11/12/2015 [facility] Outpatient Visit [facility] Medical [facility] [address] [facility], [address] [address] [place] [address] [facility] [address] [address] Social History Tobacco Use Types [...] on filedocumented in this encounter Care Teams Semiconductor Lab Technician Relationship Specialty Start Date End Date Tesfaye Peralta MD [address] [place] [address] PCP - General Internal Medicine 11/22/12 01/13/20 Tesfaye Peralta MD [address] [facility] [address] [place] [address] PCP - General Internal Medicine 01/14/20 Tesfaye Peralta MD [address] [place] [address] Internal Medicine 01/14/20 Charlene Torbiio, TITA Circle Cutting Saw Operator 10/13/15 documented as of this encounter
--- OUTSIDE RECORDS SUMMARY | 2024-12-16 08:21 | XMS_ITS | Clinical Summary ---
Author Organization [facility] Address [address] [place] [address] Phone Care Team Providers Care Laboratory Tech Name Role Phone Tesfaye Peralta MD Primary Care Provider Allergies Active Allergy Reactions Criticality Noted Date [...] (one) time each day 03/08/20 21 Active Milford-3 Fatty Acids (Milford-3 2100) 1050 MG capsule 1 capsule Active [...] Comments Blood Pressure 128/70 07/10/2022 9:00 AM RAILROAD BRAKE OPERATOR Pulse 72 07/10/2022 9:00 AM RAILROAD BRAKE OPERATOR Temperature 35.5 C (95.9 F) 07/10/2022 9:00 AM RAILROAD BRAKE OPERATOR Respiratory Rate - - Oxygen Saturation - - Inhaled Oxygen Concentration - - Weight 107 kg (236 lb) 07/10/2022 9:00 AM RAILROAD BRAKE OPERATOR Height 182.9 cm (6') 07/10/2022 9:00 AM RAILROAD BRAKE OPERATOR Body Mass Index 32.01 07/10/2022 9:00 AM RAILROAD BRAKE OPERATOR Plan of Treatment Health Maintenance Due Date Last Done Comments Diabetic Foot Exam 1960 Ophthalmology Exam 1960 Pneumococcal PPSV23/PCV13 65 + Years / High and Highest Risk (1 of 5 - PCV) 1967 Influenza Vaccine (Season Ended) 2025 05/06/20, 05/05/[address] [facility] Care Teams Laboratory Tech Relationship Specialty Start Date End Date Tesfaye Peralta MD [address] [facility] [address] [place] [address] PCP - General Internal Medicine 03/17/21
--- OUTSIDE RECORDS SUMMARY | 2024-12-16 08:21 | XMS_ITS | Clinical Summary ---
Author Organization [facility] Address [address] [facility] [place] [address] Care Team Providers Care Silk Blocker Name Role Phone Tesfaye Perlata MD Primary Care Provider [phone] Allergies Active Allergy Reactions Criticality Noted Date Comments Adhesive Unknown 08/29/2019 Penicillins Unknown 08/29/2019 Medications JANUVIA 100 mg tabletIndicati ons:type 2 diabetes mellitus 8 Active montelukast (SINGULAIR) 10 mg tablet 8 Active allopurinol (ZYLOPRIM) 300 mg tablet 8 Active akmwl-7-qvd-ep a-dpa-fish oil 1,050-1,200 mg capsule 1 capsule Active rub-A8-cec79-z wcg-yez-lpza-b or 600 mg calcium- 800 unit-50 mg [...] by mouth daily Active iron amino acid xskxdkk-B79-QM 27-100-400 mg-mcg-mcg capsule Take by mouth Active [...] 08/29/2019 Assessment & Plan (08/29/2019 11:08 AM HAND BOX COVERER): 08/27/17 ECHO - Estimated ejection fraction 40-50% (mildly depressed) - LV: Moderate concentric hypertrophy is present. - Diastolic dysfunction stage I (impaired relaxation). - The left atrium is mildly enlarged. - The tricuspid valve is mildly thickened. Estimated PA Pressure (mm/Hg): 32 Encounters Date Type Department Care Team Description 11/19/2024 Orders Only [address] [address] Glenys Loyola RN 11/18/2024 Orders Only [address] [address] Glenys Loyola RN 11/07/2024 Orders Only [address] [address] Glenys Loyola RN 11/06/2024 Orders Only [facility] [address] [place] [address] Glenys Loyola RN 10/31/2024 Orders Only 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 (HCC) 09/19/2024 Telephone [facility] [address] [place] [address] Annabel Sheikh MD from Last [...] on file Legal Sex Male 11:58 PM HAND BOX COVERER Gender Identity Not on file Sexual Orientation Not on file Obstetrics History Last Filed Vital Signs Vital Sign Reading Time Taken Comments Blood Pressure 128/80 08/29/2019 10:33 AM HAND BOX COVERER Pulse 49 08/29/2019 10:33 AM HAND BOX COVERER Temperature - - Respiratory Rate 18 08/29/2019 10:33 AM HAND BOX COVERER Oxygen Saturation 94% 08/29/2019 10:33 AM HAND BOX COVERER Inhaled Oxygen Concentration - - Weight 112.5 kg (248 lb) 08/29/2019 10:33 AM HAND BOX COVERER Height 185.4 cm (6' 1) 08/29/2019 10:33 AM HAND BOX COVERER Body Mass Index 32.72 08/29/2019 10:33 AM HAND BOX COVERER Plan of Treatment Health Maintenance Due Date [...] from Last 3 Months Insurance [facility] H[facility]/PPO Address: [address] [address] [facility] HMO/PPO Address: [address] [address] [place] [address] [facility] MEDICARE ADVANTAGE [facility] MEDICARE Address: [address] [address] [place] [address] Care Teams Silk Blocker Relationship Specialty Start Date End Date Tesfaye Peralta MD [address] [place] [address] PCP - General Internal Medicine 10/04/17
--- OUTSIDE RECORDS SUMMARY | 2024-12-16 08:21 | XMS_ITS | Encounter Summary ---
Author Organization [facility] Address [address] [facility] [place] [address] Care Team Providers Care Non Destructive Testing Supervisor Name Role Phone Tesfaye Peralta MD Primary Care Provider Tesfaye Peralta MD Primary Care Provider [phone] Tesfaye Peralta MD Unavailable [phone] Charlene Toribio RN Unavailable [phone] Encounter Details Date Type Department Care Team (Late st Contact Info) Description 11/20/2016 [facility] Outpatient Visit [facility] Medical Group [address] [facility], [address] [address] [place] [address] [facility] [address] [address] Social History Tobacco Use Types [...] on filedocumented in this encounter Care Teams Non Destructive Testing Supervisor Relationship Specialty Start Date End Date Tesfaye Peralta MD [address] [place] [address] PCP - General Internal Medicine 11/22/12 01/13/20 Tesfaye Peralta MD [address] [facility] [address] [place] [address] PCP - General Internal Medicine 01/14/20 Tesfaye Peralta MD [address] [place] [address] Internal Medicine 01/14/20 Charlene Toribio, TITA Ship Steward 10/13/15 documented as of this encounter
--- OUTSIDE RECORDS SUMMARY | 2024-12-16 08:22 | XMS_ITS | Referral Summary ---
Author Organization [facility] Address [address] [facility] [place] [address] Care Team Providers Care Animal Scientist Name Role Phone Tesfaye Peralta MD Primary Care Provider [phone] Encounters Date Type Department Care Team Description 11/19/2024 Orders Only [facility] [address] [place] [address] Glenys Loyola, RN 11/18/2024 Orders Only [facility] [address] [place] [address] Glenys Loyola, RN 11/07/2024 Orders Only [facility] [address] [place] [address] Glenys Loyola, RN 11/06/2024 Orders Only [facility] [address] [place] [address] Glenys Loyola, RN 10/31/2024 Orders Only [facility] [address] [place] [address] Glenys Loyola, RN 10/27/2024 10:45 AM CDT Office Visit [facility] Ophthalmology [facility] 6th [place] [address] Annabel Sheikh MD 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) (Primary Dx); Unspecified background retinopathy; Type 2 diabetes mellitus without complication, 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 (HCC) 09/19/2024 Telephone [facility] Ophthalmology [address] [place] [address] Annabel Sheikh MD from Last 3 Months Allergies Active Allergy Reactions Criticality Noted Date Comments Adhesive Unknown 08/29/2019 Penicillins Unknown 08/29/2019 Medications JANUVIA 100 mg tabletIndicati ons:type 2 diabetes mellitus 8 Active montelukast (SINGULAIR) 10 mg tablet 8 Active allopurinol (ZYLOPRIM) 300 mg tablet 8 Active mceoe-6-jxn-ep a-dpa-fish oil 1,050-1,200 mg capsule 1 capsule Active bia-S9-knw79-z nbf-qsn-grwq-b or 600 mg calcium- 800 unit-50 mg [...] by mouth daily Active iron amino acid vioyznb-O99-FL 27-100-400 mg-mcg-mcg capsule Take by mouth Active [...] 15 UNITS SUBCUTANEOUSLY EVERY DAY AT BEDTIME Active insulin lispro (HumaLOG OLGA) 100 unit/mL half-unit pen for injection USE DIRECTED PER SLIDING SCALE DOSE SUBCUTANEOUSLY. SSI 5-15 UNITS THREE TIMES DAILY. 5 Active Active Problems Problem Noted Date Diagnosed Date Temporal arteritis 10/31/2024 Cardiomyopathy 08/29/2019 Assessment & Plan (08/29/2019 11:08 AM DRILLING ENGINEERING MANAGER): 08/27/17 ECHO - Estimated ejection fraction 40-50% [...] on file Legal Sex Male 11:58 PM DRILLING ENGINEERING MANAGER Gender Identity Not on file Sexual Orientation Not on file Last Filed Vital Signs Vital Sign Reading Time Taken Comments Blood Pressure 128/80 08/29/2019 10:33 AM DRILLING ENGINEERING MANAGER Pulse 49 08/29/2019 10:33 AM DRILLING ENGINEERING MANAGER Temperature - - Respiratory Rate 18 08/29/2019 10:33 AM DRILLING ENGINEERING MANAGER Oxygen Saturation 94% 08/29/2019 10:33 AM DRILLING ENGINEERING MANAGER Inhaled Oxygen Concentration - - Weight 112.5 kg (248 lb) 08/29/2019 10:33 AM DRILLING ENGINEERING MANAGER Height 185.4 cm (6' 1) 08/29/2019 10:33 AM DRILLING ENGINEERING MANAGER Body Mass Index 32.72 08/29/2019 10:33 AM DRILLING ENGINEERING MANAGER Plan of Treatment Not on file Procedures [...] Res ult from Last 3 Months Insurance [facility] CHO[facility] PL[facility] CHOICE PLUS [facility] MEDICARE ADVANTAGE Care Teams Animal Scientist Relationship Specialty Start Date End Date Tesfaye Peralta MD [address] [facility] [address] INTERNAL MEDICINE [place] [id number] [phone] (work) PCP - General Internal Medicine 10/04/17
--- OUTSIDE RECORDS SUMMARY | 2024-12-16 08:22 | XMS_ITS | Clinical Summary ---
Author Organization [facility] Address [address] [place] [address] Care Team Providers Care Supervising Floorperson Name Role Phone Tesfaye Peralta MD Primary Care Provider [phone] Tesfaye Peralta MD Unavailable [phone] Charlene Toribio RN Unavailable [phone] [facility],non-owned Affiliates and Associated Physician Practices is amultiple site organization consisting of ambulatory clinics and hospital sitesin [place], [place], [place] and [place]. This disclosure is being madepursuant to the Care Everywhere program and may not contain all information available regarding this patient. Last updated 18.[facility] Allergies Active Allergy Reactions Criticality Noted Date [...] Health Maintenance Due Date Last Done Comments PNEUMOCOCCAL VACCINE 50+ (1 of 1 - PCV) 1998 ZOSTER VACCINE (1 of 2) 1998 Respiratory Syncytial Virus (RSV) Vaccine Pt: or over 60 yrs (1 - 1-dose 75+ series) 2023 COVID-19 VACCINE ( - 2023-2 5 season) 2024 DEPRESSION SCREENING 07/23/2024 INFLUENZA VACCINE (Season Ended) 2025 DTAP/TDAP/TD VACCINES (2 - T d or Tdap) 01/13/2030 01/14/2020 HEPATITIS C SCREENING Completed 06/23/2017 HEPATITIS B VACCINE Aged Out No longe r eligible based on patient's age to complete this topic HIB VACCINE Aged Out No longer eligi [...] ACUTE W/ REFLX CONFIRM 06/23/2017 10:33 AM REMOTELY OPERATED VEHICLE from Last 3 Months or Most Recently Relevant to Health Maintenance Results * HEPATITIS SCREEN ACUTE W/ REFLX CONFIRM (06/23/2017 10:33 AM REMOTELY OPERATED VEHICLE) Hepatitis A Virus Antibody IgM NON-REACTI VE NON-REACT [facility] Hepatitis B Virus Surface Antigen NON-REACTI VE NON-REACT [facility] Hepatitis B Core Virus Antibody IgM NON-REACTI VE NON-REACT [facility] Hepatitis C Antibody NON-REACTI VE NON-REACT [facility] Signal to Cut-Off 0.05 <1.00 [facility] Comment: Test Performed at: [facility] [address] [place] [address] BOGDAN HORN DO,MPH 06/23/2017 10:3 3 AM REMOTELY OPERATED VEHICLE 06/23/2017 10:33 AM REMOTELY OPERATED VEHICLE us Peter Sorensen MD LAB - CHEMISTRY ORDERABLES Final Result [facility] [address] [place] [address] from Last 3 Months or Most Recently Relevant to Health Maintenance Insurance [place] [facility] [place]: [address] [place] [phone] [place] [address] SELF PAY NO INSURANCE Member Subscriber Plan / Payer (Ef fective for All Dates) Name:Franci Meza Member ID:Not on file Relation to Subscriber:Self Name:Franci Meza Subscriber ID:Not on file Payer ID:Not on file Group ID:Not on file Type:Self Pay Address: [place], [place] Advance Directives Documents on File Type Date Recorded Patient Corrugator Helper Expl anation Adv Directive/Living Will/POA 02/16/2013 6:04 AM * FULL RESUSCITATION (Latest Code Status on File) Date Activated Date Inactivated Comments 02/12/2013 9:12 PM 02/14/2013 7:34 PM Care Teams Supervising Floorperson Relationship Specialty Start Date End Date Tesfaye Peralta MD [address] [facility] [address] [place] [address] PCP - General Internal Medicine 01/14/20 Tesfaye Peralta MD 0 [place] [address] Internal Medicine 01/14/20 Charlene Toribio, RN Morals Squad Police Officer 10/13/15
[2024-12-16 11:03] LABS: Add Urine Microscopic? YES; Appearance Urine Clear (Clear); Bacteria Urine None Seen /hpf; Bilirubin Urine Negative (Negative); Blood Urine Negative (Negative); Color Urine Yellow (Yellow); Glucose Urine UA 3+ mg/dL (Negative); Ketones Urine Negative (Negative); Leukocyte Esterase Ur Negative LEU/UL (Negative); Nitrate Urine Negative (Negative); Protein Urine 3+ mg/dL (Negative); RBC Urine 0-2 /hpf (0-2); Specific Grav Ur 1.028 (1.001-1.035); Squamous Epithelial Cell Urine Occasional /hpf (Few); Urobilinogen Urine 0.2 mg/dL (<2.0); WBC Urine 0-5 /hpf (0-3)
[2024-12-16 11:08] LABS: Basophils Absolute Auto 0.1 K/mm3 (0.0-0.1); Basophils Percent Auto 0.5 % (0.2-1.2); Eosinophils Absolute Auto 0.1 K/mm3 (0-0.3); Eosinophils Percent Auto 0.8 % (0-4.4); Hemoglobin 13.6 g/dL (14.0-18.0); Immature Granulocyte Absolute 0.11 K/mm3 (0.00-0.031); Immature Granulocyte Percent A 1.1 % (0-0.5); Lymphocytes Absolute Auto 1.91 K/mm3 (0.9-3.2); Lymphocytes Percent Auto 18.7 % (18.3-44.2); Mean Corpuscular HGB Conc 33.2 g/dl (32-36); Mean Corpuscular Hemoglobin 31.7 pg (26-34); Mean Corpuscular Volume 95.6 fl (80-100); Mean Platelet Volume 10.8 fl (7.4-10.4); Monocytes Absolute Auto 0.7 K/mm3 (0.1-0.6); Monocytes Percent Auto 7.2 % (2.6-8.5); Neutrophils Absolute Auto 7.4 K/mm3 (1.3-6.7); Neutrophils Percent Auto 71.7 % (45.5-73.1); Platelet Count Result 223 k/mm3 (150-375); Red Blood Count 4.29 M/mm3 (4.6-6.20); Red Cell Distribution Width 15.6 % (11.5-14.5); White Blood Count 10.2 K/mm3 (4.5-10.0)
[2024-12-16 11:30] LABS: Alanine Aminotransferase 63 U/L (6-50); Albumin Level 3.9 g/dL (3.5-5.1); Alkaline Phosphatase 88 U/L (38-126); Anion Gap 4 mmol/L (4-12); Aspartate Amino Transferase 71 U/L (17-59); Bilirubin,Total 1.1 mg/dL (0.2-1.3); Blood Urea Nitrogen 41 mg/dL (9-20); CRP < 0.5 mg/dL (<1.0); Calcium 9.2 mg/dL (8.4-10.2); Carbon Dioxide 34 mmol/L (22-30); Chloride 99 mmol/L (98-107); Estimated Glomerular Filt Rate 52; Glucose 198 mg/dL (65-110); Potassium 4.3 mmol/L (3.4-5.0); Sodium 137 mmol/L (137-145)
[2024-12-16 11:42] LABS: Erythrocyte Sedimentation Rate 24 mm/hr (0-20)
== END 2024-12-16 08:19 | disposition home or self-care (01) ==
PROVIDERS: PCP Internal Medicine; Visit Provider Internal Medicine
DX: M31.5 Giant cell arteritis with polymyalgia rheumatica (principal); Z79.899 Other long term (current) drug therapy
CPT/HCPCS: 36415; 80053; 81001; 85025; 85652; 86140

== ENCOUNTER 2024-12-22 08:10 | Outpatient (CLI) | payer MEDICARE, SELFPAY ==
--- OUTSIDE RECORDS SUMMARY | 2024-12-22 08:14 | XMS_ITS | Encounter Summary ---
Author Organization [facility] Address [address] [facility] [place] [address] Care Team Providers Care Group Therapist Name Role Phone Tesfaye Peralta MD Primary Care Provider [phone] Tesfaye Peralta MD Primary Care Provider [phone] Tesfaye Peralta MD Unavailable [phone] Charlene Toribio RN Unavailable [phone] Encounter Details Date Type Department Care Team (Late st Contact Info) Description 11/20/2016 [facility] Outpatient Visit [facility] [address] [facility], [address] [address] [place] [address] [facility] [address] [address] Social History Tobacco Use Types [...] on filedocumented in this encounter Care Teams Group Therapist Relationship Specialty Start Date End Date Tesfaye Peralta MD [address] [place] [address] PCP - General Internal Medicine 11/22/12 01/13/20 Tesfaye Peralta MD [address] [facility] [address] [place] [address] PCP - General Internal Medicine 01/14/20 Tesfaye Peralta MD [address] [place] [address] Internal Medicine 01/14/20 Charlene Toribio, TITA Sulfur Burner 10/13/15 documented as of this encounter
--- OUTSIDE RECORDS SUMMARY | 2024-12-22 08:15 | XMS_ITS | Referral Summary ---
Author Organization [facility] Address [address] [place] [address] Care Team Providers Care Specialty Manufacturing Supervisor Name Role Phone Tesfaye Peralta MD Primary Care Provider [phone] Encounters Date Type Department Care Team Description 11/19/[address] [facility] [address] [place] [address] Glenys Loyola, RN 11/18/[address] [facility] [address] [place] [address] Glenys Loyola, RN 11/07/[address] [facility] [address] [place] [address] Glenys Loyola, RN 11/06/[address] [facility] [address] [place] [address] Glenys Loyola, RN 10/31/[address] 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) from Last 3 Months Allergies Active Allergy Reactions Criticality Noted Date Comments Adhesive Unknown 08/29/2019 Penicillins Unknown 08/29/2019 Medications JANUVIA 100 mg tabletIndicati ons:type 2 diabetes mellitus 8 Active montelukast (SINGULAIR) 10 mg tablet 8 Active allopurinol (ZYLOPRIM) 300 mg tablet 8 Active bunyk-9-mqv-ep a-dpa-fish oil 1,050-1,200 mg capsule 1 capsule Active ejl-I8-keg68-z thf-ula-ulgi-b or 600 mg calcium- 800 unit-50 mg [...] by mouth daily Active iron amino acid yzywhpr-U77-XO 27-100-400 mg-mcg-mcg capsule Take by mouth Active [...] 08/29/2019 Assessment & Plan (08/29/2019 11:08 AM PRICING MANAGER): 08/27/17 ECHO - Estimated ejection fraction [...] on file Legal Sex Male 11:58 PM PRICING MANAGER Gender Identity Not on file Sexual Orientation Not on file Last Filed Vital Signs Vital Sign Reading Time Taken Comments Blood Pressure 128/80 08/29/2019 10:33 AM PRICING MANAGER Pulse 49 08/29/2019 10:33 AM PRICING MANAGER Temperature - - Respiratory Rate 18 08/29/2019 10:33 AM PRICING MANAGER Oxygen Saturation 94% 08/29/2019 10:33 AM PRICING MANAGER Inhaled Oxygen Concentration - - Weight 112.5 kg (248 lb) 08/29/2019 10:33 AM PRICING MANAGER Height 185.4 cm (6' 1) 08/29/2019 10:33 AM PRICING MANAGER Body Mass Index 32.72 08/29/2019 10:33 AM PRICING MANAGER Plan of Treatment Not on file [...] extramacular DBH; no NV, no VH Annabel Shiekh MD OPHTH PHOTOGRAPHY Final Re sult * [...] Res ult from Last 3 Months Insurance [facility] CHOICE PLUS [facility] CHOICE PLUS Member Subscriber Plan / Payer (Ef fective 2024-Present) Name:Derrick February Relation to Subscriber:Self Name:Derrick February Payer ID:[id number] (NAIC) Type:[facility] HMO/PPO Address: [address] MEDICARE ADVANTAGE Care Teams Specialty Manufacturing Supervisor Relationship Specialty Start Date End Date Tesfaye Peralta MD [address] [place] [address] PCP - General Internal Medicine 10/04/17
--- OUTSIDE RECORDS SUMMARY | 2024-12-22 08:15 | XMS_ITS | Continuity of Care Document ---
Author Organization [facility] Address [address] [place] [address] Phone Care Team Providers Care Mixer Driver Name Role Phone Herrera Meneses MD Unavailable [...] Diagnoses Date Provider Providers Copied on Encounter [facility], [address] [facility] [address], [place], [place], [id number], [place] tel:[phone] SEC Jose Luis [place] Professional SENILE NUCLEAR CATARACTDRUSEN OF OPTIC DISCOPN ANGL W BORDERLN FIND Low RiskDIABETIC RETINOPATHY NOS 201 4 Zaira Silverman. [address], [id number], [place]. tel:[phone] Referring Provider: Herrera Larsen, [address], [place], [address] . tel:[phone] [facility], [address], [place], [place], [address], [place] tel:[phone] SEC Drarell Velez No Information Apr-0 7-201 4 Aleta Phillips. [address] [place] [address], [place], [place], [address], [place]. tel:[phone] [facility], [address] [place] [address] [address], [place], [place], [address], [place] tel:[phone] SEC Jose Luis [place] Professional No Information Julian-0 6-201 2 Wankovi Silverman. [address] [facility] [place], [address], [place]. tel:[phone] Referring Provider: Herrera Larsen, [address] [facility] [place], [address] . tel:[phone] [facility], [address] [place] [address] [address], [place], [place], [address], [place] tel:[phone] SEC [place] Professional No Information Apr-0 8-201 1 Wankum Herrera. [address] [facility], [facility] [place], [address], [place]. tel:[phone] [facility], [address] [place] [address] [address], [place], [place], [address], [place] tel:[phone] SEC [place] Professional No Information Apr-0 5-201 0 Wankum Herrera. [address] [facility], [facility] [place], [address], [place]. tel:[phone] [facility], [address], [place], [place], [address], [place] tel:[phone] SEC Jose Luis [place] Professional No Information Apr-0 3-200 9 Wankum Herrera. [address] [facility], [address] [place], [address], [place]. tel:[phone] Referring Provider: Herrera Zaira Larsen, [address], [place], [address] . tel:[phone] [facility], [address] [facility] [address], [place], [place], [address], tel:[phone] SEC [place] HARVEY Professional No Information 200 8 Zaira Silverman. [address], [place], [place], [address], [place]. tel:[phone] Family History Family Member Type Diagnosis Age At Onset Grandmother (m) Problem (finding) Diabetes mellitus Payers Payer name Insurance type Covered democrat ID Authoriza tion(s) [place] [id number] Social History Type Description Quantity Date Captured [...] to Backg round diabetes mellitus retinopathy mild traffic representative - Education al materials provided to patient.dm letter Related to Background diabetes mellitus retinopathy Assessments Type Assessment Date No Information Patient Care Teams Name Effective Dates (start - stop) Status Members No Information
--- OUTSIDE RECORDS SUMMARY | 2024-12-22 08:15 | XMS_ITS | Clinical Summary ---
Author Organization [facility] Address [address] [place] [address] Care Team Providers Care Dietitian Teaching Name Role Phone Tesfaye Peralta MD Primary Care Provider [phone] Tesfaye Peralta MD Unavailable [phone] Charlene Toribio RN Unavailable [phone] [facility],non-owned Affiliates and Associated Physician Practices is amultiple site organization consisting of ambulatory clinics and hospital sitesin [place], [place], [place] and [place]. This disclosure is being madepursuant to the Care Everywhere program and may not contain all information available regarding this patient. Last updated 18.[facility] Allergies Active Allergy Reactions Criticality Noted Date [...] ACUTE W/ REFLX CONFIRM 06/23/2017 10:33 AM RELIEF PHARMACIST from Last 3 Months or Most Recently Relevant to Health Maintenance Results * HEPATITIS SCREEN ACUTE W/ REFLX CONFIRM (06/23/2017 10:33 AM RELIEF PHARMACIST) Hepatitis A Virus Antibody IgM NON-REACTI VE NON-REACT [facility] Hepatitis B Virus Surface Antigen NON-REACTI VE NON-REACT [facility] Hepatitis B Core Virus Antibody IgM NON-REACTI VE NON-REACT [facility] Hepatitis C Antibody NON-REACTI VE NON-REACT [facility] Signal to Cut-Off 0.05 <1.00 [facility] Comment: Test Performed at: [facility] [place] [address] [place] [address] BOGDAN HORN DO,MPH 06/23/2017 10:3 3 AM RELIEF PHARMACIST 06/23/2017 10:33 AM RELIEF PHARMACIST us Peetr Sorensen MD LAB - CHEMISTRY ORDERABLES Final Result [facility] [address] [place] [address] from Last 3 Months or Most Recently Relevant to Health Maintenance Insurance [facility]IC[facility] Address: [address] [place] [phone] ANTH MEDICARE SELF PAY NO INSURANCE Member Subscriber Plan / Payer (Ef fective for All Dates) Name:Franci Meza Member ID:Not on file Relation to Subscriber:Self Name:Franci Meza Subscriber ID:Not on file Payer ID:Not on file Group ID:Not on file Type:Self Pay Address: [place], [place] Advance Directives Documents on File Type Date Recorded Patient Sec Reporting Consultant Expl anation Adv Directive/Living Will/POA 02/16/2013 6:04 AM * FULL RESUSCITATION (Latest Code Status on File) Date Activated Date Inactivated Comments 02/12/2013 9:12 PM 02/14/2013 7:34 PM Care Teams Dietitian Teaching Relationship Specialty Start Date End Date Tesfaye Peralta MD [address] [facility] [address] [place] [address] PCP - General Internal Medicine 01/14/20 Tesfaye Peralta MD 0 [place] [address] Internal Medicine 01/14/20 Charlene Toribio, RN Saw Sharpener 10/13/15
--- OUTSIDE RECORDS SUMMARY | 2024-12-22 08:15 | XMS_ITS | Encounter Summary ---
Author Organization [facility] Address [address] [facility] [place] [address] Care Team Providers Care Blender Helper Name Role Phone Tesfaye Peralta MD Primary Care Provider [phone] Tesfaye Peralta MD Primary Care Provider [phone] Tesfaye Peralta MD Unavailable [phone] Charlene Toribio RN Unavailable [phone] Encounter Details Date Type Department Care Team (Late st Contact Info) Description 11/12/2015 [facility] Outpatient Visit [facility] [address] [facility], [address] [address] [place] [address] [facility] [address] [address] Social History Tobacco Use Types [...] of Assessment Author No 10/13/2015 1:00 AM lEadio Puga RN * Does person have difficulty [...] on filedocumented in this encounter Care Teams Blender Helper Relationship Specialty Start Date End Date Tesfaye Peralta MD [address] [place] [address] PCP - General Internal Medicine 11/22/12 01/13/20 Tesfaye Peralta MD [address] [place] [address] [place] [address] PCP - General Internal Medicine 01/14/20 Tesfaye Peralta MD [address] [place] [address] Internal Medicine 01/14/20 Charlene Toribio, TITA Marketing Developer 10/13/15 documented as of this encounter
--- OUTSIDE RECORDS SUMMARY | 2024-12-22 08:15 | XMS_ITS | Clinical Summary ---
Author Organization [facility] Address [address] [place] [address] Phone Care Team Providers Care Business Machine Mechanic Name Role Phone Tesfaye Peralta MD Primary Care Provider [phone] Allergies Active Allergy Reactions Criticality Noted Date [...] (one) time each day 03/08/20 21 Active Peoria-3 Fatty Acids (Peoria-3 2100) 1050 MG capsule 1 capsule Active [...] Comments Blood Pressure 128/70 07/10/2022 9:00 AM VICE PRESIDENT INVESTOR RELATIONS Pulse 72 07/10/2022 9:00 AM VICE PRESIDENT INVESTOR RELATIONS Temperature 35.5 C (95.9 F) 07/10/2022 9:00 AM VICE PRESIDENT INVESTOR RELATIONS Respiratory Rate - - Oxygen Saturation - - Inhaled Oxygen Concentration - - Weight 107 kg (236 lb) 07/10/2022 9:00 AM VICE PRESIDENT INVESTOR RELATIONS Height 182.9 cm (6') 07/10/2022 9:00 AM VICE PRESIDENT INVESTOR RELATIONS Body Mass Index 32.01 07/10/2022 9:00 AM VICE PRESIDENT INVESTOR RELATIONS Plan of Treatment Health Maintenance Due Date Last Done Comments Diabetic Foot Exam 1960 Ophthalmology Exam 1960 Pneumococcal PPSV23/PCV13 65 + Years / High and Highest Risk (1 of 5 - PCV) 1967 Influenza Vaccine (Season Ended) 2025 05/06/20, 05/05/2021 Insurance MEDICARE [facility] Care Teams Business Machine Mechanic Relationship Specialty Start Date End Date Tesfaye Peralta MD [address] [facility] [address] [place] [address] PCP - General Internal Medicine 03/17/21
--- OUTSIDE RECORDS SUMMARY | 2024-12-22 08:15 | XMS_ITS | Clinical Summary ---
Author Organization [facility] Address [address] [place] [address] Care Team Providers Care Microsoft Bi Consultant Name Role Phone Tesfaye Peralta MD Primary Care Provider [phone] Allergies Active Allergy Reactions Criticality Noted Date Comments Adhesive Unknown 08/29/2019 Penicillins Unknown 08/29/2019 Medications JANUVIA 100 mg tabletIndicati ons:type 2 diabetes mellitus 8 Active montelukast (SINGULAIR) 10 mg tablet 8 Active allopurinol (ZYLOPRIM) 300 mg tablet 8 Active hhoaz-9-sjz-ep a-dpa-fish oil 1,050-1,200 mg capsule 1 capsule Active ldv-V8-dai85-z grr-vnn-pyef-b or 600 mg calcium- 800 unit-50 mg [...] by mouth daily Active iron amino acid ouuespc-N92-ZQ 27-100-400 mg-mcg-mcg capsule Take by mouth Active [...] 08/29/2019 Assessment & Plan (08/29/2019 11:08 AM CHIEF ORTHOPTIST): 08/27/17 ECHO - Estimated ejection fraction 40-50% (mildly depressed) - LV: Moderate concentric hypertrophy is present. - Diastolic dysfunction stage I (impaired relaxation). - The left atrium is mildly enlarged. - The tricuspid valve is mildly thickened. Estimated PA Pressure (mm/Hg): 32 Encounters Date Type Department Care Team Description 11/19/2024 Orders Only [address] [address] Glenys Loyola RN 11/18/2024 Orders Only [address] [address] Glenys Loyola RN 11/07/2024 Orders Only [address] [address] Glenys Loyola RN 11/06/2024 Orders Only [facility] [address] [place] [address] Glenys Loyola RN 10/31/2024 Orders Only [facility] [address] [place] [address] Glenys Loyola RN 10/27/2024 10:45 AM CDT Office Visit [facility] Ophthalmology [facility] Health 6th [place] [address] Annabel Sheikh MD 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) (Primary Dx); Unspecified background retinopathy; Type 2 diabetes mellitus without complication, unspecified whether ferry terminal supervisor insulin use (HCC) from Last 3 Months Medical History Medical [...] on file Legal Sex Male 11:58 PM CHIEF ORTHOPTIST Gender Identity Not on file Sexual Orientation Not on file Obstetrics History Last Filed Vital Signs Vital Sign Reading Time Taken Comments Blood Pressure 128/80 08/29/2019 10:33 AM CHIEF ORTHOPTIST Pulse 49 08/29/2019 10:33 AM CHIEF ORTHOPTIST Temperature - - Respiratory Rate 18 08/29/2019 10:33 AM CHIEF ORTHOPTIST Oxygen Saturation 94% 08/29/2019 10:33 AM CHIEF ORTHOPTIST Inhaled Oxygen Concentration - - Weight 112.5 kg (248 lb) 08/29/2019 10:33 AM CHIEF ORTHOPTIST Height 185.4 cm (6' 1) 08/29/2019 10:33 AM CHIEF ORTHOPTIST Body Mass Index 32.72 08/29/2019 10:33 AM CHIEF ORTHOPTIST Plan of Treatment Health Maintenance Due Date [...] from Last 3 Months Insurance CHOICE PLUS [facility] CHOICE PLUS [facility] MEDICARE ADVANTAGE Care Teams Microsoft Bi Consultant Relationship Specialty Start Date End Date Tesfaye Peralta MD [address] [facility] [address] [place] [address] PCP - General Internal Medicine 10/04/17
[2024-12-22 15:49] LABS: Hemoglobin A1C 7.4 % (<5.7)
== END 2024-12-22 08:11 | disposition home or self-care (01) ==
PROVIDERS: PCP Internal Medicine; Visit Provider Internal Medicine
DX: E11.9 Type 2 diabetes mellitus without complications (principal); M35.3 Polymyalgia rheumatica
CPT/HCPCS: 36415; 83036

== ENCOUNTER 2024-12-25 16:47 | Outpatient (CLI) | payer MEDICARE, SELFPAY ==
--- OUTSIDE RECORDS SUMMARY | 2024-12-25 16:50 | XMS_ITS | Referral Summary ---
Author Organization [facility] Address [address] [place] [address] Care Team Providers Care Tumbler Machine Operator Helper Name Role Phone Tesfaye Peralta MD Primary Care Provider [phone] Encounters Date Type Department Care Team Description 11/19/2024 Orders Only [facility] [address] [place] [address] Glenys Loyola, RN 11/18/2024 Orders Only [facility] [address] [place] [address] Glenys Loyola, RN 11/07/2024 Orders Only [facility] [address] [place] [address] Glenys Loyola, RN 11/06/2024 Orders Only [facility] [address] [place] [address] Glenys Loyola, RN 10/31/2024 Orders Only [facility] [address] [place] [address] Glenys Loyola, RN 10/27/2024 10:45 AM CDT Office Visit [facility] 6th [place] [address] Annabel Sheikh MD 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) (Primary Dx); Unspecified background retinopathy; Type 2 diabetes mellitus without complication, unspecified 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 terminal system operator insulin use (HCC) from Last 3 Months Allergies Active Allergy Reactions Criticality Noted Date Comments Adhesive Unknown 08/29/2019 Penicillins Unknown 08/29/2019 Medications JANUVIA 100 mg tabletIndicati ons:type 2 diabetes mellitus 8 Active montelukast (SINGULAIR) 10 mg tablet 8 Active allopurinol (ZYLOPRIM) 300 mg tablet 8 Active tlbih-1-xhf-ep a-dpa-fish oil 1,050-1,200 mg capsule 1 capsule Active idl-R1-par48-z wud-eiw-klvq-b or 600 mg calcium- 800 unit-50 mg [...] by mouth daily Active iron amino acid cywrzcw-B82-CJ 27-100-400 mg-mcg-mcg capsule Take by mouth Active [...] 08/29/2019 Assessment & Plan (08/29/2019 11:08 AM AT HOME INDEPENDENT CALL CENTER AGENT): 08/27/17 ECHO - Estimated ejection fraction 40-50% [...] on file Legal Sex Male 11:58 PM AT HOME INDEPENDENT CALL CENTER AGENT Gender Identity Not on file Sexual Orientation Not on file Last Filed Vital Signs Vital Sign Reading Time Taken Comments Blood Pressure 128/80 08/29/2019 10:33 AM AT HOME INDEPENDENT CALL CENTER AGENT Pulse 49 08/29/2019 10:33 AM AT HOME INDEPENDENT CALL CENTER AGENT Temperature - - Respiratory Rate 18 08/29/2019 10:33 AM AT HOME INDEPENDENT CALL CENTER AGENT Oxygen Saturation 94% 08/29/2019 10:33 AM AT HOME INDEPENDENT CALL CENTER AGENT Inhaled Oxygen Concentration - - Weight 112.5 kg (248 lb) 08/29/2019 10:33 AM AT HOME INDEPENDENT CALL CENTER AGENT Height 185.4 cm (6' 1) 08/29/2019 10:33 AM AT HOME INDEPENDENT CALL CENTER AGENT Body Mass Index 32.72 08/29/2019 10:33 AM AT HOME INDEPENDENT CALL CENTER AGENT Plan of Treatment Not on file Procedures [...] Res ult from Last 3 Months Insurance [facility] CHOICE PLUS [facility] CHOICE PLUS Member Subscriber Plan / Payer (Ef fective 2024-Present) Name:Derrick February Relation to Subscriber:Self Name:Derrick February Payer ID:[id number] (NAIC) Type:[facility] HMO/PPO Address: [address] MEDICARE ADVANTAGE Care Teams Tumbler Machine Operator Helper Relationship Specialty Start Date End Date Tesfaye Peralta MD [address] [place] [address] PCP - General Internal Medicine 10/04/17
--- OUTSIDE RECORDS SUMMARY | 2024-12-25 16:50 | XMS_ITS | Clinical Summary ---
Author Organization [facility] Address [address] [place] [address] Care Team Providers Care District Ranger Name Role Phone Tesfaye Peralta MD Primary Care Provider Tesfaye Peralta MD Unavailable [phone] Charlene Toribio RN Unavailable [phone] Source Comments [facility],non-owned Affiliates and Associated Physician Practices is amultiple site organization consisting of ambulatory clinics and hospital sitesin [place], [place], [place] and [place]. This disclosure is being madepursuant to the Care Everywhere program and may not contain all information available regarding this patient. Last updated 18.[facility] Allergies Active Allergy Reactions Criticality Noted Date [...] ACUTE W/ REFLX CONFIRM 06/23/2017 10:33 AM SUPERVISOR INSPECTION ROOM from Last 3 Months or Most Recently Relevant to Health Maintenance Results * HEPATITIS SCREEN ACUTE W/ REFLX CONFIRM (06/23/2017 10:33 AM SUPERVISOR INSPECTION ROOM) Hepatitis A Virus Antibody IgM NON-REACTI VE NON-REACT [facility] Hepatitis B Virus Surface Antigen NON-REACTI VE NON-REACT [facility] Hepatitis B Core Virus Antibody IgM NON-REACTI VE NON-REACT [facility] Hepatitis C Antibody NON-REACTI VE NON-REACT [facility] Signal to Cut-Off 0.05 <1.00 [facility] Comment: Test Performed at: [employer] [facility] [address] [place] [address] BOGDAN HORN DO,MPH 06/23/2017 10:3 3 AM SUPERVISOR INSPECTION ROOM 06/23/2017 10:33 AM SUPERVISOR INSPECTION ROOM us Peter Sorensen MD LAB - CHEMISTRY ORDERABLES Final Result [facility] [address] [place] [address] from Last 3 Months or Most Recently Relevant to Health Maintenance Insurance MEDICARE [employer] MEDICARE SELF PAY NO INSURANCE Member Subscriber Plan / Payer (Ef fective for All Dates) Name:Franci Meza Member ID:Not on file Relation to Subscriber:Self Name:Franci Meza Subscriber ID:Not on file Payer ID:Not on file Group ID:Not on file Type:Self Pay Address: [place], [place] Advance Directives Documents on File Type Date Recorded Patient Operator [employer] Expl anation Adv Directive/Living Will/POA 02/16/2013 6:04 AM * FULL RESUSCITATION (Latest Code Status on File) Date Activated Date Inactivated Comments 02/12/2013 9:12 PM 02/14/2013 7:34 PM Care Teams District Ranger Relationship Specialty Start Date End Date Tesfaye Peralta MD [address] [facility] [address] [place] [address] PCP - General Internal Medicine 01/14/20 Tesfaye Peralta MD [address] [place] [address] Internal Medicine 01/14/20 Charlene Toribio, RN Airport Maintenance Chief 10/13/15
--- OUTSIDE RECORDS SUMMARY | 2024-12-25 16:50 | XMS_ITS | Clinical Summary ---
Author Organization [facility] C Address [address] [facility] [address] Care Team Providers Care Truck Engine Technician Name Role Phone Tesfaye Peralta MD Primary Care Provider [phone] Allergies Active Allergy Reactions Criticality Noted Date Comments Adhesive Unknown 08/29/2019 Penicillins Unknown 08/29/2019 Medications JANUVIA 100 mg tabletIndicati ons:type 2 diabetes mellitus 8 Active montelukast (SINGULAIR) 10 mg tablet 8 Active allopurinol (ZYLOPRIM) 300 mg tablet 8 Active hrhrc-0-yik-ep a-dpa-fish oil 1,050-1,200 mg capsule 1 capsule Active rfx-L4-foc35-z ifw-ccq-yttk-b or 600 mg calcium- 800 unit-50 mg [...] by mouth daily Active iron amino acid cwvjdnj-V22-TR 27-100-400 mg-mcg-mcg capsule Take by mouth Active [...] 08/29/2019 Assessment & Plan (08/29/2019 11:08 AM JACQUARD LACE WEAVER): 08/27/17 ECHO - Estimated ejection fraction 40-50% (mildly depressed) - LV: Moderate concentric hypertrophy is present. - Diastolic dysfunction stage I (impaired relaxation). - The left atrium is mildly enlarged. - The tricuspid valve is mildly thickened. Estimated PA Pressure (mm/Hg): 32 Encounters Date Type Department Care Team Description 11/19/2024 Orders Only [address] [address] Glenys Loyola RN 11/18/2024 Orders Only [address] [address] Glenys Loyola RN 11/07/2024 Orders Only [address] [address] Glenys Loyola RN 11/06/2024 Orders Only [facility] [address] [place] [address] Glenys Loyola RN 10/31/2024 Orders Only [facility] [address] [place] [address] Glenys Loyola RN 10/27/2024 10:45 AM CDT Office Visit [facility] Ophthalmology [facility] Health 6th [place] [address] Annabel Sheikh MD 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) (Primary Dx); Unspecified background retinopathy; Type 2 diabetes mellitus without complication, 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 (HCC) from Last [...] on file Legal Sex Male 11:58 PM JACQUARD LACE WEAVER Gender Identity Not on file Sexual Orientation Not on file Obstetrics History Last Filed Vital Signs Vital Sign Reading Time Taken Comments Blood Pressure 128/80 08/29/2019 10:33 AM JACQUARD LACE WEAVER Pulse 49 08/29/2019 10:33 AM JACQUARD LACE WEAVER Temperature - - Respiratory Rate 18 08/29/2019 10:33 AM JACQUARD LACE WEAVER Oxygen Saturation 94% 08/29/2019 10:33 AM JACQUARD LACE WEAVER Inhaled Oxygen Concentration - - Weight 112.5 kg (248 lb) 08/29/2019 10:33 AM JACQUARD LACE WEAVER Height 185.4 cm (6' 1) 08/29/2019 10:33 AM JACQUARD LACE WEAVER Body Mass Index 32.72 08/29/2019 10:33 AM JACQUARD LACE WEAVER Plan of Treatment Health Maintenance Due Date [...] from Last 3 Months Insurance CHOICE PLUS [facility] CHOICE PLUS [facility] MEDICARE ADVANTAGE Care Teams Truck Engine Technician Relationship Specialty Start Date End Date Tesfaye Peralta MD [address] [facility] [address] [place] [address] PCP - General Internal Medicine 10/04/17
--- OUTSIDE RECORDS SUMMARY | 2024-12-25 16:50 | XMS_ITS | Continuity of Care Document ---
Author Organization [employer] [facility] Address [address] [place] [address] Phone Care Team Providers Care Older Adult Social Work Specialist Name Role Phone Herrera Meneses MD Unavailable [...] Diagnoses Date Provider Providers Copied on Encounter [facility], [address] [facility] [address], [place], [place], [id number], [place] tel:[phone] SEC Jose Luis [place] Professional SENILE NUCLEAR CATARACTDRUSEN OF OPTIC DISCOPN ANGL W BORDERLN FIND Low RiskDIABETIC RETINOPATHY NOS 201 4 Zaira Silverman. [address] [place], [id number], [place]. tel:[phone] Referring Provider: Herrera Larsen, [address] [facility] [facility] [address], [place], [address] . tel:[phone] [facility], [address], [place], [place], [address], [place] tel:[phone] SEC Darrell Velez No Information Apr-0 7-201 4 Aleta Phillips. [address] [place] [address], [address], [place], [place], [address], [place]. tel:[phone] [facility] Eye [facility], [address] [place] [address] [address], [place], [place], [address], [place] tel:[phone] SEC Jose Luis [place] Professional No Information Julian-0 6-201 2 Wankovi Silverman. [address] [facility], [facility] [place], [address], [place]. tel:[phone] Referring Provider: Herrera Larsen, [address] [facility] [place], [address] . tel:[phone] [facility], [address] [place] [address] [address], [place], [place], [address], [place] tel:[phone] SEC [place] Professional No Information Apr-0 8-201 1 Wankum Herrera. [address] [facility], [facility] [place], [address], [place]. tel:[phone] [facility], [address] [place] [address] [address], [place], [place], [address], [place] tel:[phone] SEC [place] Professional No Information Apr-0 5-201 0 Wankum Herrera. [address] [facility], [facility] [place], [address], [place]. tel:[phone] [facility], [address], [place], [place], [address], [place] tel:[phone] SEC Jose Luis [place] Professional No Information Apr-0 3-200 9 Wankum Herrera. [address] [facility], Suite [place], [address], [place]. tel:[phone] Referring Provider: Herrera Zaira Larsen, [address], [place], [address] . tel:[phone] [facility], [address] [facility] [address], [place], [place], [address], tel:[phone] SEC [place] HARVEY Professional No Information 200 8 Zaira Silverman. [address], [address], [place], [place], [address], [place]. 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
--- OUTSIDE RECORDS SUMMARY | 2024-12-25 16:50 | XMS_ITS | Clinical Summary ---
Author Organization [facility] Address [address] [place] [address] Phone Care Team Providers Care Web Analytics Developer Name Role Phone Tesfaye Peralta MD Primary Care Provider [phone] Allergies Active Allergy Reactions Criticality Noted Date [...] (one) time each day 03/08/20 21 Active Catlett-3 Fatty Acids (Catlett-3 2100) 1050 MG capsule 1 capsule Active [...] Comments Blood Pressure 128/70 07/10/2022 9:00 AM REFRESH TECHNICIAN Pulse 72 07/10/2022 9:00 AM REFRESH TECHNICIAN Temperature 35.5 C (95.9 F) 07/10/2022 9:00 AM REFRESH TECHNICIAN Respiratory Rate - - Oxygen Saturation - - Inhaled Oxygen Concentration - - Weight 107 kg (236 lb) 07/10/2022 9:00 AM REFRESH TECHNICIAN Height 182.9 cm (6') 07/10/2022 9:00 AM REFRESH TECHNICIAN Body Mass Index 32.01 07/10/2022 9:00 AM REFRESH TECHNICIAN Plan of Treatment Health Maintenance Due Date Last Done Comments Diabetic Foot Exam 1960 Ophthalmology Exam 1960 Pneumococcal PPSV23/PCV13 65 + Years / High and Highest Risk (1 of 5 - PCV) 1967 Influenza Vaccine (Season Ended) 2025 05/06/20, 05/05/2021 Insurance MEDICARE [facility] Care Teams Web Analytics Developer Relationship Specialty Start Date End Date Tesfaye Peralta MD [address] [facility] [address] [place] [address] PCP - General Internal Medicine 03/17/21
--- OUTSIDE RECORDS SUMMARY | 2024-12-25 16:50 | XMS_ITS | Encounter Summary ---
Author Organization [facility] Address [address] [facility] [place] [address] Care Team Providers Care Veneer Jointer Helper Name Role Phone Tesfaye Peralta MD Primary Care Provider [phone] Tesfaye Peralta MD Primary Care Provider [phone] Tesfaye Peralta MD Unavailable [phone] Charlene Toribio RN Unavailable [phone] Encounter Details Date Type Department Care Team (Late st Contact Info) Description 11/20/2016 [facility] Outpatient Visit [facility] [address] [facility], [address] [address] [place] [address] [facility] [address] [address] Social History Tobacco Use Types [...] on filedocumented in this encounter Care Teams Veneer Jointer Helper Relationship Specialty Start Date End Date Tesfaye Peralta MD [address] [place] [address] PCP - General Internal Medicine 11/22/12 01/13/20 Tesfaye Peralta MD [address] [facility] [address] [place] [address] PCP - General Internal Medicine 01/14/20 Tesfaye Peralta MD [address] [place] [address] Internal Medicine 01/14/20 Charlene Toribio, TITA Record Press Operator 10/13/15 documented as of this encounter
--- OUTSIDE RECORDS SUMMARY | 2024-12-25 16:50 | XMS_ITS | Encounter Summary ---
Author Organization [facility] Address [address] [facility] [place] [address] Care Team Providers Care Barrel Rifler Button Name Role Phone Tesfaye Peralta MD Primary Care Provider [phone] Tesfaye Peralta MD Primary Care Provider [phone] Tesfaye Peralta MD Unavailable [phone] Charlene Toribio RN Unavailable [phone] Encounter Details Date Type Department Care Team (Late st Contact Info) Description 11/12/2015 [facility] Outpatient Visit [facility] [address] [facility], [address] [address] [place] [address] [facility] [address] [address] Social History Tobacco Use [...] on filedocumented in this encounter Care Teams Barrel Rifler Button Relationship Specialty Start Date End Date Tesfaye Peralta MD [address] [place] [address] PCP - General Internal Medicine 11/22/12 01/13/20 Tesfaye Peralta MD [address] [facility] [address] [place] [address] PCP - General Internal Medicine 01/14/20 Tesfaye Peralta MD [address] [place] [address] Internal Medicine 01/14/20 Charlene Toribio, TITA Racecar Driver 10/13/15 documented as of this encounter
[2024-12-25 17:49] LABS: Creatine Kinase 148 U/L (55-170); Troponin I 0.037 ng/mL (0.000-0.034)
== END 2024-12-25 16:48 | disposition home or self-care (01) ==
PROVIDERS: PCP Internal Medicine; Visit Provider Internal Medicine
DX: R07.9 Chest pain, unspecified (principal)
CPT/HCPCS: 36415; 82550; 84484

== ENCOUNTER 2025-03-16 12:36 | Outpatient (CLI) | payer MEDICARE, SELFPAY ==
--- OUTSIDE RECORDS SUMMARY | 2025-03-16 12:40 | XMS_ITS | Encounter Summary ---
Author Organization [facility] Address [address] [facility] [address] [place] [address] Care Team Providers Care Cobol Mainframe Developer Name Role Phone Tesfaye Peralta MD Primary Care Provider Tesfaye Peralta MD Primary Care Provider Tesfaye Peralta MD Unavailable [phone] Charlene Toribio RN Unavailable [phone] Encounter Details Date Type Department Care Team (Late st Contact Info) Description 11/12/2015 [facility] Outpatient Visit [facility] Medical [facility] [address] [place] [address], [facility] [address] [place] [address] [place] [address] [facility] [address] [address] Social History Tobacco Use Types [...] of Assessment Author Yes 10/13/2015 1:00 AM Eladio Puga RN * Is person blind or have serious difficulty seeing? Answer Date of Assessment Author No 10/13/2015 1:00 AM Eladio Puga RN * Does person have serious difficulty [...] on filedocumented in this encounter Care Teams Cobol Mainframe Developer Relationship Specialty Start Date End Date Tesfaye Peralta MD [address] [place] [address] PCP - General Internal Medicine 11/22/12 01/13/20 Tesfaye Peralta MD [address] [facility] [address] [place] [address] PCP - General Internal Medicine 01/14/20 Tesfaye Peralta MD [address] [place] [address] Internal Medicine 01/14/20 Charlene Toribio, TITA Disposal Operator 10/13/15 documented as of this encounter
--- OUTSIDE RECORDS SUMMARY | 2025-03-16 12:40 | XMS_ITS | Encounter Summary ---
Author Organization [facility] Address [address] [facility] [place] [address] Care Team Providers Care Hook And Eye Attacher Name Role Phone Tesfaye Peralta MD Primary Care Provider Tesfaye Peralta MD Primary Care Provider [phone] Tesfaye Peralta MD Unavailable [phone] Charlene Toribio RN Unavailable Encounter Details Date Type Department Care Team (Late st Contact Info) Description 11/20/2016 [facility] Outpatient Visit [facility] Medical [facility] [address] [place] [address], [facility] [address] [place] [address] [place] [address] [facility] [address] [address] Social History Tobacco Use Types [...] on filedocumented in this encounter Care Teams Hook And Eye Attacher Relationship Specialty Start Date End Date Tesfaye Peralta MD [address] [place] [address] PCP - General Internal Medicine 11/22/12 01/13/20 Tesfaye Peralta MD [address] [facility] [address] [place] [address] PCP - General Internal Medicine 01/14/20 Tesfaye Peralta MD [address] [place] [address] Internal Medicine 01/14/20 Charlene Toribio, TITA Household Personal Assistant 10/13/15 documented as of this encounter
--- OUTSIDE RECORDS SUMMARY | 2025-03-16 12:40 | XMS_ITS | Clinical Summary ---
Author Organization [facility] Address [address] [place] [address] Phone Care Team Providers Care Case Assembler Name Role Phone Tesfaye Peralta MD Primary Care Provider [phone] Allergies Active Allergy Reactions Criticality Noted Date [...] (one) time each day 03/08/20 21 Active Pony-3 Fatty Acids (Pony-3 2100) 1050 MG capsule 1 capsule Active [...] Comments Blood Pressure 128/70 07/10/2022 9:00 AM ASSISTANT GENERAL MANAGER Pulse 72 07/10/2022 9:00 AM ASSISTANT GENERAL MANAGER Temperature 35.5 C (95.9 F) 07/10/2022 9:00 AM ASSISTANT GENERAL MANAGER Respiratory Rate - - Oxygen Saturation - - Inhaled Oxygen Concentration - - Weight 107 kg (236 lb) 07/10/2022 9:00 AM ASSISTANT GENERAL MANAGER Height 182.9 cm (6') 07/10/2022 9:00 AM ASSISTANT GENERAL MANAGER Body Mass Index 32.01 07/10/2022 9:00 AM ASSISTANT GENERAL MANAGER Plan of Treatment Health Maintenance Due Date Last Done Comments Pneumococcal PPSV23/PCV13 65 + Years / Low and Medium Risk (1 of 2 - PCV) 1998 Influenza Vaccine (#1) 2025 05/06/2022, 2020 Insurance MEDICARE [facility] Care Teams Case Assembler Relationship Specialty Start Date End Date Tesfaye Peralta MD [address] [facility] [address] [place] [address] PCP - General Internal Medicine 03/17/21
--- OUTSIDE RECORDS SUMMARY | 2025-03-16 12:40 | XMS_ITS | Clinical Summary ---
Author Organization [facility] Address [address] [facility] [place] [address] Care Team Providers Care Design Engineer Products Name Role Phone Tesfaye Peralta MD Primary Care Provider [phone] Allergies Active Allergy Reactions Criticality Noted Date Comments Adhesive Unknown 08/29/2019 Penicillins Unknown 08/29/2019 Medications JANUVIA 100 mg tabletIndicati ons:type 2 diabetes mellitus 8 Active montelukast (SINGULAIR) 10 mg tablet 8 Active allopurinol (ZYLOPRIM) 300 mg tablet 8 Active hsops-0-eip-ep a-dpa-fish oil 1,050-1,200 mg capsule 1 capsule Active zls-Y3-vyo95-z vnd-ybm-dojd-b or 600 mg calcium- 800 unit-50 mg [...] by mouth daily Active iron amino acid izxjfrw-Q28-TC 27-100-400 mg-mcg-mcg capsule Take by mouth Active [...] 08/29/2019 Assessment & Plan (08/29/2019 11:08 AM SCREEN PRINTING CLOTH SPREADER): 08/27/17 ECHO - Estimated ejection fraction 40-50% (mildly depressed) - LV: Moderate concentric hypertrophy is present. - Diastolic dysfunction stage I (impaired relaxation). - The left atrium is mildly enlarged. - The tricuspid valve is mildly thickened. Estimated PA Pressure (mm/Hg): 32 Medical History Medical History Date Comments Cardiomyopathy Hypertension Hyperlipidemia Family History Medical History Relation [...] on file Legal Sex Male 11:58 PM SCREEN PRINTING CLOTH SPREADER Gender Identity Not on file Sexual Orientation Not on file Obstetrics History Last Filed Vital Signs Vital Sign Reading Time Taken Comments Blood Pressure 128/80 08/29/2019 10:33 AM SCREEN PRINTING CLOTH SPREADER Pulse 49 08/29/2019 10:33 AM SCREEN PRINTING CLOTH SPREADER Temperature - - Respiratory Rate 18 08/29/2019 10:33 AM SCREEN PRINTING CLOTH SPREADER Oxygen Saturation 94% 08/29/2019 10:33 AM SCREEN PRINTING CLOTH SPREADER Inhaled Oxygen Concentration - - Weight 112.5 kg (248 lb) 08/29/2019 10:33 AM SCREEN PRINTING CLOTH SPREADER Height 185.4 cm (6' 1) 08/29/2019 10:33 AM SCREEN PRINTING CLOTH SPREADER Body Mass Index 32.72 08/29/2019 10:33 AM SCREEN PRINTING CLOTH SPREADER Plan of Treatment Health Maintenance Due Date Last Done Comments Albumin Creatinine Ratio, Urine 1948 Depression Screening 1948 Fall Risk Assessment 1948 Hepatitis C Screening 1948 eGFR 1948 Foot Exam 1948 Lipid Panel 1948 Hepatitis B Screening 1966 Well Visit 65+ 2013 Zoster Vaccine (1 of 2) 06/19/2014 04/24/2014 Pneumococcal vaccine 65+ (2 of 2 - PPSV23, PCV20, or PCV21) 05/18/2016 03/23/2016 Hemoglobin A1C 08/17/2018 02/14/2018 DTaP/Tdap/Td Vaccine (1 - Tdap) 01/15/2020 01/14/2020, 09/17/2018, 12/01/2013 Influenza Vaccine (#1) 2025 2, 05/05/2021, 05/26/2019, Additional history exists Dilated Eye Exam 10/27/2025 10/27/2024 Insurance [facility] CHOICE PLUS [facility] HMO/PPO Address: [address] [address] [place] [address] [facility] CHOICE PLUS [facility] HMO/PPO Address: [address] [place] [address] MEDICARE ADVANTAGE [facility] MEDICARE Address: [facility] [address] [place] [address] Care Teams Design Engineer Products Relationship Specialty Start Date End Date Tesfaye Peralta MD [address] [place] [address] [place] [address] PCP - General Internal Medicine 10/04/17
--- OUTSIDE RECORDS SUMMARY | 2025-03-16 12:40 | XMS_ITS | Clinical Summary ---
Author Organization [facility] Address [address] [facility] [place] [address] Care Team Providers Care Quill Worker Name Role Phone Tesfaye Peralta MD Primary Care Provider [phone] Tesfaye Peralta MD Unavailable [phone] Charlene Toribio RN Unavailable [phone] Source Comments [facility],non-owned Affiliates and Associated Physician Practices is amultiple site organization consisting of ambulatory clinics and hospital sitesin [place], [place], [place] and [place]. This disclosure is being madepursuant to the Care Everywhere program and may not contain all information available regarding this patient. Last updated 18.[facility] Allergies Active Allergy Reactions Criticality Noted [...] season) 2024 DEPRESSION SCREENING 07/23/2024 INFLUENZA VACCINE (#1) 2025 DTAP/TDAP/TD VACCINES (2 - T d [...] ACUTE W/ REFLX CONFIRM 06/23/2017 10:33 AM LIVER TRIMMER from Last 3 Months or Most Recently Relevant to Health Maintenance Results * HEPATITIS SCREEN ACUTE W/ REFLX CONFIRM (06/23/2017 10:33 AM LIVER TRIMMER) Hepatitis A Virus Antibody IgM NON-REACTI VE NON-REACT [facility] Hepatitis B Virus Surface Antigen NON-REACTI VE NON-REACT [facility] Hepatitis B Core Virus Antibody IgM NON-REACTI VE NON-REACT [facility] Hepatitis C Antibody NON-REACTI VE NON-REACT [facility] Signal to Cut-Off 0.05 <1.00 [facility] Comment: Test Performed at: [facility] [place] [address] [place] [address] BOGDAN HRON DO,MPH 06/23/2017 10:3 3 AM LIVER TRIMMER 06/23/2017 10:33 AM LIVER TRIMMER us Peter Sorensen MD LAB - CHEMISTRY ORDERABLES Final Result [facility] [id number] [place] [address] from Last 3 Months or Most Recently Relevant to Health Maintenance Insurance [facility]IC[facility] Address: [place] [address] MEDICARE SELF PAY NO INSURANCE Member Subscriber Plan / Payer (Ef fective for All Dates) Name:Franci Meza Member ID:Not on file Relation to Subscriber:Self Name:Franci Meza Subscriber ID:Not on file Payer ID:Not on file Group ID:Not on file Type:Self Pay Address: [place], [place] Advance Directives Documents on File Type Date Recorded Patient Telegraph Equipment Maintainer Expl anation Adv Directive/Living Will/POA 02/16/2013 6:04 AM * FULL RESUSCITATION (Latest Code Status on File) Date Activated Date Inactivated Comments 02/12/2013 9:12 PM 02/14/2013 7:34 PM Care Teams Quill Worker Relationship Specialty Start Date End Date Tesfaye Peralta MD [address] [phone] PCP - General Internal Medicine 01/14/20 Tesfaey Peralta MD [address] [place] [address] Internal Medicine 01/14/20 Charlene Toribio, TITA Ship Pilot 10/13/15
--- OUTSIDE RECORDS SUMMARY | 2025-03-16 12:40 | XMS_ITS | Clinical Summary ---
Author Organization [facility] Address [address] [place] [address] Care Team Providers Care Auto Battery Builder Name Role Phone Tesfaye Peralta MD Primary Care Provider [phone] Allergies Active Allergy Reactions Criticality Noted Date [...] by mouth every morning before breakfast. Active [place]-3 Fatty Acids (OMEGA-3 PLUS) 1000 MG Cap [...] (06/05/2022): Added automatically from request for surgery [id number] Family History Medical History Relation Comments Other [...] 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, TECHNOLOGY SALES CONSULTANT, JORDANA) 05/31/2022 Sex and Gender Information Value [...] Date Last Done Comments Hepatitis C 1966 Pneumococcal Vaccine: 50+ Years (1 of 1 - PCV) 1998 03/23/2016 Annual Medicare Wellness Visit 2013 DTaP, Tdap and Td Vaccines ( 1 [...] to complete this topic Insurance MED REPLACE [facility] MEDICARE Care Teams Auto Battery Builder Relationship Specialty Start Date End Date Tesfaye Peralta MD [address] [place] [address] PCP - General INTERNAL MEDICINE 05/21/22
[2025-03-16 15:48] LABS: Anion Gap 6 mmol/L (4-12); Blood Urea Nitrogen 40 mg/dL (9-20); Calcium 9.4 mg/dL (8.4-10.2); Carbon Dioxide 30 mmol/L (22-30); Chloride 101 mmol/L (98-107); Estimated Glomerular Filt Rate 45; Glucose 201 mg/dL (65-110); Potassium 4.1 mmol/L (3.4-5.0); Sodium 137 mmol/L (137-145)
[2025-03-16 15:51] LABS: NT Pro B Type Natriuretic Pept 255 pg/mL (19.9-100)
== END 2025-03-16 12:37 | disposition home or self-care (01) ==
LOC: ANHGOSHLAB 12:37
PROVIDERS: PCP Internal Medicine; Visit Provider Internal Medicine Cardiovascular Disease
DX: I51.89 Other ill-defined heart diseases (principal)
CPT/HCPCS: 36415; 80048; 83880

== ENCOUNTER 2025-04-03 07:58 | Outpatient (CLI) | payer MEDICARE, SELFPAY ==
--- OUTSIDE RECORDS SUMMARY | 2013-11-07 04:00 | XMS_ITS | Continuity of Care Document ---
Author Organization [employer] [facility] Address [address] [place] [address] Phone Care Team Providers Care Stem Lead Former Name Role Phone Herrera Meneses MD Unavailable Unavailable Allergies, Adverse Reactions, Alerts Substance Reaction Status Criticality NSAIDS (Non-Steroidal Anti-Inflammatory Drug) Active No Information penicillin G Active No Information Medications Medication Instructions Dosage Effective Dates (start - stop) Status Comments allopurinol 100 mg tablet - Active montelukast 10 mg tablet take 1 tablet by oral route every day in the evening 10 MG - Active Bystolic 5 mg tablet take 1 tablet by oral route every day 5 MG - Active Lantus 100 unit/mL subcutaneous solution inject by subcutaneous route as per insulin protocol 0.00 - Active simvastatin 20 mg tablet take 1 tablet by oral route every day in the evening 20 MG - Active eplerenone 25 mg tablet take 1 tablet by oral route every day 25 MG - Active L-Lysine 500 mg capsule - Active Centrum Silver tablet take 1 tablet by oral route every day - Active FiberCon 625 mg tablet - Active Apidra 100 unit/mL subcutaneous solution inject by subcutaneous route as per insulin sliding scale protocol - No Longer Active Singulair 10 mg tablet take 1 tablet by oral route every day in the evening 10 MG - No Longer Active Klor-Con 10 mEq tablet,extended release take 2 tablet by oral route 2 times every day with food 20 MEQ - No Longer Active Benicar 20 mg tablet take 1 tablet by oral route every day 20 MG - No Longer Active Coreg CR 40 mg capsule, extended release take 1 capsule by oral route every day 40 MG - No Longer Active testosterone cypionate 100 mg/mL intramuscular oil inject 0.5 milliliter by intramuscular route every 4 weeks 50 MG - No Longer Active bumetanide 2 mg tablet take 1 tablet by oral route every day 2 MG - No Longer Active Aspirin Low Dose 81 mg tablet,delayed release take 1 tablet by oral route every day 81 MG - No Longer Active Procedures Procedure Date Eye Exam & Treatment Dilated Retinal Exam W Interpretation Ap No Evidence Of Retinopathy In Prior Year Communication Performed Eye Exam & Treatment Eye Exam & Treatment Eye Exam & Treatment Eye Exam & Treatment Corneal Pachymetry Eye Exam & Treatment Advance Directives Directive Yes / No Effective Date File Name Resuscitation Not Answered N/A N/A Life Support Not Answered N/A N/A Intubation Not Answered N/A N/A Antibiotics Not Answered N/A N/A IV Fluid Support Not Answered N/A N/A Tube Feed Not Answered N/A N/A Other Directive N/A N/A WARNING:The information contained in this section is historical and is provided for information only and does not constitute a legal document or any assurance that the information is still accurate. Please verify the information with the ford of the legal document before using it for clinical purposes. Encounters Encounter Description Practice Location Reason(s) For Visit Diagnoses Date Provider Providers Copied on Encounter [facility], [address], [place], [place], [id number], [place] tel:[phone] SEC Jose Luis [place] Professional SENILE NUCLEAR CATARACTDRUSEN OF OPTIC DISCOPN ANGL W BORDERLN FIND Low RiskDIABETIC RETINOPATHY NOS 201 4 Zaira Silverman. [address] [place], [address], [place]. tel:[phone] Referring Provider: Herrera Larsen, [address] [facility] [address], [place], [address] . tel:[phone] [facility], [address], [place], [place], [address], [place] tel:[phone] SEC Darrell Velez No Information Apr-0 7-201 4 Aleta Phillips. [address] [place] [address] [address], [place], [place], [id number], [place]. tel:[phone] [facility], [address] [place] [address] [address], [place], [place], [id number], [place] tel:[phone] SEC [place] Professional No Information Julian-0 6-201 2 Wankovi Silverman. [address] [facility], [facility] [place], [address], [place]. tel:[phone] Referring Provider: Herrera Larsen, [address] [facility] [place], [address] . tel:[phone] [facility], [address] [place] [address] [address], [place], [place], [address], [place] tel:[phone] SEC [place] Professional No Information Apr-0 8-201 1 Wankum Herrera. [address] [facility], [facility] [place], [address], [place]. tel:[phone] [facility], [address] [place] [address] [address], [place], [place], [address], [place] tel:[phone] SEC Jose Luis [place] Professional No Information Apr-0 5-201 0 Wankum Herrera. [address] [facility], [facility] [place], [address], [place]. tel:[phone] [facility], [address], [place], [place], [address], [place] tel:[phone] SEC [place] Professional No Information Apr-0 3-200 9 Wankum Herrera. [address] [facility], [address] [place], [address], [place]. tel:[phone] Referring Provider: Herrera Zaira Larsen, [address], [place], [address] . tel:[phone] [facility], [address] [facility] [address] [address], [place], [place], [address], tel:[phone] SEC Buchanan HARVEY Professional No Information 200 8 Zaira Silverman. [address], [place], [place], [address], [place]. tel:[phone] Family History Family Member Type Diagnosis Age At Onset Grandmother (m) Problem (finding) Diabetes mellitus Payers Payer name Insurance type Covered constitution party ID Authoriza tion(s) [place] [id number] Social History Type Description Quantity Date Captured Comments Alcohol Use Details No Caffeine Use Details Tobacco Use Status No Information Smoking Status Never smoker Non-Smoking Tobacco Use Details : No Details Available : No Details Available Sex Male Chief Complaint And Reason For Visit No Information Reason For Referral Reason For Referral No Information History Of Present Illness Encounter Date Complaint History Of Prese nt Illness No Information Functional Status Date Functional Assessmen t No Information Instructions Date Instruction Additional Infor mation early nsc ou Related to Senil e nuclear cataract 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
--- OUTSIDE RECORDS SUMMARY | 2025-04-03 08:03 | XMS_ITS | Clinical Summary ---
Author Organization [facility] Address [address] [facility] [place] [address] Care Team Providers Care Stencil Cutter Machine Name Role Phone Tesfaye Peralta MD Primary Care Provider [phone] Allergies Active Allergy Reactions Criticality Noted Date Comments Adhesive Unknown 08/29/2019 Penicillins Unknown 08/29/2019 Medications JANUVIA 100 mg tabletIndicati ons:type 2 diabetes mellitus 8 Active montelukast (SINGULAIR) 10 mg tablet 8 Active allopurinol (ZYLOPRIM) 300 mg tablet 8 Active jqloy-9-tlq-ep a-dpa-fish oil 1,050-1,200 mg capsule 1 capsule Active fex-M5-jcz07-z yyw-yql-czgt-b or 600 mg calcium- 800 unit-50 mg [...] by mouth daily Active iron amino acid mkukcbi-I23-KK 27-100-400 mg-mcg-mcg capsule Take by mouth Active [...] 08/29/2019 Assessment & Plan (08/29/2019 11:08 AM LIFESTYLE CONSULTANT): 08/27/17 ECHO - Estimated ejection fraction 40-50% [...] on file Legal Sex Male 11:58 PM LIFESTYLE CONSULTANT Gender Identity Not on file Sexual Orientation Not on file Obstetrics History Last Filed Vital Signs Vital Sign Reading Time Taken Comments Blood Pressure 128/80 08/29/2019 10:33 AM LIFESTYLE CONSULTANT Pulse 49 08/29/2019 10:33 AM LIFESTYLE CONSULTANT Temperature - - Respiratory Rate 18 08/29/2019 10:33 AM LIFESTYLE CONSULTANT Oxygen Saturation 94% 08/29/2019 10:33 AM LIFESTYLE CONSULTANT Inhaled Oxygen Concentration - - Weight 112.5 kg (248 lb) 08/29/2019 10:33 AM LIFESTYLE CONSULTANT Height 185.4 cm (6' 1) 08/29/2019 10:33 AM LIFESTYLE CONSULTANT Body Mass Index 32.72 08/29/2019 10:33 AM LIFESTYLE CONSULTANT Plan of Treatment Health Maintenance Due Date [...] exists Dilated Eye Exam 10/27/2025 10/27/2024 Insurance [facility] CHOICE [facility]PPO Address: [address] [address] [place] [address] [facility] CHOICE [facility] H[facility]/PPO Address: [address] [place] [address] MEDICARE ADVANTAGE [facility] Address: [facility] [address] [place] [address] Care Teams Stencil Cutter Machine Relationship Specialty Start Date End Date Tesfaye Peralta MD [address] [place] [address] [place] [address] PCP - General Internal Medicine 10/04/17
--- OUTSIDE RECORDS SUMMARY | 2025-04-03 08:03 | XMS_ITS | Encounter Summary ---
Author Organization [facility] Address [address] [place] [address] Care Team Providers Care Wind Science And Planning Name Role Phone Tesfaye Peralta MD Primary Care Provider [phone] Tesfaye Peralta MD Primary Care Provider [phone] Tesfaye Peralta MD Unavailable [phone] Charlene Toribio RN Unavailable Encounter Details Date Type Department Care Team (Late st Contact Info) Description 11/20/2016 [facility] Outpatient Visit [facility] Medical [facility] [address] [place] [address], [facility] [address] [place] [address] [place] [address] [facility] [address] [address] Social History Tobacco Use Types [...] on filedocumented in this encounter Care Teams Wind Science And Planning Relationship Specialty Start Date End Date Tesfaye Peralta MD [address] [place] [address] PCP - General Internal Medicine 11/22/12 01/13/20 Tesfaye Peralta MD [address] [facility] [address] [place] [address] PCP - General Internal Medicine 01/14/20 Tesfaye Peralta MD [address] [place] [address] Internal Medicine 01/14/20 Charlene Toribio, TITA Loss Prevention Specialist 10/13/15 documented as of this encounter
--- OUTSIDE RECORDS SUMMARY | 2025-04-03 08:03 | XMS_ITS | Clinical Summary ---
Author Organization [facility] Address [address] [place] [address] Phone Care Team Providers Care Digital Business Analyst Name Role Phone Tesfaye Peralta MD Primary Care Provider [phone] Allergies Active Allergy Reactions Criticality Noted Date [...] (one) time each day 03/08/20 21 Active [place]-3 Fatty Acids (Shattuck-3 2100) 1050 MG capsule 1 capsule Active [...] Comments Blood Pressure 128/70 07/10/2022 9:00 AM BULK GAS SPECIALIST Pulse 72 07/10/2022 9:00 AM BULK GAS SPECIALIST Temperature 35.5 C (95.9 F) 07/10/2022 9:00 AM BULK GAS SPECIALIST Respiratory Rate - - Oxygen Saturation - - Inhaled Oxygen Concentration - - Weight 107 kg (236 lb) 07/10/2022 9:00 AM BULK GAS SPECIALIST Height 182.9 cm (6') 07/10/2022 9:00 AM BULK GAS SPECIALIST Body Mass Index 32.01 07/10/2022 9:00 AM BULK GAS SPECIALIST Plan of Treatment Health Maintenance Due Date Last Done Comments Pneumococcal PPSV23/PCV13 65 + Years / Low and Medium Risk (1 of 2 - PCV) 1998 Influenza Vaccine (#1) 2025 05/06/2022, 2020 Insurance MEDICARE [facility] Care Teams Digital Business Analyst Relationship Specialty Start Date End Date Tesfaye Peralta MD [address] [facility] [address] [place] [address] PCP - General Internal Medicine 03/17/21
--- OUTSIDE RECORDS SUMMARY | 2025-04-03 08:03 | XMS_ITS | Encounter Summary ---
Author Organization [facility] Address [address] [facility] [place] [address] Care Team Providers Care Valve Repairer Reclamation Name Role Phone Tesfaye Peralta MD Primary Care Provider Tesfaye Peralta MD Primary Care Provider [phone] Tesfaye Peralta MD Unavailable [phone] Charlene Toribio RN Unavailable Encounter Details Date Type Department Care Team (Late st Contact Info) Description 11/12/2015 [facility] Outpatient Visit [facility] Medical [facility] [address] [place] [address], [facility] [address] [place] [address] [place] [address] [facility] [address] [address] Social History Tobacco Use Types [...] on filedocumented in this encounter Care Teams Valve Repairer Reclamation Relationship Specialty Start Date End Date Tesfaye Peralta MD [address] [place] [address] PCP - General Internal Medicine 11/22/12 01/13/20 Tesfaye Peralta MD [address] [facility] [address] [place] [address] PCP - General Internal Medicine 01/14/20 Tesfaye Peralta MD [address] [place] [address] Internal Medicine 01/14/20 Charlene Toribio, TITA Towel Rolling Machine Operator 10/13/15 documented as of this encounter
--- OUTSIDE RECORDS SUMMARY | 2025-04-03 08:03 | XMS_ITS | Clinical Summary ---
Author Organization [facility] Address [address] [facility] [place] [address] Care Team Providers Care Hole Digger Truck Driver Name Role Phone Tesfaye Peralta MD Primary Care Provider Tesfaye Peralta MD Unavailable [phone] Charlene Toribio RN Unavailable [phone] Source Comments [facility],non-owned Affiliates and Associated Physician Practices is amultiple site organization consisting of ambulatory clinics and hospital sitesin [place], [place], [place] and [place]. This disclosure is being madepursuant to the Care Everywhere program and may not contain all information available regarding this patient. Last updated 18.[facility] Allergies Active Allergy Reactions Criticality Noted [...] yrs (1 - 1-dose 75+ series) 2023 DEPRESSION SCREENING 07/23/2024 COVID-19 VACCINE (1 - 2023-2 5 season) 2025 INFLUENZA VACCINE (#1) 2025 DTAP/TDAP/TD VACCINES (2 [...] ACUTE W/ REFLX CONFIRM 06/23/2017 10:33 AM FAMILY SPECIALIST from Last 3 Months or Most Recently Relevant to Health Maintenance Results * HEPATITIS SCREEN ACUTE W/ REFLX CONFIRM (06/23/2017 10:33 AM FAMILY SPECIALIST) Hepatitis A Virus Antibody IgM NON-REACTI VE NON-REACT [facility] Hepatitis B Virus Surface Antigen NON-REACTI VE NON-REACT [facility] Hepatitis B Core Virus Antibody IgM NON-REACTI VE NON-REACT [facility] Hepatitis C Antibody NON-REACTI VE NON-REACT [facility] Signal to Cut-Off 0.05 <1.00 [facility] Comment: Test Performed at: [facility] [place] [address] [address] [place] [address] BOGDAN HORN DO,MPH 06/23/2017 10:3 3 AM FAMILY SPECIALIST 06/23/2017 10:33 AM FAMILY SPECIALIST us Peter Sorensen MD LAB - CHEMISTRY ORDERABLES Final Result [facility] [id number] [place] [address] from Last 3 Months or Most Recently Relevant to Health Maintenance Insurance MEDICARE [facility] MEDICARE SELF PAY NO INSURANCE Member Subscriber Plan / Payer (Ef fective for All Dates) Name:Franci Meza Member ID:Not on file Relation to Subscriber:Self Name:Franci Meza Subscriber ID:Not on file Payer ID:Not on file Group ID:Not on file Type:Self Pay Address: [place], [place] Advance Directives Documents on File Type Date Recorded Patient Carpet Binder Expl anation Adv Directive/Living Will/POA 02/16/2013 6:04 AM * FULL RESUSCITATION (Latest Code Status on File) Date Activated Date Inactivated Comments 02/12/2013 9:12 PM 02/14/2013 7:34 PM Care Teams Hole Digger Truck Driver Relationship Specialty Start Date End Date Tesfaye Peralta MD [address] [address] PCP - General Internal Medicine 01/14/20 Tesfaye Peralta MD [address] [place] [address] Internal Medicine 01/14/20 Charlene Toribio, TITA Telecommunications Operator 10/13/15
[2025-04-03 18:09] LABS: Hematocrit 45.3 % (42.0-52.0); Hemoglobin 14.5 g/dL (14.0-18.0); Mean Corpuscular HGB Conc 32.0 g/dl (32-36); Mean Corpuscular Hemoglobin 30.4 pg (26-34); Mean Corpuscular Volume 95.0 fl (80-100); Platelet Count Result 212 k/mm3 (150-375); Red Blood Count 4.77 M/mm3 (4.6-6.20); White Blood Count 10.6 K/mm3 (4.5-10.0)
[2025-04-03 18:39] LABS: Iron 103 ug/dL (49-181)
[2025-04-03 18:49] LABS: Percent Iron Saturation 28 % (20-50)
[2025-04-03 18:59] LABS: Total Protein Urine Random 26 mg/dL; Ur Ttl Prot Creatinine Ratio 1.06 mg/mg (0-0.20)
[2025-04-03 19:07] LABS: Albumin Level 4.3 g/dL (3.5-5.1); Anion Gap 12 mmol/L (4-12); Blood Urea Nitrogen 42 mg/dL (9-20); Calcium 9.5 mg/dL (8.4-10.2); Carbon Dioxide 29 mmol/L (22-30); Chloride 100 mmol/L (98-107); Estimated Glomerular Filt Rate 44; Glucose 152 mg/dL (65-110); Potassium 3.7 mmol/L (3.4-5.0); Sodium 141 mmol/L (137-145)
[2025-04-03 19:15] LABS: Ferritin 86.40 ng/mL (11.1-264)
[2025-04-03 19:17] LABS: CRP < 0.5 mg/dL (<1.0); Parathyroid Intact 96.1 pg/mL (14.5-75.2)
== END 2025-04-03 07:59 | disposition home or self-care (01) ==
PROVIDERS: Internal Medicine Nephrology; PCP Internal Medicine; Visit Provider Internal Medicine
DX: M35.3 Polymyalgia rheumatica (principal); M31.6 Other giant cell arteritis; D50.9 Iron deficiency anemia, unspecified; N18.31 Chronic kidney disease, stage 3a
CPT/HCPCS: 36415; 80069; 82570; 82728; 83540; 83550; 83970; 84156; 85027; 85652; 86140

== ENCOUNTER 2025-06-15 07:58 | Outpatient (CLI) | payer MEDICARE, SELFPAY ==
--- OUTSIDE RECORDS SUMMARY | 2025-06-15 08:07 | XMS_ITS | Encounter Summary ---
Author Organization [facility] Address [address] [place] [address] Care Team Providers Care Filter Press Supervisor Name Role Phone Tesfaye Peralta MD Primary Care Provider Tesfaye Peralta MD Primary Care Provider [phone] Tesfaye Peralta MD Unavailable [phone] Charlene Toribio RN Unavailable Encounter Details Date Type Department Care Team (Late st Contact Info) Description 11/12/2015 [facility] Outpatient Visit [facility] Medical [facility] [address] [place] [address], [facility] [address] [place] [address] [place] [address] [facility] [address] [address] Social History Tobacco Use Types [...] on filedocumented in this encounter Care Teams Filter Press Supervisor Relationship Specialty Start Date End Date Tesfaye Peralta MD [address] [place] [address] PCP - General Internal Medicine 11/22/12 01/13/20 Tesfaye Peralta MD [address] [facility] [address] [place] [address] PCP - General Internal Medicine 01/14/20 Tesfaye Peralta MD [address] [place] [address] Internal Medicine 01/14/20 Charlene Toribio, TITA Site Administrator 10/13/15 documented as of this encounter
--- OUTSIDE RECORDS SUMMARY | 2025-06-15 08:07 | XMS_ITS | Clinical Summary ---
Author Organization [facility] Address [address] [place] [address] Phone Care Team Providers Care Skirt Trimmer Name Role Phone Tesfaye Peralta MD Primary Care Provider [phone] Allergies Active Allergy Reactions Criticality Noted Date [...] (one) time each day 03/08/20 21 Active [place]-3 Fatty Acids ([place]-3 2100) 1050 MG capsule 1 capsule Active [...] Comments Blood Pressure 128/70 07/10/2022 9:00 AM MENS LOCKER ROOM ATTENDANT Pulse 72 07/10/2022 9:00 AM MENS LOCKER ROOM ATTENDANT Temperature 35.5 C (95.9 F) 07/10/2022 9:00 AM MENS LOCKER ROOM ATTENDANT Respiratory Rate - - Oxygen Saturation - - Inhaled Oxygen Concentration - - Weight 107 kg (236 lb) 07/10/2022 9:00 AM MENS LOCKER ROOM ATTENDANT Height 182.9 cm (6') 07/10/2022 9:00 AM MENS LOCKER ROOM ATTENDANT Body Mass Index 32.01 07/10/2022 9:00 AM MENS LOCKER ROOM ATTENDANT Plan of Treatment Health Maintenance Due Date Last Done Comments Pneumococcal PPSV23/PCV13 65 + Years / Low and Medium Risk (1 of 2 - PCV) 1998 Influenza Vaccine (#1) 2025 05/06/2022, 2020 Insurance MEDICARE [facility] Care Teams Skirt Trimmer Relationship Specialty Start Date End Date Tesfaye Peralta MD [address] [facility] [address] [place] [address] PCP - General Internal Medicine 03/17/21
--- OUTSIDE RECORDS SUMMARY | 2025-06-15 08:07 | XMS_ITS | Clinical Summary ---
Author Organization [facility] Address [address] [facility] [place] [address] Care Team Providers Care Cattle Tester Name Role Phone Tesfaye Peralta MD Primary Care Provider [phone] Allergies Active Allergy Reactions Criticality Noted Date Comments Adhesive Unknown 08/29/2019 Penicillins Unknown 08/29/2019 Medications JANUVIA 100 mg tabletIndicati ons:type 2 diabetes mellitus 8 Active montelukast (SINGULAIR) 10 mg tablet 8 Active allopurinol (ZYLOPRIM) 300 mg tablet 8 Active hrdiz-4-njw-ep a-dpa-fish oil 1,050-1,200 mg capsule 1 capsule Active hxj-D0-zdj67-z wxy-mgx-vghh-b or 600 mg calcium- 800 unit-50 mg [...] by mouth daily Active iron amino acid oqrhbgl-H83-NQ 27-100-400 mg-mcg-mcg capsule Take by mouth Active [...] 5-15 UNITS THREE TIMES DAILY. 5 Active valsartan (DIOVAN) 80 mg tablet 1 tablet (80 mg total) 5 Active Active Problems Problem Noted Date Diagnosed Date Temporal arteritis 10/31/2024 Cardiomyopathy 08/29/2019 Assessment & Plan (08/29/2019 11:08 AM STRATEGY SPECIALIST): 08/27/17 ECHO - Estimated ejection fraction 40-50% (mildly depressed) - LV: Moderate concentric hypertrophy is present. - Diastolic dysfunction stage I (impaired relaxation). - The left atrium is mildly enlarged. - The tricuspid valve is mildly thickened. Estimated PA Pressure (mm/Hg): 32 Encounters Date Type Department Care Team Description 04/27/2025 10:00 AM CDT Office Visit [facility] Medicine Ophthalmology [address] [place] [address] Health [address] [place] [address] Annabel Sheikh MD 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) (Primary Dx) from Last 3 Months Medical History Medical [...] on file Legal Sex Male 11:58 PM STRATEGY SPECIALIST Gender Identity Not on file Sexual Orientation Not on file Last Filed Vital Signs Vital Sign Reading Time Taken Comments Blood Pressure 128/80 08/29/2019 10:33 AM STRATEGY SPECIALIST Pulse 49 08/29/2019 10:33 AM STRATEGY SPECIALIST Temperature - - Respiratory Rate 18 08/29/2019 10:33 AM STRATEGY SPECIALIST Oxygen Saturation 94% 08/29/2019 10:33 AM STRATEGY SPECIALIST Inhaled Oxygen Concentration - - Weight 112.5 kg (248 lb) 08/29/2019 10:33 AM STRATEGY SPECIALIST Height 185.4 cm (6' 1) 08/29/2019 10:33 AM STRATEGY SPECIALIST Body Mass Index 32.72 08/29/2019 10:33 AM STRATEGY SPECIALIST Plan of Treatment Health Maintenance Due Date Last Done Comments Albumin Creatinine Ratio, Urine 1948 Depression Screening 1948 Fall Risk Assessment 1948 Hepatitis C Screening 1948 eGFR 1948 Foot Exam 1948 Lipid Panel 1948 Hepatitis B Screening 1966 Well Visit 65+ 2013 Pneumococcal vaccine 65+ (2 of 2 - PPSV23, PCV20, or PCV21) 05/18/2016 03/23/2016 Hemoglobin A1C 08/17/2018 02/14/2018 DTaP/Tdap/Td Vaccine (1 - Tdap) 01/15/2020 01/14/2020, 09/17/2018, 12/01/2013 Zoster Vaccine (1 of 2) 09/02/2020 07/08/2020, 04/24 Influenza Vaccine (#1) 2025 2, 05/05/2021, 05/26/2019, Additional history exists Dilated Eye Exam 04/27/2026 04/27/2025, 10/27/2024 Procedures Procedure Name Priority Date/Time Associated Diagnosis Comments OCT, RETINA - OU - BOTH EYES Routine 04/27/2025 11:20 AM CDT 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) from Last 3 Months Results * OCT, Retina - OU - Both Eyes (04/27/2025 11:20 AM CDT) Anatomical Region Laterality Modality Head Optical Coherenc e Tomography Narrative 04/27/2025 11:20 AM CDT Right Eye Quality was good. Scan locations included subfoveal. Left Eye Quality was good. Scan locations included subfoveal. Notes OD: no DME OS: no DME; few drusen Annabel Sheikh MD OPHTH TOMOGRAPHY Final Res ult from Last 3 Months Insurance [facility] CHOICE PLUS [facility] MEDICARE ADVANTAGE Care Teams Cattle Tester Relationship Specialty Start Date End Date Tesfaye Peralta MD PCP - General Internal Medicine 10/04/17
--- OUTSIDE RECORDS SUMMARY | 2025-06-15 08:07 | XMS_ITS | Encounter Summary ---
Author Organization [facility] Address [address] [place] [address] Care Team Providers Care Chip Frier Name Role Phone Tesfaye Peralta MD Primary Care Provider Tesfaye Peralta MD Primary Care Provider Tesfaye Peralta MD Unavailable [phone] Charlene Toribio RN Unavailable Encounter Details Date Type Department Care Team (Late st Contact Info) Description 11/20/2016 [facility] Outpatient Visit [facility] [id number] [place] [address], [facility] [address] [place] [address] [place] [address] [facility] [address] [address] Social History Tobacco Use Types [...] on filedocumented in this encounter Care Teams Chip Frier Relationship Specialty Start Date End Date Tesfaye Peralta MD [address] [place] [address] PCP - General Internal Medicine 11/22/12 01/13/20 Tesfaye Peralta MD [address] [facility] [address] [place] [address] PCP - General Internal Medicine 01/14/20 Tesfaye Peralta MD [address] [place] [address] Internal Medicine 01/14/20 Charlene Toribio, TITA Violin Tutor 10/13/15 documented as of this encounter
--- OUTSIDE RECORDS SUMMARY | 2025-06-15 08:08 | XMS_ITS | Clinical Summary ---
Author Organization [facility] [place] Address [address] [place] [address] Care Team Providers Care Gastroenterology Teacher Name Role Phone Tesfaye Peralta MD Primary Care Provider [phone] Tesfaye Peralta MD Unavailable [phone] Charlene Toribio RN Unavailable [phone] Source Comments [facility],non-owned Affiliates and Associated Physician Practices is amultiple site organization consisting of ambulatory clinics and hospital sitesin [place], [place], [place] and [place]. This disclosure is being madepursuant to the Care Everywhere program and may not contain all information available regarding this patient. 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 from Last 3 Months or Most Recently Relevant to Health Maintenance Results * HEPATITIS SCREEN ACUTE W/ REFLX CONFIRM (06/23/2017 10:33 AM PLASTIC PANEL INSTALLER) Hepatitis A Virus Antibody IgM NON-REACTI VE NON-REACT [facility] Hepatitis B Virus Surface Antigen NON-REACTI VE NON-REACT [facility] Hepatitis B Core Virus Antibody IgM NON-REACTI VE NON-REACT [facility] Hepatitis C Antibody NON-REACTI VE NON-REACT [facility] Signal to Cut-Off 0.05 <1.00 [facility] Comment: Test Performed at: [facility] [id number] [id number] BOGDAN HORN DO,MPH 06/23/2017 10:3 3 AM PLASTIC PANEL INSTALLER 06/23/2017 10:33 AM PLASTIC PANEL INSTALLER us Peter Sorensen MD LAB - CHEMISTRY ORDERABLES Final Result [facility] [address] [place] [address] from Last 3 Months or Most Recently Relevant to Health Maintenance Insurance MEDICARE [facility] MEDICARE SELF PAY NO INSURANCE Member Subscriber Plan / Payer (Ef fective for All Dates) Name:Franci Meza Member ID:Not on file Relation to Subscriber:Self Name:Franci Meza Subscriber ID:Not on file Payer ID:Not on file Group ID:Not on file Type:Self Pay Address: [place], [place] Advance Directives Documents on File Type Date Recorded Patient Bung Dropper Expl anation Adv Directive/Living Will/POA 02/16/2013 6:04 AM * FULL RESUSCITATION (Latest Code Status on File) Date Activated Date Inactivated Comments 02/12/2013 9:12 PM 02/14/2013 7:34 PM Care Teams Gastroenterology Teacher Relationship Specialty Start Date End Date Tesfaye Peralta MD [address] [id number] PCP - General Internal Medicine 01/14/20 Tesfaye Peralta MD [address] [place] [address] Internal Medicine 01/14/20 Charlene Toribio, TITA Juice Weigher 10/13/15
[2025-06-15 13:02] LABS: Hematocrit 41.0 % (42.0-52.0); Hemoglobin 13.1 g/dL (14.0-18.0); Immature Granulocyte Percent A 0.8 % (0-0.5); Lymphocytes Absolute Auto 2.06 K/mm3 (0.9-3.2); Mean Corpuscular HGB Conc 32.0 g/dl (32-36); Mean Corpuscular Hemoglobin 30.6 pg (26-34); Mean Corpuscular Volume 95.8 fl (80-100); Nucleated Red Blood Cells Absolute Auto 0.000 K/mm3 (0.0-0.012); Nucleated Red Blood Cells Perc 0.0 % (0.0-0.2); Platelet Count Result 205 k/mm3 (150-375); Red Blood Count 4.28 M/mm3 (4.6-6.20); White Blood Count 8.9 K/mm3 (4.5-10.0)
[2025-06-15 13:17] LABS: Add Urine Microscopic? YES; Appearance Urine Clear (Clear); Glucose Urine UA 2+ mg/dL (Negative); Leukocyte Esterase Ur Negative LEU/UL (Negative); Nitrate Urine Negative (Negative); Specific Grav Ur 1.018 (1.001-1.035)
[2025-06-15 13:40] LABS: Alanine Aminotransferase 40 U/L (6-50); Albumin Level 4.1 g/dL (3.5-5.1); Alkaline Phosphatase 75 U/L (38-126); Anion Gap 7 mmol/L (4-12); Aspartate Amino Transferase 63 U/L (17-59); Bilirubin,Total 0.9 mg/dL (0.2-1.3); Blood Urea Nitrogen 49 mg/dL (9-20); CRP < 0.5 mg/dL (<1.0); Calcium 9.4 mg/dL (8.4-10.2); Carbon Dioxide 29 mmol/L (22-30); Chloride 99 mmol/L (98-107); Cholesterol 196 mg/dL (0-200); Estimated Glomerular Filt Rate 38; Glucose 94 mg/dL (65-110); HDL Direct 40 mg/dL; Potassium 3.8 mmol/L (3.4-5.0); Sodium 135 mmol/L (137-145); Total Protein 7.5 g/dL (6.3-8.2); Triglycerides 170 mg/dL (<150)
[2025-06-15 13:51] LABS: Hemoglobin A1C 7.2 % (<5.7)
[2025-06-15 13:52] LABS: Free T4 Free Thyroxine 0.94 ng/dL (0.78-2.19)
[2025-06-15 14:09] LABS: Prostate Specific Antigen 0.6 ng/mL (< OR = 4.0); Thyroid Stimulating Hormone 1.680 uIU/mL (0.465-4.680)
== END 2025-06-15 07:59 | disposition home or self-care (01) ==
PROVIDERS: PCP Internal Medicine; Visit Provider Internal Medicine
DX: E11.9 Type 2 diabetes mellitus without complications (principal); Z79.899 Other long term (current) drug therapy; Z13.29 Encounter for screening for other suspected endocrine disorder; I10 Essential (primary) hypertension; E78.2 Mixed hyperlipidemia; Z12.5 Encounter for screening for malignant neoplasm of prostate
CPT/HCPCS: 36415; 80053; 80061; 81001; 83036; 84153; 84439; 84443; 85025; 85652; 86140; G0103